=== PATIENT | female | born 1935 | race Caucasian/White ===

== ENCOUNTER 2016-10-08 06:40 | Inpatient (IN) | payer MEDICARE, BC ==
[~2016-10-08] VITALS: Ht 168.9 cm; Wt 72.5 kg
[2016-10-08] VITALS (43 sets, daily range): BP systolic 104–143; BP diastolic 50–85; PULSE 53–66; RESP 11–18; TEMP 97.4–97.7; O2SAT 95–100; Ht 168.9 cm; Wt 72.5 kg
[~2016-10-08 06:40] MED LIST: ASPI325T PO; METO-279 PO; PRAV40TA3 PO; SPIR1TAB4 PO
--- OUTSIDE RECORDS SUMMARY | 2016-10-08 06:46 | XMS REPORT | Summary of Care ---
Author Author Ion Pillai M.D. Organization Unknown Address [address], [place] [id number] Phone Unavailable Care Team Providers Care Delivery Specialist Name Role Phone Rosas Levi, Alek Unavailable Unavailable Wolfgang Cano M.D. Unavailable Unavailable Ion Pillai PP Unavailable Unavailable Unavailable Functional Status Functional Status Health Issues* Name Dates Details Functional status health issues are not documented Status: Cognitive Status Health Issues* Name Dates Details Cognitive status health issues are not documented Status: Problems Name Dates Details Easy Bruising Tendency Status: Active Joint Pain In The Left Knee Status: Active Actinic keratosis (702.0, L57.0) Status: Active Seborrheic keratosis (702.19, L82.1) Status: Active Calculus of gallbladder w/o mention of cholecystitis or obstruction (574.20, K80.20) Status: Active Pre-operative exam (V72.84, Z01.818) Status: Active Pre-operative cardiovascular examination (V72.81, Z01.810) Status: Active Cholelithiasis with cholecystitis (574.10, K80.10) Status: Active Breast cancer (174.9, C50.919) Status: Active Cyst Status: Active Lump, breast (611.72, N63) Status: Active Urinary symptom or sign (788.99, R39.89) Status: Active Dysuria (788.1, R30.0) Status: Active Needs flu shot (V04.81, Z23) Status: Active SOB (shortness of breath) on exertion (786.05, R06.02) Status: Active Chest pain (786.50, R07.9) Status: Active Abnormal stress test (794.39, R94.39) Status: Active Visit for wound check (V58.89, Z51.89) Status: Active Dermatitis (692.9, L30.9) Status: Active 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, 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 Fatigue (780.79, R53.83) Status: Active Hypertension (401.9, I10) Status: Active Constipation (564.00, K59.00) Status: Active Abnormal weight loss (783.21, R63.4) Status: Active Urinary frequency (788.41, R35.0) Status: Active Spinal stenosis (724.00, M48.00) Status: Active Lumbar radiculopathy (724.4, M54.16) Status: Active Leg pain, bilateral (729.5, M79.604) Status: Active Hyperlipidemia (272.4, E78.5) Status: Active Ankle pain, left (719.47, M25.572) Status: Active Ankle sprain (845.00, S93.409A) Status: Active Medications Name Dates Details Spironolactone-HCTZ 25-25 MG Oral Tablet Take 1 tablet daily Quantity: 90 Ion Pillai M.D.* Started ActiveMetoprolol Tartrate 100 MG Oral Tablet TAKE 1/2 TABLET BID * Quantity: 180 Refills: 0 Ion Pillai M.D.* Started ActiveCaptopril 50 MG Oral Tablet 1 and 1/2 tabs bid * Quantity: 270 Refills: 1 Ion Pillai M.D.* Started ActivePravastatin Sodium 40 MG Oral Tablet TAKE 1 TABLET DAILY. * Quantity: 90 Refills: 2 Ion Pillai M.D.* Started ActivePotassium Chloride ER 10 MEQ Oral Capsule Extended Release TAKE 1/2 CAPSULE Daily * Quantity: 30 Refills: 0 * Started ActiveVitamin B-12 500 MCG Oral Tablet TAKE 1/2 TABLET DAILY. * Refills: 0 * Started ActiveVitamin D 1000 UNIT Oral Capsule Take 1/2 of 500 mg tablet * Refills: 0 * Started ActiveAspirin 325 MG Oral Tablet TAKE 1/2 TABLET DAILY * Refills: 0 * Started ActiveMetoprolol Tartrate 100 MG Oral Tablet TAKE 1 TABLET BY MOUTH TWICE A DAY IN THE MORNING AND EVENING * Quantity: 180 Refills: 0 Ion Pillai M.D.* Started 07-Oct-2013 ActiveNitrostat 0.4 MG Sublingual Tablet Sublingual PLACE 1 TABLET UNDER THE TONGUE EVERY 5 MINUTES UP TO 3 DOSES NEEDED FOR CHEST PAIN. * Quantity: 25 Refills: 1 Wolfgang Cano M.D.* Started 11-Apr-2014 [id number] Tablet Sublingual Bottle PredniSONE 10 MG Oral Tablet take 3 tabs daily for 2 days, 2 tabs daily for 2 days, 1 daily for 2 days * Quantity: 20 Refills: 0 Ion Pillai M.D.* Started 30-Sep-2014 ActiveMethocarbamol 750 MG Oral Tablet take one tab every 6 hours as needed for back spasms * Quantity: 30 Refills: 1 Ion Pillai M.D.* Started 30-Sep-2014 Active Allergies and Adverse Reactions Name Dates Details No Known Drug Allergies Status: Active Latex Status: Denied Past Medical History Name Dates Details History of Acute Myocardial Infarction (V12.59) Status: Resolved 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 History of Bright Red Blood Per Rectum Status: Resolved Procedures Procedure Dates Details History of Hysterectomy History of Complete Colonoscopy Completed:02-May-2011 History of Breast Surgery Lumpectomy History of Breast Surgery Excision Of Breast Single Lesion Completed: Comprehensive Metabolic Panel 1212 Ordered:18-Oct-2014 Immunization Name Dates Details Influenza Administered on:22-Mar-2011 Influenza Administered on:27-Mar-2012 Fluvirin Intramuscular Injectable Administered on:20-Apr-2013 Fluzone High-Dose Intramuscular Suspension Lot #: [id number] Administered on:14-Mar-2014 Prevnar 13 Intramuscular Suspension Lot #: [id number] Administered on:14-Mar-2014 Family History Mother* Name Dates Details Family history of Mother At Age ____ Status: Active Family history of Breast Cancer (V16.3) Status: Active Family history of Hypertension (V17.49) Status: Active Father* Name Dates Details Family history of Stroke Syndrome (V17.1) Status: Active Family history of Father At Age ____ Status: Active Family history of Hypertension (V17.49) Status: Active Sister* Name Dates Details Family history of Colon Cancer (V16.0) Status: Active Social History Name Dates Details Smoking Status* Unknown if ever smoked * Never smoker Vital Signs Date Test Result Details 17-Oct-2014 08:51 BP Systolic 119 mm[Hg] Status: BP Diastolic 67 mm[Hg] Status: Heart Rate 68 /min Status: O2 SAT 96 % Status: Results Date Description Value Details 30-Sep-2014 10:27 CBC w/ Auto Diff 7150 WBC 6.9 K/uL (Better) Range: 4.5-11.0 RBC 4.80 mil/uL (Better) Range: 3.60-5.00 HGB 14.2 g/dL (Better) Range: 12.0-16.0 HCT 39.8 % (Better) Range: 36.0-48.0 MCV 82.8 fL (Better) Range: 80.0-99.0 MCH 29.6 pg (Better) Range: 27.3-32.5 MCHC 35.7 % (Better) Range: 32.0-36.0 RDW 13.4 % (Better) Range: 11.6-14.8 PLATELETS 236 K/uL (Better) Range: 150-400 MPV 7.5 fL (Better) Range: 6.0-11.0 %NEUTRO 65.0 % (Better) Range: 37.0-80.0 %LYMPHS 24.1 % (Better) Range: 13.0-50.0 %MONO 6.1 % (Better) Range: 0.0-12.0 %EOS 2.7 % (Better) Range: 0.0-7.0 %BASO 0.6 % (Better) Range: 0.0-2.5 %JUSTIN 1.5 % (Better) Range: 0.0-5.0 NEUTRO 4.5 K/uL (Better) Range: 2.0-6.9 LYMPHS 1.7 K/uL (Better) Range: 0.6-3.4 MONOS 0.4 K/uL (Better) Range: 0.0-0.9 EOS 0.2 K/uL (Better) Range: 0.0-0.7 BASO 0.0 K/uL (Better) Range: 0.0-0.2 10:40 Comprehensive Metabolic Panel 1212 SODIUM 137 mmol/L (Better) Range: 133-144 POTASSIUM 3.8 mmol/L (Better) Range: 3.5-5.1 CHLORIDE 99 mmol/L (Better) Range: 98-110 CARBON DIOXIDE 29.7 mmol/L (Better) Range: 23.0-33.0 ANION GAP 8 mmol/L (Better) Range: 6-16 BUN 19 mg/dL (Above high threshold) Range: 7-18 CREATININE, SERUM 1.04 mg/dL (Better) Range: 0.43-1.13 BUN:CREATININE RATIO 18 (Better) EST GFR, >60 ml/min (Better) Range: >60 EST GFR, NON-AFR SOMALI 51 ml/min (Below low threshold) Range: >60 Comments: EST GFR is reported in ml/min per 1.73 m2 of body surface area. For -Mauritian, please multiple result by 1.2.----- GLUCOSE 122 mg/dL (Above high threshold) Range: 70-100 ALK PHOSPHATASE 94 U/L (Better) Range: 46-116 TOTAL BILIRUBIN 0.60 mg/dL (Better) Range: 0.20-1.00 AST 19 U/L (Better) Range: 8-35 ALT 24 U/L (Better) Range: 14-59 Comments: Please note new reference ranges. Effective 09/08/2014.----- ALBUMIN 3.8 g/dL (Better) Range: 3.4-5.0 TOTAL PROTEIN 7.2 g/dL (Better) Range: 6.4-8.2 A/G RATIO 1.1 units (Better) Range: 1.0-1.8 CALCIUM 9.4 mg/dL (Better) Range: 8.5-10.1 10:40 CREATINE KINASE 1300 CREATINE KINASE 54 U/L (Better) Range: 26-192 17-Oct-2014 10:44 XRay ANKLE-Left Comments: Exam Date: 08: 52Dictation Date: 10:44 X ANKLE COMP (MIN 3V) LT (Better) 28-Oct-2014 07:36 CBC w/ Auto Diff 7150 WBC 9.1 K/uL (Better) Range: 4.5-11.0 RBC 5.09 mil/uL (Above high threshold) Range: 3.60-5.00 HGB 14.7 g/dL (Better) Range: 12.0-16.0 HCT 42.2 % (Better) Range: 36.0-48.0 MCV 83.0 fL (Better) Range: 80.0-99.0 MCH 28.9 pg (Better) Range: 27.3-32.5 MCHC 34.8 % (Better) Range: 32.0-36.0 RDW 13.5 % (Better) Range: 11.6-14.8 PLATELETS 298 K/uL (Better) Range: 150-400 MPV 7.2 fL (Better) Range: 6.0-11.0 %NEUTRO 68.6 % (Better) Range: 37.0-80.0 %LYMPHS 21.1 % (Better) Range: 13.0-50.0 %MONO 5.8 % (Better) Range: 0.0-12.0 %EOS 2.5 % (Better) Range: 0.0-7.0 %BASO 0.8 % (Better) Range: 0.0-2.5 %JUSTIN 1.3 % (Better) Range: 0.0-5.0 NEUTRO 6.2 K/uL (Better) Range: 2.0-6.9 LYMPHS 1.9 K/uL (Better) Range: 0.6-3.4 MONOS 0.5 K/uL (Better) Range: 0.0-0.9 EOS 0.2 K/uL (Better) Range: 0.0-0.7 BASO 0.1 K/uL (Better) Range: 0.0-0.2 Plan of Care Planned Observations* Name Dates Details Planned Goals not documented Goal Planned Encounters* Appointment; Provider: Wolfgang Cano On 09-Mar-2015 11:00 * Appointment; Provider: Hosea Guerin On 20-Feb-2015 09:15 * Appointment; Provider: Wolfgang Cano On 20-Apr-2014 08:00 * Appointment; Provider: Joseph Foy On 25-Jun-2011 11:00 * Appointment; Provider: Daryl Eddy On 02-May-2011 10:30 Instructions * Instructions not documented Encounters Appointment; Walter Vicente Encounter Diagnosis: Problem not documented On 17-Oct-2014 08:25 Appointment; Ion Pillai Encounter Diagnosis: Problem not documented On 30-Sep-2014 09:15 Appointment; Kristel Anderson Encounter Diagnosis: Problem not documented On 13-Sep-2014 12:55 Appointment; Ion Pillai Encounter Diagnosis: Problem not documented On 27-Jun-2014 08:45 Appointment; Wolfgang Cano Encounter Diagnosis: Problem not documented On 06-Jun-2014 14:15 Appointment; Frank Lord Encounter Diagnosis: Problem not documented On 29-Apr-2014 14:00 Appointment; Frank Lord Encounter Diagnosis: Problem not documented On 28-Apr-2014 11:30 Appointment; Ion Pillai Encounter Diagnosis: Problem not documented On 25-Apr-2014 11:00 Appointment; Ion Pillai Encounter Diagnosis: Problem not documented On 13-Apr-2014 09:15 Appointment; Wolfgang Cano Encounter Diagnosis: Problem not documented On 11-Apr-2014 13:00 Appointment; Wolfgang Cano Encounter Diagnosis: Problem not documented On 29-Mar-2014 13:45 Appointment; Ion Pillai Encounter Diagnosis: Problem not documented On 14-Mar-2014 10:45 Appointment; Mina Laboy Encounter Diagnosis: Problem not documented On 22-Feb-2014 14:15 Appointment; Hosea Guerin Encounter Diagnosis: Problem not documented On 21-Feb-2014 09:00 Appointment; Daryl Eddy Encounter Diagnosis: Problem not documented On 10:30 Appointment; Daryl Eddy Encounter Diagnosis: Problem not documented On 10:00 Appointment; Ion Pillai Encounter Diagnosis: Problem not documented On 17-Nov-2013 09:30 Appointment; Hosea Guerin Encounter Diagnosis: Problem not documented On 26-May-2013 14:30 Appointment; Jesse Sweet Encounter Diagnosis: Problem not documented On 07-Apr-2013 14:00 Appointment; Jesse Sweet Encounter Diagnosis: Problem not documented On 30-Mar-2013 07:00 Appointment; Santo Parks Encounter Diagnosis: Problem not documented On 25-Mar-2013 10:15 Appointment; Jesse Sweet Encounter Diagnosis: Problem not documented On 08-Mar-2013 13:00 Appointment; Ion Pillai Encounter Diagnosis: Problem not documented On 18-Feb-2013 10:00 Appointment; Ion Pillai Encounter Diagnosis: Problem not documented On 09:30 Appointment; Jailyn Dodd Encounter Diagnosis: Problem not documented On 10:00 Appointment; Frank Lord Encounter Diagnosis: Problem not documented On 28-Oct-2012 10:00
--- OUTSIDE RECORDS SUMMARY | 2016-10-08 06:46 | XMS REPORT | Summary of Care ---
Author Author Jerome Levi, Wolfgang Farfan Unknown Address [address], [place] [id number] Phone Unavailable Care Team Providers Care Child Life Specialist Name Role Phone Alek Pillai M.D. Unavailable Unavailable Wolfgang Cano M.D. Unavailable Unavailable [...] Active Seborrheic keratosis (702.19, L82.1) Status: Active Pre-operative exam (V72.84, Z01.818) Status: Active Pre-operative cardiovascular examination (V72.81, Z01.810) Status: Active Cholelithiasis with cholecystitis (574.10, K80.10) Status: Active Cyst Status: Active Lump, breast (611.72, N63) Status: Active Urinary symptom or sign (788.99, R39.9) Status: Active Dysuria (788.1, R30.0) Status: Active Needs flu shot (V04.81, Z23) Status: Active SOB (shortness of breath) on exertion (786.05, R06.02) Status: Active Chest pain (786.50, R07.9) Status: Active Abnormal stress test (794.39, R94.39) Status: Active Visit for wound check (V58.89, Z51.89) Status: Active Fatigue (780.79, R53.83) Status: Active Abnormal weight loss (783.21, R63.4) Status: Active Urinary frequency (788.41, R35.0) Status: Active Spinal stenosis (724.00, M48.00) Status: Active Lumbar radiculopathy (724.4, M54.16) Status: Active Leg pain, bilateral (729.5, M79.604) Status: Active Ankle pain, left (719.47, M25.572) Status: Active Ankle sprain (845.00, S93.409A) Status: Active Gout (274.9, M10.9) Status: Active Dermatitis (692.9, L30.9) Status: Active Hyperlipidemia (272.4, E78.5) Status: Active Calculus of gallbladder w/o mention of cholecystitis or obstruction (574.20, K80.20) Status: Active Breast cancer (174.9, C50.919) Status: Active Constipation (564.00, K59.00) Status: Active Hypokalemia (276.8, E87.6) Status: Active 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 * Quantity: 30 Refills: 5 Ion Pillai M.D.* Started ActivePotassium Chloride ER 10 MEQ Oral Capsule Extended Release take 1 capsule daily * Quantity: 30 Refills: 0 Ion Pillai M.D.* Started ActiveAspirin 325 MG Oral Tablet TAKE 1/2 TABLET DAILY * Refills: 0 * Started ActiveMetoprolol Tartrate 100 MG Oral Tablet TAKE 1 TABLET DAILY. * Refills: 0 Ion Pillai M.D.* Started 07-Oct-2013 ActiveNitrostat 0.4 MG Sublingual Tablet Sublingual PLACE 1 TABLET UNDER THE TONGUE EVERY 5 MINUTES UP TO 3 DOSES NEEDED FOR CHEST PAIN. * Quantity: 25 Refills: 1 Wolfgang Cano M.D.* Started 11-Apr-2014 [id number] Tablet Sublingual Bottle Magnesium 300 MG Oral Capsule TAKE 1 CAPSULE DAILY. * Refills: 0 * Started 20-Feb-2015 Active Allergies and Adverse Reactions Name Dates [...] Surgery Excision Of Breast Single Lesion Completed: CBC w/ Auto Diff 7150 Ordered:20-Feb-2015 Comprehensive Metabolic Panel 1212 Ordered:20-Feb-2015 MAMMOGRAM-DIAGNOSTIC BILATERAL FOR BREAST CANCER OR FOLLOW-UP Ordered:2014 Immunization Name Dates Details Influenza Administered on:22-Mar-2011 Influenza Administered on:27-Mar-2012 Fluvirin Intramuscular Injectable Administered on:20-Apr-2013 Fluzone High-Dose Intramuscular Suspension Lot #: [id number] Administered on:14-Mar-2014 Prevnar 13 Intramuscular Suspension Lot #: [id number] Administered on:14-Mar-2014 Adacel 5-2-15.5 LF-MCG/0.5 Intramuscular Suspension Lot #: [id number] Administered on:10-Feb-2015 Family History Mother* Name Dates Details Family [...] smoker Vital Signs Date Test Result Details 09-Mar-2015 10:42 BP Systolic 124 mm[Hg] Status: BP Diastolic 80 mm[Hg] Status: Heart Rate 72 /min Status: Weight 165 lb Status: Body Mass Index Calculated 26.63 kg/m2 Status: Body Surface Area Calculated 1.84 m2 Status: 20-Feb-2015 09:11 BP Systolic 134 mm[Hg] Status: BP Diastolic 78 mm[Hg] Status: Temperature 97.8 f Status: Heart Rate 66 /min Status: Weight 166 lb Status: Body Mass Index Calculated 26.79 kg/m2 Status: Body Surface Area Calculated 1.85 m2 Status: 10-Feb-2015 11:06 BP Systolic 104 mm[Hg] Status: BP Diastolic 66 mm[Hg] Status: Weight 162 lb Status: Body Mass Index Calculated 26.15 kg/m2 Status: Body Surface Area Calculated 1.83 m2 Status: Results Date Description Value Details 09-Feb-2015 11:59 MAMMOGRAM-DIAGNOSTIC BILATERAL FOR BREAST CANCER OR FOLLOW- UP Comments: Exam Date: 02/09/2015 10:24Dictation Date: 02/09/2015 11:59 XM DIAGNOSTIC BILATERAL (Better) 10-Feb-2015 08:54 Comprehensive Metabolic Panel 1212 SODIUM 139 mmol/L (Better) Range: 133-144 POTASSIUM 3.8 mmol/L (Better) Range: 3.5-5.1 CHLORIDE 99 mmol/L (Better) Range: 98-110 CARBON DIOXIDE 27.4 mmol/L (Better) Range: 23.0-33.0 ANION GAP 13 mmol/L (Better) Range: 6-16 BUN 23 mg/dL (Above high threshold) Range: 7-18 CREATININE, SERUM 1.09 mg/dL (Above high threshold) Range: 0.55-1.02 Comments: Please note new reference ranges effective 2014.----- BUN:CREATININE RATIO 21 (Better) EST GFR, 58 ml/min (Below low threshold) Range: >60 EST GFR, NON-AFR AZERBAIJANI 48 ml/min (Below low threshold) Range: >60 Comments: EST GFR is reported in ml/min per 1.73 m2 of body surface area. For -Guyanese, please multiple result by 1.2.----- GLUCOSE 92 mg/dL (Better) Range: 70-100 ALK PHOSPHATASE 89 U/L (Better) Range: 46-116 TOTAL BILIRUBIN 1.00 mg/dL (Better) Range: 0.20-1.00 AST 17 U/L (Better) Range: 8-35 ALT 25 U/L (Better) Range: 14-59 Comments: Please note new reference ranges. Effective 09/08/2014.----- ALBUMIN 4.1 g/dL (Better) Range: 3.4-5.0 TOTAL PROTEIN 7.3 g/dL (Better) Range: 6.4-8.2 A/G RATIO 1.3 units (Better) Range: 1.0-1.8 CALCIUM 9.6 mg/dL (Better) Range: 8.5-10.1 15-Feb-2015 10:02 CBC w/ Auto Diff 7150 WBC 8.5 K/uL (Better) Range: 4.5-11.0 RBC 5.05 mil/uL (Above high threshold) Range: 3.60-5.00 HGB 15.1 g/dL (Better) Range: 12.0-16.0 HCT 42.6 % (Better) Range: 36.0-48.0 MCV 84.5 fL (Better) Range: 80.0-99.0 MCH 29.9 pg (Better) Range: 27.3-32.5 MCHC 35.4 % (Better) Range: 32.0-36.0 RDW 14.2 % (Better) Range: 11.6-14.8 PLATELETS 259 K/uL (Better) Range: 150-400 MPV 7.5 fL (Better) Range: 6.0-11.0 %NEUTRO 59.0 % (Better) Range: 37.0-80.0 %LYMPHS 29.3 % (Better) Range: 13.0-50.0 %MONO 4.9 % (Better) Range: 0.0-12.0 %EOS 3.2 % (Better) Range: 0.0-7.0 %BASO 0.8 % (Better) Range: 0.0-2.5 %JUSTIN 2.8 % (Better) Range: 0.0-5.0 NEUTRO 5.0 K/uL (Better) Range: 2.0-6.9 LYMPHS 2.5 K/uL (Better) Range: 0.6-3.4 MONOS 0.4 K/uL (Better) Range: 0.0-0.9 EOS 0.3 K/uL (Better) Range: 0.0-0.7 BASO 0.1 K/uL (Better) Range: 0.0-0.2 10:18 Comprehensive Metabolic Panel 1212 SODIUM 139 mmol/L (Better) Range: 133-144 POTASSIUM 3.4 mmol/L (Below low threshold) Range: 3.5-5.1 CHLORIDE 98 mmol/L (Better) Range: 98-110 CARBON DIOXIDE 31.1 mmol/L (Better) Range: 23.0-33.0 ANION GAP 10 mmol/L (Better) Range: 6-16 BUN 15 mg/dL (Better) Range: 7-18 CREATININE, SERUM 1.03 mg/dL (Above high threshold) Range: 0.55-1.02 Comments: Please note new reference ranges effective 2014.----- BUN:CREATININE RATIO 15 (Better) EST GFR, >60 ml/min (Better) Range: >60 EST GFR, NON-AFR AZERBAIJANI 51 ml/min (Below low threshold) Range: >60 Comments: EST GFR is reported in ml/min per 1.73 m2 of body surface area. For -Guyanese, please multiple result by 1.2.----- GLUCOSE 94 mg/dL (Better) Range: 70-100 ALK PHOSPHATASE 89 U/L (Better) Range: 46-116 TOTAL BILIRUBIN 0.60 mg/dL (Better) Range: 0.20-1.00 AST 15 U/L (Better) Range: 8-35 ALT 23 U/L (Better) Range: 14-59 Comments: Please note new reference ranges. Effective 09/08/2014.----- ALBUMIN 4.0 g/dL (Better) Range: 3.4-5.0 TOTAL PROTEIN 7.1 g/dL (Better) Range: 6.4-8.2 A/G RATIO 1.3 units (Better) Range: 1.0-1.8 CALCIUM 9.3 mg/dL (Better) Range: 8.5-10.1 Plan of Care Planned Observations* Name Dates Details Planned Goals not documented Goal Planned Encounters* Appointment; Provider: Wolfgang Cano On 15-Mar-2016 08:45 * Appointment; Provider: Hosea Guerin On 19-Feb-2016 09:30 * Appointment; Provider: Ion Pillai On 13-Apr-2015 09:15 * Appointment; Provider: Wolfgang Cano On 20-Apr-2014 08:00 * Appointment; Provider: Joseph Foy On 25-Jun-2011 11:00 * Appointment; Provider: Daryl Eddy On 02-May-2011 10:30 Instructions * Instructions not documented Encounters Appointment; Wolfgang Cano Encounter Diagnosis: Problem not documented On 09-Mar-2015 11:00 Appointment; Hosea Guerin Encounter Diagnosis: Problem not documented On 20-Feb-2015 09:15 Appointment; Ion Pillai Encounter Diagnosis: Problem not documented On 10-Feb-2015 10:45 Appointment; Frank Lord Encounter Diagnosis: Problem not documented On 13:15 Appointment; Walter Vicente Encounter Diagnosis: Problem not documented On 08:10 Appointment; Ion Pillai Encounter Diagnosis: Problem not documented On 28-Oct-2014 08:15 Appointment; Walter Vicente Encounter Diagnosis: Problem not [...]
--- OUTSIDE RECORDS SUMMARY | 2016-10-08 06:47 | XMS REPORT ---
Author Author GENERATED, SYSTEM Organization Unknown Address Unknown Phone Unavailable Care Team Providers Care Fishing Manager Name Role Phone MD KJ, [place] PP [phone] Reason For Visit Chief Complaint BACK SPASM Social History Functional Status Vital Signs Results Chemistry from 08/23/2016 9:15 PMTROPONIN-I <0.017 NG/ML (0.000-0.056 NG/ML) Chemistry from 08/23/2016 7:05 PMSODIUM 137 MMOL/L (136-145 MMOL/L) POTASSIUM 3.2 MMOL/L L (3.5-5.1 MMOL/L) CHLORIDE 100 MMOL/L (98-107 MMOL/L) TCO2 29.1 MMOL/L (21.0-32.0 MMOL/L) *ANION GAP 7.9 MMOL/L L (8.0-16.0 MMOL/L) BUN 17 MG/DL (7-18 MG/DL) CREATININE 1.02 MG/DL (0.55-1.02 MG/DL) *BUN/CREATININE RATIO 16.7 (9.1-17.0 ) GLUCOSE 105 MG/DL H (65-99 MG/DL) *GFR EST NON AFR CITIZEN OF [place] 51 ML/MIN *GFR EST AFR AMER 59 ML/MIN CALCIUM 9.6 MG/DL (8.5-10.1 MG/DL) BILIRUBIN TOTAL 0.60 MG/DL (0.20-1.00 MG/DL) TOTAL PROTEIN 7.7 GM/DL (6.4-8.2 GM/DL) ALBUMIN 4.1 GM/DL (3.4-5.0 GM/DL) *GLOBULIN 3.6 GM/DL H (2.3-3.5 GM/DL) *A/G RATIO 1.1 MG/DL L (1.5-2.2 MG/DL) ALK PHOS 117 U/L H (46-116 U/L) ALT (SGPT) 21 U/L (16-63 U/L) AST (SGOT) 18 U/L (15-37 U/L) TROPONIN-I <0.017 NG/ML (0.000-0.056 NG/ML) CK 45 U/L (26-192 U/L) Hematology from 08/23/2016 7:05 PMWBC 12.3 X10e3/UL H (3.6-11.2 X10e3/UL) RBC 5.26 X10e6/UL H (3.63-4.92 X10e6/UL) HEMOGLOBIN 14.8 G/DL H (11.0-14.3 G/DL) HEMATOCRIT 43.5 % H (31.2-41.9 %) *MCV 82.8 FL (79.0-98.0 FL) *MCH 28.2 PG (27.0-33.0 PG) *MCHC 34.1 G/DL (32.0-36.0 G/DL) *RDW 14.2 % (12.3-17.0 %) *RDWSD 41.6 (37.1-47.8 ) PLATELET 230 X10e3/UL (159-386 X10e3/UL) *MPV 8.1 FL (7.4-10.4 FL) AUTOMATED DIFF PERFORMED SEGS 74.8 % *LYMPHOCYTES 17.0 % *MONOCYTES 6.1 % *EOSINOPHILS 1.1 % *BASOPHILS 1.0 % *ABSOLUTE NEUTROPHILS 9.20 X10e3/UL H (1.80-7.80 X10e3/UL) *ABSOLUTE LYMPHOCYTES 2.10 X10e3/UL (1.00-3.00 X10e3/UL) *ABSOLUTE MONOCYTES 0.80 X10e3/UL (0.30-1.00 X10e3/UL) *ABSOLUTE EOSINOPHILS 0.10 X10e3/UL (0.00-0.50 X10e3/UL) *ABSOLUTE BASOPHILS 0.10 X10e3/UL (0.00-0.20 X10e3/UL) Urinalysis from 08/23/2016 8:45 PM*URINE COLOR YELLOW (STRAW/YELL/DK YELL ) *URINE APPEARANCE CLEAR (CLEAR ) URINE PH 7.0 (5.0-8.0 ) URINE SPECIFIC GRAVITY <1.005 (<=1.005->=1.030 ) *URINE GLUCOSE NEGATIVE MG/DL (NEGATIVE MG/DL) *URINE BILIRUBIN NEGATIVE (NEGATIVE ) *URINE KETONES NEGATIVE MG/DL (NEGATIVE MG/DL) *URINE BLOOD TRACE-INTACT A (NEGATIVE ) *URINE PROTEIN NEGATIVE MG/DL (NEGATIVE MG/DL) *URINE UROBILINOGEN 0.2 EU/DL (0.2-1.0 EU/DL) *URINE NITRITES NEGATIVE (NEGATIVE ) *URINE LEUKOCYTES TRACE A (NEGATIVE ) *MICROSCOPIC EXAM PERFORMED PERFORMED *WBC URINE 1-5 /HPF (0-5 /HPF) *SQUAMOUS EP. CELLS MANY /LPF A (NEG-FEW /LPF) *BACTERIA FEW /HPF A (NEGATIVE /HPF) *COMMENT See Below Coagulation from 08/23/2016 7:05 PM*PROTHROMBIN TIME 10.3 SECONDS (9.4-11.5 SECONDS) *INR 1.0 (0.9-1.1 ) PARTIAL THROMBOPLASTIN TIME 25.8 SECONDS (23.0-31.0 SECONDS) Microbiology from 08/23/2016 8:45 PM* CULTURE URINE (Preliminary Result) Specimen Number: [id number] Sample Collection Date/Time: 08/23/2016 8:45 PM Specimen Source: Urine Clean Catch CULTURE URINE: >100,000 cfu/ml gram positive colony types CT Scan from 08/23/2016 8:23 PMCT CHEST (CTA) History: cp r/o dissection . Technique: Post contrast images were performed after the administration of 95 milliliters of Isovue intravenous contrast. 3 dimensional reconstructions were performed by the technologist. Priors: None. Findings: Heart Size: Normal. There is marked atherosclerotic calcification coronary arteries. Aorta: There is an ascending aortic aneurysm which appears chronic measuring approximate 4 cm in diameter. Mediastinum and Danisha: No dominant adenopathy or fluid collection. Pulmonary Arteries: No evidence of filling defect to suggest pulmonary emboli. Pleura: No effusion or pneumothorax. Pulmonary parenchyma: No consolidation or dominant measurable mass. Upper abdomen: There is a 3 cm peripherally enhancing, solid right renal mass highly suspicious for renal cell carcinoma. There is moderate descending colon diverticulosis without diverticulitis. Impression: No evidence pulmonary embolus or acute infiltrate. Chronic 4 cm ascending aortic aneurysm. Marked atherosclerotic calcification of the coronary arteries. 3 cm enhancing right renal mass highly suspicious for renal cell carcinoma. Electronically signed by: Juaquin Rey MD Dictated: 08/24/2016 11:55 CT Scan from 08/23/2016 8:19 PMCT SPINE LUMBAR W/O CONTRAST ADDENDUM REPORT Addendum: When correlated with CT angiogram performed same date, and the right renal mass section measures approximate 3 cm in diameter and demonstrates peripheral enhancement and is highly suspicious for renal cell carcinoma. Electronically signed by: Juaquin Rey MD Dictated: 08/24/2016 11:56 Addendum . FINAL REPORT History: back pain . Priors: None. Findings: Lumbar alignment is within normal limits No acute fractures are identified There is moderate generalized disc bulging L2-3 L3-4 L4-5 with mild to moderate bilateral neural foraminal stenosis at all 3 levels. No significant central spinal stenosis identified. There is mild degenerative disease at L1-2 and L5-S1 without focal disc protrusion or central spinal stenosis. No focal disc protrusions or significant central spinal stenosis is identified. There is a 1.7 cm slightly hyperdense right renal mass posteriorly. This may represent a hemorrhagic cyst however renal neoplasm cannot be excluded. Renal ultrasound is recommended for further evaluation. Impression: Gttl-ye-ihkveozt lumbar spondylosis without acute fracture or significant spinal stenosis. There is complex, slightly hyperdense right renal mass which is incompletely evaluated measuring 1.7 cm in diameter at least. Ultrasound is recommended to exclude renal neoplasm. Electronically signed by: Juaquin Rey MD Dictated: 08/24/2016 11:[address] SPINE THORACIC W/O CONTRAST History: back pain . Presents with pain between her eshoulder blades that radiated thoru to her chest with some chest pain Priors: None. Findings: Thoracic alignment is within normal limits No acute Fractures or subluxations are identified Disc spaces are well maintained. No focal disc protrusions or significant central spinal stenosis is identified. Note is made of a heterogeneous 3 cm right renal mass which is incompletely evaluated on this study. There is a hyperdense portion posteromedially. Findings suspicious for right renal cell carcinoma. Impression: No evidence of focal disc protrusion or thoracic spine fracture. 3 cm or incompletely evaluated right renal mass for which postcontrast CT and renal ultrasound is recommended further evaluation. The lesion is highly suspicious for renal cell carcinoma. Electronically signed by: Juaquin Rey MD Dictated: 08/24/2016 11:53 Problems Encounter Diagnosis No relevant problems exist. Additional Problems * Backache Comment:Problem resolved by [facility] Work[facility] upon Discharge, Status: Resolved. Encounters Encounter Diagnosis No relevant problems exist. Plan of Care Procedures No relevant procedures performed. Immunizations No immunizations administered or ordered. Hospital Course Hospital Discharge Instructions Allergies, Adverse Reactions, Alerts * Latex Allergy has not been assessed. * IV Contrast Allergy has not been assessed. * No Known Drug Allergies. Medication Medication reconciliation has not been performed.
--- OUTSIDE RECORDS SUMMARY | 2016-10-08 06:47 | XMS REPORT | Summary of Care ---
Author Author Kristel Anderson APRN Organization Unknown Address [address] [place] [id number] Phone Unavailable Care Team Providers Care [employer] Fitness Instructor Name Role Phone Alek Pillia M.D. Unavailable Unavailable Wolfgang Cano M.D. 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 Hyperlipidemia (272.4, E78.5) Status: Active Fatigue (780.79, R53.83) Status: Active Hypertension (401.9, I10) Status: Active Constipation (564.00, K59.00) Status: Active Abnormal weight loss (783.21, R63.4) Status: Active Medications Name Dates Details Spironolactone-HCTZ 25-25 MG Oral Tablet Take 1 tablet daily Quantity: 90 Ion Pillai M.D.* Started ActiveMetoprolol Tartrate 100 MG Oral Tablet TAKE 1/2 TABLET BID * Quantity: 180 Refills: 0 Ion Pillai M.D.* Started ActiveCaptopril 25 MG Oral Tablet 1/2 TABLET DAILY * Refills: 0 Ion Pillai M.D.* Started ActivePravastatin [...] TABLET DAILY * Refills: 0 * Started ActiveNitrostat 0.4 MG Sublingual Tablet Sublingual PLACE 1 TABLET UNDER THE TONGUE EVERY 5 MINUTES UP TO 3 DOSES NEEDED FOR CHEST PAIN. * Quantity: 25 Refills: 1 Wolfgang Cano M.D.* Started 11-Apr-2014 [id number] Tablet Sublingual Bottle Allergies and Adverse Reactions Name Dates Details [...] Surgery Excision Of Breast Single Lesion Completed: Procedures not documented Immunization Name Dates Details Influenza Administered on:22-Mar-2011 Influenza Administered on:27-Mar-2012 Fluvirin Intramuscular Injectable Administered on:20-Apr-2013 Fluzone High-Dose Intramuscular Suspension Lot #: [id number] Administered on:14-Mar-2014 Prevnar 13 Intramuscular Suspension Lot #: [id number] Administered on:14-Mar-2014 Family History Mother* Name Dates [...] smoker Vital Signs Date Test Result Details 13-Sep-2014 13:28 BP Systolic 136 mm[Hg] Status: BP Diastolic 75 mm[Hg] Status: Heart Rate 69 /min Status: Temperature 98.2 f Status: O2 SAT 99 % Status: Results Date Description Value Details 13-Sep-2014 13:17 Urinalysis, Reflex to Microscopic or Culture PRN 8005 pH 7.0 (Better) Range: 5.0-7.5 SP GRAVITY 1.015 (Better) Range: 1.010-1.030 APPEARANCE CLEAR (Better) Range: Clear COLOR YELLOW (Better) Range: Straw-Yellow PROTEIN NEGATIVE mg/dL (Better) Range: Negative-Trace GLUCOSE NEGATIVE mg/dL (Better) Range: Negative KETONE NEGATIVE mg/dL (Better) Range: Negative BILIRUB NEGATIVE (Better) Range: Negative BLOOD NEGATIVE (Better) Range: Negative UROBIL 0.2 EU/dL (Better) Range: 0.2-1.0 NITRITE NEGATIVE (Better) Range: Negative LEUK TRACE (Abnormal) Range: Negative 13:17 Urine Microscopic UMIC WBC 0-2 /HPF (Better) Range: 0-5 BACTERIA Trace /HPF (Better) Range: Negative-Trace EPITH 0-2 /HPF (Better) Range: 0-10 Plan of Care Planned Observations* Name Dates Details Planned Goals not documented Goal Planned Encounters* Appointment; Provider: Wolfgang Cano On 09-Mar-2015 11:00 * Appointment; Provider: Hosea Guerin On 20-Feb-2015 09:15 * Appointment; Provider: Ion Pillai On 28-Oct-2014 08:15 * Appointment; Provider: Wolfgang Cano On 20-Apr-2014 08:00 * Appointment; Provider: Joseph Foy On 25-Jun-2011 11:00 * Appointment; Provider: Daryl Eddy On 02-May-2011 10:30 Instructions * Instructions not documented Encounters Appointment; Kristel Anderson Encounter Diagnosis: Problem not [...]
--- OUTSIDE RECORDS SUMMARY | 2016-10-08 06:47 | XMS REPORT | Summary of Care ---
Author Author Ion Pillai M.D. Organization Unknown Address Unknown Phone Unavailable Care Team Providers Care Sweater Operator Name Role Phone Alek Pillai M.D. Unavailable Unavailable Wolfgang Cano M.D. Unavailable Unavailable Ion Pillai Unavailable Unavailable Unavailable Functional Status Name Dates Details Functional status health issues are not documented Status: Name Dates Details Cognitive status health issues are not documented Status: Problems Name Dates Details Easy Bruising Tendency Status: Active Joint Pain In The Left Knee Status: Active Actinic keratosis (702.0, L57.0) Status: Active Pre-operative cardiovascular examination (V72.81, Z01.810) Status: Active Cyst Status: Active Urinary symptom or sign (788.99, R39.9) Status: Active Dysuria (788.1, R30.0) Status: Active Needs flu shot (V04.81, Z23) Status: Active Chest pain (786.50, R07.9) Status: Active Visit for wound check (V58.89, Z51.89) Status: Active Urinary frequency (788.41, R35.0) Status: Active Ankle pain, left (719.47, M25.572) Status: Active Hyperlipidemia (272.4, E78.5) Status: Active Fatigue (780.79, R53.83) Status: Active Dermatitis (692.9, L30.9) Status: Active Pain in both lower extremities (729.5, M79.604) Status: Active Left lower quadrant pain (789.04, R10.32) Status: Active Calculus of gallbladder w/o mention of cholecystitis or obstruction (574.20, K80.20) Status: Active Cholelithiasis with cholecystitis (574.10, K80.10) Status: Active SOB (shortness of breath) on exertion (786.05, R06.02) Status: Active Abnormal stress test (794.39, R94.39) Status: Active Leg pain, bilateral (729.5, M79.604) Status: Active Spinal stenosis (724.00, M48.00) Status: Active Lumbar radiculopathy (724.4, M54.16) Status: Active Gout (274.9, M10.9) Status: Active Left foot pain (729.5, M79.672) Status: Active Seborrheic keratosis (702.19, L82.1) Status: Active Abdominal pain (789.00, R10.9) Status: Active Gastroenteritis, acute (558.9, K52.9) Status: Active Diverticulitis (562.11, K57.92) Status: Active Abnormal weight loss (783.21, R63.4) Status: Active Hyperlipidemia (272.4, E78.5) Status: Active Acute gouty arthropathy (274.01, M10.9) Status: Active 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, 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 Constipation (564.00, K59.00) Status: Active Hypertension (401.9, I10) Status: Active Idiopathic peripheral neuropathy (356.9, G60.9) Status: Active Urinary incontinence in female (788.30, R32) Status: Active Low back pain (724.2, M54.5) Status: Active Multilevel degenerative disc disease (722.6, M53.9) Status: Active Back pain (724.5, M54.9) Status: Active 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 Start 10-Apr-2016 Active Pravastatin Sodium 40 MG Oral Tablet TAKE 1/2 TABLET DAILY. * Quantity: 45 Refills: 0 Ion Pillai M.D. Start Active Metoprolol Tartrate 100 MG Oral Tablet TAKE 1/2 TABLET DAILY * Quantity: 45 Refills: 3 Ion Pillai M.D. * Start 07-Oct-2013 Active Nitrostat 0.4 MG Sublingual Tablet Sublingual PLACE 1 TABLET UNDER THE TONGUE EVERY 5 MINUTES UP TO 3 DOSES NEEDED FOR CHEST PAIN. * Quantity: 25 Refills: 1 Jerome LeviWolfgang * Start 11-Apr-2014 Active 25 Tablet Sublingual Bottle Magnesium 250 MG Oral Tablet 1 daily * Refills: 0 Ion Pillai M.D. * Start 04-Sep-2015 Active Potassium 99 MG Oral Tablet TAKE 1 TABLET DAILY. * Refills: 0 Ion Pillai M.D. * Start 04-Sep-2015 Active Myrbetriq 25 MG Oral Tablet Extended Release 24 Hour Take 1 tablet daily * Quantity: 30 Refills: 5 Ion Pillai M.D. Start 20-Jun-2016 Active Gabapentin 100 MG Oral Capsule take 2 capsules twice daily for back pain * Quantity: 1 Refills: 0 Ion Pillai M.D. Start 26-Aug-2016 Active 120 Capsule Bottle Potassium Chloride ER 20 MEQ Oral Tablet Extended Release Take one tab daily * Quantity: 30 Refills: 0 Ion Pillai M.D. 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 Calculus of gallbladder w/o mention of cholecystitis or obstruction (574.20, K80.20) Status: Active Cholelithiasis with cholecystitis (574.10, K80.10) Status: Active Constipation (564.00, K59.00) Status: Active Gout (274.9, M10.9) Status: Active Hyperlipidemia (272.4, E78.5) Status: Active Hypertension (401.9, I10) Status: Active Leg pain, bilateral (729.5, M79.604) Status: Active Lumbar radiculopathy (724.4, M54.16) Status: Active Seborrheic keratosis (702.19, L82.1) Status: Active SOB (shortness of breath) on exertion (786.05, R06.02) Status: Active Spinal stenosis (724.00, M48.00) Status: Active History of Acute Myocardial Infarction (V12.59) Status: Resolved 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 History of Bright Red Blood Per Rectum Status: Resolved History of Right renal mass (593.9, N28.89) Status: Resolved Procedures Procedure Dates Details History of Hysterectomy History of Complete Colonoscopy Completed: 02-May-2011 History of Breast Surgery Lumpectomy History of Breast Surgery Excision Of Breast Single Lesion Completed: May-2011 CBC w/ Auto Diff 7150 Ordered: 04-Sep-2016 Comprehensive Metabolic Panel 1212 Ordered: 04-Sep-2016 ULTRASOUND RENAL SONO Ordered: 01-Aug-2016 XRay CHEST-PA & LAT Ordered: 05-Sep-2016 NUC MED RENAL SCAN Ordered: 05-Sep-2016 Immunization Name Dates Details Influenza on: 22-Mar-2011 Influenza on: 27-Mar-2012 Fluvirin INJ on: 20-Apr-2013 Fluzone High-Dose SUSP Lot #: [id number] on: 14-Mar-2014 Prevnar 13 Intramuscular Suspension Lot #: [id number] on: 14-Mar-2014 Adacel 5-2-15.5 LF-MCG/0.5 Intramuscular Suspension Lot #: [id number] on: 10-Feb-2015 Fluzone High-Dose SUSP Lot #: [id number] on: 13-Apr-2015 Family History Name Dates Details Family history of Mother At Age ____ Status: Active Family history of Breast Cancer (V16.3) Status: Active Family history of Hypertension (V17.49) Status: Active Name Dates Details Family history of Stroke Syndrome (V17.1) Status: Active Family history of Father At Age ____ Status: Active Family history of Hypertension (V17.49) Status: Active Name Dates Details Family history of Colon Cancer (V16.0) Status: Active Social History Name Dates Details - Status: Name Dates Details Unknown if ever smoked Never smoker Vital Signs Date Test Result Details 20-Sep-2016 09:33 BP Systolic 126 mm[Hg] Status: Comments: Location: ; Position: BP Diastolic 78 mm[Hg] Status: Comments: Location: ; Position: Heart Rate 63 /min Status: Weight 152 lb Status: Physical Findings 97 Status: Comments: O2 Saturation Body Mass Index Calculated 24.53 kg/m2 Status: Body Surface Area Calculated 1.78 m2 Status: 17-Sep-2016 09:11 BP Systolic 130 mm[Hg] Status: Comments: Location: ; Position: BP Diastolic 80 mm[Hg] Status: Comments: Location: ; Position: Weight 149 lb Status: Body Mass Index Calculated 24.05 kg/m2 Status: Body Surface Area Calculated 1.76 m2 Status: 04-Sep-2016 13:23 BP Systolic 123 mm[Hg] Status: Comments: Location: ; Position: BP Diastolic 72 mm[Hg] Status: Comments: Location: ; Position: Temperature 97.7 f Status: Heart Rate 84 /min Status: Physical Findings 16 Status: Comments: Respiration Weight 150 lb Status: Physical Findings 98 Status: Comments: O2 Saturation Body Mass Index Calculated 24.21 kg/m2 Status: Body Surface Area Calculated 1.77 m2 Status: 26-Aug-2016 15:38 BP Systolic 140 mm[Hg] Status: Comments: Location: ; Position: BP Diastolic 84 mm[Hg] Status: Comments: Location: ; Position: Weight 154 lb Status: Body Mass Index Calculated 24.86 kg/m2 Status: Body Surface Area Calculated 1.79 m2 Status: Results Date Description Value Details 28-Aug-2016 09:37 ULTRASOUND PELVIC SONO Comments: Exam Date: 08/28/2016 09: 14Dictation Date: 08/28/2016 09:37 XS PELVIC SONO 09:39 ULTRASOUND ABDOMEN COMPLETE Comments: Exam Date: 08/28/2016 08: 38Dictation Date: 08/28/2016 09:39 XS ABDOMEN COMPLETE 13-Sep-2016 14:10 NUC MED RENAL SCAN Comments: Exam Date: 09/13/2016 07: 47Dictation Date: 09/13/2016 14:10 XN RENAL SCAN 17-Sep-2016 08:21 ECG/ EKG Preop Electro CardioGram 08:30 XRay CHEST-PA & LAT Comments: Exam Date: 09/17/2016 07:43Dictation Date: 09/17/2016 08:30 X CHEST PA & LAT 08:40 CBC w/ Auto Diff 7150 WBC 8.4 K/uL Range: 4.5-11.0 RBC 5.04 mil/uL (Above high threshold) Range: 3.60-5.00 HGB 15.1 g/dL Range: 12.0-16.0 HCT 43.0 % Range: 36.0-48.0 MCV 85.3 fL Range: 80.0-99.0 MCH 30.0 pg Range: 27.3-32.5 MCHC 35.2 % Range: 32.0-36.0 RDW 14.8 % Range: 11.6-14.8 PLATELETS 263 K/uL Range: 150-400 MPV 7.0 fL Range: 6.0-11.0 %NEUTRO 71.8 % Range: 37.0-80.0 %LYMPHS 17.8 % Range: 13.0-50.0 %MONO 6.6 % Range: 0.0-12.0 %EOS 1.6 % Range: 0.0-7.0 %BASO 0.4 % Range: 0.0-2.5 %JUSTIN 1.8 % Range: 0.0-5.0 NEUTRO 6.0 K/uL Range: 2.0-6.9 LYMPHS 1.5 K/uL Range: 0.6-3.4 MONOS 0.6 K/uL Range: 0.0-0.9 EOS 0.1 K/uL Range: 0.0-0.7 BASO 0.0 K/uL Range: 0.0-0.2 08:48 PROTIME PANEL 7000 PROTIME 13.0 secs Range: 12.0-14.9 INR 1.02 08:49 PTT 7500 PTT 27.4 secs Range: 23.0-34.7 09:19 Comprehensive Metabolic Panel 1212 Comments: dos ? dr cruz, surgery isn 't scheduled yet SODIUM 140 mmol/L Range: 133-144 POTASSIUM 3.0 mmol/L (Below low threshold) Range: 3.5-5.1 CHLORIDE 100 mmol/L Range: 98-110 CARBON DIOXIDE 31.4 mmol/L Range: 23.0-33.0 ANION GAP 9 mmol/L Range: 6-16 BUN 26 mg/dL (Above high threshold) Range: 7-18 CREATININE, SERUM 1.09 mg/dL (Above high threshold) Range: 0.55-1.02 BUN:CREATININE RATIO 24 EST GFR, 58 ml/min (Below low threshold) Range: >60 EST GFR, NON-AFR SAMMARINESE 48 ml/min (Below low threshold) Range: >60 Comments: EST GFR is reported in ml/min per 1.73 m2 of body surface area. ----- GLUCOSE 80 mg/dL Range: 70-100 ALK PHOSPHATASE 95 U/L Range: 46-116 TOTAL BILIRUBIN 0.90 mg/dL Range: 0.20-1.00 AST 23 U/L Range: 8-35 ALT 19 U/L Range: 14-59 ALBUMIN 4.0 g/dL Range: 3.4-5.0 TOTAL PROTEIN 8.0 g/dL Range: 6.4-8.2 A/G RATIO 1.0 units Range: 1.0-1.8 CALCIUM 9.3 mg/dL Range: 8.5-10.1 13:55 Urinalysis, Reflex to Microscopic or Culture PRN 8005 pH 5.5 Range: 5.0-7.5 SP GRAVITY 1.025 Range: 1.010-1.030 APPEARANCE CLEAR Range: Clear COLOR DKYELLOW (Abnormal) Range: Straw-Yellow PROTEIN NEGATIVE mg/dL Range: Negative-Trace GLUCOSE NEGATIVE mg/dL Range: Negative KETONE TRACE mg/dL (Abnormal) Range: Negative BILIRUB SMALL (Abnormal) Range: Negative BLOOD NEGATIVE Range: Negative UROBIL 1.0 EU/dL Range: 0.2-1.0 NITRITE NEGATIVE Range: Negative LEUK SMALL (Abnormal) Range: Negative 13:55 Urine Microscopic UMIC WBC 3-5 /HPF Range: 0-5 HYAL CAST 6-10 /LPF (Abnormal) Range: 0-2 MUCUS 1+ /LPF Range: Negative-2+ BACTERIA 1+ /HPF (Abnormal) Range: Negative-Trace EPITH 3-5 /HPF Range: 0-10 19-Sep-2016 09:08 CBC w/ Auto Diff 7150 WBC 8.4 K/uL Range: 4.5-11.0 RBC 4.78 mil/uL Range: 3.60-5.00 HGB 14.3 g/dL Range: 12.0-16.0 HCT 41.4 % Range: 36.0-48.0 MCV 86.5 fL Range: 80.0-99.0 MCH 29.8 pg Range: 27.3-32.5 MCHC 34.5 % Range: 32.0-36.0 RDW 14.8 % Range: 11.6-14.8 PLATELETS 266 K/uL Range: 150-400 MPV 7.1 fL Range: 6.0-11.0 %NEUTRO 66.7 % Range: 37.0-80.0 %LYMPHS 23.1 % Range: 13.0-50.0 %MONO 5.1 % Range: 0.0-12.0 %EOS 2.7 % Range: 0.0-7.0 %BASO 0.4 % Range: 0.0-2.5 %JUSTIN 2.0 % Range: 0.0-5.0 NEUTRO 5.6 K/uL Range: 2.0-6.9 LYMPHS 2.0 K/uL Range: 0.6-3.4 MONOS 0.4 K/uL Range: 0.0-0.9 EOS 0.2 K/uL Range: 0.0-0.7 BASO 0.0 K/uL Range: 0.0-0.2 10:00 Comprehensive Metabolic Panel 1212 SODIUM 139 mmol/L Range: 133-144 POTASSIUM 3.7 mmol/L Range: 3.5-5.1 CHLORIDE 102 mmol/L Range: 98-110 CARBON DIOXIDE 28.5 mmol/L Range: 23.0-33.0 ANION GAP 9 mmol/L Range: 6-16 BUN 22 mg/dL (Above high threshold) Range: 7-18 CREATININE, SERUM 1.00 mg/dL Range: 0.55-1.02 BUN:CREATININE RATIO 22 EST GFR, >60 ml/min Range: >60 EST GFR, NON-AFR SAMMARINESE 53 ml/min (Below low threshold) Range: >60 Comments: EST GFR is reported in ml/min per 1.73 m2 of body surface area. ----- GLUCOSE 86 mg/dL Range: 70-100 ALK PHOSPHATASE 105 U/L Range: 46-116 TOTAL BILIRUBIN 0.70 mg/dL Range: 0.20-1.00 AST 18 U/L Range: 8-35 ALT 18 U/L Range: 14-59 ALBUMIN 3.7 g/dL Range: 3.4-5.0 TOTAL PROTEIN 7.3 g/dL Range: 6.4-8.2 A/G RATIO 1.0 units Range: 1.0-1.8 CALCIUM 8.8 mg/dL Range: 8.5-10.1 Plan of Care Name Dates Details Planned Observations Planned Goals not documented Planned Encounters Appointment; Provider: Schedule Radiology On 29-Jan-2017 08:50 Appointment; Provider: Wolfgang Cano M.D. On 13:15 Appointment; Provider: Hosea Guerin M.D.|FACP|M.D.,FACP|M.DRahat,FACP, On 14:00 Instructions Name Dates Details Instructions not documented Encounters Appointment; Ion Pillai M.D. Encounter Diagnosis: Problem not documented On 17-Sep-2016 10:00 Appointment; Mayo Cruz M.D. Encounter Diagnosis: Problem not documented On 05-Sep-2016 09:00 Appointment; Hosea Guerin M.D.|FACP|M.D.,FACP|M.DRahat,FACP, Encounter Diagnosis: Problem not documented On 04-Sep-2016 13:45 Appointment; Ion Pillai M.D. Encounter Diagnosis: Problem not documented On 26-Aug-2016 15:45 Appointment; Mayo Cruz M.D. Encounter Diagnosis: Problem not documented On 01-Aug-2016 10:30 Appointment; Ion Pillai M.D. Encounter Diagnosis: Problem not documented On 20-Jun-2016 10:00 Appointment; Ion Pillai M.D. Encounter Diagnosis: Problem not documented On 14-May-2016 09:00 Appointment; Hosea Guerin M.D.|FACP|M.D.,FACP|MRahatDRahat,FACP, Encounter Diagnosis: Problem not documented On 08-May-2016 14:00 Appointment; Jonh Ibarra M.D. Encounter Diagnosis: Problem not documented On 10-Apr-2016 13:30 Appointment; Wolfgang Cano M.D. Encounter Diagnosis: Problem not documented On 15-Mar-2016 08:45 Appointment; Mayo Cruz M.D. Encounter Diagnosis: Problem not documented On 14-Mar-2016 09:15 Appointment; Ion Pillai M.D. Encounter Diagnosis: Problem not documented On 01-Mar-2016 09:30 Appointment; Ion Pillai M.D. Encounter Diagnosis: Problem not documented On 26-Feb-2016 15:30 Appointment; Ion Pillai M.D. Encounter Diagnosis: Problem not documented On 15-Feb-2016 10:00 Appointment; Hosea Guerin M.D.|FACP|M.D.,FACP|M.D.,FACP, Encounter Diagnosis: Problem not documented On 07-Feb-2016 14:15 Appointment; Hosea Guerin M.D.|FACP|M.D.,FACP|M.D.,FACP, Encounter Diagnosis: Problem not documented On 14:15 Appointment; Hosea Guerin M.D.|FACP|M.D.,FACP|M.D.,FACP, Encounter Diagnosis: Problem not documented On 09:00 Appointment; Mayo Cruz M.D. Encounter Diagnosis: Problem not documented On 09:00 Appointment; Hosea Guerin M.D.|FACP|M.D.,FACP|M.D.,FACP, Encounter Diagnosis: Problem not documented On 23-Nov-2015 09:30 Appointment; Ion Pillai M.D. Encounter Diagnosis: Problem not documented On 08-Nov-2015 09:00 Appointment; Ion Pillai M.D. Encounter Diagnosis: Problem not documented On 02-Nov-2015 09:30 Appointment; Ion Pillai M.D. Encounter Diagnosis: Problem not documented On 30-Oct-2015 10:00 Appointment; Ion Pillai M.D. Encounter Diagnosis: Problem not documented On 11-Oct-2015 09:30 Appointment; Kristen Irwin Encounter Diagnosis: Problem not documented On 10-Oct-2015 11:10 Appointment; Hosea Guerin M.D.|FACP|M.D.,FACP|M.D.,FACP, Encounter Diagnosis: Problem not documented On 21-Sep-2015 10:30 Appointment; Mayo Cruz M.D. Encounter Diagnosis: Problem not documented On 07-Sep-2015 09:45 Appointment; Ion Pillai M.D. Encounter Diagnosis: Problem not documented On 04-Sep-2015 09:30 Appointment; Mayo Cruz M.D. Encounter Diagnosis: Problem not documented On 31-Aug-2015 10:45 Appointment; Mayo Cruz M.D. Encounter Diagnosis: Problem not documented On 14-Aug-2015 14:15 Appointment; Hosea Guerin M.D.|FACP|M.DRahat,FACP|Gurmeet,FACP, Encounter Diagnosis: Problem not documented On 10-Aug-2015 14:30 Appointment; Walter Vicente M.D. Encounter Diagnosis: Problem not documented On 27-Jul-2015 12:55 Appointment; Wolfgang Cano M.D. Encounter Diagnosis: Problem not documented On 05-Jun-2015 13:30 Appointment; Ion Pillai M.D. Encounter Diagnosis: Problem not documented On 13-Apr-2015 09:15 Appointment; Wolfgang Cano M.D. Encounter Diagnosis: Problem not documented On 09-Mar-2015 11:00 Appointment; Hosea Guerin M.D.|FACP|M.DRahat,FACP|Gurmeet,FACP, Encounter Diagnosis: Problem not documented On 20-Feb-2015 09:15 Appointment; Ion Pillai M.D. Encounter Diagnosis: Problem not documented On 10-Feb-2015 10:45 Appointment; Frank Lord M.D. Encounter Diagnosis: Problem not documented On 13:15 Appointment; Walter Vicente M.D. Encounter Diagnosis: Problem not documented On 08:10 Appointment; Ion Pillai M.D. Encounter Diagnosis: Problem not documented On 28-Oct-2014 08:15 Appointment; Walter Vicente M.D. Encounter Diagnosis: Problem not documented On 17-Oct-2014 08:25 Appointment; Ion Pillai M.D. Encounter Diagnosis: Problem not documented On 30-Sep-2014 09:15"
--- OUTSIDE RECORDS SUMMARY | 2016-10-08 06:47 | XMS REPORT | Summary of Care ---
Author Author Mayo Escamilla M.D. Unknown Address [address] [place] [address] [place] [address] Phone Unavailable Care Team Providers Care Vessel Scrapper Name Role Phone Alek Pillai M.D. Unavailable Unavailable Wolfgang Cano M.D. Unavailable Unavailable Mayo Escamilla M.D. 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 Start 10-Apr-2016 Active Pravastatin Sodium 40 MG Oral Tablet TAKE 1/2 TABLET DAILY. * Quantity: 90 Refills: 0 Ion Pillia M.D. Start Active Aspirin 325 MG Oral Tablet TAKE 1/2 TABLET DAILY * Refills: 0 * Start Active Metoprolol Tartrate 100 MG Oral Tablet TAKE 1/2 TABLET DAILY * Quantity: 45 Refills: 3 Ion Pillai M.D. 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, I25.10) [...] Excision Of Breast Single Lesion Completed: May-2011 Procedures not documented Immunization Name Dates Details Influenza on: 22-Mar-2011 Influenza on: 27-Mar-2012 Fluvirin INJ on: 20-Apr-2013 Fluzone High-Dose SUSP Lot #: [id number] on: 14-Mar-2014 Prevnar 13 Intramuscular Suspension Lot #: [id number] on: 14-Mar-2014 Adacel 5-2-15.5 LF-MCG/0.5 Intramuscular Suspension Lot #: [id number] on: 10-Feb-2015 Fluzone High-Dose SUSP Lot #: [id number] on: 13-Apr-2015 Family History Name Dates Details [...] smoker Vital Signs Date Test Result Details 01-Aug-2016 10:23 BP Systolic 142 mm[Hg] Status: Comments: Location: ; Position: BP Diastolic 80 mm[Hg] Status: Comments: Location: ; Position: Heart Rate 60 /min Status: Comments: Location: ; Weight 150 lb Status: Body Mass Index Calculated 24.21 kg/m2 Status: Body Surface Area Calculated 1.77 m2 Status: Results Date Description Value Details Results not documented Plan of Care Name Dates Details Planned Observations Planned Goals not documented Planned Encounters Appointment; Provider: Schedule Radiology On 29-Jan-2017 08:50 Appointment; Provider: Wolfgang Cano M.D. On 13:15 Appointment; Provider: Mayo Escamilla M.D. On 31-Oct-2016 10:00 Appointment; Provider: Ion Pillai M.D. On 25-Sep-2016 09:15 Appointment; Provider: Hosea Guerin M.D.|DAVIS,DAVIS,FACP, On 04-Sep-2016 13:45 Appointment; Provider: Schedule Radiology On 28-Aug-2016 11:00 Appointment; Provider: Schedule Radiology On 28-Aug-2016 09:00 Instructions Name Dates Details Instructions not documented Encounters Appointment; Ion Pillai M.D. Encounter Diagnosis: Problem not documented On 20-Jun-2016 10:00 Appointment; Ion Pillai M.D. Encounter Diagnosis: Problem not documented On 14-May-2016 09:00 Appointment; Hosea Guerin M.D.|FACP|M.D.,FACP|M.DRahat,FACP, Encounter Diagnosis: Problem not documented On 08-May-2016 14:00 Appointment; Jonh Ibarra M.D. Encounter Diagnosis: Problem not documented On 10-Apr-2016 13:30 Appointment; Wolfgang Cano M.D. Encounter Diagnosis: Problem not documented On 15-Mar-2016 08:45 Appointment; Mayo Escamilla M.D. Encounter Diagnosis: Problem not documented On 14-Mar-2016 09:15 Appointment; Ion Pillai M.D. Encounter Diagnosis: Problem not documented On 01-Mar-2016 09:30 Appointment; Ion Pillai M.D. Encounter Diagnosis: Problem not documented On 26-Feb-2016 15:30 Appointment; Ion Pillai M.D. Encounter Diagnosis: Problem not documented On 15-Feb-2016 10:00 Appointment; Hosea Guerin M.D.|FACP|M.D.,FACP|M.DRahat,FACP, Encounter Diagnosis: Problem not documented On 07-Feb-2016 14:15 Appointment; Hosea Guerin M.D.|FACP|M.D.,FACP|M.D.,FACP, Encounter Diagnosis: Problem not documented On 14:15 Appointment; Hosea Guerin M.D.|FACP|M.D.,FACP|M.D.,FACP, Encounter Diagnosis: Problem not documented On 09:00 Appointment; Mayo Escamilla M.D. Encounter Diagnosis: Problem not documented On 09:00 Appointment; Hosea Guerin M.D.|FACP|M.D.,FACP|M.DRahat,FACP, Encounter Diagnosis: Problem not documented On 23-Nov-2015 [...] documented On 10-Oct-2015 11:10 Appointment; Hosea Guerin M.D.|FACP|MRahatDRahat,VINEETPCallie,VINEETP, Encounter Diagnosis: Problem not documented On 21-Sep-2015 10:30 Appointment; Mayo Escamilla M.D. Encounter Diagnosis: Problem not documented On 07-Sep-2015 09:45 Appointment; Ion Pillai M.D. Encounter Diagnosis: Problem not documented On 04-Sep-2015 09:30 Appointment; Mayo Escamilla M.D. Encounter Diagnosis: Problem not documented On 31-Aug-2015 10:45 Appointment; Mayo Escamilla M.D. Encounter Diagnosis: Problem not documented On 14-Aug-2015 14:15 Appointment; Hosea Guerin M.D.|FACP|MRahatDRahat,FACP|Gurmeet,FACP, Encounter Diagnosis: Problem not documented On 10-Aug-2015 14:30 Appointment; Walter Vicente M.D. Encounter Diagnosis: Problem not documented On 27-Jul-2015 12:55 Appointment; Wolfgang Cano M.D. Encounter Diagnosis: Problem not documented On 05-Jun-2015 13:30 Appointment; Ion Pillai M.D. Encounter Diagnosis: Problem not documented On 13-Apr-2015 09:15 Appointment; Wolfgang Cano M.D. Encounter Diagnosis: Problem not documented On 09-Mar-2015 11:00 Appointment; Hosea Guerin M.D.|FACP|M.DRahat,FACP|MRahatDRahat,FACP, Encounter Diagnosis: Problem not documented On 20-Feb-2015 [...] documented On 30-Sep-2014 09:15 Appointment; Kristel Anderson A.P.R.N. Encounter Diagnosis: Problem not documented On 13-Sep-2014 12:55"
--- OUTSIDE RECORDS SUMMARY | 2016-10-08 06:47 | XMS REPORT | Summary of Care ---
Author Author Ion Pillai M.D. Organization Unknown Address Unknown Phone Unavailable Care Team Providers Care Assistant Sales Manager Name Role Phone Alek Pillai M.D. 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 Start 10-Apr-2016 Active Pravastatin Sodium 40 MG Oral Tablet TAKE 1/2 TABLET DAILY. * Quantity: 90 Refills: 0 Ion Pillai M.D. 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, I25.10) [...] Excision Of Breast Single Lesion Completed: May-2011 ULTRASOUND ABDOMEN COMPLETE Ordered: 08-May-2016 ULTRASOUND PELVIC SONO Ordered: 08-May-2016 Immunization Name Dates Details Influenza on: 22-Mar-2011 Influenza on: 27-Mar-2012 Fluvirin INJ on: 20-Apr-2013 Fluzone High-Dose SUSP Lot #: [id number] on: 14-Mar-2014 Prevnar 13 Intramuscular Suspension Lot #: [id number] on: 14-Mar-2014 Adacel 5-2-15.5 LF-MCG/0.5 Intramuscular Suspension Lot #: [id number] on: 10-Feb-2015 Fluzone High-Dose SUSP Lot #: [id number] on: 13-Apr-2015 Family History Name Dates Details [...] smoker Vital Signs Date Test Result Details 20-Jun-2016 09:52 BP Systolic 120 mm[Hg] Status: Comments: Location: ; Position: BP Diastolic 78 mm[Hg] Status: Comments: Location: ; Position: Weight 151 lb Status: Body Mass Index Calculated 24.37 kg/m2 Status: Body Surface Area Calculated 1.77 m2 Status: Results Date Description Value Details Results not documented Plan of Care Name Dates Details Planned Observations Planned Goals not documented Planned Encounters Appointment; Provider: Schedule Radiology On 29-Jan-2017 08:50 Appointment; Provider: Wolfgang Cano M.D. On 13:15 Appointment; Provider: Ion Pillai M.D. On 25-Sep-2016 09:15 Appointment; Provider: Hosea Guerin M.D.|DAVIS,MAXIMILIANO|Gurmeet,VINEETP, On 04-Sep-2016 13:45 Appointment; Provider: Mayo Escamilla M.D. On 15-Jul-2016 09:30 Appointment; Provider: Schedule Radiology On 15-Jul-2016 09:00 Interventions Provided Medication Changes* Gabapentin 100 MG Oral Capsule - Completed * Myrbetriq 25 MG Oral Tablet Extended Release 24 Hour - Start Instructions Name Dates Details Instructions not documented Encounters Appointment; Ion Pillai M.D. Encounter Diagnosis: Problem not documented On 14-May-2016 09:00 Appointment; Hosea Guerin M.D.|FACP|M.D.,FACP|MRahatDRahat,FACP, Encounter Diagnosis: Problem not documented On 08-May-2016 14:00 Appointment; Jnoh Ibarra M.D. Encounter Diagnosis: Problem not documented [...] documented On 10-Oct-2015 11:10 Appointment; Hosea Guerin M.D.|FACP|M.DRahat,FACP|M.DRahat,FACP, Encounter Diagnosis: Problem not documented On 21-Sep-2015 10:30 Appointment; Mayo Escamilla M.D. Encounter Diagnosis: Problem not documented On 07-Sep-2015 09:45 Appointment; Ion Pillai M.D. Encounter Diagnosis: Problem not documented On 04-Sep-2015 09:30 Appointment; Mayo Escamilla M.D. Encounter Diagnosis: Problem not documented On 31-Aug-2015 10:45 Appointment; Mayo Escamilla M.D. Encounter Diagnosis: Problem not documented On 14-Aug-2015 14:15 Appointment; Hosea Guerin M.D.|FACP|M.DRahat,FACP|MRahatDRahat,FACP, Encounter Diagnosis: Problem not documented On 10-Aug-2015 14:30 Appointment; Walter Vicente M.D. Encounter Diagnosis: Problem not documented On 27-Jul-2015 12:55 Appointment; Wolfgang Cano M.D. Encounter Diagnosis: Problem not documented On 05-Jun-2015 13:30 Appointment; Ion Pillai M.D. Encounter Diagnosis: Problem not documented On 13-Apr-2015 09:15 Appointment; Wolfgang Cano M.D. Encounter Diagnosis: Problem not documented On 09-Mar-2015 11:00 Appointment; Hosea Guerin M.D.|FACP|M.D.,FACP|M.DRahat,FACP, Encounter Diagnosis: Problem not documented On 20-Feb-2015 [...] documented On 13-Sep-2014 12:55 Appointment; Ion Pillai M.D. Encounter Diagnosis: Problem not documented On 27-Jun-2014 08:45"
--- OUTSIDE RECORDS SUMMARY | 2016-10-08 06:47 | XMS REPORT | Summary of Care ---
Author Author Apoorva Levi, FACP, ,, Hosea F Organization Unknown Address Unknown Phone Unavailable Care Team Providers Care Stucco Mason Name Role Phone Alek Pillai M.D. Unavailable Unavailable Wolfgang Cano M.D. 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 Cholelithiasis with cholecystitis (574.10, K80.10) Status: Active SOB (shortness of breath) on exertion (786.05, R06.02) Status: Active Abnormal stress test (794.39, R94.39) Status: Active Constipation (564.00, K59.00) Status: Active Leg pain, bilateral (729.5, M79.604) Status: Active Spinal stenosis (724.00, M48.00) Status: Active Lumbar radiculopathy (724.4, M54.16) Status: Active Gout (274.9, M10.9) Status: Active Hyperlipidemia (272.4, E78.5) Status: Active Hypertension (401.9, I10) Status: Active Left foot pain (729.5, M79.672) Status: Active Acute gouty arthropathy (274.01, M10.00) Status: Active Seborrheic keratosis (702.19, L82.1) Status: Active Abdominal pain (789.00, R10.9) Status: Active Gastroenteritis, acute (558.9, K52.9) Status: Active Diverticulitis (562.11, K57.92) Status: Active Renal cell carcinoma, right (189.0, C64.1) Status: Active Abnormal weight loss (783.21, R63.4) Status: Active 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 * Start Active Pravastatin Sodium 40 MG Oral Tablet TAKE 1/2 TABLET DAILY. * Quantity: 30 Refills: 5 Ion Pillai M.D. * Start Active Aspirin 325 MG Oral Tablet [...] PAIN. * Quantity: 25 Refills: 1 Jerome Levi Wolfgang * Start 11-Apr-2014 Active 25 Tablet Sublingual Bottle Magnesium 250 MG Oral Tablet 1 daily * Refills: 0 Ion Pillai M.D. * Start 04-Sep-2015 Active Potassium 99 MG Oral Tablet TAKE 1 TABLET DAILY. * Refills: 0 Ion Pillai M.D. Start 04-Sep-2015 Active Biotin 5 MG Oral Capsule TAKE 1 CAPSULE DAILY. * Refills: 0 Ion Pillai M.D. * Start 04-Sep-2015 Active SM Vitamin B-12 500 MCG Oral Tablet TAKE 1 TABLET DAILY. * Refills: 0 Ion Pillai M.D. Start 04-Sep-2015 Active Diphenoxylate-Atropine 2.5-0.025 MG Oral Tablet TAKE 1 TABLET 4 TIMES DAILY NEEDED FOR DIARRHEA. * Quantity: 20 Refills: 1 Ion Pillai M.D. Start 30-Oct-2015 Active Ondansetron 8 MG Oral Tablet Dispersible take one tab every 6 hours as needed for nausea * Quantity: 1 Refills: 1 Ion Pillai M.D. Start 30-Oct-2015 Active 15 Tablet Dispersible Box Famotidine 40 MG Oral Tablet TAKE 1 TABLET DAILY DIRECTED. * Quantity: 14 Refills: 0 Ion Pillai M.D. * Start 30-Oct-2015 Active MetroNIDAZOLE 500 MG Oral Tablet TAKE 1 TABLET TWICE DAILY UNTIL FINISHED. * Quantity: 14 Refills: 0 Ion Pillai M.D. Start 02-Nov-2015 Active Potassium Chloride Miriam ER 20 MEQ Oral Tablet Extended Release TAKE 1 TABLET DAILY. 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, I25.10) [...] May-2011 CBC w/ Auto Diff 7150 Ordered: Comprehensive Metabolic Panel 1212 Ordered: MRI PELVIS WITHOUT AND WITH CONTRAST Ordered: 07-Feb-2016 Immunization Name Dates Details Influenza on: 22-Mar-2011 Influenza on: 27-Mar-2012 Fluvirin INJ on: 20-Apr-2013 Fluzone High-Dose SUSP Lot #: [id number] on: 14-Mar-2014 Prevnar 13 Intramuscular Suspension Lot #: [id number] on: 14-Mar-2014 Adacel 5-2-15.5 LF-MCG/0.5 Intramuscular Suspension Lot #: [id number] on: 10-Feb-2015 Fluzone High-Dose SUSP Lot #: [id number] on: 13-Apr-2015 Family History Name Dates Details [...] smoker Vital Signs Date Test Result Details 07-Feb-2016 15:12 BP Systolic 131 mm[Hg] Status: Comments: Location: ; Position: BP Diastolic 83 mm[Hg] Status: Comments: Location: ; Position: Temperature 97.2 f Status: Comments: Method: Heart Rate 81 /min Status: Comments: Location: ; Weight 152 lb Status: Body Mass Index Calculated 24.53 kg/m2 Status: Body Surface Area Calculated 1.78 m2 Status: Results Date Description Value Details 30-Jan-2016 08:31 CT PELVIS WITHOUT IV CONTRAST Comments: Exam Date: 2015 07:32Dictation Date: 01/30/2016 08:31 XC PEL (WITHOUT) 45 MIN PREP 10:47 MAMMOGRAM-DIAGNOSTIC BILATERAL FOR BREAST CANCER OR FOLLOW-UP Comments : Exam Date: 01/30/2016 08:45Dictation Date: 01/30/2016 10:47 XM DIAGNOSTIC BILATERAL Plan of Care Name Dates Details Planned Observations MRI PELVIS WITHOUT AND WITH CONTRAST On 01-May-2016 Intent Planned Goals not documented Planned Encounters Appointment; Provider: Schedule Radiology On 29-Jan-2017 08:50 Appointment; Provider: Hosea Guerin M.D.|DAVIS,MAXIMILIANO CANNON, On 08-May-2016 14:00 Appointment; Provider: Wolfgang Cano M.D. On 15-Mar-2016 08:45 Appointment; Provider: Mayo Escamilla M.D. On 14-Mar-2016 09:15 Appointment; Provider: Ion Pillai M.D. On 15-Feb-2016 10:00 Instructions Name Dates Details Instructions not documented Encounters Appointment; Hosea Guerin M.D.|DAVIS,DAVIS,MAXIMILIANO, Encounter Diagnosis: Problem not documented On 14:15 Appointment; Hosea Guerin M.D.|DAVIS,DAVIS,MAXIMILIANO, Encounter Diagnosis: Problem not documented On 09:00 Appointment; Mayo Escamilla M.D. Encounter Diagnosis: Problem not documented On 09:00 Appointment; Hosea Guerin M.D.|FACP|M.DRahat,FACP|Gurmeet,FACP, Encounter Diagnosis: Problem not documented On 23-Nov-2015 [...] documented On 10-Oct-2015 11:10 Appointment; Hosea Guerin M.D.|FACP|MRahatDRahat,FACP|Gurmeet,FACP, Encounter Diagnosis: Problem not documented On 21-Sep-2015 [...] documented On 09-Mar-2015 11:00 Appointment; Hosea Guerin M.D.|FACP|Gurmeet,FACP|Gurmeet,FACP, Encounter Diagnosis: Problem not documented On 20-Feb-2015 [...] documented On 27-Jun-2014 08:45 Appointment; Wolfgang Cano M.D. Encounter Diagnosis: Problem not documented On 06-Jun-2014 14:15 Appointment; Frank Lord M.D. Encounter Diagnosis: Problem not documented On 29-Apr-2014 14:00 Appointment; Frank Lord M.D. Encounter Diagnosis: Problem not documented On 28-Apr-2014 11:30 Appointment; Ion Pillai M.D. Encounter Diagnosis: Problem not documented On 25-Apr-2014 11:00 Appointment; Ion Pillai M.D. Encounter Diagnosis: Problem not documented On 13-Apr-2014 09:15 Appointment; Wolfgang Cano M.D. Encounter Diagnosis: Problem not documented On 11-Apr-2014 13:00 Appointment; Wolfgang Cano M.D. Encounter Diagnosis: Problem not documented On 29-Mar-2014 13:45 Appointment; Ion Pillai M.D. Encounter Diagnosis: Problem not documented On 14-Mar-2014 10:45 Appointment; Mina Laboy M.D. Encounter Diagnosis: Problem not documented On 22-Feb-2014 14:15 Appointment; Hosea Guerin M.D.|DAVIS,MAXIMILIANO|Gurmeet,MAXIMILIANO, Encounter Diagnosis: Problem not documented On 21-Feb-2014 09:00"
--- OUTSIDE RECORDS SUMMARY | 2016-10-08 06:48 | XMS REPORT | Summary of Care ---
Author Author Mayo Escamilla M.D. Unknown Address [address] [place] [address] [place] [address] Phone Unavailable Care Team Providers Care Radio Interference Supervisor Name Role Phone Rosas Levi, Alek Unavailable Unavailable Wolfgang Cano M.D. Unavailable Unavailable Donovan Levi, Hilary Unavailable Unavailable Ion Pillai PP Unavailable Unavailable [...] Actinic keratosis (702.0, L57.0) Status: Active Pre-operative exam (V72.84, Z01.818) Status: Active Pre-operative cardiovascular examination (V72.81, Z01.810) Status: Active Cyst Status: Active Urinary symptom or sign (788.99, R39.9) Status: Active Dysuria (788.1, R30.0) Status: Active Needs flu shot (V04.81, Z23) Status: Active Chest pain (786.50, R07.9) Status: Active Visit for wound check (V58.89, Z51.89) Status: Active Abnormal weight loss (783.21, R63.4) Status: Active Urinary frequency (788.41, R35.0) Status: Active Ankle pain, left (719.47, M25.572) Status: Active Ankle sprain (845.00, S93.409A) Status: Active Hyperlipidemia (272.4, E78.5) Status: Active Hypokalemia (276.8, E87.6) Status: Active Fatigue (780.79, R53.83) Status: Active Dermatitis (692.9, L30.9) Status: Active Pain in both lower extremities (729.5, M79.604) Status: Active Left lower quadrant pain (789.04, R10.32) Status: Active Hypertension (401.9, I10) Status: Active Seborrheic keratosis (702.19, L82.1) Status: Active Calculus of gallbladder w/o mention of cholecystitis or obstruction (574.20, K80.20) Status: Active 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 Quantity: 30 Ion Pillai M.D.* Started ActivePotassium Chloride ER 10 MEQ Oral Capsule Extended Release take 1 capsule daily * Quantity: 30 Refills: 0 Ion Pillai M.D.* Started ActiveAspirin 325 MG Oral Tablet TAKE 1/2 TABLET DAILY * Refills: 0 * Started ActiveMetoprolol Tartrate 100 MG Oral Tablet TAKE 1/2 TABLET BID * Refills: 0 Ion Pillai M.D.* Started 07-Oct-2013 ActiveNitrostat 0.4 MG Sublingual Tablet Sublingual PLACE 1 TABLET UNDER THE TONGUE EVERY 5 MINUTES UP TO 3 DOSES NEEDED FOR CHEST PAIN. * Quantity: 25 Refills: 1 Wolfgang Cano M.D.* Started 11-Apr-2014 Oliovt92 Tablet Sublingual Bottle Magnesium 300 MG Oral Capsule TAKE 1 CAPSULE DAILY. 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, I25.10) [...] Lesion Completed: CBC w/ Auto Diff 7150 Ordered:10-Aug-2015 Comprehensive Metabolic Panel 1212 Ordered:10-Aug-2015 CT BIOPSY KIDNEY Ordered:14-Aug-2015 Immunization Name Dates Details Influenza Administered on:22-Mar-2011 Influenza Administered on:27-Mar-2012 Fluvirin Intramuscular Injectable Administered on:20-Apr-2013 Fluzone High-Dose Intramuscular Suspension Lot #: [id number] Administered on:14-Mar-2014 Prevnar 13 Intramuscular Suspension Lot #: [id number] Administered on:14-Mar-2014 Adacel 5-2-15.5 LF-MCG/0.5 Intramuscular Suspension Lot #: [id number] Administered on:10-Feb-2015 Fluzone High-Dose Intramuscular Suspension Lot #: [id number] Administered on:13-Apr-2015 Family History Mother* Name Dates Details Family [...] smoker Vital Signs Date Test Result Details 14-Aug-2015 14:08 BP Systolic 138 mm[Hg] Status: BP Diastolic 101 mm[Hg] Status: Heart Rate 76 /min Status: Height 66 in Status: Weight 165 lb Status: Body Mass Index Calculated 26.63 kg/m2 Status: Body Surface Area Calculated 1.84 m2 Status: 10-Aug-2015 14:59 BP Systolic 136 mm[Hg] Status: BP Diastolic 80 mm[Hg] Status: Temperature 97.9 f Status: Heart Rate 75 /min Status: Weight 165 lb Status: Body Mass Index Calculated 26.63 kg/m2 Status: Body Surface Area Calculated 1.84 m2 Status: 27-Jul-2015 13:04 BP Systolic 130 mm[Hg] Status: BP Diastolic 79 mm[Hg] Status: Temperature 97.3 f Status: Heart Rate 64 /min Status: O2 SAT 95 % Status: Results Date Description Value Details 27-Jul-2015 13:49 CBC w/ Auto Diff 7150 WBC 10.2 K/uL (Better) Range: 4.5-11.0 RBC 5.13 mil/uL (Above high threshold) Range: 3.60-5.00 HGB 15.1 g/dL (Better) Range: 12.0-16.0 HCT 43.2 % (Better) Range: 36.0-48.0 MCV 84.2 fL (Better) Range: 80.0-99.0 MCH 29.5 pg (Better) Range: 27.3-32.5 MCHC 35.1 % (Better) Range: 32.0-36.0 RDW 13.2 % (Better) Range: 11.6-14.8 PLATELETS 241 K/uL (Better) Range: 150-400 MPV 7.3 fL (Better) Range: 6.0-11.0 %NEUTRO 74.8 % (Better) Range: 37.0-80.0 %LYMPHS 16.9 % (Better) Range: 13.0-50.0 %MONO 5.1 % (Better) Range: 0.0-12.0 %EOS 1.3 % (Better) Range: 0.0-7.0 %BASO 0.5 % (Better) Range: 0.0-2.5 %JUSTIN 1.5 % (Better) Range: 0.0-5.0 NEUTRO 7.6 K/uL (Above high threshold) Range: 2.0-6.9 LYMPHS 1.7 K/uL (Better) Range: 0.6-3.4 MONOS 0.5 K/uL (Better) Range: 0.0-0.9 EOS 0.1 K/uL (Better) Range: 0.0-0.7 BASO 0.1 K/uL (Better) Range: 0.0-0.2 14:19 Comprehensive Metabolic Panel 1212 SODIUM 135 mmol/L (Better) Range: 133-144 POTASSIUM 3.5 mmol/L (Better) Range: 3.5-5.1 CHLORIDE 98 mmol/L (Better) Range: 98-110 CARBON DIOXIDE 29.0 mmol/L (Better) Range: 23.0-33.0 ANION GAP 8 mmol/L (Better) Range: 6-16 BUN 16 mg/dL (Better) Range: 7-18 CREATININE, SERUM 0.93 mg/dL (Better) Range: 0.55-1.02 Comments: Please note new reference ranges effective 2014.----- BUN:CREATININE RATIO 17 (Better) EST GFR, >60 ml/min (Better) Range: >60 EST GFR, NON-AFR ARMENIAN 58 ml/min (Below low threshold) Range: >60 Comments: EST GFR is reported in ml/min per 1.73 m2 of body surface area. For -[place], please multiple result by 1.2.----- GLUCOSE 91 mg/dL (Better) Range: 70-100 ALK PHOSPHATASE 108 U/L (Better) Range: 46-116 TOTAL BILIRUBIN 0.70 mg/dL (Better) Range: 0.20-1.00 AST 22 U/L (Better) Range: 8-35 ALT 24 U/L (Better) Range: 14-59 Comments: Please note new reference ranges. Effective 09/08/2014.----- ALBUMIN 3.6 g/dL (Better) Range: 3.4-5.0 TOTAL PROTEIN 7.3 g/dL (Better) Range: 6.4-8.2 A/G RATIO 1.0 units (Better) Range: 1.0-1.8 CALCIUM 9.2 mg/dL (Better) Range: 8.5-10.1 14:51 CT AB/ PEL WITH IV AND ORAL CONTRAST Comments: Exam Date: 2015 13:43Dictation Date: 07/27/2015 14:51 XC AB/PEL 45 MIN PREP (Better) Plan of Care Planned Observations* Name Dates Details Planned Goals not documented Goal Planned Encounters* Appointment; Provider: Wolfgang Cano On 15-Mar-2016 08:45 * Appointment; Provider: Hosea Guerin On 21-Sep-2015 10:30 * Appointment; Provider: Ion Pillai On 17-Aug-2015 09:45 * Appointment; Provider: Schedule Radiology On 16-Aug-2015 11:30 * Appointment; Provider: Schedule Radiology On 16-Aug-2015 11:30 * Appointment; Provider: Schedule Radiology On 08-Jun-2015 10:00 * Appointment; Provider: Wolfgang Cano On 20-Apr-2014 08:00 * Appointment; Provider: Joseph Foy On 25-Jun-2011 11:00 * Appointment; Provider: Daryl Eddy On 02-May-2011 10:30 Instructions * Instructions not documented Encounters Appointment; Mayo Escamilla Encounter Diagnosis: Problem not documented On 14-Aug-2015 14:15 Appointment; Hosea Guerin Encounter Diagnosis: Problem not documented On 10-Aug-2015 14:30 Appointment; Walter Vicente Encounter Diagnosis: Problem not documented On 27-Jul-2015 12:55 Appointment; Wolfgang Cano Encounter Diagnosis: Problem not documented On 05-Jun-2015 13:30 Appointment; Ion Pillai Encounter Diagnosis: Problem not documented On 13-Apr-2015 09:15 Appointment; Wolfgang Cano Encounter Diagnosis: Problem [...]
--- OUTSIDE RECORDS SUMMARY | 2016-10-08 06:48 | XMS REPORT | Summary of Care ---
Author Author Mayo Escamilla M.D. Unknown Address [address] [place] [address] [place] [address] Phone Unavailable Care Team Providers Care Delivery Sales Worker Name Role Phone Alek Pillai M.D. 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 Quantity: 30 Ion Pillai M.D.* Started ActiveAspirin 325 MG Oral Tablet TAKE 1/2 TABLET DAILY * Refills: 0 * Started ActiveMetoprolol Tartrate 100 MG Oral Tablet TAKE 1/2 TABLET DAILY * Refills: 0 Ion Pillai M.D.* Started 07-Oct-2013 ActiveNitrostat 0.4 MG Sublingual Tablet Sublingual PLACE 1 TABLET UNDER THE TONGUE EVERY 5 MINUTES UP TO 3 DOSES NEEDED FOR CHEST PAIN. * Quantity: 25 Refills: 1 Wolfgang Cano M.D.* Started 11-Apr-2014 Tuthtf43 Tablet Sublingual Bottle Magnesium 250 MG Oral Tablet 1 daily * Refills: 0 Ion Pillai M.D.* Started 04-Sep-2015 ActivePotassium 99 MG Oral Tablet TAKE 1 TABLET DAILY. * Refills: 0 Ion Pillai M.D.* Started 04-Sep-2015 ActiveBiotin 5 MG Oral Capsule TAKE 1 CAPSULE DAILY. * Refills: 0 Ion Pillai M.D.* Started 04-Sep-2015 ActiveSM Vitamin B-12 500 MCG Oral Tablet TAKE 1 TABLET DAILY. 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, I25.10) [...] Lesion Completed: CBC w/ Auto Diff 7150 Ordered:21-Sep-2015 Comprehensive Metabolic Panel 1212 Ordered:21-Sep-2015 ULTRASOUND RENAL SONO Ordered:31-Aug-2015 Immunization Name Dates Details Influenza Administered on:22-Mar-2011 Influenza Administered on:27-Mar-2012 Fluvirin Intramuscular Injectable Administered on:20-Apr-2013 Fluzone High-Dose Intramuscular Suspension Lot #: [id number] Administered on:14-Mar-2014 Prevnar 13 Intramuscular Suspension Lot #: [id number] Administered on:14-Mar-2014 Adacel 5-2-15.5 LF-MCG/0.5 Intramuscular Suspension Lot #: [id number] Administered on:10-Feb-2015 Fluzone High-Dose Intramuscular Suspension Lot #: [id number] Administered on:13-Apr-2015 Family History Mother* Name Dates [...] smoker Vital Signs Date Test Result Details 21-Sep-2015 10:45 BP Systolic 121 mm[Hg] Status: BP Diastolic 75 mm[Hg] Status: Temperature 97.5 f Status: Heart Rate 67 /min Status: Weight 163 lb Status: Body Mass Index Calculated 26.31 kg/m2 Status: Body Surface Area Calculated 1.83 m2 Status: Results Date Description Value Details 19-Sep-2015 10:32 CBC w/ Auto Diff 7150 WBC 8.2 K/uL (Better) Range: 4.5-11.0 RBC 5.32 mil/uL (Above high threshold) Range: 3.60-5.00 HGB 15.7 g/dL (Better) Range: 12.0-16.0 HCT 46.4 % (Better) Range: 36.0-48.0 MCV 87.3 fL (Better) Range: 80.0-99.0 MCH 29.4 pg (Better) Range: 27.3-32.5 MCHC 33.7 % (Better) Range: 32.0-36.0 RDW 13.5 % (Better) Range: 11.6-14.8 PLATELETS 279 K/uL (Better) Range: 150-400 MPV 7.6 fL (Better) Range: 6.0-11.0 %NEUTRO 61.6 % (Better) Range: 37.0-80.0 %LYMPHS 27.9 % (Better) Range: 13.0-50.0 %MONO 5.7 % (Better) Range: 0.0-12.0 %EOS 2.1 % (Better) Range: 0.0-7.0 %BASO 0.7 % (Better) Range: 0.0-2.5 %JUSTIN 2.0 % (Better) Range: 0.0-5.0 NEUTRO 5.0 K/uL (Better) Range: 2.0-6.9 LYMPHS 2.3 K/uL (Better) Range: 0.6-3.4 MONOS 0.5 K/uL (Better) Range: 0.0-0.9 EOS 0.2 K/uL (Better) Range: 0.0-0.7 BASO 0.1 K/uL (Better) Range: 0.0-0.2 10:58 Comprehensive Metabolic Panel 1212 SODIUM 136 mmol/L (Better) Range: 133-144 POTASSIUM 3.4 mmol/L (Below low threshold) Range: 3.5-5.1 CHLORIDE 95 mmol/L (Below low threshold) Range: 98-110 CARBON DIOXIDE 32.2 mmol/L (Better) Range: 23.0-33.0 ANION GAP 9 mmol/L (Better) Range: 6-16 BUN 19 mg/dL (Above high threshold) Range: 7-18 CREATININE, SERUM 1.03 mg/dL (Above high threshold) Range: 0.55-1.02 Comments: Please note new reference ranges effective 2014.----- BUN:CREATININE RATIO 18 (Better) EST GFR, >60 ml/min (Better) Range: >60 EST GFR, NON-AFR FARO[place] 51 ml/min (Below low threshold) Range: >60 Comments: EST GFR is reported in ml/min per 1.73 m2 of body surface area. For -Brazilian, please multiple result by 1.2.----- GLUCOSE 93 mg/dL (Better) Range: 70-100 ALK PHOSPHATASE 86 U/L (Better) Range: 46-116 TOTAL BILIRUBIN 1.00 mg/dL (Better) Range: 0.20-1.00 AST 17 U/L (Better) Range: 8-35 ALT 22 U/L (Better) Range: 14-59 Comments: Please note new reference ranges. Effective 09/08/2014.----- ALBUMIN 3.8 g/dL (Better) Range: 3.4-5.0 TOTAL PROTEIN 7.4 g/dL (Better) Range: 6.4-8.2 A/G RATIO 1.1 units (Better) Range: 1.0-1.8 CALCIUM 9.9 mg/dL (Better) Range: 8.5-10.1 28-Sep-2015 09:42 ULTRASOUND RENAL SONO Comments: Exam Date: 09/28/2015 07:42Dictation Date: 09/28/2015 09:42 XS RENAL LIMITED (Better) Plan of Care Planned Observations* Name Dates Details Planned Goals not documented Goal Planned Encounters* Appointment; Provider: Wolfgang Cano On 15-Mar-2016 08:45 * Appointment; Provider: Mayo Escamilla On 09:00 * Appointment; Provider: Hosea Guerin On 23-Nov-2015 09:30 * Appointment; Provider: Ion Pillai On 08-Nov-2015 09:00 * Appointment; Provider: Schedule Radiology On 28-Sep-2015 08:00 * Appointment; Provider: Schedule Radiology On 25-Aug-2015 13:00 * Appointment; Provider: Schedule Radiology On 25-Aug-2015 13:00 * Appointment; Provider: Tian Stoddard On 25-Aug-2015 07:45 * Appointment; Provider: Schedule Radiology On 16-Aug-2015 11:30 * Appointment; Provider: Schedule Radiology On 16-Aug-2015 11:30 * Appointment; Provider: Schedule Radiology On 08-Jun-2015 10:00 * Appointment; Provider: Wolfgang Cano On 20-Apr-2014 08:00 * Appointment; Provider: Joseph Foy On 25-Jun-2011 11:00 * Appointment; Provider: Daryl Eddy On 02-May-2011 10:30 Instructions * Instructions not documented Encounters Appointment; Hosea Guerin Encounter Diagnosis: Problem not documented On 21-Sep-2015 10:30 Appointment; Mayo Escamilla Encounter Diagnosis: Problem not documented On 07-Sep-2015 09:45 Appointment; Ion Pillai Encounter Diagnosis: Problem not documented On 04-Sep-2015 09:30 Appointment; Mayo Escamilla Encounter Diagnosis: Problem not documented On 31-Aug-2015 10:45 Appointment; Mayo Escamilla Encounter Diagnosis: Problem not [...]
--- OUTSIDE RECORDS SUMMARY | 2016-10-08 06:48 | XMS REPORT | Summary of Care ---
Author Author Walter Vicente M.D. Organization Unknown Address [address] [place], [place] [id number] Phone Unavailable Care Team Providers Care Store Deli Manager Name Role Phone Rosas Levi, Alek Unavailable Unavailable Ren Vicente M.D. 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 * Quantity: 25 Refills: 1 Mattar, Costy M.D.* Started 11-Apr-2014 Hkussh66 Tablet Sublingual Bottle Magnesium 300 MG Oral Capsule TAKE 1 CAPSULE DAILY. * Refills: 0 * Started 20-Feb-2015 ActiveCaptopril 50 MG Oral Tablet 1/2 TABLET BID * Refills: 0 Soy Man M.D.* Started 05-Jun-2015 ActiveCiprofloxacin HCl - 500 MG Oral Tablet TAKE 1 TABLET TWICE DAILY. * Quantity: 14 Refills: 0 Walter Vicente M.D.* Started 27-Jul-2015 Ended 03-Aug-2015 ActiveMetroNIDAZOLE 500 MG Oral Tablet TAKE 1 TABLET 3 TIMES DAILY UNTIL GONE. 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 Breast cancer (174.9, C50.919) Status: Active Calculus of gallbladder w/o mention [...] on:20-Apr-2013 Fluzone High-Dose Intramuscular Suspension Lot #: [id number] Administered on:14-Mar-2014 Prevnar 13 Intramuscular Suspension Lot #: [id number] Administered on:14-Mar-2014 Adacel 5-2-15.5 LF-MCG/0.5 Intramuscular Suspension Lot #: [id number] Administered on:10-Feb-2015 Fluzone High-Dose Intramuscular Suspension Lot #: [id number] Administered on:13-Apr-2015 Family History Mother* Name Dates [...] smoker Vital Signs Date Test Result Details 27-Jul-2015 13:04 BP Systolic 130 mm[Hg] Status: [...] ml/min (Better) Range: >60 EST GFR, NON-AFR [place] 58 ml/min (Below low threshold) Range: >60 Comments: EST GFR is reported in ml/min per 1.73 m2 of body surface area. For -Micronesian, please multiple result by 1.2.----- GLUCOSE 91 [...] 09:30 * Appointment; Provider: Ion Pillai On 17-Aug-2015 09:45 * Appointment; Provider: Hosea Guerin On 07-Aug-2015 14:45 * Appointment; Provider: Schedule Radiology On 08-Jun-2015 [...]
--- OUTSIDE RECORDS SUMMARY | 2016-10-08 06:48 | XMS REPORT | Summary of Care ---
Author Author Mayo Escamilla M.D. Unknown Address [address] [place] [address] [place] [address] Phone Unavailable Care Team Providers Care Development Assistant Name Role Phone Alek Pillai M.D. 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 * Start 10-Apr-2016 Active Pravastatin Sodium 40 MG [...] * Quantity: 25 Refills: 1 Wolfgang Cano M.D. * Start 11-Apr-2014 Active 25 Tablet Sublingual Bottle Magnesium 250 MG Oral Tablet 1 daily * Refills: 0 Ion Pillai M.D. * Start 04-Sep-2015 Active Potassium 99 MG Oral Tablet TAKE 1 TABLET DAILY. * Refills: 0 Ion Pillai M.D. Start 04-Sep-2015 Active Myrbetriq 25 MG Oral Tablet Extended Release 24 Hour Take 1 tablet daily * Quantity: 30 Refills: 5 Ion Pillai M.D. Start 20-Jun-2016 Active Gabapentin 100 MG Oral Capsule take 2 capsules twice daily for back pain * Quantity: 1 Refills: 0 Ion Pillai M.D. 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, I25.10) [...] 04-Sep-2016 Comprehensive Metabolic Panel 1212 Ordered: 04-Sep-2016 NUC MED RENAL SCAN Ordered: 05-Sep-2016 ULTRASOUND RENAL SONO Ordered: 01-Aug-2016 Immunization Name Dates Details Influenza on: 22-Mar-2011 Influenza on: 27-Mar-2012 Fluvirin INJ on: 20-Apr-2013 Fluzone High-Dose SUSP Lot #: [id number] on: 14-Mar-2014 Prevnar 13 Intramuscular Suspension Lot #: [id number] on: 14-Mar-2014 Adacel 5-2-15.5 LF-MCG/0.5 Intramuscular Suspension Lot #: [id number] on: 10-Feb-2015 Fluzone High-Dose SUSP Lot #: [id number] on: 13-Apr-2015 Family History Name Dates Details [...] smoker Vital Signs Date Test Result Details 04-Sep-2016 13:23 BP Systolic 123 mm[Hg] Status: [...] 38Dictation Date: 08/28/2016 09:39 XS ABDOMEN COMPLETE Plan of Care Name Dates Details Planned Observations Planned Goals not documented Planned Encounters Appointment; Provider: Schedule Radiology On 29-Jan-2017 08:50 Appointment; Provider: Wolfgang Cano M.D. On 13:15 Appointment; Provider: Hosea Guerin M.D.|FACP|[place],VINEETPCallie,VINEETP, On 14:00 Appointment; Provider: Ion Pillai M.D. On 25-Sep-2016 09:15 Interventions Provided Labs/Procedures/Imaging* NUC MED RENAL SCAN; To be Done: 05 Sep 2016 Instructions Name Dates Details Instructions not documented Encounters Appointment; Hosea Guerin M.D.|VINEETP|[place],VINEETP|[place],FACP, Encounter Diagnosis: Problem not documented On 04-Sep-2016 13:45 Appointment; Ion Pillai M.D. Encounter Diagnosis: Problem not documented On 26-Aug-2016 15:45 Appointment; Mayo Escamilla M.D. Encounter Diagnosis: Problem not documented On 01-Aug-2016 10:30 Appointment; Ion Pillai M.D. Encounter Diagnosis: Problem not documented On 20-Jun-2016 10:00 Appointment; Ion Pillai M.D. Encounter Diagnosis: Problem not documented On 14-May-2016 09:00 Appointment; Hosea Guerin M.D.|FACP|[place],FACP|M.D.,FACP, Encounter Diagnosis: Problem not documented On 08-May-2016 [...] documented On 10-Oct-2015 11:10 Appointment; Hosea Guerin M.D.|FACP|M.DRahat,FACP|[place],FACP, Encounter Diagnosis: Problem not documented On 21-Sep-2015 10:30 Appointment; Mayo Escamilal M.D. Encounter Diagnosis: Problem not documented On [...] documented On 09-Mar-2015 11:00 Appointment; Hosea Guerin M.D.|FACP|MRahatDRahat,FACP|[place],FACP, Encounter Diagnosis: Problem not documented On 20-Feb-2015 [...]
--- OUTSIDE RECORDS SUMMARY | 2016-10-08 06:48 | XMS REPORT ---
Author Author GENERATED, SYSTEM Organization Unknown Address Unknown Phone Unavailable Care Team Providers Care Grinder Carbon Plant Name Role Phone MD KJ, [place] [phone] Reason For Visit Chief Complaint CAD: ABNORMAL STRESS TEST,[facility] Social History Functional Status Vital Signs Results Problems Encounter Diagnosis No relevant problems exist. Additional Problems * Backache Status:Active. Encounters Encounter Diagnosis No relevant problems exist. Plan of Care Procedures No relevant procedures performed. Immunizations No immunizations administered or ordered. Hospital Course Hospital Discharge Instructions Allergies, Adverse Reactions, Alerts * No Latex Allergy. * No IV Contrast Allergy. * No Known Drug Allergies. Medication It is the responsibility of the patient or patient vaccine customer representative to confirm the list of medications with either the patient's personal care provider or the patient's follow-up care provider to ensure the patient has an appropriate list of medications to take at home. Discharge medications Continued medications* captopril 25 mg Tablet, Ordered By: BLU FRIAS MD Directions: 0.5 tablet oral daily * metoprolol tartrate 100 mg Tablet, Ordered By: BLU FRIAS MD Directions: 0.5 tablet oral twice a day * potassium chloride 10 mEq Capsule, Extended Release, Ordered By: BLU FRIAS MD Directions: 0.5 capsule oral daily * pravastatin 40 mg Tablet, Ordered By: BLU FRIAS MD Directions: 1 tablet oral daily at bedtime * spironolacton-hydrochlorothiaz 25 mg-25 mg Tablet, Ordered By: LULA SIU Directions: 1 tablet oral daily * vitamin b12 500 take 1/2 tabelt daily04/18 * vitamin d 1000 unitD 1/2 mqsajz35/20 Changed medications* aspirin 81 mg tablet,chewable, Ordered By: BLU FRIAS MD Directions: 1 tablet oral daily Stopped medications* None
--- OUTSIDE RECORDS SUMMARY | 2016-10-08 06:49 | XMS REPORT | Summary of Care ---
Author Author Mayo Escamilla M.D. Unknown Address [address] [place] [address] [place] [address] Phone Unavailable Care Team Providers Care Bi Manager Name Role Phone Rosas Levi, Alek Unavailable Unavailable Wolfgang Cano M.D. Unavailable Unavailable Hilary Man M.D. Unavailable Unavailable Ion Pillai PP Unavailable [...] lower quadrant pain (789.04, R10.32) Status: Active Spinal stenosis (724.00, M48.00) Status: Active SOB (shortness of breath) on exertion (786.05, R06.02) Status: Active Seborrheic keratosis (702.19, L82.1) Status: Active Lumbar radiculopathy (724.4, M54.16) Status: Active Leg pain, bilateral (729.5, M79.604) Status: Active Hypertension (401.9, I10) Status: Active Hyperlipidemia (272.4, E78.5) Status: Active Gout (274.9, M10.9) Status: Active Constipation (564.00, K59.00) Status: Active Cholelithiasis with cholecystitis (574.10, K80.10) Status: Active Calculus of gallbladder w/o mention of cholecystitis or obstruction (574.20, K80.20) Status: Active 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, 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 Abnormal stress test (794.39, R94.39) Status: Active 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, 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 Diverticulitis (562.11, K57.92) Status: Active Right renal mass (593.9, N28.89) Status: Active Renal cell carcinoma, right (189.0, C64.1) Status: Active Medications Name Dates Details Pravastatin [...] Refills: 1 Wolfgang Cano M.D.* Started 11-Apr-2014 [id number] Tablet Sublingual Bottle Magnesium 300 MG Oral [...] R94.39) Status: Active 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, I25.10) [...] 7150 Ordered:10-Aug-2015 Comprehensive Metabolic Panel 1212 Ordered:10-Aug-2015 ULTRASOUND RENAL SONO Ordered:31-Aug-2015 ULTRASOUND RENAL SONO Ordered:31-Aug-2015 Immunization Name Dates Details Influenza Administered on:22-Mar-2011 Influenza Administered on:27-Mar-2012 Fluvirin Intramuscular Injectable Administered on:20-Apr-2013 Fluzone High-Dose Intramuscular Suspension Lot #: [id number] Administered on:14-Mar-2014 Prevnar 13 Intramuscular Suspension Lot #: [id number] Administered on:14-Mar-2014 Adacel 5-2-15.5 LF-MCG/0.5 Intramuscular Suspension Lot #: [id number] Administered on:10-Feb-2015 Fluzone High-Dose Intramuscular Suspension Lot #: [id number] Administered on:13-Apr-2015 Family History Mother* Name Dates [...] smoker Vital Signs Date Test Result Details 31-Aug-2015 10:24 BP Systolic 115 mm[Hg] Status: BP Diastolic 68 mm[Hg] Status: Heart Rate 63 /min Status: Height 66 in Status: Weight 160 lb Status: Body Mass Index Calculated 25.82 kg/m2 Status: Body Surface Area Calculated 1.82 m2 Status: 14-Aug-2015 14:08 BP Systolic 138 mm[Hg] Status: [...] Body Surface Area Calculated 1.84 m2 Status: Results Date Description Value Details 16-Aug-2015 15:07 PET/CT SKULL TO MID THIGH Comments: Exam Date: 2015 10:53Dictation Date: 08/16/2015 15:07 XT PET/CT SKULL TO MID THIGH (Better) Plan of Care Planned Observations* Name Dates Details Planned Goals not documented Goal Planned Encounters* Appointment; Provider: Wolfgang Cano On 15-Mar-2016 08:45 * Appointment; Provider: Hosea Guerin On 21-Sep-2015 10:30 * Appointment; Provider: Ion Pillai On 04-Sep-2015 09:30 * Appointment; Provider: Schedule Radiology On 25-Aug-2015 [...]
--- OUTSIDE RECORDS SUMMARY | 2016-10-08 06:49 | XMS REPORT | Summary of Care ---
Author Author Kristel Anderson APRN Organization Unknown Address [address] [place] [place] [id number] Phone Unavailable Care Team Providers Care Mobile Ui Developer Name Role Phone Alek Pillai M.D. 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, I25.10) [...] Refills: 1 Wolfgang Cano M.D.* Started 11-Apr-2014 [id number] Tablet Sublingual Bottle Allergies and Adverse Reactions [...] Surgery Excision Of Breast Single Lesion Completed: Urinalysis, Reflex to Microscopic or Culture PRN [id number] Ordered:13-Sep-2014 Immunization Name Dates Details Influenza Administered on:22-Mar-2011 Influenza Administered on:27-Mar-2012 Fluvirin Intramuscular Injectable Administered on:20-Apr-2013 Fluzone High-Dose Intramuscular Suspension Lot #: [id number] Administered on:14-Mar-2014 Prevnar 13 Intramuscular Suspension Lot #: [id number] Administered on:14-Mar-2014 Family History Mother* Name Dates [...] smoker Vital Signs Date Test Result Details No Known Vitals to report Results Date Description Value Details Results not documented Plan of Care Planned Observations* Name Dates [...]
--- OUTSIDE RECORDS SUMMARY | 2016-10-08 06:49 | XMS REPORT | Summary of Care ---
Author Author Susan Peraza APRN Organization Unknown Address [address], [place] [id number] Phone Unavailable Care Team Providers Care Wheel Worker Name Role Phone Alek Pillai M.D. 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 Quantity: 30 Ion Pillai M.D.* Started ActiveAspirin 325 MG Oral Tablet TAKE 1/2 TABLET DAILY * Refills: 0 * Started ActiveMetoprolol Tartrate 100 MG Oral Tablet TAKE 1/2 TABLET DAILY * Quantity: 45 Refills: 3 Ion Pillai M.D.* Started 07-Oct-2013 ActiveNitrostat 0.4 MG Sublingual Tablet Sublingual PLACE 1 TABLET UNDER THE TONGUE EVERY 5 MINUTES UP TO 3 DOSES NEEDED FOR CHEST PAIN. * Quantity: 25 Refills: 1 Wolfgang Cano M.D.* Started 11-Apr-2014 [id number] Tablet Sublingual Bottle Magnesium 250 MG Oral [...] Refills: 0 Ion Pillai M.D.* Started 04-Sep-2015 ActiveDiphenoxylate-Atropine 2.5-0.025 MG Oral Tablet TAKE 1 TABLET 4 TIMES DAILY NEEDED FOR DIARRHEA. * Quantity: 20 Refills: 1 Ion Pillai M.D.* Started 30-Oct-2015 ActiveOndansetron 8 MG Oral Tablet Dispersible take one tab every 6 hours as needed for nausea * Quantity: 1 Refills: 1 Ion Pillai M.D.* Started 30-Oct-2015 [id number] Tablet Dispersible Box Famotidine 40 MG Oral Tablet TAKE 1 TABLET DAILY DIRECTED. * Quantity: 14 Refills: 0 Ion Pillai M.D.* Started 30-Oct-2015 ActiveCiprofloxacin HCl - 500 MG Oral Tablet TAKE 1 TABLET EVERY 12 HOURS DAILY. * Quantity: 14 Refills: 0 Ion Pillai M.D.* Started 02-Nov-2015 ActiveMetroNIDAZOLE 500 MG Oral Tablet TAKE 1 TABLET TWICE DAILY UNTIL FINISHED. 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, I25.10) [...] Reflex to Microscopic or Culture PRN [id number] Ordered:02-Nov-2015 CBC w/ Auto Diff 7150 Ordered:09-Nov-2015 Comprehensive Metabolic Panel 1212 Ordered:09-Nov-2015 CBC w/ Auto Diff 7150 Ordered:23-Nov-2015 Comprehensive Metabolic Panel 1212 Ordered:23-Nov-2015 Immunization Name Dates Details Influenza Administered on:22-Mar-2011 Influenza Administered on:27-Mar-2012 Fluvirin Intramuscular Injectable Administered on:20-Apr-2013 Fluzone High-Dose Intramuscular Suspension Lot #: [id number] Administered on:14-Mar-2014 Prevnar 13 Intramuscular Suspension Lot #: [id number] Administered on:14-Mar-2014 Adacel 5-2-15.5 LF-MCG/0.5 Intramuscular Suspension Lot #: [id number] Administered on:10-Feb-2015 Fluzone High-Dose Intramuscular Suspension Lot #: [id number] Administered on:13-Apr-2015 Family History Mother* Name Dates [...] smoker Vital Signs Date Test Result Details 23-Nov-2015 09:10 BP Systolic 119 mm[Hg] Status: BP Diastolic 76 mm[Hg] Status: Temperature 97.9 f Status: Heart Rate 78 /min Status: Weight 154 lb Status: Body Mass Index Calculated 24.86 kg/m2 Status: Body Surface Area Calculated 1.79 m2 Status: 08-Nov-2015 08:38 BP Systolic 124 mm[Hg] Status: BP Diastolic 76 mm[Hg] Status: Weight 155 lb Status: Body Mass Index Calculated 25.02 kg/m2 Status: Body Surface Area Calculated 1.79 m2 Status: 02-Nov-2015 09:34 BP Systolic 122 mm[Hg] Status: BP Diastolic 70 mm[Hg] Status: Temperature 98.1 f Status: Weight 155 lb Status: Body Mass Index Calculated 25.02 kg/m2 Status: Body Surface Area Calculated 1.79 m2 Status: 30-Oct-2015 09:58 BP Systolic 126 mm[Hg] Status: BP Diastolic 74 mm[Hg] Status: Temperature 98.1 f Status: Weight 156 lb Status: Body Mass Index Calculated 25.18 kg/m2 Status: Body Surface Area Calculated 1.8 m2 Status: Results Date Description Value Details 02-Nov-2015 10:33 CBC w/ Auto Diff 7150 WBC 9.1 K/uL (Better) Range: 4.5-11.0 RBC 5.42 mil/uL (Above high threshold) Range: 3.60-5.00 HGB 16.1 g/dL (Above high threshold) Range: 12.0-16.0 Comments: Verified by Repeat AnalysisVariance from previous testing noted.----- HCT 45.2 % (Better) Range: 36.0-48.0 MCV 83.5 fL (Better) Range: 80.0-99.0 MCH 29.6 pg (Better) Range: 27.3-32.5 MCHC 35.5 % (Better) Range: 32.0-36.0 RDW 13.5 % (Better) Range: 11.6-14.8 PLATELETS 283 K/uL (Better) Range: 150-400 MPV 6.7 fL (Better) Range: 6.0-11.0 %NEUTRO 78.2 % (Better) Range: 37.0-80.0 %LYMPHS 13.6 % (Better) Range: 13.0-50.0 %MONO 5.3 % (Better) Range: 0.0-12.0 %EOS 0.7 % (Better) Range: 0.0-7.0 %BASO 0.2 % (Better) Range: 0.0-2.5 %JUSTIN 2.1 % (Better) Range: 0.0-5.0 NEUTRO 7.1 K/uL (Above high threshold) Range: 2.0-6.9 LYMPHS 1.2 K/uL (Better) Range: 0.6-3.4 MONOS 0.5 K/uL (Better) Range: 0.0-0.9 EOS 0.1 K/uL (Better) Range: 0.0-0.7 BASO 0.0 K/uL (Better) Range: 0.0-0.2 11:13 AMYLASE 1250 AMYLASE 52 U/L (Better) Range: 25-115 11:13 Comprehensive Metabolic Panel 1212 SODIUM 133 mmol/L (Better) Range: 133-144 POTASSIUM 3.0 mmol/L (Below low threshold) Range: 3.5-5.1 CHLORIDE 94 mmol/L (Below low threshold) Range: 98-110 CARBON DIOXIDE 23.8 mmol/L (Better) Range: 23.0-33.0 ANION GAP 15 mmol/L (Better) Range: 6-16 BUN 38 mg/dL (Above high threshold) Range: 7-18 CREATININE, SERUM 1.37 mg/dL (Above high threshold) Range: 0.55-1.02 Comments: Please note new reference ranges effective 2014.----- BUN:CREATININE RATIO 28 (Better) EST GFR, 45 ml/min (Below low threshold) Range: >60 EST GFR, NON-AFR [place] 37 ml/min (Below low threshold) Range: >60 Comments: EST GFR is reported in ml/min per 1.73 m2 of body surface area. For -[place]ian, please multiple result by 1.2.----- GLUCOSE 135 mg/dL (Above high threshold) Range: 70-100 Comments: Variance from previous testing noted.----- ALK PHOSPHATASE 109 U/L (Better) Range: 46-116 TOTAL BILIRUBIN 1.00 mg/dL (Better) Range: 0.20-1.00 AST 32 U/L (Better) Range: 8-35 ALT 61 U/L (Above high threshold) Range: 14-59 Comments: Please note new reference ranges. Effective 09/08/2014.----- ALBUMIN 3.9 g/dL (Better) Range: 3.4-5.0 TOTAL PROTEIN 7.5 g/dL (Better) Range: 6.4-8.2 A/G RATIO 1.1 units (Better) Range: 1.0-1.8 CALCIUM 9.4 mg/dL (Better) Range: 8.5-10.1 11:13 Lipase 1275 LIPASE 268 U/L (Better) Range: 73-393 12:49 CT AB/ PEL WITHOUT AND WITH ORAL AND IV CONTRAST Comments: Exam Date: 11/02/2015 11:42Dictation Date: 11/02/2015 12:49 XC ABD/PEL W/O & W/ (Better) 21-Nov-2015 09:07 CBC w/ Auto Diff 7150 WBC 7.7 K/uL (Better) Range: 4.5-11.0 RBC 5.37 mil/uL (Above high threshold) Range: 3.60-5.00 HGB 15.4 g/dL (Better) Range: 12.0-16.0 HCT 46.9 % (Better) Range: 36.0-48.0 MCV 87.3 fL (Better) Range: 80.0-99.0 MCH 28.6 pg (Better) Range: 27.3-32.5 MCHC 32.7 % (Better) Range: 32.0-36.0 RDW 13.8 % (Better) Range: 11.6-14.8 PLATELETS 291 K/uL (Better) Range: 150-400 MPV 7.9 fL (Better) Range: 6.0-11.0 %NEUTRO 60.8 % (Better) Range: 37.0-80.0 %LYMPHS 27.2 % (Better) Range: 13.0-50.0 %MONO 6.7 % (Better) Range: 0.0-12.0 %EOS 2.4 % (Better) Range: 0.0-7.0 %BASO 0.9 % (Better) Range: 0.0-2.5 %JUSTIN 2.1 % (Better) Range: 0.0-5.0 NEUTRO 4.7 K/uL (Better) Range: 2.0-6.9 LYMPHS 2.1 K/uL (Better) Range: 0.6-3.4 MONOS 0.5 K/uL (Better) Range: 0.0-0.9 EOS 0.2 K/uL (Better) Range: 0.0-0.7 BASO 0.1 K/uL (Better) Range: 0.0-0.2 09:35 Comprehensive Metabolic Panel 1212 SODIUM 141 mmol/L (Better) Range: 133-144 POTASSIUM 3.4 mmol/L (Below low threshold) Range: 3.5-5.1 CHLORIDE 100 mmol/L (Better) Range: 98-110 CARBON DIOXIDE 28.3 mmol/L (Better) Range: 23.0-33.0 ANION GAP 13 mmol/L (Better) Range: 6-16 BUN 18 mg/dL (Better) Range: 7-18 Comments: Variance from previous testing noted.----- CREATININE, SERUM 1.18 mg/dL (Above high threshold) Range: 0.55-1.02 Comments: Please note new reference ranges effective 2014.----- BUN:CREATININE RATIO 15 (Better) EST GFR, 53 ml/min (Below low threshold) Range: >60 EST GFR, NON-AFR [place] 44 ml/min (Below low threshold) Range: >60 Comments: EST GFR is reported in ml/min per 1.73 m2 of body surface area. For -[place]ian, please multiple result by 1.2.----- GLUCOSE 98 mg/dL (Better) Range: 70-100 ALK PHOSPHATASE 79 U/L (Better) Range: 46-116 TOTAL BILIRUBIN 0.70 mg/dL (Better) Range: 0.20-1.00 AST 22 U/L (Better) Range: 8-35 ALT 30 U/L (Better) Range: 14-59 Comments: Please note new reference ranges. Effective 09/08/2014.----- ALBUMIN 3.8 g/dL (Better) Range: 3.4-5.0 TOTAL PROTEIN 7.5 g/dL (Better) Range: 6.4-8.2 A/G RATIO 1.0 units (Better) Range: 1.0-1.8 CALCIUM 9.1 mg/dL (Better) Range: 8.5-10.1 Plan of Care Planned Observations* Name Dates Details Planned Goals not documented Goal Planned Encounters* Appointment; Provider: Wolfgang Cano On 15-Mar-2016 08:45 * Appointment; Provider: Ion Pillai On 15-Feb-2016 10:00 * Appointment; Provider: Hosea Guerin On 09:00 * Appointment; Provider: Mayo Escamilla On 09:00 * Appointment; Provider: Schedule Radiology On 02-Nov-2015 12:30 * Appointment; Provider: Schedule Radiology On 28-Sep-2015 [...] Guerin Encounter Diagnosis: Problem not documented On 23-Nov-2015 09:30 Appointment; Ion Pillai Encounter Diagnosis: Problem not documented On 08-Nov-2015 09:00 Appointment; Ion Pillai Encounter Diagnosis: Problem not documented On 02-Nov-2015 09:30 Appointment; Ion Pillai Encounter Diagnosis: Problem not documented On 30-Oct-2015 10:00 Appointment; Ion Pillai Encounter Diagnosis: Problem not documented On 11-Oct-2015 09:30 Appointment; Kristen Irwin Encounter Diagnosis: Problem not documented On 10-Oct-2015 11:10 Appointment; Hosea Guerin Encounter Diagnosis: Problem not [...] not documented On 30-Sep-2014 09:15 Appointment; Kristel Anedrson Encounter Diagnosis: Problem not documented On 13-Sep-2014 [...]
--- OUTSIDE RECORDS SUMMARY | 2016-10-08 06:49 | XMS REPORT | Summary of Care ---
Author Author Fred Levi, Jonh Farfan Unknown Address Unknown Phone Unavailable Care Team Providers Care Manager Semiconductor Name Role Phone Fred Levi, Jonh Unavailable Unavailable Alek Pillai M.D. Unavailable Unavailable Jerome Levi, Wolfgang Unavailable Unavailable Ion Pillai Unavailable Unavailable Unavailable [...] breath) on exertion (786.05, R06.02) Status: Active Lumbar radiculopathy (724.4, M54.16) Status: Active Leg pain, bilateral (729.5, M79.604) Status: Active Gout (274.9, M10.9) Status: Active Constipation (564.00, K59.00) Status: Active Cholelithiasis with cholecystitis (574.10, K80.10) Status: Active Calculus of gallbladder w/o mention of cholecystitis or obstruction (574.20, K80.20) Status: Active Abnormal stress test (794.39, R94.39) Status: Active Left foot pain (729.5, M79.672) Status: Active Seborrheic keratosis (702.19, L82.1) Status: Active Abdominal pain (789.00, R10.9) Status: Active Gastroenteritis, acute (558.9, K52.9) Status: Active Diverticulitis (562.11, K57.92) Status: Active Abnormal weight loss (783.21, R63.4) Status: Active Hyperlipidemia (272.4, E78.5) Status: Active Hypertension (401.9, I10) Status: Active 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 * Start 10-Apr-2016 Active Pravastatin Sodium 40 MG Oral Tablet TAKE 1/2 TABLET DAILY. * Quantity: 90 Refills: 0 Ion Pillai M.D. * Start Active Aspirin [...] CHEST PAIN. * Quantity: 25 Refills: 1 Mattar M.D.Wolfgang * Start 11-Apr-2014 Active 25 Tablet Sublingual [...] Ion Pillai M.D. * Start 04-Sep-2015 Active Allergies and Adverse Reactions Name Dates Details No Known Drug Allergies (Allergy) Status: Active Latex (Allergy) Status: Denied Past Medical History Name Dates Details Abnormal stress test (794.39, R94.39) Status: Active Atherosclerotic heart disease of [place] [...] Of Breast Single Lesion Completed: May-2011 ULTRASOUND RENAL SONO Ordered: 14-Mar-2016 Immunization Name Dates Details Influenza on: 22-Mar-2011 Influenza on: 27-Mar-2012 Fluvirin INJ on: 20-Apr-2013 Fluzone High-Dose SUSP Lot #: [id number] on: 14-Mar-2014 Prevnar 13 Intramuscular Suspension Lot #: [id number] on: 14-Mar-2014 Adacel 5-2-15.5 LF-MCG/0.5 Intramuscular Suspension Lot #: [id number] on: 10-Feb-2015 Fluzone High-Dose SUSP Lot #: [id number] on: 13-Apr-2015 Family History Name Dates Details [...] smoker Vital Signs Date Test Result Details 10-Apr-2016 13:29 BP Systolic 128 mm[Hg] Status: Comments: Location: ; Position: BP Diastolic 84 mm[Hg] Status: Comments: Location: ; Position: Heart Rate 66 /min Status: Comments: Location: ; Physical Findings 14 Status: Comments: Respiration Weight 153 lb Status: Body Mass Index Calculated 24.7 kg/m2 Status: Body Surface Area Calculated 1.78 m2 Status: 15-Mar-2016 08:27 BP Systolic 110 mm[Hg] Status: Comments: Location: ; Position: BP Diastolic 68 mm[Hg] Status: Comments: Location: ; Position: Heart Rate 60 /min Status: Comments: Location: ; Weight 151.375 lb Status: Body Mass Index Calculated 24.43 kg/m2 Status: Body Surface Area Calculated 1.78 m2 Status: 14-Mar-2016 09:00 BP Systolic 139 mm[Hg] Status: Comments: Location: ; Position: BP Diastolic 81 mm[Hg] Status: Comments: Location: ; Position: Heart Rate 61 /min Status: Comments: Location: ; Results Date Description Value Details 13-Mar-2016 09:10 ULTRASOUND RENAL SONO Comments: Exam Date: 03/13/2016 08: 20Dictation Date: 03/13/2016 09:10 XS RENAL LIMITED Plan of Care Name Dates Details Planned Observations Planned Goals not documented Planned Encounters Appointment; Provider: Schedule Radiology On 29-Jan-2017 08:50 Appointment; Provider: Mayo Escamilla M.D. On 15-Jul-2016 09:30 Appointment; Provider: Ion Pillai M.D. On 13-Jun-2016 09:30 Appointment; Provider: Hosea Guerin M.D.|VINEETPCallie,DAVIS,MAXIMILIANO, On 08-May-2016 14:00 Appointment; Provider: Schedule Rad[facility] On 01-May-2016 09:00 Interventions Provided Medication Changes* Diphenoxylate-Atropine 2.5-0.025 MG Oral Tablet - Completed * Ondansetron 8 MG Oral Tablet Dispersible - Completed Instructions Name Dates Details Instructions not documented Encounters Appointment; Wolfgang Cano M.D. Encounter Diagnosis: Problem not documented On 15-Mar-2016 08:45 Appointment; Mayo Escamilla M.D. Encounter Diagnosis: Problem not documented On 14-Mar-2016 09:15 Appointment; Ion Pillai M.D. Encounter Diagnosis: Problem not documented On 01-Mar-2016 09:30 Appointment; Ion Pillai M.D. Encounter Diagnosis: Problem not documented On 26-Feb-2016 15:30 Appointment; Ion Pillai M.D. Encounter Diagnosis: Problem not documented On 15-Feb-2016 10:00 Appointment; Hosea Guerin M.D.|VINEETPCallie,DAVIS,VINEETP, Encounter Diagnosis: Problem not documented On 07-Feb-2016 14:15 Appointment; Hosea Guerin M.D.|FACP|M.DRahat,FACP|Gurmeet,FACP, Encounter Diagnosis: Problem not documented On 14:15 Appointment; Hosea Guerin M.D.|FACPWanderM.DRahat,FACPCallie,FACP, Encounter Diagnosis: Problem not documented On 09:00 Appointment; Mayo Escamilla M.D. Encounter Diagnosis: Problem not documented On 09:00 Appointment; Hosea Guerin M.D.|FACP|M.DRahat,FACP|NuzhatDRahat,FACP, Encounter Diagnosis: Problem not documented On 23-Nov-2015 [...] documented On 14-Aug-2015 14:15 Appointment; Hosea Guerin M.D.|FACPWanderMRahatDRahat,VINEETPCallie,VINEETP, Encounter Diagnosis: Problem not documented On 10-Aug-2015 14:30 Appointment; Walter Vicente M.D. Encounter Diagnosis: Problem not documented On 27-Jul-2015 12:55 Appointment; Wolfgang Cano M.D. Encounter Diagnosis: Problem not documented On 05-Jun-2015 13:30 Appointment; Ion Pillai M.D. Encounter Diagnosis: Problem not documented On 13-Apr-2015 09:15 Appointment; Wolfgang Cnao M.D. Encounter Diagnosis: Problem not documented On [...] Encounter Diagnosis: Problem not documented On 11-Apr-2014 13:00"
--- OUTSIDE RECORDS SUMMARY | 2016-10-08 06:49 | XMS REPORT | Summary of Care ---
Author Author Jerome Levi, Wolfgang Farfan Unknown Address [address] [place], [place] [id number] Phone Unavailable Care Team Providers Care Advertising Dispatch Clerk Name Role Phone Alek Pillai M.D. 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 HORMONE 3602 Ordered:27-Jun-2014 Urinalysis, Reflex to Microscopic or Culture PRN 8005 Ordered:27-Jun-2014 LDL, MEASURED 1605 Ordered:27-Jun-2014 CREATINE KINASE 1300 Ordered:27-Jun-2014 MAMMOGRAM-DIAGNOSTIC UNILATERAL FOR BREAST CANCER OR FOLLOW-UP Ordered:2014 Immunization Name Dates Details Influenza Administered on:22-Mar-2011 Influenza Administered on:27-Mar-2012 Fluvirin Intramuscular Injectable Administered on:20-Apr-2013 Fluzone High-Dose Intramuscular Suspension Lot #: [id number] Administered on:14-Mar-2014 Prevnar 13 Intramuscular Suspension Lot #: [id number] Administered on:14-Mar-2014 Family History Mother* Name Dates [...] smoker Vital Signs Date Test Result Details 27-Jun-2014 08:25 BP Systolic 126 mm[Hg] Status: BP Diastolic 82 mm[Hg] Status: Weight 167 lb Status: Body Mass Index Calculated 26.95 kg/m2 Status: Body Surface Area Calculated 1.85 m2 Status: Results Date Description Value Details [...] Instructions * Instructions not documented Encounters Appointment; Ion Pillai Encounter Diagnosis: Problem not [...]
--- OUTSIDE RECORDS SUMMARY | 2016-10-08 06:50 | XMS REPORT | Summary of Care ---
Author Author Ion Pillai M.D. 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 Hyperlipidemia (272.4, E78.5) Status: Active Fatigue (780.79, R53.83) Status: Active Hypertension (401.9, I10) Status: Active Constipation (564.00, K59.00) Status: Active Abnormal weight loss (783.21, R63.4) Status: Active Urinary frequency (788.41, R35.0) Status: Active Leg pain, bilateral (729.5, M79.604) Status: Active Medications Name Dates Details Spironolactone-HCTZ 25-25 MG Oral Tablet Take 1 tablet daily Quantity: 90 Ion Pillai M.D.* Started ActiveMetoprolol Tartrate 100 MG Oral Tablet TAKE 1/2 TABLET BID * Quantity: 180 Refills: 0 Ion Pillai M.D.* Started ActivePotassium Chloride ER 10 MEQ Oral Capsule Extended Release TAKE 1/2 CAPSULE Daily * Quantity: 30 Refills: 0 * Started ActivePravastatin Sodium 40 MG Oral Tablet TAKE 1 TABLET DAILY. * Quantity: 90 Refills: 2 Ion Pillai M.D.* Started ActiveCaptopril 25 MG Oral Tablet TAKE 3 TABLETS TWICE A DAY * Quantity: 360 Refills: 0 Ion Pillai M.D.* Started ActiveAspirin 325 MG Oral Tablet TAKE 1/2 TABLET DAILY * Refills: 0 * Started ActiveVitamin B-12 500 MCG Oral Tablet TAKE 1/2 TABLET DAILY. * Refills: 0 * Started ActiveVitamin D 1000 UNIT Oral Capsule Take 1/2 of 500 mg tablet * Refills: 0 * Started ActiveNitrostat 0.4 MG Sublingual Tablet Sublingual PLACE 1 TABLET UNDER THE TONGUE EVERY 5 MINUTES UP TO 3 DOSES NEEDED FOR CHEST PAIN. * Quantity: 25 Refills: 1 Wolfgang Cano M.D.* Started 11-Apr-2014 [id number] Tablet Sublingual Bottle Metoprolol Tartrate 100 MG Oral Tablet TAKE 1 TABLET BY MOUTH TWICE A DAY IN THE MORNING AND EVENING * Quantity: 180 Refills: 0 Ion Pillai M.D.* Started 07-Oct-2013 Active Allergies and Adverse Reactions Name Dates [...] Lesion Completed: CBC w/ Auto Diff 7150 Ordered:30-Sep-2014 Comprehensive Metabolic Panel 1212 Ordered:30-Sep-2014 CREATINE KINASE 1300 Ordered:30-Sep-2014 Immunization Name Dates Details Influenza Administered on:22-Mar-2011 Influenza Administered on:27-Mar-2012 Fluvirin Intramuscular Injectable Administered on:20-Apr-2013 Fluzone High-Dose Intramuscular Suspension Lot #: [id number] Administered on:14-Mar-2014 Prevnar 13 Intramuscular Suspension Lot #: [id number] Administered on:14-Mar-2014 Family History Mother* Name Dates [...] Problem not documented On 30-Mar-2013 07:00 Appointment; aSnto Parks Encounter Diagnosis: Problem not documented On [...]
--- OUTSIDE RECORDS SUMMARY | 2016-10-08 06:50 | XMS REPORT | Summary of Care ---
Author Author Ion Pillai M.D. 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 * Quantity: 14 Refills: 0 Ion Pillai M.D.* Started 02-Nov-2015 ActiveMetroNIDAZOLE 500 MG Oral Tablet TAKE 1 TABLET TWICE DAILY UNTIL FINISHED. * Quantity: 14 Refills: 0 Ion Pillai M.D.* Started 02-Nov-2015 ActiveFamotidine 40 MG Oral Tablet TAKE 1 TABLET DAILY DIRECTED. * Quantity: 14 Refills: 0 Ion Pillai M.D.* Started 30-Oct-2015 ActiveOndansetron 8 MG Oral Tablet Dispersible take one tab every 6 hours as needed for nausea * Quantity: 1 Refills: 1 Ion Pillai M.D.* Started 30-Oct-2015 Zimheh34 Tablet Dispersible Box Aspirin 325 MG Oral Tablet TAKE 1/2 TABLET DAILY * Refills: 0 * Started ActiveNitrostat 0.4 MG Sublingual Tablet Sublingual PLACE 1 TABLET UNDER THE TONGUE EVERY 5 MINUTES UP TO 3 DOSES NEEDED FOR CHEST PAIN. * Quantity: 25 Refills: 1 Wolfgang Cano M.D.* Started 11-Apr-2014 Hiyjwp15 Tablet Sublingual Bottle Magnesium 250 MG Oral Tablet 1 daily * Refills: 0 Ion Pillai M.D.* Started 04-Sep-2015 ActivePravastatin Sodium 40 MG Oral Tablet TAKE 1/2 TABLET DAILY. 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, I25.10) [...] Lesion Completed: CBC w/ Auto Diff 7150 Ordered:09-Nov-2015 Comprehensive Metabolic Panel 1212 Ordered:09-Nov-2015 CBC w/ Auto Diff 7150 Ordered:23-Nov-2015 Comprehensive Metabolic Panel 1212 Ordered:23-Nov-2015 Immunization Name Dates Details Influenza Administered on:22-Mar-2011 Influenza Administered on:27-Mar-2012 Fluvirin Intramuscular Injectable Administered on:20-Apr-2013 Fluzone High-Dose Intramuscular Suspension Lot #: [id number] Administered on:14-Mar-2014 Prevnar 13 Intramuscular Suspension Lot #: [id number] Administered on:14-Mar-2014 Adacel 5-2-15.5 LF-MCG/0.5 Intramuscular Suspension Lot #: [id number] Administered on:10-Feb-2015 Fluzone High-Dose Intramuscular Suspension Lot #: [id number] Administered on:13-Apr-2015 Family History Mother* Name Dates [...] m2 Status: Results Date Description Value Details 21-Nov-2015 09:07 CBC w/ Auto Diff 7150 [...] low threshold) Range: >60 EST GFR, NON-AFR [place] 44 ml/min (Below low threshold) Range: >60 Comments: EST GFR is reported in ml/min per 1.73 m2 of body surface area. For -Colombian, please multiple result by 1.2.----- GLUCOSE 98 [...] 09:00 * Appointment; Provider: Schedule Radiology On 09:00 * Appointment; Provider: Schedule Radiology [...]
--- OUTSIDE RECORDS SUMMARY | 2016-10-08 06:50 | XMS REPORT | Summary of Care ---
Author Author Ion Pillai M.D. 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 Hyperlipidemia (272.4, E78.5) Status: Active Hypertension (401.9, I10) Status: Active Medications Name Dates Details Spironolactone-HCTZ 25-25 MG Oral Tablet Take 1 tablet daily Quantity: 90 Ion Pillai M.D.* Started ActivePravastatin Sodium 40 [...] Refills: 1 Wolfgang Cano M.D.* Started 11-Apr-2014 [id number] Tablet Sublingual Bottle Magnesium 300 MG Oral [...] on:20-Apr-2013 Fluzone High-Dose Intramuscular Suspension Lot #: [id number] Administered on:14-Mar-2014 Prevnar 13 Intramuscular Suspension Lot #: [id number] Administered on:14-Mar-2014 Adacel 5-2-15.5 LF-MCG/0.5 Intramuscular Suspension Lot #: [id number] Administered on:10-Feb-2015 Fluzone High-Dose Intramuscular Suspension Lot #: [id number] Administered on:13-Apr-2015 Family History Mother* Name Dates [...] smoker Vital Signs Date Test Result Details 13-Apr-2015 09:14 BP Systolic 132 mm[Hg] Status: BP Diastolic 82 mm[Hg] Status: Weight 165 lb Status: Body Mass [...] Pillai On 17-Aug-2015 09:45 * Appointment; Provider: Wolfgang Cano On 20-Apr-2014 [...]
--- OUTSIDE RECORDS SUMMARY | 2016-10-08 06:50 | XMS REPORT | Summary of Care ---
Author Author Apoorva Levi, FACP, ,, Hosea F Organization Unknown Address Unknown Phone Unavailable Care Team Providers Care Stone Sandblaster Name Role Phone Alek Pillai M.D. 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, I25.10) [...] Ordered: 04-Sep-2016 ULTRASOUND RENAL SONO Ordered: 01-Aug-2016 Immunization Name Dates Details Influenza on: 22-Mar-2011 Influenza on: 27-Mar-2012 Fluvirin INJ on: 20-Apr-2013 Fluzone High-Dose SUSP Lot #: [id number] on: 14-Mar-2014 Prevnar 13 Intramuscular Suspension Lot #: [id number] on: 14-Mar-2014 Adacel 5-2-15.5 LF-MCG/0.5 Intramuscular Suspension Lot #: [id number] on: 10-Feb-2015 Fluzone High-Dose SUSP Lot #: [id number] on: 13-Apr-2015 Family History Name Dates Details [...] of Care Name Dates Details Planned Observations CBC w/ Auto Diff 7150 On Intent Comprehensive Metabolic Panel 1212 On Intent Planned Goals not documented Planned Encounters Appointment; Provider: Schedule Radiology On 29-Jan-2017 08:50 Appointment; Provider: Wolfgang Cano M.D. On 13:15 Appointment; Provider: Hosea Guerin M.D.|VINEETPCallie,MAXIMILIANO CANNON, On 14:00 Appointment; Provider: Mayo Escamilla M.D. On 31-Oct-2016 10:00 Appointment; Provider: Ion Pillai M.D. On 25-Sep-2016 09:15 Instructions Name Dates Details Instructions not documented Encounters Appointment; Ion Pillai M.D. Encounter Diagnosis: Problem not documented On 26-Aug-2016 15:45 Appointment; Mayo Escamilla M.D. Encounter Diagnosis: Problem not documented On 01-Aug-2016 10:30 Appointment; Ion Pillai M.D. Encounter Diagnosis: Problem not documented On 20-Jun-2016 10:00 Appointment; Ion Pillai M.D. Encounter Diagnosis: Problem not documented On 14-May-2016 09:00 Appointment; Hosea Guerin M.D.|VINEETPCallie,FACP|Gurmeet,VINEETP, Encounter Diagnosis: Problem not documented On 08-May-2016 14:00 Appointment; Jonh Ibarra M.D. Encounter Diagnosis: Problem not documented On 10-Apr-2016 13:30 Appointment; Wolfgang Cano M.D. Encounter Diagnosis: Problem not documented On 15-Mar-2016 08:45 Appointment; Mayo Escamilla M.D. Encounter Diagnosis: Problem not documented On 14-Mar-2016 09:15 Appointment; Ion Pillai M.D. Encounter Diagnosis: Problem not documented On 01-Mar-2016 09:30 Appointment; Ino Pillai M.D. Encounter Diagnosis: Problem not documented [...] documented On 14-Aug-2015 14:15 Appointment; Hosea Guerin M.D.|FACP|M.D.,FACP|M.DRahat,FACP, Encounter Diagnosis: Problem not documented On 10-Aug-2015 [...]
--- OUTSIDE RECORDS SUMMARY | 2016-10-08 06:50 | XMS REPORT | Summary of Care ---
Author Author Ion Pillai M.D. Organization Unknown Address Unknown Phone Unavailable Care Team Providers Care Quality Audit Representative Name Role Phone Alek Pillai M.D. 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 * Start 10-Apr-2016 Active Pravastatin Sodium 40 MG Oral Tablet TAKE 1/2 TABLET DAILY. * Quantity: 45 Refills: 0 Ion Pillai M.D. * Start [...] PAIN. 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, I25.10) [...] Lesion Completed: May-2011 ULTRASOUND RENAL SONO Ordered: 01-Aug-2016 Immunization Name Dates Details Influenza on: 22-Mar-2011 Influenza on: 27-Mar-2012 Fluvirin INJ on: 20-Apr-2013 Fluzone High-Dose SUSP Lot #: [id number] on: 14-Mar-2014 Prevnar 13 Intramuscular Suspension Lot #: [id number] on: 14-Mar-2014 Adacel 5-2-15.5 LF-MCG/0.5 Intramuscular Suspension Lot #: [id number] on: 10-Feb-2015 Fluzone High-Dose SUSP Lot #: [id number] on: 13-Apr-2015 Family History Name Dates Details [...] smoker Vital Signs Date Test Result Details 26-Aug-2016 15:38 BP Systolic 140 mm[Hg] Status: Comments: Location: ; Position: BP Diastolic 84 mm[Hg] Status: Comments: Location: ; Position: Weight 154 lb Status: Body Mass Index Calculated 24.86 kg/m2 Status: Body Surface Area Calculated 1.79 m2 Status: 01-Aug-2016 10:23 BP Systolic 142 mm[Hg] Status: Comments: Location: ; Position: BP Diastolic 80 mm[Hg] Status: Comments: Location: ; Position: Heart Rate 60 /min Status: Weight 150 lb Status: Body Mass Index Calculated 24.21 kg/m2 Status: Body Surface Area Calculated 1.77 m2 Status: Results Date Description Value Details 30-Jul-2016 09:08 ULTRASOUND RENAL SONO Comments: Exam Date: 07/30/2016 08: 36Dictation Date: 07/30/2016 09:08 XS RENAL LIMITED Plan of Care Name Dates Details Planned Observations Planned Goals not documented Planned Encounters Appointment; Provider: Schedule Radiology On 29-Jan-2017 08:50 Appointment; Provider: Wolfgang Cano M.D. On 13:15 Appointment; Provider: Mayo Escamilla M.D. On 31-Oct-2016 10:00 Appointment; Provider: Ion Pillai M.D. On 25-Sep-2016 09:15 Appointment; Provider: Hosea Guerin M.D.|FACP|Gurmeet,FACP|Gurmeet,VINEETP, On 04-Sep-2016 13:45 Appointment; Provider: Schedule Radiology On 28-Aug-2016 11:00 Appointment; Provider: Schedule Radiology On 28-Aug-2016 09:00 Interventions Provided Medication Changes* Gabapentin 100 MG Oral Capsule - Start * Pravastatin Sodium 40 MG Oral Tablet - Renew Instructions Name Dates Details Instructions not documented Encounters Appointment; Mayo Escamilla M.D. Encounter Diagnosis: Problem not documented On 01-Aug-2016 10:30 Appointment; Ion Pillai M.D. Encounter Diagnosis: Problem not documented On 20-Jun-2016 10:00 Appointment; Ion Pillai M.D. Encounter Diagnosis: Problem not documented On 14-May-2016 09:00 Appointment; Hosea Guerin M.D.|FACP|Gurmeet,FACP|Gurmeet,FACP, Encounter Diagnosis: Problem not documented On 08-May-2016 [...]
--- OUTSIDE RECORDS SUMMARY | 2016-10-08 06:51 | XMS REPORT | Summary of Care ---
Author Author Ion Pillai M.D. 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 Hypertension (401.9, I10) Status: Active Hyperlipidemia (272.4, E78.5) Status: Active Fatigue (780.79, R53.83) Status: Active Breast cancer (174.9, C50.919) Status: Active Dermatitis (692.9, L30.9) Status: Active Medications Name Dates Details Spironolactone-HCTZ [...] Refills: 1 Wolfgang Cano M.D.* Started 11-Apr-2014 Okuheq85 Tablet Sublingual Bottle Magnesium 300 MG Oral [...] on:20-Apr-2013 Fluzone High-Dose Intramuscular Suspension Lot #: [id number] Administered on:14-Mar-2014 Prevnar 13 Intramuscular Suspension Lot #: [id number] Administered on:14-Mar-2014 Adacel 5-2-15.5 LF-MCG/0.5 Intramuscular Suspension Lot #: [id number] Administered on:10-Feb-2015 Fluzone High-Dose Intramuscular Suspension Lot #: [id number] Administered on:13-Apr-2015 Family History Mother* Name Dates [...]
--- OUTSIDE RECORDS SUMMARY | 2016-10-08 06:51 | XMS REPORT | Summary of Care ---
Author Author Mayo Escamilla M.D. Unknown Address [address] [place] [address] [place] [address] Phone Unavailable Care Team Providers Care Lawn Specialist Name Role Phone Alek Pillai M.D. 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 Diverticulitis (562.11, K57.92) Status: Active Hyperlipidemia (272.4, E78.5) Status: Active Hypertension (401.9, I10) Status: Active Renal cell carcinoma, right (189.0, [...] Refills: 1 Wolfgang Cano M.D.* Started 11-Apr-2014 Duasag37 Tablet Sublingual Bottle Magnesium 250 MG Oral [...] R94.39) Status: Active 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, I25.10) [...] Single Lesion Completed: Comprehensive Metabolic Panel 1212 Ordered:10-Aug-2015 CBC w/ Auto Diff 7150 Ordered:10-Aug-2015 ULTRASOUND RENAL SONO Ordered:31-Aug-2015 ULTRASOUND RENAL SONO Ordered:31-Aug-2015 Immunization Name Dates Details Influenza Administered on:22-Mar-2011 Influenza Administered on:27-Mar-2012 Fluvirin Intramuscular Injectable Administered on:20-Apr-2013 Fluzone High-Dose Intramuscular Suspension Lot #: [id number] Administered on:14-Mar-2014 Prevnar 13 Intramuscular Suspension Lot #: [id number] Administered on:14-Mar-2014 Adacel 5-2-15.5 LF-MCG/0.5 Intramuscular Suspension Lot #: [id number] Administered on:10-Feb-2015 Fluzone High-Dose Intramuscular Suspension Lot #: [id number] Administered on:13-Apr-2015 Family History Mother* Name Dates [...] smoker Vital Signs Date Test Result Details 04-Sep-2015 09:00 BP Systolic 118 mm[Hg] Status: BP Diastolic 72 mm[Hg] Status: Weight 161 lb Status: Body Mass Index Calculated 25.99 kg/m2 Status: Body Surface Area Calculated 1.82 m2 Status: 31-Aug-2015 10:24 BP Systolic 115 mm[Hg] Status: [...] 08:45 * Appointment; Provider: Mayo Escamilla On 09:45 * Appointment; Provider: Ion Pillai On 08-Nov-2015 09:00 * Appointment; Provider: Schedule Radiology On 28-Sep-2015 08:00 * Appointment; Provider: Hosea Guerin On 21-Sep-2015 10:30 * Appointment; Provider: Schedule Radiology On 25-Aug-2015 [...]
--- OUTSIDE RECORDS SUMMARY | 2016-10-08 06:51 | XMS REPORT | Summary of Care ---
Author Author Kristen Irwin Organization Unknown Address [address] [place] [address] Phone Unavailable Care Team Providers Care Mold Stamper Name Role Phone Alek Pillai M.D. 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 Renal cell carcinoma, right (189.0, C64.1) Status: Active Diverticulitis (562.11, K57.92) Status: Active Left foot pain (729.5, M79.672) Status: Active Medications Name Dates Details Pravastatin [...] Refills: 1 Wolfgang Cano M.D.* Started 11-Apr-2014 [id number] Tablet Sublingual Bottle Magnesium 250 MG Oral [...] R94.39) Status: Active 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, I25.10) [...] 7150 Ordered:21-Sep-2015 Comprehensive Metabolic Panel 1212 Ordered:21-Sep-2015 URIC ACID 1155 Ordered:10-Oct-2015 CBC w/ Auto Diff 7150 Ordered:10-Oct-2015 ULTRASOUND RENAL SONO Ordered:31-Aug-2015 Immunization Name Dates Details Influenza Administered on:22-Mar-2011 Influenza Administered on:27-Mar-2012 Fluvirin Intramuscular Injectable Administered on:20-Apr-2013 Fluzone High-Dose Intramuscular Suspension Lot #: [id number] Administered on:14-Mar-2014 Prevnar 13 Intramuscular Suspension Lot #: [id number] Administered on:14-Mar-2014 Adacel 5-2-15.5 LF-MCG/0.5 Intramuscular Suspension Lot #: [id number] Administered on:10-Feb-2015 Fluzone High-Dose Intramuscular Suspension Lot #: [id number] Administered on:13-Apr-2015 Family History Mother* Name Dates [...] smoker Vital Signs Date Test Result Details 10-Oct-2015 12:50 BP Systolic 137 mm[Hg] Status: BP Diastolic 77 mm[Hg] Status: Temperature 98.2 f Status: Heart Rate 86 /min Status: O2 SAT 98 % Status: 21-Sep-2015 10:45 BP Systolic 121 mm[Hg] Status: [...] ml/min (Better) Range: >60 EST GFR, NON-AFR CITIZEN OF [place] 51 ml/min (Below low threshold) Range: >60 Comments: EST GFR is reported in ml/min per 1.73 m2 of body surface area. For -[place]rit[place]an, please multiple result by 1.2.----- GLUCOSE 93 [...] Instructions * Instructions not documented Encounters Appointment; Kristen Irwin Encounter Diagnosis: Problem not [...] Problem not documented On 08:10 Appointment; Ion Plilai Encounter Diagnosis: Problem not documented On 28-Oct-2014 [...]
--- OUTSIDE RECORDS SUMMARY | 2016-10-08 06:51 | XMS REPORT | Summary of Care ---
Author Author Ion Pillai M.D. 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 Spinal stenosis (724.00, M48.00) Status: Active SOB (shortness of breath) on exertion (786.05, R06.02) Status: Active Lumbar radiculopathy (724.4, M54.16) Status: Active Leg pain, bilateral (729.5, M79.604) Status: Active Gout (274.9, M10.9) Status: Active Constipation (564.00, K59.00) Status: Active Cholelithiasis with cholecystitis (574.10, K80.10) Status: Active Abnormal stress test (794.39, R94.39) Status: Active Hyperlipidemia (272.4, E78.5) Status: Active Hypertension (401.9, I10) Status: Active 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, 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 Left foot pain (729.5, M79.672) Status: Active Acute gouty arthropathy (274.01, M10.00) Status: Active Seborrheic keratosis (702.19, L82.1) Status: Active Abdominal pain (789.00, R10.9) Status: Active Renal cell carcinoma, right (189.0, C64.1) Status: Active Gastroenteritis, acute (558.9, K52.9) Status: [...] Refills: 1 Wolfgang Cano M.D.* Started 11-Apr-2014 Hifjhl82 Tablet Sublingual Bottle Magnesium 250 MG Oral [...] Refills: 1 Ion Pillai M.D.* Started 30-Oct-2015 Jokpdn77 Tablet Dispersible Box Famotidine 40 MG Oral [...] R94.39) Status: Active 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, I25.10) [...] 7150 Ordered:21-Sep-2015 Comprehensive Metabolic Panel 1212 Ordered:21-Sep-2015 Urinalysis, Reflex to Microscopic or Culture PRN [id number] Ordered:02-Nov-2015 Immunization Name Dates Details Influenza Administered on:22-Mar-2011 Influenza Administered on:27-Mar-2012 Fluvirin Intramuscular Injectable Administered on:20-Apr-2013 Fluzone High-Dose Intramuscular Suspension Lot #: [id number] Administered on:14-Mar-2014 Prevnar 13 Intramuscular Suspension Lot #: [id number] Administered on:14-Mar-2014 Adacel 5-2-15.5 LF-MCG/0.5 Intramuscular Suspension Lot #: [id number] Administered on:10-Feb-2015 Fluzone High-Dose Intramuscular Suspension Lot #: [id number] Administered on:13-Apr-2015 Family History Mother* Name Dates [...] smoker Vital Signs Date Test Result Details 08-Nov-2015 08:38 BP Systolic 124 mm[Hg] Status: [...] Body Surface Area Calculated 1.8 m2 Status: 11-Oct-2015 09:29 BP Systolic 132 mm[Hg] Status: BP Diastolic 86 mm[Hg] Status: Weight 166 lb Status: Body Mass Index Calculated 26.79 kg/m2 Status: Body Surface Area Calculated 1.85 m2 Status: 10-Oct-2015 12:50 BP Systolic 137 mm[Hg] Status: BP Diastolic 77 mm[Hg] Status: Temperature 98.2 f Status: Heart Rate 86 /min Status: O2 SAT 98 % Status: Results Date Description Value Details 10-Oct-2015 14:18 CBC w/ Auto Diff 7150 WBC 9.3 K/uL (Better) Range: 4.5-11.0 RBC 4.67 mil/uL (Better) Range: 3.60-5.00 HGB 13.8 g/dL (Better) Range: 12.0-16.0 HCT 40.7 % (Better) Range: 36.0-48.0 MCV 87.1 fL (Better) Range: 80.0-99.0 MCH 29.5 pg (Better) Range: 27.3-32.5 MCHC 33.9 % (Better) Range: 32.0-36.0 RDW 13.2 % (Better) Range: 11.6-14.8 PLATELETS 257 K/uL (Better) Range: 150-400 MPV 8.4 fL (Better) Range: 6.0-11.0 %NEUTRO 78.0 % (Better) Range: 37.0-80.0 %LYMPHS 13.7 % (Better) Range: 13.0-50.0 %MONO 6.2 % (Better) Range: 0.0-12.0 %EOS 0.8 % (Better) Range: 0.0-7.0 %BASO 0.3 % (Better) Range: 0.0-2.5 %JUSTIN 1.0 % (Better) Range: 0.0-5.0 NEUTRO 7.3 K/uL (Above high threshold) Range: 2.0-6.9 LYMPHS 1.3 K/uL (Better) Range: 0.6-3.4 MONOS 0.6 K/uL (Better) Range: 0.0-0.9 EOS 0.1 K/uL (Better) Range: 0.0-0.7 BASO 0.0 K/uL (Better) Range: 0.0-0.2 14:23 URIC ACID 1155 URIC ACID 6.4 mg/dL (Better) Range: 2.6-7.2 02-Nov-2015 10:33 CBC w/ Auto Diff 7150 [...] low threshold) Range: >60 EST GFR, NON-AFR [place] 37 ml/min (Below low threshold) Range: >60 Comments: EST GFR is reported in ml/min per 1.73 m2 of body surface area. For -[place], please multiple result by 1.2.----- GLUCOSE 135 [...] 12:49 XC ABD/PEL W/O & W/ (Better) Plan of Care Planned Observations* Name Dates Details Planned Goals not documented Goal Planned Encounters* Appointment; Provider: Wolfgang Cano On 15-Mar-2016 08:45 * Appointment; Provider: Ion Pillai On 15-Feb-2016 10:00 * Appointment; Provider: Mayo Escamilla On 09:00 * Appointment; Provider: Hosea Guerin On 23-Nov-2015 09:30 * Appointment; Provider: Schedule Radiology On 02-Nov-2015 [...]
--- OUTSIDE RECORDS SUMMARY | 2016-10-08 06:52 | XMS REPORT | Summary of Care ---
Author Author Apoorva Levi, FACP, ,, Hosea F Organization Unknown Address Unknown Phone Unavailable Care Team Providers Care Senior Application Security Consultant Name Role Phone Alek Pillai M.D. 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, I25.10) [...] 7150 Ordered: Comprehensive Metabolic Panel 1212 Ordered: Immunization Name Dates Details Influenza on: 22-Mar-2011 Influenza on: 27-Mar-2012 Fluvirin INJ on: 20-Apr-2013 Fluzone High-Dose SUSP Lot #: [id number] on: 14-Mar-2014 Prevnar 13 Intramuscular Suspension Lot #: [id number] on: 14-Mar-2014 Adacel 5-2-15.5 LF-MCG/0.5 Intramuscular Suspension Lot #: [id number] on: 10-Feb-2015 Fluzone High-Dose SUSP Lot #: [id number] on: 13-Apr-2015 Family History Name Dates Details [...] to report Results Date Description Value Details 30-Jan-2016 08:31 [...] 08:50 Appointment; Provider: Wolfgang Cano M.D. On 15-Mar-2016 08:45 Appointment; Provider: Mayo Escamilla M.D. On 14-Mar-2016 09:15 Appointment; Provider: Ion Pillai M.D. On 15-Feb-2016 10:00 Appointment; Provider: Schedule Radiology On 30-Jan-2016 08:50 Appointment; Provider: Schedule Radiology On 30-Jan-2016 08:00 Interventions Provided Medication Changes* Potassium Chloride Miriam ER 20 MEQ Oral Tablet Extended Release - Start Labs/Procedures/Imaging* CT PELVIS WITHOUT IV CONTRAST; Done: Jan 30 2016 8: 31AM Instructions Name Dates Details Instructions not documented Encounters Appointment; Hosea Guerin M.D.|DAVIS,DAVIS,MAXIMILIANO, Encounter Diagnosis: Problem not documented On 09:00 Appointment; Mayo Escamilla M.D. Encounter Diagnosis: Problem not documented On 09:00 Appointment; Hosea Guerin M.D.|DAVIS,DAVIS,MAXIMILIANO, Encounter Diagnosis: Problem not documented On 23-Nov-2015 [...] documented On 14-Aug-2015 14:15 Appointment; Hosea Guerin M.D.|FACP|M.DRahat,FACP|Gurmeet,VINEETP, Encounter Diagnosis: Problem not documented On 10-Aug-2015 14:30 Appointment; Walter Vicente M.D. Encounter Diagnosis: Problem not documented On 27-Jul-2015 12:55 Appointment; Wolfgang Cano M.D. Encounter Diagnosis: Problem not documented On 05-Jun-2015 13:30 Appointment; Ion Pillai M.D. Encounter Diagnosis: Problem not documented On 13-Apr-2015 09:15 Appointment; Wolfgang Cano M.D. Encounter Diagnosis: Problem not documented On 09-Mar-2015 11:00 Appointment; Hosea Guerin M.D.|FACP|M.DRahat,FACP|Gurmeet,VINEETP, Encounter Diagnosis: Problem not documented On 20-Feb-2015 [...] not documented On 29-Mar-2014 13:45 Appointment; Ion Plilai M.D. Encounter Diagnosis: Problem not documented On 14-Mar-2014 10:45 Appointment; Mina Laboy M.D. Encounter Diagnosis: Problem not documented On 22-Feb-2014 14:15 Appointment; Hosea Guerin M.D.|DAVIS,DAVIS,MAXIMILIANO, Encounter Diagnosis: Problem not documented On 21-Feb-2014 09:00"
--- OUTSIDE RECORDS SUMMARY | 2016-10-08 06:52 | XMS REPORT | Summary of Care ---
Author Author Kristen Irwin Organization Unknown Address [address] [place] [address] Phone Unavailable Care Team Providers Care Exhibit Display Representative Name Role Phone Alek Pillai M.D. 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 For -Burmese, please multiple result by 1.2.----- GLUCOSE 93 [...] Pillai On 08-Nov-2015 09:00 * Appointment; Provider: Ion Pillai On 11-Oct-2015 09:30 * Appointment; Provider: Schedule Radiology On 28-Sep-2015 [...] Problem not documented On 07-Sep-2015 09:45 Appointment; Ino Pillai Encounter Diagnosis: Problem not documented On 04-Sep-2015 09:30 Appointment; Mayo Escamilal Encounter Diagnosis: Problem not documented On 31-Aug-2015 [...]
--- OUTSIDE RECORDS SUMMARY | 2016-10-08 06:52 | XMS REPORT | Summary of Care ---
Author Author Mayo Escamilla M.D. Unknown Address [address] [place] [address] [place] [address] Phone Unavailable Care Team Providers Care Coal Wheeler Name Role Phone Alek Pillai M.D. 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 * Refills: 0 Ion Pillai M.D.* Started 04-Sep-2015 ActiveBiotin 5 MG Oral Capsule TAKE 1 CAPSULE DAILY. * Refills: 0 Ion Pillai M.D.* Started 04-Sep-2015 ActivePotassium 99 MG Oral Tablet TAKE 1 TABLET DAILY. * Refills: 0 Ion Pillai M.D.* Started 04-Sep-2015 ActiveMagnesium 250 MG Oral Tablet 1 daily * Refills: 0 Ion Pillai M.D.* Started 04-Sep-2015 ActiveNitrostat 0.4 MG Sublingual Tablet Sublingual PLACE 1 TABLET UNDER THE TONGUE EVERY 5 MINUTES UP TO 3 DOSES NEEDED FOR CHEST PAIN. 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, I25.10) [...] on:20-Apr-2013 Fluzone High-Dose Intramuscular Suspension Lot #: [id number] Administered on:14-Mar-2014 Prevnar 13 Intramuscular Suspension Lot #: [id number] Administered on:14-Mar-2014 Adacel 5-2-15.5 LF-MCG/0.5 Intramuscular Suspension Lot #: [id number] Administered on:10-Feb-2015 Fluzone High-Dose Intramuscular Suspension Lot #: [id number] Administered on:13-Apr-2015 Family History Mother* Name Dates [...] XT PET/CT SKULL TO MID THIGH (Better) 25-Aug-2015 13:23 CT BIOPSY KIDNEY Comments: Exam Date: 08/25/2015 12: 18Dictation Date: 08/25/2015 13:23 XC BIOPSY KIDNEY (Better) Plan of Care Planned Observations* Name [...]
--- OUTSIDE RECORDS SUMMARY | 2016-10-08 06:52 | XMS REPORT | Summary of Care ---
Author Author Ion Pillai M.D. 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 Medications Name Dates Details Pravastatin [...] Refills: 1 Wolfgang Cano M.D.* Started 11-Apr-2014 [id number] Tablet Sublingual Bottle Magnesium 250 MG Oral [...] Refills: 0 Ion Pillai M.D.* Started 04-Sep-2015 ActivePredniSONE 10 MG Oral Tablet 3 pills for two days, 2 pills daily for 2 days, 1 pill daily for 4 days * Quantity: 15 Refills: 0 Ion Pillai M.D.* Started 11-Oct-2015 Active Allergies and Adverse Reactions Name Dates Details No Known Drug Allergies Status: Active Latex Status: Denied Past Medical History Name Dates Details Abnormal stress test (794.39, R94.39) Status: Active 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, I25.10) [...] on:20-Apr-2013 Fluzone High-Dose Intramuscular Suspension Lot #: [id number] Administered on:14-Mar-2014 Prevnar 13 Intramuscular Suspension Lot #: [id number] Administered on:14-Mar-2014 Adacel 5-2-15.5 LF-MCG/0.5 Intramuscular Suspension Lot #: [id number] Administered on:10-Feb-2015 Fluzone High-Dose Intramuscular Suspension Lot #: [id number] Administered on:13-Apr-2015 Family History Mother* Name Dates [...] smoker Vital Signs Date Test Result Details 11-Oct-2015 09:29 BP Systolic 132 mm[Hg] Status: [...] ml/min (Better) Range: >60 EST GFR, NON-AFR [place] 51 ml/min (Below low threshold) Range: >60 Comments: EST GFR is reported in ml/min per 1.73 m2 of body surface area. For -Bulgarian, please multiple result by 1.2.----- GLUCOSE 93 [...] Problem not documented On 27-Jun-2014 08:45 Appointment; Woflgang Cano Encounter Diagnosis: Problem not documented On [...]
--- OUTSIDE RECORDS SUMMARY | 2016-10-08 06:53 | XMS REPORT | Summary of Care ---
Author Author Kristen Irwin Organization Unknown Address [address] [place] [address] Phone Unavailable Care Team Providers Care Industrial Equipment Mechanic Name Role Phone Alek Pillai M.D. 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 For -Tongan, please multiple result by 1.2.----- GLUCOSE 93 [...] Date: 09/28/2015 09:42 XS RENAL LIMITED (Better) 10-Oct-2015 14:18 CBC w/ Auto Diff 7150 [...] URIC ACID 6.4 mg/dL (Better) Range: 2.6-7.2 Plan of Care Planned Observations* Name Dates [...]
--- OUTSIDE RECORDS SUMMARY | 2016-10-08 06:53 | XMS REPORT | Summary of Care ---
Author Author Ion Pillai M.D. Organization Unknown Address Unknown Phone Unavailable Care Team Providers Care Sap Hana Developer Name Role Phone Rosas Levi, Alek Unavailable Unavailable Wolfgang Cano M.D. Unavailable Unavailable Apoorva Levi, FACP, ,, F Unavailable Unavailable Ion Pillai Unavailable [...] K80.20) Status: Active Atherosclerotic heart disease of [place] coronary artery without angina pectoris (414.01, [...] Ion Pillai M.D. * Start 04-Sep-2015 Active Biotin 5 MG Oral Capsule TAKE 1 CAPSULE DAILY. * Refills: 0 Ion Pillai M.D. * Start 04-Sep-2015 Active SM Vitamin B-12 500 MCG Oral Tablet TAKE 1 TABLET DAILY. * Refills: 0 Ion Pillai M.D. Start 04-Sep-2015 Active Diphenoxylate-Atropine 2.5-0.025 MG Oral Tablet TAKE 1 TABLET 4 TIMES DAILY NEEDED FOR DIARRHEA. * Quantity: 20 Refills: 1 oIn Pillai M.D. Start 30-Oct-2015 Active Ondansetron 8 MG Oral Tablet Dispersible take one tab every 6 hours as needed for nausea * Quantity: 1 Refills: 1 Ion Pillai M.D. Start 30-Oct-2015 Active 15 Tablet Dispersible Box Famotidine 40 MG Oral Tablet TAKE 1 TABLET DAILY DIRECTED. * Quantity: 14 Refills: 0 Ion Pillai M.D. Start 30-Oct-2015 Active MetroNIDAZOLE 500 MG Oral Tablet TAKE 1 TABLET TWICE DAILY UNTIL FINISHED. * Quantity: 14 Refills: 0 Ion Pillai M.D. Start 02-Nov-2015 Active Potassium Chloride Miriam ER 20 MEQ Oral Tablet Extended Release TAKE 1 TABLET DAILY. * Quantity: 30 Refills: 0 Apoorva Levi, MAXIMILIANO, , , Hosea F * Start Active Allergies and Adverse Reactions Name Dates Details No Known Drug Allergies (Allergy) Status: Active Latex (Allergy) Status: Denied Past Medical History Name Dates Details Abnormal stress test (794.39, R94.39) Status: Active Atherosclerotic heart disease of [place] coronary artery without angina pectoris (414.01, [...] on: 20-Apr-2013 Fluzone High-Dose SUSP Lot #: [id number] on: 14-Mar-2014 Prevnar 13 Intramuscular Suspension Lot #: [id number] on: 14-Mar-2014 Adacel 5-2-15.5 LF-MCG/0.5 Intramuscular Suspension Lot #: [id number] on: 10-Feb-2015 Fluzone High-Dose SUSP Lot #: [id number] on: 13-Apr-2015 Family History Name Dates Details [...] Observations CBC w/ Auto Diff 7150 On 04-Feb-2016 Intent Comprehensive Metabolic Panel 1212 On 04-Feb-2016 Intent Planned Goals not documented Planned Encounters Appointment; Provider: Schedule Radiology On 29-Jan-2017 08:50 Appointment; Provider: Hosea Guerin M.D.|MAXIMILIANO|Gurmeet,MAXIMILIANO|Gurmeet,FACP, On 08-May-2016 14:00 Appointment; Provider: Schedule Radiology On 01-May-2016 09:00 Appointment; Provider: Wolfgang Cano M.D. On 15-Mar-2016 08:45 Appointment; Provider: Mayo Escamilla M.D. On 14-Mar-2016 09:15 Appointment; Provider: Ion Pillai M.D. On 15-Feb-2016 10:00 Appointment; Provider: Schedule Radiology On 30-Jan-2016 08:50 Appointment; Provider: Schedule Radiology On 30-Jan-2016 08:00 Appointment; Provider: Schedule Radiology On 09:00 Instructions Name Dates Details Instructions not [...] documented On 14-Aug-2015 14:15 Appointment; Hosea Guerin M.D.|FACP|M.DRahat,FACP|NuzhatDRahat,FACP, Encounter Diagnosis: Problem not documented On 10-Aug-2015 [...]
--- OUTSIDE RECORDS SUMMARY | 2016-10-08 06:53 | XMS REPORT | Summary of Care ---
Author Author Jerome Levi, Wolfgang Farfan Unknown Address [address] [place], [place] [id number] Phone Unavailable Care Team Providers Care Voltage Tester Name Role Phone Alek Pillai M.D. Unavailable [...] L30.9) Status: Active Atherosclerotic heart disease of [place] coronary artery without angina pectoris (414.01, [...] 90 Refills: 2 Ion Pillai M.D.* Started ActiveNitrostat 0.4 MG Sublingual Tablet Sublingual PLACE 1 TABLET UNDER THE TONGUE EVERY 5 MINUTES UP TO 3 DOSES NEEDED FOR CHEST PAIN. * Quantity: 25 Refills: 1 Wolfgang Cano M.D.* Started 11-Apr-2014 [id number] Tablet Sublingual Bottle Vitamin D 1000 UNIT Oral Capsule Take 1/2 of 500 mg tablet * Refills: 0 * Started ActiveVitamin B-12 500 MCG Oral Tablet TAKE 1/2 TABLET DAILY. * Refills: 0 * Started ActivePotassium Chloride ER 10 MEQ Oral Capsule Extended Release TAKE 1/2 CAPSULE Daily * Quantity: 30 Refills: 0 * Started ActiveMetoprolol Tartrate 100 MG Oral Tablet TAKE 1/2 TABLET BID * Quantity: 180 Refills: 0 Ion Pillai M.D.* Started ActiveAspirin 325 MG Oral Tablet TAKE 1/2 TABLET DAILY * Refills: 0 * Started ActiveCaptopril 25 MG Oral Tablet 1/2 TABLET DAILY * Refills: 0 Ion Pillai M.D.* Started Active Allergies and [...] on:20-Apr-2013 Fluzone High-Dose Intramuscular Suspension Lot #: [id number] Administered on:14-Mar-2014 Prevnar 13 Intramuscular Suspension Lot #: [id number] Administered on:14-Mar-2014 Family History Mother* Name Dates [...]
--- OUTSIDE RECORDS SUMMARY | 2016-10-08 06:53 | XMS REPORT ---
Author Author GENERATED, SYSTEM Organization Unknown Address Unknown Phone Unavailable Care Team Providers Care Termite Control Service Representative Name Role Phone MD KJ, [place] [phone] Reason For Visit Chief Complaint CAD: ABNORMAL STRESS TEST,[facility] Social History Functional Status Vital Signs Results [...] the responsibility of the patient or patient retail wireless sales representative to confirm the list of medications [...] daily04/18 * vitamin d 1000 unitD 1/2 boxski71/20 Changed medications* aspirin 81 mg tablet,chewable, Ordered By: BLU FRIAS MD Directions: 1 tablet oral daily Stopped medications* None
--- OUTSIDE RECORDS SUMMARY | 2016-10-08 06:53 | XMS REPORT | Summary of Care ---
Author Author Mayo Cruz M.D. Unknown Address [address] [place] [address] [place] [address] Phone Unavailable Care Team Providers Care Delicate Fabrics Presser Name Role Phone Alek Pillai M.D. Unavailable Unavailable Wolfgang Cano M.D. Unavailable Unavailable Mayo Cruz M.D. 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, I25.10) [...] 04-Sep-2016 Comprehensive Metabolic Panel 1212 Ordered: 04-Sep-2016 Comprehensive Metabolic Panel 1212 Ordered: 05-Sep-2016 ULTRASOUND RENAL SONO Ordered: 01-Aug-2016 NUC MED RENAL SCAN Ordered: 05-Sep-2016 XRay CHEST-PA & LAT Ordered: 05-Sep-2016 Immunization Name Dates Details Influenza on: 22-Mar-2011 Influenza on: 27-Mar-2012 Fluvirin INJ on: 20-Apr-2013 Fluzone High-Dose SUSP Lot #: [id number] on: 14-Mar-2014 Prevnar 13 Intramuscular Suspension Lot #: [id number] on: 14-Mar-2014 Adacel 5-2-15.5 LF-MCG/0.5 Intramuscular Suspension Lot #: [id number] on: 10-Feb-2015 Fluzone High-Dose SUSP Lot #: [id number] on: 13-Apr-2015 Family History Name Dates Details [...] smoker Vital Signs Date Test Result Details 17-Sep-2016 09:11 BP Systolic 130 mm[Hg] Status: Comments: Location: ; Position: BP Diastolic 80 mm[Hg] Status: Comments: Location: ; Position: Weight 149 lb Status: Body Mass Index Calculated 24.05 kg/m2 Status: Body Surface Area Calculated 1.76 m2 Status: 04-Sep-2016 13:23 BP Systolic 123 mm[Hg] Status: Comments: Location: ; Position: BP Diastolic 72 mm[Hg] Status: Comments: Location: ; Position: Temperature 97.7 f Status: Comments: Method: Heart Rate 84 /min Status: Comments: Location: ; Physical Findings 16 Status: Comments: Respiration Weight [...] low threshold) Range: >60 EST GFR, NON-AFR [place] 48 ml/min (Below low threshold) Range: >60 [...] Range: Negative-Trace EPITH 3-5 /HPF Range: 0-10 Plan of Care Name Dates Details Planned Observations Planned Goals not documented Planned Encounters Appointment; Provider: Schedule Radiology On 29-Jan-2017 08:50 Appointment; Provider: Wolfgang Cano M.D. On 13:15 Appointment; Provider: Hosea Guerin M.D.|DAVIS,MAXIMILIANO|Gurmeet,MAXIMILIANO, On 14:00 Appointment; Provider: Ino Pillai M.D. On 20-Sep-2016 09:30 Appointment; Provider: Schedule Radiology On 13-Sep-2016 08:00 Appointment; Provider: Schedule Radiology On 13-Sep-2016 08:00 Appointment; Provider: Schedule Radiology On 11-Sep-2016 08:00 Appointment; Provider: Schedule Radiology On 11-Sep-2016 08:00 Interventions Provided Labs/Procedures/Imaging* Comprehensive Metabolic Panel 1212; To be Done: 05 Sep 2016 * NUC MED RENAL SCAN; To be Done: 05 Sep 2016 * XRay CHEST-PA & LAT; To be Done: 05 Sep 2016 Instructions Name Dates Details Instructions not documented Encounters Appointment; Hosea Guerin M.D.|FACP|M.D.,FACP|MRahatDRahat,FACP, Encounter Diagnosis: Problem not documented On 04-Sep-2016 13:45 Appointment; Ion Pillai M.D. Encounter Diagnosis: Problem not documented On 26-Aug-2016 15:45 Appointment; Mayo Cruz M.D. Encounter Diagnosis: Problem not documented On 01-Aug-2016 10:30 Appointment; Ion Pillai M.D. Encounter Diagnosis: Problem not documented On 20-Jun-2016 10:00 Appointment; Ion Pillai M.D. Encounter Diagnosis: Problem not documented On 14-May-2016 09:00 Appointment; Hosea Guerin M.D.|FACP|M.DRahat,FACP|Gurmeet,VINEETP, Encounter Diagnosis: Problem not documented On 08-May-2016 [...] documented On 15-Feb-2016 10:00 Appointment; Hosea Guerin M.D.|FACP|M.D.,FACP|MRahatDRahat,FACP, Encounter Diagnosis: Problem not documented On 07-Feb-2016 14:15 Appointment; Hosea Guerin M.D.|FACP|M.D.,FACP|MRahatDRahat,FACP, Encounter Diagnosis: Problem not documented On 14:15 Appointment; Hosea Guerin M.D.|FACP|M.DRahat,FACP|NuzhatDRahat,FACP, Encounter Diagnosis: Problem not documented On 09:00 Appointment; Mayo Cruz M.D. Encounter Diagnosis: Problem not documented On 09:00 Appointment; Hosea Guerin M.D.|FACP|MRahatDRahat,FACP|Gurmeet,FACP, Encounter Diagnosis: Problem not documented On 23-Nov-2015 [...] documented On 10-Oct-2015 11:10 Appointment; Hosea Guerin M.D.|FACPCallie,FACPCallie,MAXIMILIANO, Encounter Diagnosis: Problem not documented On 21-Sep-2015 10:30 Appointment; Mayo Cruz M.D. Encounter Diagnosis: Problem not documented On 07-Sep-2015 09:45 Appointment; Ion Pillai M.D. Encounter Diagnosis: Problem not documented On 04-Sep-2015 09:30 Appointment; Mayo Cruz M.D. Encounter Diagnosis: Problem not documented On 31-Aug-2015 10:45 Appointment; Mayo Cruz M.D. Encounter Diagnosis: Problem not documented On 14-Aug-2015 14:15 Appointment; Hosea Guerin M.D.|FACP|MRahatDRahat,FACP|Gurmeet,VINEETP, Encounter Diagnosis: Problem not documented On 10-Aug-2015 [...]
--- OUTSIDE RECORDS SUMMARY | 2016-10-08 06:54 | XMS REPORT | Summary of Care ---
Author Author Mayo Escamilla M.D. Organization Unknown Address [address] [place] [address] [place] [address] Phone Unavailable Care Team Providers Care Box Builder Name Role Phone Alek Pillai M.D. Unavailable Unavailable Wolfgang Cano M.D. Unavailable Unavailable Mayo Escamilla M.D. 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 Start 30-Oct-2015 Active Potassium Chloride Miriam ER 20 MEQ Oral Tablet Extended Release TAKE 1 TABLET DAILY. * Quantity: 30 Refills: 0 Apoorva Levi, MAXIMILIANO, , , Hosea F * Start Active PredniSONE 10 MG Oral Tablet 3 tabs daily for 2 days, 2 tabs daily for 2 days, 1 tab daily for 2 days, 1/2 tab daily for 4 days * Quantity: 16 Refills: 0 Ion Pillai M.D. Start 26-Feb-2016 Active Allopurinol 100 MG Oral Tablet TAKE 1 TABLET DAILY DIRECTED. * Quantity: 60 Refills: 1 Ion Pillai M.D. 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, I25.10) [...] Excision Of Breast Single Lesion Completed: May-2011 MRI PELVIS WITHOUT AND WITH CONTRAST Ordered: 07-Feb-2016 Immunization Name Dates Details Influenza on: 22-Mar-2011 Influenza on: 27-Mar-2012 Fluvirin INJ on: 20-Apr-2013 Fluzone High-Dose SUSP Lot #: [id number] on: 14-Mar-2014 Prevnar 13 Intramuscular Suspension Lot #: [id number] on: 14-Mar-2014 Adacel 5-2-15.5 LF-MCG/0.5 Intramuscular Suspension Lot #: [id number] on: 10-Feb-2015 Fluzone High-Dose SUSP Lot #: [id number] on: 13-Apr-2015 Family History Name Dates Details [...] smoker Vital Signs Date Test Result Details 14-Mar-2016 09:00 BP Systolic 139 mm[Hg] Status: Comments: Location: ; Position: BP Diastolic 81 mm[Hg] Status: Comments: Location: ; Position: Heart Rate 61 /min Status: 01-Mar-2016 09:28 BP Systolic 106 mm[Hg] Status: Comments: Location: ; Position: BP Diastolic 80 mm[Hg] Status: Comments: Location: ; Position: 26-Feb-2016 15:33 BP Systolic 116 mm[Hg] Status: Comments: Location: ; Position: BP Diastolic 72 mm[Hg] Status: Comments: Location: ; Position: 15-Feb-2016 09:54 BP Systolic 130 mm[Hg] Status: Comments: Location: ; Position: BP Diastolic 84 mm[Hg] Status: Comments: Location: ; Position: Weight 151 lb Status: Body Mass Index Calculated 24.37 kg/m2 Status: Body Surface Area Calculated 1.77 m2 Status: Results Date Description Value Details 26-Feb-2016 17:09 URIC ACID 1155 URIC ACID 7.8 mg/dL (Above high threshold) Range: 2.6-7.2 Plan of Care Name Dates Details Planned Observations Planned Goals not documented Planned Encounters Appointment; Provider: Schedule Radiology On 29-Jan-2017 08:50 Appointment; Provider: Mayo Escamilla M.D. On 15-Jul-2016 09:30 Appointment; Provider: Ion Pillai M.D. On 13-Jun-2016 09:30 Appointment; Provider: Hosea Guerin M.D.|DAVIS,DAVIS,MAXIMILIANO, On 08-May-2016 14:00 Appointment; Provider: Schedule Radiology On 01-May-2016 09:00 Appointment; Provider: Wolfgang Cano M.D. On 15-Mar-2016 08:45 Instructions Name Dates Details Instructions not documented [...] Diagnosis: Problem not documented On 14:15 Appointment; oHsea Guerin M.D.|FACP|M.D.,FACP|M.D.,FACP, Encounter Diagnosis: Problem not documented [...] documented On 14-Aug-2015 14:15 Appointment; Hosea Guerin M.D.|FACP|M.D.,FACP|MRahatDRahat,FACP, Encounter Diagnosis: Problem not documented On 10-Aug-2015 [...] Encounter Diagnosis: Problem not documented On 14-Mar-2014 10:45"
--- OUTSIDE RECORDS SUMMARY | 2016-10-08 06:54 | XMS REPORT | Summary of Care ---
Author Author Ion Pillai M.D. Organization Unknown Address [address] [place], [place] [id number] Phone Unavailable Care Team Providers Care Motor Driver Name Role Phone Alek Pillai M.D. 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, I25.10) [...] Abnormal weight loss (783.21, R63.4) Status: Active Abdominal pain (789.00, R10.9) Status: Active Diverticulitis (562.11, K57.92) Status: Active Renal cell carcinoma, right (189.0, C64.1) Status: Active Gastroenteritis, acute (558.9, K52.9) Status: Active Medications Name Dates Details Pravastatin [...] Refills: 1 Wolfgang Cano M.D.* Started 11-Apr-2014 [id number] Tablet Sublingual Bottle Magnesium 250 MG Oral [...] Refills: 1 Ion Pillai M.D.* Started 30-Oct-2015 Vzgfas22 Tablet Dispersible Box Famotidine 40 MG Oral [...] R94.39) Status: Active 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, I25.10) [...] on:20-Apr-2013 Fluzone High-Dose Intramuscular Suspension Lot #: [id number] Administered on:14-Mar-2014 Prevnar 13 Intramuscular Suspension Lot #: [id number] Administered on:14-Mar-2014 Adacel 5-2-15.5 LF-MCG/0.5 Intramuscular Suspension Lot #: [id number] Administered on:10-Feb-2015 Fluzone High-Dose Intramuscular Suspension Lot #: [id number] Administered on:13-Apr-2015 Family History Mother* Name Dates [...] smoker Vital Signs Date Test Result Details 02-Nov-2015 09:34 BP Systolic 122 mm[Hg] Status: [...] low threshold) Range: >60 EST GFR, NON-AFR [place] 37 ml/min (Below low threshold) Range: >60 Comments: EST GFR is reported in ml/min per 1.73 m2 of body surface area. For -[place] African, please multiple result by 1.2.----- GLUCOSE 135 [...]
--- OUTSIDE RECORDS SUMMARY | 2016-10-08 06:54 | XMS REPORT | Summary of Care ---
Author Author Ion Pillai M.D. 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 * Quantity: 14 Refills: 0 Ion Pillai M.D.* Started 30-Oct-2015 ActiveCiprofloxacin HCl - 500 MG Oral Tablet TAKE 1 TABLET EVERY 12 HOURS DAILY. * Quantity: 14 Refills: 0 oIn Pillai M.D.* Started 02-Nov-2015 ActiveMetroNIDAZOLE 500 MG Oral Tablet TAKE 1 TABLET TWICE DAILY UNTIL FINISHED. 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 For -[place]ian, please multiple result by 1.2.----- GLUCOSE 135 [...]
--- OUTSIDE RECORDS SUMMARY | 2016-10-08 06:54 | XMS REPORT | Summary of Care ---
Author Author Mayo Cruz M.D. Unknown Address [address] [place] [address] [place] [address] Phone Unavailable Care Team Providers Care Weight Caller Name Role Phone Alek Pillai M.D. Unavailable [...] M10.9) Status: Active Atherosclerotic heart disease of [place] coronary artery without angina pectoris (414.01, [...] 90 Ion Pillai M.D. Start 10-Apr-2016 Active Magnesium 250 MG Oral Tablet 1 daily * Refills: 0 Ion Pillai M.D. Start 04-Sep-2015 Active Myrbetriq 25 MG Oral Tablet Extended Release 24 Hour Take 1 tablet daily * Quantity: 30 Refills: 5 Ion Pillai M.D. * Start 20-Jun-2016 Active Potassium Chloride ER 20 MEQ Oral Tablet Extended Release Take one tab daily * Quantity: 30 Refills: 0 Ion Pillai M.D. * Start 17-Sep-2016 Active Potassium 99 MG Oral Tablet TAKE 1 TABLET DAILY. * Refills: 0 Ion Pillai M.D. * Start 04-Sep-2015 Active Nitrostat 0.4 MG Sublingual Tablet Sublingual PLACE 1 TABLET UNDER THE TONGUE EVERY 5 MINUTES UP TO 3 DOSES NEEDED FOR CHEST PAIN. * Quantity: 25 Refills: 1 Jerome Levi Wolfgang * Start 11-Apr-2014 Active 25 Tablet Sublingual Bottle Metoprolol Tartrate 100 MG Oral Tablet TAKE 1/2 TABLET DAILY * Quantity: 45 Refills: 3 Ion Pillai M.D. * Start 07-Oct-2013 Active Pravastatin Sodium 40 MG Oral Tablet TAKE 1/2 TABLET DAILY. * Quantity: 45 Refills: 0 Ion Pillai M.D. * Start Active Gabapentin 100 MG Oral Capsule take 2 capsules twice daily for back pain * Quantity: 1 Refills: 0 Ion Pillai M.D. Start 26-Aug-2016 Active 120 Capsule Bottle Allergies and Adverse Reactions Name Dates Details No Known Drug Allergies (Allergy) Status: Active Latex (Allergy) Status: Denied Past Medical History Name Dates Details Abnormal stress test (794.39, R94.39) Status: Active Atherosclerotic heart disease of [place] coronary artery without angina pectoris (414.01, [...] 04-Sep-2016 NUC MED RENAL SCAN Ordered: 05-Sep-2016 XRay CHEST-PA & LAT Ordered: 05-Sep-2016 ULTRASOUND RENAL SONO Ordered: 01-Aug-2016 Immunization Name Dates Details Influenza on: 22-Mar-2011 Influenza on: 27-Mar-2012 Fluvirin INJ on: 20-Apr-2013 Fluzone High-Dose SUSP Lot #: [id number] on: 14-Mar-2014 Prevnar 13 Intramuscular Suspension Lot #: [id number] on: 14-Mar-2014 Adacel 5-2-15.5 LF-MCG/0.5 Intramuscular Suspension Lot #: [id number] on: 10-Feb-2015 Fluzone High-Dose SUSP Lot #: [id number] on: 13-Apr-2015 Family History Name Dates Details [...] low threshold) Range: >60 EST GFR, NON-AFR [place] 48 ml/min (Below low threshold) Range: >60 [...] >60 ml/min Range: >60 EST GFR, NON-AFR [place] 53 ml/min (Below low threshold) Range: >60 [...] M.D. On 13:15 Appointment; Provider: Hosea Guerin M.D.|FACP|M.DRahat,FACP|Gurmeet,FACP, On 14:00 Appointment; Provider: Ion Pillai M.D. On 20-Sep-2016 09:30 Instructions Name Dates Details Instructions not documented Encounters Appointment; Ion Pillai M.D. Encounter Diagnosis: Problem not documented On 17-Sep-2016 10:00 Appointment; Mayo Cruz M.D. Encounter Diagnosis: Problem not documented On 05-Sep-2016 09:00 Appointment; Hosea Guerin M.D.|FACP|MRahatDRahat,FACP|Gurmeet,VINEETP, Encounter Diagnosis: Problem not documented On 04-Sep-2016 13:45 Appointment; Ion Pillai M.D. Encounter Diagnosis: Problem not documented On 26-Aug-2016 15:45 Appointment; Mayo Cruz M.D. Encounter Diagnosis: Problem not documented On 01-Aug-2016 10:30 Appointment; Ion Pillai M.D. Encounter Diagnosis: Problem not documented On 20-Jun-2016 10:00 Appointment; Ion Pillai M.D. Encounter Diagnosis: Problem not documented On 14-May-2016 09:00 Appointment; Hosea Guerin M.D.|VINEETPCallie,VINEETPCallie,MAXIMILIANO, Encounter Diagnosis: Problem not documented On 08-May-2016 [...] documented On 15-Feb-2016 10:00 Appointment; Hosea Guerin M.D.|FACP|MRahatDRahat,FACP|Gurmeet,FACP, Encounter Diagnosis: Problem not documented On 07-Feb-2016 14:15 Appointment; Hosea Guerin M.D.|FACP|M.D.,FACP|M.DRahat,FACP, Encounter Diagnosis: Problem not documented On 14:15 Appointment; Hosea Guerin M.D.|FACP|M.D.,FACP|MRahatDRahat,FACP, Encounter Diagnosis: Problem not documented On 09:00 Appointment; Mayo Cruz M.D. Encounter Diagnosis: Problem not documented On 09:00 Appointment; Hosea Guerin M.D.|FACP|M.D.,FACP|NuzhatDRahat,FACP, Encounter Diagnosis: Problem not documented On 23-Nov-2015 [...]
--- OUTSIDE RECORDS SUMMARY | 2016-10-08 06:55 | XMS REPORT | Summary of Care ---
Author Author Jerome Levi, Wolfgang Farfan Unknown Address [address] [place], [place] [id number] Phone Unavailable Care Team Providers Care Practice Coordinator Name Role Phone Alek Pillai M.D. 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 Hypertension (401.9, I10) Status: Active Hyperlipidemia (272.4, E78.5) Status: Active Fatigue (780.79, R53.83) Status: Active Breast cancer (174.9, C50.919) Status: Active Dermatitis (692.9, L30.9) Status: Active Medications Name Dates Details Pravastatin [...] Refills: 1 Wolfgang Cano M.D.* Started 11-Apr-2014 Fzitrr46 Tablet Sublingual Bottle Magnesium 300 MG Oral [...] on:20-Apr-2013 Fluzone High-Dose Intramuscular Suspension Lot #: [id number] Administered on:14-Mar-2014 Prevnar 13 Intramuscular Suspension Lot #: [id number] Administered on:14-Mar-2014 Adacel 5-2-15.5 LF-MCG/0.5 Intramuscular Suspension Lot #: [id number] Administered on:10-Feb-2015 Fluzone High-Dose Intramuscular Suspension Lot #: [id number] Administered on:13-Apr-2015 Family History Mother* Name Dates [...] smoker Vital Signs Date Test Result Details 05-Jun-2015 13:32 BP Systolic 114 mm[Hg] Status: BP Diastolic 80 mm[Hg] Status: Heart Rate 80 /min Status: Weight 168 lb Status: Body Mass Index Calculated 27.12 kg/m2 Status: Body Surface Area Calculated 1.86 m2 Status: Results Date Description Value Details [...]
--- OUTSIDE RECORDS SUMMARY | 2016-10-08 06:55 | XMS REPORT | Summary of Care ---
Author Author Jerome Levi, Wolfgang Farfan Unknown Address [address] [place], [place] [phone] Phone Unavailable Care Team Providers Care Button Breaker Operator Name Role Phone Alek Pillai M.D. 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
--- OUTSIDE RECORDS SUMMARY | 2016-10-08 06:55 | XMS REPORT | Summary of Care ---
Author Author Ion Pillai M.D. Organization Unknown Address Unknown Phone Unavailable Care Team Providers Care Director Marketing Analytics Name Role Phone Alek Pillai M.D. Unavailable [...] M10.9) Status: Active Atherosclerotic heart disease of [place] coronary artery without angina pectoris (414.01, [...] R94.39) Status: Active Atherosclerotic heart disease of [place] coronary artery without angina pectoris (414.01, [...] on: 20-Apr-2013 Fluzone High-Dose SUSP Lot #: [id number] on: 14-Mar-2014 Prevnar 13 Intramuscular Suspension Lot #: [id number] on: 14-Mar-2014 Adacel 5-2-15.5 LF-MCG/0.5 Intramuscular Suspension Lot #: [id number] on: 10-Feb-2015 Fluzone High-Dose SUSP Lot #: [id number] on: 13-Apr-2015 Family History Name Dates Details [...] Problem not documented On 04-Sep-2015 09:30 Appointment; Maoy Escamilla M.D. Encounter Diagnosis: Problem not documented [...]
--- OUTSIDE RECORDS SUMMARY | 2016-10-08 06:55 | XMS REPORT | Summary of Care ---
Author Author Walter Vicente M.D. Unknown Address [address] [place], [place] [address] Phone Unavailable Care Team Providers Care License Inspector Name Role Phone Alek Pillai M.D. 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 * Quantity: 90 Refills: 2 Ion Pillia M.D.* Started ActivePotassium Chloride ER 10 MEQ [...] Refills: 1 Wolfgang Cano M.D.* Started 11-Apr-2014 Rmhopk04 Tablet Sublingual Bottle PredniSONE 10 MG Oral [...] Surgery Excision Of Breast Single Lesion Completed: XRay ANKLE-Left Ordered:17-Oct-2014 Immunization Name Dates Details Influenza Administered on:22-Mar-2011 Influenza Administered on:27-Mar-2012 Fluvirin Intramuscular Injectable Administered on:20-Apr-2013 Fluzone High-Dose Intramuscular Suspension Lot #: [id number] Administered on:14-Mar-2014 Prevnar 13 Intramuscular Suspension Lot #: [id number] Administered on:14-Mar-2014 Family History Mother* Name Dates [...] ml/min (Better) Range: >60 EST GFR, NON-AFR [place] 51 ml/min (Below low threshold) Range: >60 Comments: EST GFR is reported in ml/min per 1.73 m2 of body surface area. For -[place], please multiple result by 1.2.----- GLUCOSE 122 [...] CREATINE KINASE 54 U/L (Better) Range: 26-192 Plan of Care Planned Observations* Name Dates [...]
--- OUTSIDE RECORDS SUMMARY | 2016-10-08 06:55 | XMS REPORT ---
Author Author GENERATED, SYSTEM Organization Unknown Address Unknown Phone Unavailable Care Team Providers Care Entertainment Lawyer Name Role Phone MD KJ, [place] [phone] Reason For Visit Chief Complaint CAD: ABNORMAL STRESS TEST,[facility] Social History Functional Status Vital Signs Results [...] the responsibility of the patient or patient sales representative [employer] to confirm the list of medications with [...] daily04/18 * vitamin d 1000 unitD 1/2 wouves06/20 Changed medications* aspirin 81 mg tablet,chewable, Ordered By: BLU FRIAS MD Directions: 1 tablet oral daily Stopped medications* None
--- OUTSIDE RECORDS SUMMARY | 2016-10-08 06:55 | XMS REPORT | Summary of Care ---
Author Author Mayo Escamilla M.D. Unknown Address [address] [place] [address] [place] [address] Phone Unavailable Care Team Providers Care Switchboard Wire Worker Helper Name Role Phone Alek Pillai M.D. 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 Start Active Pravastatin Sodium 40 MG Oral [...] Start 30-Oct-2015 Active 15 Tablet Dispersible Box Allergies and Adverse Reactions Name Dates Details No Known Drug Allergies (Allergy) Status: Active Latex (Allergy) Status: Denied Past Medical History Name Dates Details Abnormal stress test (794.39, R94.39) Status: Active Atherosclerotic heart disease of [place] coronary artery without angina pectoris (414.01, [...] PELVIS WITHOUT AND WITH CONTRAST Ordered: 07-Feb-2016 ULTRASOUND RENAL SONO Ordered: 14-Mar-2016 Immunization Name Dates Details Influenza on: 22-Mar-2011 Influenza on: 27-Mar-2012 Fluvirin INJ on: 20-Apr-2013 Fluzone High-Dose SUSP Lot #: [id number] on: 14-Mar-2014 Prevnar 13 Intramuscular Suspension Lot #: [id number] on: 14-Mar-2014 Adacel 5-2-15.5 LF-MCG/0.5 Intramuscular Suspension Lot #: [id number] on: 10-Feb-2015 Fluzone High-Dose SUSP Lot #: [id number] on: 13-Apr-2015 Family History Name Dates Details [...] smoker Vital Signs Date Test Result Details 15-Mar-2016 08:27 BP Systolic 110 mm[Hg] Status: Comments: Location: ; Position: BP Diastolic 68 mm[Hg] Status: Comments: Location: ; Position: Heart Rate 60 /min Status: Weight 151.375 lb Status: Body Mass Index [...] 72 mm[Hg] Status: Comments: Location: ; Position: Results Date Description Value Details 26-Feb-2016 17:09 URIC ACID 1155 URIC ACID 7.8 mg/dL (Above high threshold) Range: 2.6-7.2 13-Mar-2016 09:10 ULTRASOUND RENAL SONO Comments: Exam Date: 03/13/2016 08: 20Dictation Date: 03/13/2016 09:10 XS RENAL LIMITED Plan of Care Name Dates Details Planned Observations Planned Goals not documented Planned Encounters Appointment; Provider: Schedule Radiology On 29-Jan-2017 08:50 Appointment; Provider: Mayo Escamilla M.D. On 15-Jul-2016 09:30 Appointment; Provider: Ion Pillai M.D. On 13-Jun-2016 09:30 Appointment; Provider: Hosea Guerin M.D.|VINEETPCallie,VINEETPCallie,MAXIMILIANO, On 08-May-2016 14:00 Appointment; Provider: Schedule Radiology On 01-May-2016 09:00 Instructions Name Dates Details Instructions not [...] documented On 15-Feb-2016 10:00 Appointment; Hosea Guerin M.D.|VINEETPCallie,VINEETP|Gurmeet,VINEETP, Encounter Diagnosis: Problem not documented On 07-Feb-2016 14:15 Appointment; Hosea Guerin M.D.|VINEETP|Gurmeet,VINEETPCallie,FACP, Encounter Diagnosis: Problem not documented On 14:15 Appointment; Hosea Guerin M.D.|FACP|MRahatDRahat,FACP|Gurmeet,FACP, Encounter Diagnosis: Problem not documented On 09:00 [...] documented On 10-Oct-2015 11:10 Appointment; Hosea Guerin M.D.|VINEETPCallie,DAVIS,MAXIMILIANO, Encounter Diagnosis: Problem not documented On 21-Sep-2015 10:30 Appointment; Mayo Escamilla M.D. Encounter Diagnosis: Problem not documented On 07-Sep-2015 09:45 Appointment; Ion Pillai M.D. Encounter Diagnosis: Problem not documented On 04-Sep-2015 09:30 Appointment; Mayo Escamilla M.D. Encounter Diagnosis: Problem not documented On 31-Aug-2015 10:45 Appointment; Mayo Escamilla M.D. Encounter Diagnosis: Problem not documented On 14-Aug-2015 14:15 Appointment; Hosea Guerin M.D.|FACP|NuzhatDRahat,FACP|Gurmeet,VINEETP, Encounter Diagnosis: Problem not documented On 10-Aug-2015 [...] Encounter Diagnosis: Problem not documented On 29-Mar-2014 13:45"
--- OUTSIDE RECORDS SUMMARY | 2016-10-08 06:56 | XMS REPORT | Summary of Care ---
Author Author Susan Peraza APRN Unknown Address [address], [place] [address] Phone Unavailable Care Team Providers Care Manager Group Name Role Phone Alek Pillai M.D. Unavailable Unavailable Jerome Levi, Wolfgang Unavailable Unavailable Hilary Man M.D. 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, I25.10) [...] 7150 Ordered:10-Aug-2015 Comprehensive Metabolic Panel 1212 Ordered:10-Aug-2015 Immunization Name Dates Details Influenza Administered on:22-Mar-2011 Influenza Administered on:27-Mar-2012 Fluvirin Intramuscular Injectable Administered on:20-Apr-2013 Fluzone High-Dose Intramuscular Suspension Lot #: [id number] Administered on:14-Mar-2014 Prevnar 13 Intramuscular Suspension Lot #: [id number] Administered on:14-Mar-2014 Adacel 5-2-15.5 LF-MCG/0.5 Intramuscular Suspension Lot #: [id number] Administered on:10-Feb-2015 Fluzone High-Dose Intramuscular Suspension Lot #: [id number] Administered on:13-Apr-2015 Family History Mother* Name Dates [...] smoker Vital Signs Date Test Result Details 10-Aug-2015 14:59 BP Systolic 136 mm[Hg] Status: [...] ml/min (Better) Range: >60 EST GFR, NON-AFR [place] 58 ml/min (Below low threshold) Range: >60 Comments: EST GFR is reported in ml/min per 1.73 m2 of body surface area. For -Maltese, please multiple result by 1.2.----- GLUCOSE 91 [...] Pillai On 17-Aug-2015 09:45 * Appointment; Provider: Mayo Escamilla On 14-Aug-2015 14:15 * Appointment; Provider: Schedule Radiology On 08-Jun-2015 [...]
--- OUTSIDE RECORDS SUMMARY | 2016-10-08 06:56 | XMS REPORT | Summary of Care ---
Author Author Ion Pillai M.D. Organization Unknown Address Unknown Phone Unavailable Care Team Providers Care Liquid Chlorine Operator Name Role Phone Alek Pillai M.D. 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, I25.10) [...] on: 20-Apr-2013 Fluzone High-Dose SUSP Lot #: [id number] on: 14-Mar-2014 Prevnar 13 Intramuscular Suspension Lot #: [id number] on: 14-Mar-2014 Adacel 5-2-15.5 LF-MCG/0.5 Intramuscular Suspension Lot #: [id number] on: 10-Feb-2015 Fluzone High-Dose SUSP Lot #: [id number] on: 13-Apr-2015 Family History Name Dates Details [...] low threshold) Range: >60 EST GFR, NON-AFR [place]AN 48 ml/min (Below low threshold) Range: >60 [...] >60 ml/min Range: >60 EST GFR, NON-AFR R[place] 53 ml/min (Below low threshold) Range: >60 [...] not documented On 11-Oct-2015 09:30 Appointment; Kristen Iriwn Encounter Diagnosis: Problem not documented On 10-Oct-2015 [...]
--- OUTSIDE RECORDS SUMMARY | 2016-10-08 06:56 | XMS REPORT | Summary of Care ---
Author Author Ion Pillai M.D. Organization Unknown Address Unknown Phone Unavailable Care Team Providers Care Photographic Artist Name Role Phone Alek Pillai M.D. 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 * Start 04-Sep-2015 Active Gabapentin 100 MG Oral Capsule TAKE 1 CAPSULE BEDTIME.MAY INCREASE TO 3 CAPSULES AT BEDTIME TOLERATED. * Quantity: 2 Refills: 2 Ion Pillai M.D. 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, I25.10) [...] on: 20-Apr-2013 Fluzone High-Dose SUSP Lot #: [id number] on: 14-Mar-2014 Prevnar 13 Intramuscular Suspension Lot #: [id number] on: 14-Mar-2014 Adacel 5-2-15.5 LF-MCG/0.5 Intramuscular Suspension Lot #: [id number] on: 10-Feb-2015 Fluzone High-Dose SUSP Lot #: [id number] on: 13-Apr-2015 Family History Name Dates Details [...] smoker Vital Signs Date Test Result Details 14-May-2016 08:40 BP Systolic 112 mm[Hg] Status: Comments: Location: ; Position: BP Diastolic 78 mm[Hg] Status: Comments: Location: ; Position: Weight 152 lb Status: Body Mass Index Calculated 24.53 kg/m2 Status: Body Surface Area Calculated 1.78 m2 Status: 08-May-2016 15:29 BP Systolic 118 mm[Hg] Status: Comments: Location: ; Position: BP Diastolic 71 mm[Hg] Status: Comments: Location: ; Position: Temperature 98.1 f Status: Heart Rate 76 /min Status: Weight 151 lb Status: Body Mass Index Calculated 24.37 kg/m2 Status: Body Surface Area Calculated 1.77 m2 Status: Results Date Description Value Details 01-May-2016 11:50 MRI PELVIS WITHOUT AND WITH CONTRAST Comments: Exam Date: 05/01/2016 08:24Dictation Date: 05/01/2016 11:50 XMR PELVIS WO/W [place] Plan of Care Name Dates Details Planned Observations Planned Goals not documented Planned Encounters Appointment; Provider: Schedule Radiology On 29-Jan-2017 08:50 Appointment; Provider: Wolfgang Cano M.D. On 13:15 Appointment; Provider: Hosea Guerin M.D.|FACP|M.DRahat,FACP|Gurmeet,FACP, On 04-Sep-2016 13:45 Appointment; Provider: Ion Pillai M.D. On 14-Aug-2016 09:00 Appointment; Provider: Mayo Escamilla M.D. On 15-Jul-2016 09:30 Interventions Provided Medication Changes* Gabapentin 100 MG Oral Capsule - Start Instructions Name Dates Details Instructions not documented Encounters Appointment; Hosea Guerin M.D.|FACP|MRahatDRahat,FACP|Gurmeet,FACP, Encounter Diagnosis: Problem not documented On 08-May-2016 [...] documented On 10-Oct-2015 11:10 Appointment; Hosea Guerin M.D.|FACP|NuzhatDRahat,FACP|Gurmeet,FACP, Encounter Diagnosis: Problem not documented On 21-Sep-2015 [...] documented On 09-Mar-2015 11:00 Appointment; Hosea Guerin M.D.|MAXIMILIANO|Gurmeet,FACBipin|Gurmeet,MAXIMILIANO, Encounter Diagnosis: Problem not documented On 20-Feb-2015 [...] Encounter Diagnosis: Problem not documented On 06-Jun-2014 14:15"
--- OUTSIDE RECORDS SUMMARY | 2016-10-08 06:56 | XMS REPORT | Summary of Care ---
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, I25.10) [...] Panel 1212 Ordered:21-Sep-2015 ULTRASOUND RENAL SONO Ordered:31-Aug-2015 ULTRASOUND RENAL SONO Ordered:31-Aug-2015 Immunization Name Dates Details Influenza Administered on:22-Mar-2011 Influenza Administered on:27-Mar-2012 Fluvirin Intramuscular Injectable Administered on:20-Apr-2013 Fluzone High-Dose Intramuscular Suspension Lot #: [id number] Administered on:14-Mar-2014 Prevnar 13 Intramuscular Suspension Lot #: [id number] Administered on:14-Mar-2014 Adacel 5-2-15.5 LF-MCG/0.5 Intramuscular Suspension Lot #: [id number] Administered on:10-Feb-2015 Fluzone High-Dose Intramuscular Suspension Lot #: [id number] Administered on:13-Apr-2015 Family History Mother* Name Dates [...] Body Surface Area Calculated 1.83 m2 Status: 04-Sep-2015 09:00 BP Systolic 118 mm[Hg] Status: [...] Body Surface Area Calculated 1.82 m2 Status: Results Date Description Value Details 25-Aug-2015 13:23 CT BIOPSY KIDNEY Comments: Exam Date: 08/25/2015 12: 18Dictation Date: 08/25/2015 13:23 XC BIOPSY KIDNEY (Better) 19-Sep-2015 10:32 CBC w/ Auto Diff 7150 [...] ml/min (Better) Range: >60 EST GFR, NON-AFR [place] 51 ml/min (Below low threshold) Range: >60 Comments: EST GFR is reported in ml/min per 1.73 m2 of body surface area. For -Mongolian, please multiple result by 1.2.----- GLUCOSE 93 [...] 1.0-1.8 CALCIUM 9.9 mg/dL (Better) Range: 8.5-10.1 Plan of Care [...]
--- OUTSIDE RECORDS SUMMARY | 2016-10-08 06:57 | XMS REPORT | Summary of Care ---
Author Author Apoorva Levi, FACP,, Hosea F Organization Unknown Address [address] [place], [place] [id number] Phone Unavailable Care Team Providers Care Sterilization Technician Name Role Phone Rsoas Levi, Alek Unavailable Unavailable Jerome Levi, Wolfgang Unavailable Unavailable Ion Pillai PP Unavailable Unavailable [...] Status: Active Fatigue (780.79, R53.83) Status: Active Constipation (564.00, K59.00) Status: Active Abnormal weight loss (783.21, R63.4) Status: Active Urinary frequency (788.41, R35.0) Status: Active Spinal stenosis (724.00, M48.00) Status: Active Lumbar radiculopathy (724.4, M54.16) Status: Active Leg pain, bilateral (729.5, M79.604) Status: Active Ankle pain, left (719.47, M25.572) Status: Active Ankle sprain (845.00, S93.409A) Status: Active Gout (274.9, M10.9) Status: Active Dermatitis (692.9, L30.9) Status: Active Hypertension (401.9, I10) Status: Active Hyperlipidemia (272.4, E78.5) Status: Active 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 * Quantity: 30 Refills: 5 Ion Pillai M.D.* Started ActivePotassium Chloride ER 10 MEQ Oral Capsule Extended Release take 1 capsule daily * Quantity: 30 Refills: 0 Ion Pillai M.D.* Started ActiveVitamin B-12 500 MCG Oral Tablet TAKE 1/2 TABLET DAILY. * Refills: 0 * Started ActiveAspirin 325 MG Oral Tablet TAKE 1/2 TABLET DAILY * Refills: 0 * Started ActiveMetoprolol Tartrate 100 MG Oral Tablet TAKE ONE-HALF TABLET BY MOUTH TWICE A DAY * Quantity: 30 Refills: 4 Ion Pillai M.D.* Started 07-Oct-2013 ActiveNitrostat 0.4 MG Sublingual Tablet Sublingual PLACE 1 TABLET UNDER THE TONGUE EVERY 5 MINUTES UP TO 3 DOSES NEEDED FOR CHEST PAIN. * Quantity: 25 Refills: 1 Wolfgang Cano M.D.* Started 11-Apr-2014 [id number] Tablet Sublingual Bottle Allergies and Adverse Reactions [...] on:20-Apr-2013 Fluzone High-Dose Intramuscular Suspension Lot #: [id number] Administered on:14-Mar-2014 Prevnar 13 Intramuscular Suspension Lot #: [id number] Administered on:14-Mar-2014 Adacel 5-2-15.5 LF-MCG/0.5 Intramuscular Suspension Lot #: [id number] Administered on:10-Feb-2015 Family History Mother* Name Dates [...] smoker Vital Signs Date Test Result Details 10-Feb-2015 11:06 BP Systolic 104 mm[Hg] Status: [...] low threshold) Range: >60 EST GFR, NON-AFR [place] 48 ml/min (Below low threshold) Range: >60 Comments: EST GFR is reported in ml/min per 1.73 m2 of body surface area. For -[place] Islander, please multiple result by 1.2.----- GLUCOSE 92 [...] 1.0-1.8 CALCIUM 9.6 mg/dL (Better) Range: 8.5-10.1 Plan of Care Planned Observations* Name Dates Details Planned Goals not documented Goal Planned Encounters* Appointment; Provider: Ino Pillai On 13-Apr-2015 09:15 * Appointment; Provider: Wolfgang Cano On 09-Mar-2015 11:00 [...]
--- OUTSIDE RECORDS SUMMARY | 2016-10-08 06:57 | XMS REPORT | Summary of Care ---
Author Author Mayo Escamilla M.D. Unknown Address [address] [place] [address] [place] [address] Phone Unavailable Care Team Providers Care Hot Dipper Name Role Phone Alek Pillai M.D. 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, I25.10) [...] on: 20-Apr-2013 Fluzone High-Dose SUSP Lot #: [id number] on: 14-Mar-2014 Prevnar 13 Intramuscular Suspension Lot #: [id number] on: 14-Mar-2014 Adacel 5-2-15.5 LF-MCG/0.5 Intramuscular Suspension Lot #: [id number] on: 10-Feb-2015 Fluzone High-Dose SUSP Lot #: [id number] on: 13-Apr-2015 Family History Name Dates Details [...] On 25-Sep-2016 09:15 Appointment; Provider: Hosea Guerin M.D.|FACP|M.DRahat,FACP|Gurmeet,FACP, On 04-Sep-2016 13:45 Appointment; Provider: Schedule Radiology [...] documented On 14-May-2016 09:00 Appointment; Hosea Guerin M.D.|FACP|M.DRahat,FACP|NuzhatDRahat,FACP, Encounter Diagnosis: Problem not documented On 08-May-2016 [...] documented On 15-Feb-2016 10:00 Appointment; Hosea Guerin M.D.|FACP|M.DRahat,FACP|MRahatDRahat,FACP, Encounter Diagnosis: Problem not documented On 07-Feb-2016 14:15 Appointment; Hosea Guerin M.D.|FACP|M.D.,FACP|M.DRahat,FACP, Encounter Diagnosis: Problem not documented On 14:15 Appointment; Hosea Guerin M.D.|FACP|M.D.,FACP|M.DRahat,FACP, Encounter Diagnosis: Problem not documented On 09:00 Appointment; Mayo Escamilla M.D. Encounter Diagnosis: Problem not documented On 09:00 Appointment; Hosea Guerin M.D.|FACP|MChristine,VINETEP|Gurmeet,VINEETP, Encounter Diagnosis: Problem not documented On 23-Nov-2015 [...] documented On 10-Oct-2015 11:10 Appointment; Hosea Guerin M.D.|FACP|Gurmeet,FACP|Gurmeet,FACP, Encounter Diagnosis: Problem not documented On 21-Sep-2015 [...] documented On 09-Mar-2015 11:00 Appointment; Hosea Guerin M.D.|MAXIMILIANO|Gurmeet,MAXIMILIANO|Gurmeet,MAXIMILIANO, Encounter Diagnosis: Problem not documented On 20-Feb-2015 [...]
--- OUTSIDE RECORDS SUMMARY | 2016-10-08 06:57 | XMS REPORT | Summary of Care ---
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 Calculus of gallbladder w/o mention of cholecystitis or obstruction (574.20, K80.20) Status: Active Breast cancer (174.9, C50.919) Status: Active Constipation (564.00, K59.00) Status: Active Hypertension (401.9, I10) Status: Active Hypokalemia (276.8, E87.6) Status: Active [...] Refills: 1 Wolfgang Cano M.D.* Started 11-Apr-2014 [id number] Tablet Sublingual Bottle Magnesium 300 MG Oral [...] on:20-Apr-2013 Fluzone High-Dose Intramuscular Suspension Lot #: [id number] Administered on:14-Mar-2014 Prevnar 13 Intramuscular Suspension Lot #: [id number] Administered on:14-Mar-2014 Adacel 5-2-15.5 LF-MCG/0.5 Intramuscular Suspension Lot #: [id number] Administered on:10-Feb-2015 Family History Mother* Name Dates [...] smoker Vital Signs Date Test Result Details 20-Feb-2015 09:11 BP Systolic 134 mm[Hg] Status: [...] 1.73 m2 of body surface area. For -[place], please multiple result by 1.2.----- GLUCOSE 92 [...] ml/min (Better) Range: >60 EST GFR, NON-AFR [place] 51 ml/min (Below low threshold) Range: >60 Comments: EST GFR is reported in ml/min per 1.73 m2 of body surface area. For -[place], please multiple result by 1.2.----- GLUCOSE 94 [...] not documented Goal Planned Encounters* Appointment; Provider: Hosea Guerin On 19-Feb-2016 09:30 * Appointment; Provider: Ion Pillai On 13-Apr-2015 09:15 * Appointment; Provider: Wolfgang Cano On 09-Mar-2015 11:00 * Appointment; Provider: Wolfgang Cano On 20-Apr-2014 [...]
--- OUTSIDE RECORDS SUMMARY | 2016-10-08 06:57 | XMS REPORT ---
Author Author GENERATED, SYSTEM Organization Unknown Address Unknown Phone Unavailable Care Team Providers Care Bale Coverer Name Role Phone MD KJ, [place] [phone] Reason For Visit Chief Complaint CAD: ABNORMAL STRESS TEST,[facility] Social History Functional Status Vital [...] the responsibility of the patient or patient communications representative to confirm the list of medications [...] daily04/18 * vitamin d 1000 unitD 1/2 igtwqy97/20 Changed medications* aspirin 81 mg tablet,chewable, Ordered By: BLU FRIAS MD Directions: 1 tablet oral daily Stopped medications* None
--- OUTSIDE RECORDS SUMMARY | 2016-10-08 06:57 | XMS REPORT | Continuity of Care Document ---
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 , lumbar region 08/27/2016 HELEN MCCURDY [id number] Muscle spasm of back 08/27/2016 HELEN MCCURDY R079 Chest pain, unspecified 08/27/2016 HELEN MCCURDY Z955 Presence of coronary angioplasty implant and graft Procedures Code Description [place] [address] 08/23/2016 72621 08/23/2016 48742 08/23/2016 01127 08/23/2016 78374 08/23/2016 92976 08/23/2016 48518 08/23/2016 35142 08/23/2016 46559 08/23/2016 54675 08/23/2016 37179 08/23/2016 A9270 08/23/2016 Results Test Result Range CBC WITH PLATELET AND DIFFERENTIAL - 08/23/16 19:05 SEGS 74.8 % NRG *BASOPHILS 1.0 % NRG *EOSINOPHILS 1.1 % NRG AUTOMATED DIFF PERFORMED NRG *LYMPHOCYTES 17.0 % NRG *MONOCYTES 6.1 % NRG *ABSOLUTE BASOPHILS 0.10 10*3/uL 0.00- 0.20 *ABSOLUTE EOSINOPHILS 0.10 10*3/uL 0.00- 0.50 *ABSOLUTE LYMPHOCYTES 2.10 10*3/uL 1.00- 3.00 *ABSOLUTE MONOCYTES 0.80 10*3/uL 0.30- 1.00 *ABSOLUTE NEUTROPHILS 9.20 10*3/uL 1.80- 7.80 MPV 8.1 fL 7.4-10.4 PLATELETS 230 10*3/uL 159-386 WBC 12.3 10*3/uL 3.6-11.2 RBC 5.26 3.63-4.92 HEMOGLOBIN 14.8 11.0-14.3 HEMATOCRIT 43.5 % 31.2-41.9 MCV 82.8 fL 79.0-98.0 MCH 28.2 pg 27.0-33.0 MCHC 34.1 32.0-36.0 RDW 14.2 % 12.3-17.0 RDWSD 41.6 37.1-47.8 GFR ESTIMATION - 08/23/16 19:05 *GFR EST NON AFR [place] 51 mL/min NRG *GRFA EST AFR AMER 59 mL/min NRG COMPREHENSIVE METABOLIC PANEL - 08/23/16 19:05 BILIFUBIN TOTAL 0.60 0.20-1.00 TOTAL PROTEIN 7.7 6.4-8.2 ALBUMIN 4.1 3.4-5.0 *GLOBULIN 3.6 2.3-3.5 *A/G RATIO 1.1 1.5-2.2 ALK PHOS 117 U/L 46-116 ALT (SGPT) 21 U/L 16-63 AST (SGOT) 18 U/L 15-37 PARTIAL THROMBOPLASTIN TIME - 08/23/16 19:05 PARTIAL THROMBOPLASTIN TIME 25.8 s 23.0- 31.0 PROTHROMBIN TIME - 08/23/16 19:05 *INR 1.0 0.9-1.1 *PROTHROMBIN TIME 10.3 s 9.4-11.5 CK - 08/23/16 19:05 CK 45 U/L 26-192 TROPONIN-I - 08/23/16 19:05 TROPONIN-I <0.017 ng/mL 0.000-0.056 URINALYSIS (CULTURE PRN) - 08/23/16 20:45 *URINE APPEARANCE CLEAR CLEAR *URINE BILIRUBIN NEGATIVE NEGATIVE *URINE BLOOD TRACE-INTACT NEGATIVE *URINE GLUCOSE NEGATIVE NEGATIVE *URINE KETONES NEGATIVE NEGATIVE *URINE LEUKOCYTES TRACE NEGATIVE *URINE NITRITES NEGATIVE NEGATIVE URINE PH 7.0 5.0-8.0 *URINE PROTEIN NEGATIVE NEGATIVE URINE SPECIFIC GRAVITY <1.005 <=1.005->= 1.030 *URINE UROBILINOGEN 0.2 0.2-1.0 *URINE COLOR YELLOW STRAW/YELL/DK YELL URINE MICROSCOPIC - 08/23/16 20:45 WBC 1-5 /[HPF] 0-5 MICROSCOPIC EXAM PERFORMED PERFORMED NRG SQUAMOUS EP. CELLS MANY /[LPF] NEG-FEW BACTERIA FEW /[HPF] NEGATIVE COMMENT See Below NRG CULTURE URINE - 08/23/16 20:45 CULTURE URINE >100,000 cfu/ml~3 or more gram positive colony types~Suggestive of colonization or contamination [facility] TROPONIN-I - 08/23/16 21:15 TROPONIN-I <0.017 ng/mL 0.000-0.056 Encounters ACCT No. Visit Date/Time Discharge Status Pt. Type Provider Facility Loc./Unit Complaint [id number] 08/23/2016 17:16:00 2016 05:08:53 DIS Emergency HELEN MCCURDY <PV2.3.2>Essential (primary) hypertension</PV2.3.2><PV2.3.2>BACK SPASM</ PV2.3.2><PV2.3.2>Intervertebral disc disorders with myelopathy, lumbar region</ PV2.3.2><PV2.3.2>Muscle spasm of back</PV2.3.2><PV2.3.2>Presence of coronary angioplasty implant and graft</PV2.3.2><PV2.3.2>Chest pain, unspecified</PV2.3.2 >
--- OUTSIDE RECORDS SUMMARY | 2016-10-08 06:57 | XMS REPORT | Summary of Care ---
Author Author Kristen Irwin Organization Unknown Address [address] [place] [address] Phone Unavailable Care Team Providers Care Laundry Aide Name Role Phone Alek Pillai M.D. 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 For -Hungarian, please multiple result by 1.2.----- GLUCOSE 93 [...]
--- OUTSIDE RECORDS SUMMARY | 2016-10-08 06:58 | XMS REPORT | Summary of Care ---
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 On 13:15 Appointment; Provider: Hosea Guerin M.D.|VINEETPCallie,DAVIS,MAXIMILIANO, On 04-Sep-2016 13:45 Appointment; Provider: Ion Pillai M.D. On 14-Aug-2016 09:00 Appointment; Provider: Mayo Escamilla M.D. On 15-Jul-2016 09:30 Appointment; Provider: Schedule Radiology On 01-May-2016 09:00 [...] documented On 15-Feb-2016 10:00 Appointment; Hosea Guerin M.D.|DAVIS,VINEETPCallie,VINEETP, Encounter Diagnosis: Problem not documented On 07-Feb-2016 14:15 Appointment; Hosea Guerin M.D.|VINEETPCallie,VINEETPCallie,FACP, Encounter Diagnosis: Problem not documented On 14:15 Appointment; Hosea Guerin M.D.|FACP|Gurmeet,FACPCallie,FACP, Encounter Diagnosis: Problem not documented On 09:00 Appointment; Mayo Escamilla M.D. Encounter Diagnosis: Problem not documented On 09:00 Appointment; Hosea Guerin M.D.|FACP|MRahatDRahat,FACP|Gurmeet,VINEETP, Encounter Diagnosis: Problem not documented On 23-Nov-2015 [...] documented On 10-Oct-2015 11:10 Appointment; Hosea Guerin M.D.|FACP|MRahatDRahat,FACP|Gurmeet,VINEETP, Encounter Diagnosis: Problem not documented On 21-Sep-2015 [...] documented On 09-Mar-2015 11:00 Appointment; Hosea Guerin M.D.|MAXIMILIANO|Gurmeet,FACP|Gurmeet,FACP, Encounter Diagnosis: Problem not documented On 20-Feb-2015 [...] documented On 30-Sep-2014 09:15 Appointment; Kristel Anderson A.PRahatRRahatNRahat Encounter Diagnosis: Problem not documented On 13-Sep-2014 12:55 Appointment; Ion Pillai M.D. Encounter Diagnosis: Problem not documented On 27-Jun-2014 08:45 Appointment; Wolfgang Cano M.D. Encounter Diagnosis: Problem not documented On 06-Jun-2014 14:15"
--- OUTSIDE RECORDS SUMMARY | 2016-10-08 06:58 | XMS REPORT ---
Author Author Frank Lord Organization Unknown Address [address] [place], [place] [id number] Phone Care Team Providers Care Electrician Apprentice Powerhouse Name Role Phone Rossa Lemon PP Unavailable Unavailable Reason for Referral No Reason for Referral was given. History of Present Illness No HPI available. Problems * Normal Routine History And Physical Senior Citizen (65-80) (V70.0); ( Active) * Easy Bruising Tendency (Active) * Hypertension (401.9); (Active) * Fatigue (780.79); (Active) * Joint Pain In The Left Knee (Active) * Pain During Urination (Dysuria) (788.1); (Active) * Breast Cancer (174.9); (Active) * Seborrheic Keratosis (702.19); (Active) * Actinic Keratosis (702.0); (Active) Medication * Spironolactone-HCTZ 25-25 MG Oral Tablet; Take 1 tablet daily; Start Date: ; End Date: (Active) * Metoprolol Tartrate 100 MG Oral Tablet; TAKE 1 TABLET BY MOUTH TWICE A DAY IN THE MORNING AND EVENING; Start Date: 12/18/2010; End Date: (Active) * Captopril 50 MG Oral Tablet; 1.5 po daily; Start Date: 12/18/2010 (Active) * Pravastatin Sodium 40 MG Oral Tablet; Take 1 tablet daily; Start Date: 2010; End Date: (Active) * Potassium Chloride ER 10 MEQ Oral Capsule Extended Release; TAKE 1 CAPSULE Daily; Start Date: 12/18/2010 (Active) * Magnesium 250 MG Oral Tablet; 1.5 po daily; Start Date: 12/18/2010 (Active) * Vitamin B-12 500 MCG Oral Tablet; TAKE 1 TABLET DAILY.; Start Date: 2010 (Active) * Vitamin D 400 UNIT Oral Capsule; TAKE 1 CAPSULE DAILY.; Start Date: 2010 (Active) * Aspirin 325 MG Oral Tablet; TAKE 1/2 TABLET DAILY; Start Date: 12/19/2010 ( Active) Allergies and Adverse Reactions * No Known Drug Allergies (Active) Past Medical History * History of Acute Myocardial Infarction (V12.59); (Resolved) * History of Chest Pain (786.50); (Resolved) * History of Bright Red Blood Per Rectum (Resolved) Procedures Procedure Procedure Date Date Completed Status Hysterectomy - - Active Complete Colonoscopy 05/02/2011 - Active Breast Surgery Lumpectomy - - Active Breast Surgery Excision Of Breast Single Lesion 06/25/2011 - Active Immunization * Influenza * Influenza - Administered on: 03/27/2012 Family History * Paternal history of Stroke Syndrome (V17.1); (Active) * Maternal history of Mother At Age ____ (Active) * Maternal history of Breast Cancer (V16.3); (Active) * Maternal history of Hypertension (V17.49); (Active) * Paternal history of Father At Age ____ (Active) * Paternal history of Hypertension (V17.49); (Active) * Sororal history of Colon Cancer (V16.0); (Active) Social History * Racial Background (___ %) (Active) * No History of Tobacco Use (Active) * No History of Alcohol Use (Active) * No History of Drug Use (Active) * Marital History - Currently (Active) * Educational Level - Has High School Diploma (Active) * Caffeine Use (Active) * Uses Safety Equipment - Seatbelts (Active) * Unknown If Ever Smoked (047534); (Active) Treatment Plan * XM STEREOTACTIC VACUUM ASSIST 06/04/2011 Routine * XM UNILATERAL 06/04/2011 Routine * XM SPECIMEN FILM FOLLOWING LOC 06/04/2011 Routine * Annotations 1000 06/17/2011 Routine * XM NEEDLE LOCALIZATION GUIDANC 06/25/2011 Routine * XM SPECIMEN FILM FOLLOWING LOC 06/25/2011 Routine * CBC w/ Auto Diff 7150 05/26/2013 Stat * Comprehensive Metabolic Panel 1212 05/26/2013 Stat * Urine Culture PRN 8000 02/11/2012 Routine Advance Directives * No Advance Directives available. Encounters * Appointment 10/28/2012 * RTNPT , Provider: Apoorva Jc, Status: Pen , Time: 2:30 PM 2012
--- OUTSIDE RECORDS SUMMARY | 2016-10-08 06:58 | XMS REPORT | Summary of Care ---
Author Author Ion Pillai M.D. 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, I25.10) [...] on: 20-Apr-2013 Fluzone High-Dose SUSP Lot #: [id number] on: 14-Mar-2014 Prevnar 13 Intramuscular Suspension Lot #: [id number] on: 14-Mar-2014 Adacel 5-2-15.5 LF-MCG/0.5 Intramuscular Suspension Lot #: [id number] on: 10-Feb-2015 Fluzone High-Dose SUSP Lot #: [id number] on: 13-Apr-2015 Family History Name Dates Details [...] smoker Vital Signs Date Test Result Details 15-Feb-2016 09:54 BP Systolic 130 mm[Hg] Status: Comments: Location: ; Position: BP Diastolic 84 mm[Hg] Status: Comments: Location: ; Position: Weight 151 lb Status: Body Mass Index Calculated 24.37 kg/m2 Status: Body Surface Area Calculated 1.77 m2 Status: 07-Feb-2016 15:12 BP Systolic 131 mm[Hg] Status: Comments: Location: ; Position: BP Diastolic 83 mm[Hg] Status: Comments: Location: ; Position: Temperature 97.2 f Status: Heart Rate 81 /min Status: Weight 152 lb Status: Body Mass Index [...] 08:45Dictation Date: 01/30/2016 10:47 XM DIAGNOSTIC BILATERAL 13-Feb-2016 09:10 CBC w/ Auto Diff 7150 WBC 7.4 K/uL Range: 4.5-11.0 RBC 5.09 mil/uL (Above high threshold) Range: 3.60-5.00 HGB 14.8 g/dL Range: 12.0-16.0 HCT 44.1 % Range: 36.0-48.0 MCV 86.6 fL Range: 80.0-99.0 MCH 29.1 pg Range: 27.3-32.5 MCHC 33.6 % Range: 32.0-36.0 RDW 14.4 % Range: 11.6-14.8 PLATELETS 286 K/uL Range: 150-400 MPV 7.4 fL Range: 6.0-11.0 %NEUTRO 63.4 % Range: 37.0-80.0 %LYMPHS 25.9 % Range: 13.0-50.0 %MONO 5.7 % Range: 0.0-12.0 %EOS 2.1 % Range: 0.0-7.0 %BASO 0.9 % Range: 0.0-2.5 %JUSTIN 1.9 % Range: 0.0-5.0 NEUTRO 4.7 K/uL Range: 2.0-6.9 LYMPHS 1.9 K/uL Range: 0.6-3.4 MONOS 0.4 K/uL Range: 0.0-0.9 EOS 0.2 K/uL Range: 0.0-0.7 BASO 0.1 K/uL Range: 0.0-0.2 09:37 Comprehensive Metabolic Panel 1212 SODIUM 136 mmol/L Range: 133-144 POTASSIUM 3.2 mmol/L (Below low threshold) Range: 3.5-5.1 CHLORIDE 97 mmol/L (Below low threshold) Range: 98-110 CARBON DIOXIDE 30.4 mmol/L Range: 23.0-33.0 ANION GAP 9 mmol/L Range: 6-16 BUN 19 mg/dL (Above high threshold) Range: 7-18 CREATININE, SERUM 1.12 mg/dL (Above high threshold) Range: 0.55-1.02 Comments: Please note new reference ranges effective 2014.----- BUN:CREATININE RATIO 17 EST GFR, 56 ml/min (Below low threshold) Range: >60 EST GFR, NON-AFR BANGLADESHI 47 ml/min (Below low threshold) Range: >60 Comments: EST GFR is reported in ml/min per 1.73 m2 of body surface area. For -Russian, please multiple result by 1.2.----- GLUCOSE 124 mg/dL (Above high threshold) Range: 70-100 ALK PHOSPHATASE 89 U/L Range: 46-116 TOTAL BILIRUBIN 0.90 mg/dL Range: 0.20-1.00 AST 18 U/L Range: 8-35 ALT 21 U/L Range: 14-59 Comments: Please note new reference ranges. Effective 09/08/2014.----- ALBUMIN 3.8 g/dL Range: 3.4-5.0 TOTAL PROTEIN 7.3 g/dL Range: 6.4-8.2 A/G RATIO 1.1 units Range: 1.0-1.8 CALCIUM 9.4 mg/dL Range: 8.5-10.1 Plan of Care Name Dates Details Planned Observations Planned Goals not documented Planned Encounters Appointment; Provider: Schedule Radiology On 29-Jan-2017 08:50 Appointment; Provider: Hosea Guerin M.D.|FACP|M.DRahat,FACP|Gurmeet,FACP, On 08-May-2016 14:00 Appointment; Provider: Schedule Radiology On 01-May-2016 09:00 Appointment; Provider: Ion Pillai M.D. On 28-Mar-2016 10:00 Appointment; Provider: Wolfgang Cano M.D. On 15-Mar-2016 08:45 Appointment; Provider: Mayo Escamilla M.D. On 14-Mar-2016 09:15 Interventions Provided Medication Changes* Metoprolol Tartrate 100 MG Oral Tablet - Renew * MetroNIDAZOLE 500 MG Oral Tablet - Completed * Pravastatin Sodium 40 MG Oral Tablet [...] not documented On 09:00 Appointment; Hosea Guerin M.D.|FACP|M.D.,FACP|MRahatDRahat,FACP, Encounter Diagnosis: Problem not documented On 23-Nov-2015 [...] documented On 10-Oct-2015 11:10 Appointment; Hosea Guerin M.D.|FACP|M.D.,FACP|M.DRahat,FACP, Encounter Diagnosis: Problem not documented On 21-Sep-2015 [...] Problem not documented On 10-Aug-2015 14:30 Appointment; Watler Vicente M.D. Encounter Diagnosis: Problem not documented On 27-Jul-2015 12:55 Appointment; Wolfgang Cano M.D. Encounter Diagnosis: Problem not documented On 05-Jun-2015 13:30 Appointment; Ino Pillai M.D. Encounter Diagnosis: Problem not documented On 13-Apr-2015 09:15 Appointment; Wolfgang Cano M.D. Encounter Diagnosis: Problem not documented On 09-Mar-2015 11:00 Appointment; Hosea Guerin M.D.|FACP|M.D.,FACP|MRahatDRahat,FACP, Encounter Diagnosis: Problem not documented On 20-Feb-2015 [...] Problem not documented On 17-Oct-2014 08:25 Appointment; Rosas, Ion, M.D. Encounter Diagnosis: Problem not documented On [...]
--- OUTSIDE RECORDS SUMMARY | 2016-10-08 06:58 | XMS REPORT | Summary of Care ---
Author Author Ion Pillai M.D. 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, I25.10) [...] Refills: 1 Wolfgang Cano M.D.* Started 11-Apr-2014 Yeotin52 Tablet Sublingual Bottle Allergies and Adverse Reactions [...] Surgery Excision Of Breast Single Lesion Completed: MAMMOGRAM-DIAGNOSTIC UNILATERAL FOR BREAST CANCER OR FOLLOW-UP Ordered:2014 Immunization Name Dates Details Influenza Administered on:22-Mar-2011 Influenza Administered on:27-Mar-2012 Fluvirin Intramuscular Injectable Administered on:20-Apr-2013 Fluzone High-Dose Intramuscular Suspension Lot #: [id number] Administered on:14-Mar-2014 Prevnar 13 Intramuscular Suspension Lot #: [id number] Administered on:14-Mar-2014 Family History Mother* Name Dates [...]
--- OUTSIDE RECORDS SUMMARY | 2016-10-08 06:58 | XMS REPORT | Summary of Care ---
Author Author Ion Pillai M.D. Organization Unknown Address Unknown Phone Unavailable Care Team Providers Care Aviation Consultant Name Role Phone Alek Pillai M.D. 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 On 13:15 Appointment; Provider: Hosea Guerin M.D.|[facility], On 14:00 Appointment; Provider: Ion Pillai M.D. On 20-Sep-2016 09:30 Instructions Name Dates Details Instructions not documented Encounters Appointment; Ion Pillai M.D. Encounter Diagnosis: Problem not documented On 17-Sep-2016 10:00 Appointment; Mayo Crzu M.D. Encounter Diagnosis: Problem not documented On 05-Sep-2016 09:00 Appointment; Estephan, Hosea, M.D.|FACP|M.D.,FACP|M.D.,FACP, Encounter Diagnosis: Problem not documented On 04-Sep-2016 [...] Problem not documented On 15-Mar-2016 08:45 Appointment; Maoy Cruz M.D. Encounter Diagnosis: Problem not documented [...] documented On 10-Oct-2015 11:10 Appointment; Hosea Guerin M.D.|FACP|Gurmeet,VINEETPCallie,VINEETP, Encounter Diagnosis: Problem not documented On 21-Sep-2015 10:30 Appointment; Mayo Cruz M.D. Encounter Diagnosis: Problem not documented On 07-Sep-2015 09:45 Appointment; Ion Pillai M.D. Encounter Diagnosis: Problem not documented On 04-Sep-2015 09:30 Appointment; Mayo Cruz M.D. Encounter Diagnosis: Problem not documented On 31-Aug-2015 10:45 Appointment; Mayo Cruz M.D. Encounter Diagnosis: Problem not documented On 14-Aug-2015 14:15 Appointment; Hosea Guerin M.D.|VINEETPCallie,VINEETPCallie,VINEETP, Encounter Diagnosis: Problem not documented On 10-Aug-2015 14:30 Appointment; Walter Vicente M.D. Encounter Diagnosis: Problem not documented On 27-Jul-2015 12:55 Appointment; Wolfgang Cano M.D. Encounter Diagnosis: Problem not documented On 05-Jun-2015 13:30 Appointment; Ion Pillai M.D. Encounter Diagnosis: Problem not documented On 13-Apr-2015 09:15 Appointment; Wolfgang Cano M.D. Encounter Diagnosis: Problem not documented On 09-Mar-2015 11:00 Appointment; Hosea Guerin M.D.|FACPCallie,FACP|Gurmeet,FACP, Encounter Diagnosis: Problem not documented On 20-Feb-2015 [...]
--- OUTSIDE RECORDS SUMMARY | 2016-10-08 06:59 | XMS REPORT | Summary of Care ---
Author Author Mayo Cruz M.D. Unknown Address [address] [place] [address] [place] [address] Phone Unavailable Care Team Providers Care Veneer Production Machine Operator Name Role Phone Alek Pillai M.D. 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 * Start 20-Jun-2016 Active Gabapentin 100 MG Oral [...] R94.39) Status: Active Atherosclerotic heart disease of [place] coronary artery without angina pectoris (414.01, [...] 04-Sep-2016 Comprehensive Metabolic Panel 1212 Ordered: 04-Sep-2016 XRay CHEST-PA & LAT Ordered: 05-Sep-2016 Immunization Name Dates Details Influenza on: 22-Mar-2011 Influenza on: 27-Mar-2012 Fluvirin INJ on: 20-Apr-2013 Fluzone High-Dose SUSP Lot #: [id number] on: 14-Mar-2014 Prevnar 13 Intramuscular Suspension Lot #: [id number] on: 14-Mar-2014 Adacel 5-2-15.5 LF-MCG/0.5 Intramuscular Suspension Lot #: [id number] on: 10-Feb-2015 Fluzone High-Dose SUSP Lot #: [id number] on: 13-Apr-2015 Family History Name Dates Details [...] Body Surface Area Calculated 1.76 m2 Status: Results Date Description Value Details 13-Sep-2016 14:10 NUC MED RENAL SCAN Comments: [...] low threshold) Range: >60 EST GFR, NON-AFR VINCENTIAN 48 ml/min (Below low threshold) Range: >60 [...] >60 ml/min Range: >60 EST GFR, NON-AFR VINCENTIAN 53 ml/min (Below low threshold) Range: >60 [...] M.D. On 13:15 Appointment; Provider: Hosea Guerin M.D.|DAVIS,MAXIMILIANO [facility]NON, On 14:00 Appointment; Provider: Mayo Cruz M.D. On 08-Oct-2016 09:00 Instructions Name Dates Details Instructions not documented Encounters Appointment; Ion Pillai M.D. Encounter Diagnosis: Problem not documented On 20-Sep-2016 09:30 Appointment; Ion Pillai M.D. Encounter Diagnosis: Problem not documented On 17-Sep-2016 10:00 Appointment; Mayo Cruz M.D. Encounter Diagnosis: Problem not documented On 05-Sep-2016 09:00 Appointment; Hosea Guerin M.D.|DAVIS,DAVIS,MAXIMILIANO, Encounter Diagnosis: Problem not documented On 04-Sep-2016 [...] documented On 14-Aug-2015 14:15 Appointment; Hosea Guerin M.D.|FACP|M.DRahat,FACP|MRahatDRahat,VINEETP, Encounter Diagnosis: Problem not documented On 10-Aug-2015 [...] Encounter Diagnosis: Problem not documented On 17-Oct-2014 08:25"
--- OUTSIDE RECORDS SUMMARY | 2016-10-08 06:59 | XMS REPORT | Summary of Care ---
Author Author Kristen Irwin Organization Unknown Address [address] [place] [address] Phone Unavailable Care Team Providers Care Director Sales Name Role Phone Alek Pillai M.D. 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 For -Mont[place]grin, please multiple result by 1.2.----- GLUCOSE 93 [...] not documented On 14-Aug-2015 14:15 Appointment; Hosea uGerin Encounter Diagnosis: Problem not documented On 10-Aug-2015 [...]
--- OUTSIDE RECORDS SUMMARY | 2016-10-08 06:59 | XMS REPORT | Summary of Care ---
Author Author Susan Peraza APRN Organization Unknown Address [address], [place] [id number] Phone Unavailable Care Team Providers Care Reactor Technician Name Role Phone Alek Pillai M.D. 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, I25.10) [...] Refills: 1 Wolfgang Cano M.D.* Started 11-Apr-2014 Vjuics42 Tablet Sublingual Bottle Magnesium 300 MG Oral [...] on:20-Apr-2013 Fluzone High-Dose Intramuscular Suspension Lot #: [id number] Administered on:14-Mar-2014 Prevnar 13 Intramuscular Suspension Lot #: [id number] Administered on:14-Mar-2014 Adacel 5-2-15.5 LF-MCG/0.5 Intramuscular Suspension Lot #: [id number] Administered on:10-Feb-2015 Family History Mother* Name Dates [...] low threshold) Range: >60 EST GFR, NON-AFR GIBR[place]IAN 48 ml/min (Below low threshold) Range: >60 Comments: EST GFR is reported in ml/min per 1.73 m2 of body surface area. For -[place], please multiple result by 1.2.----- GLUCOSE 92 [...] ml/min (Better) Range: >60 EST GFR, NON-AFR GIBR[place]ARIAN 51 ml/min (Below low threshold) Range: >60 Comments: EST GFR is reported in ml/min per 1.73 m2 of body surface area. For -[place], please multiple result by 1.2.----- GLUCOSE 94 [...] not documented Goal Planned Encounters* Appointment; Provider: Ion Pillai On 13-Apr-2015 09:15 [...]
--- OUTSIDE RECORDS SUMMARY | 2016-10-08 06:59 | XMS REPORT | Summary of Care ---
Author Author Jerome Levi, Wolfgang Farfan Unknown Address [address], [place] [id number] Phone Unavailable Care Team Providers Care Isolation Washer Name Role Phone Alek Pillai M.D. 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, 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 Hypertension (401.9, I10) Status: Active Hyperlipidemia (272.4, E78.5) Status: Active Fatigue (780.79, R53.83) Status: Active Breast cancer (174.9, C50.919) Status: Active Dermatitis (692.9, L30.9) Status: Active Pain in both lower extremities (729.5, M79.604) Status: Active Medications Name Dates Details Pravastatin [...] Refills: 1 Wolfgang Cano M.D.* Started 11-Apr-2014 [id number] Tablet Sublingual Bottle Magnesium 300 MG Oral [...] Surgery Excision Of Breast Single Lesion Completed: ULTRASOUND LEG ARTERIES-BILATERAL Ordered:05-Jun-2015 Immunization Name Dates Details Influenza Administered on:22-Mar-2011 Influenza Administered on:27-Mar-2012 Fluvirin Intramuscular Injectable Administered on:20-Apr-2013 Fluzone High-Dose Intramuscular Suspension Lot #: [id number] Administered on:14-Mar-2014 Prevnar 13 Intramuscular Suspension Lot #: [id number] Administered on:14-Mar-2014 Adacel 5-2-15.5 LF-MCG/0.5 Intramuscular Suspension Lot #: [id number] Administered on:10-Feb-2015 Fluzone High-Dose Intramuscular Suspension Lot #: [id number] Administered on:13-Apr-2015 Family History Mother* Name Dates [...] Problem not documented On 20-Feb-2015 09:15 Appointment; Ino Pillai Encounter Diagnosis: Problem not [...]
[2016-10-08] MEDS ORDERED: LIDOCAINE 1% (10mg/ml) 2ml SDV INJ ONE (07:00)
[2016-10-08] MEDS ORDERED: NORMAL SALINE 1,000 ML IV ONE (07:00)
--- OUTSIDE RECORDS SUMMARY | 2016-10-08 07:00 | XMS REPORT | Summary of Care ---
Author Author Mina Laboy M.D. 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 * Quantity: 25 Refills: 1 Wolfgang Cano M.D.* Started 11-Apr-2014 Fktblz61 Tablet Sublingual Bottle Allergies and Adverse Reactions [...] Lesion Completed: CBC w/ Auto Diff 7150 Ordered:21-Feb-2014 Comprehensive Metabolic Panel 1212 Ordered:21-Feb-2014 MAMMOGRAM-DIAGNOSTIC BILATERAL FOR BREAST CANCER OR FOLLOW-UP Ordered:2013 Immunization Name Dates Details Influenza Administered on:22-Mar-2011 Influenza Administered on:27-Mar-2012 Fluvirin Intramuscular Injectable Administered on:20-Apr-2013 Fluzone High-Dose Intramuscular Suspension Lot #: [id number] Administered on:14-Mar-2014 Prevnar 13 Intramuscular Suspension Lot #: [id number] Administered on:14-Mar-2014 Family History Mother* Name Dates [...] smoker Vital Signs Date Test Result Details 11-Apr-2014 12:54 BP Systolic 104 mm[Hg] Status: BP Diastolic 68 mm[Hg] Status: Heart Rate 78 /min Status: Weight 166 lb Status: Body Mass Index Calculated 26.79 kg/m2 Status: Body Surface Area Calculated 1.85 m2 Status: 29-Mar-2014 13:39 BP Systolic 110 mm[Hg] Status: BP Diastolic 76 mm[Hg] Status: Heart Rate 68 /min Status: Weight 166 lb Status: Body Mass Index Calculated 26.79 kg/m2 Status: Body Surface Area Calculated 1.85 m2 Status: 14-Mar-2014 10:45 BP Systolic 100 mm[Hg] Status: BP Diastolic 78 mm[Hg] Status: Weight 165 lb Status: Body Mass Index Calculated 26.63 kg/m2 Status: Body Surface Area Calculated 1.84 m2 Status: Results Date Description Value Details 15-Mar-2014 09:00 CBC w/ Auto Diff 7150 Comments: Fastin hours WBC 9.4 K/uL (Better) Range: 4.5-11.0 RBC 4.89 mil/uL (Better) Range: 3.60-5.00 HGB 14.9 g/dL (Better) Range: 12.0-16.0 HCT 43.3 % (Better) Range: 36.0-48.0 MCV 88.5 fL (Better) Range: 80.0-99.0 MCH 30.4 pg (Better) Range: 27.3-32.5 MCHC 34.3 % (Better) Range: 32.0-36.0 RDW 13.9 % (Better) Range: 11.6-14.8 PLATELETS 303 K/uL (Better) Range: 150-400 MPV 7.1 fL (Better) Range: 6.0-11.0 %NEUTRO 71.8 % (Better) Range: 37.0-80.0 %LYMPHS 19.8 % (Better) Range: 13.0-50.0 %MONO 4.2 % (Better) Range: 0.0-12.0 %EOS 2.3 % (Better) Range: 0.0-7.0 %BASO 0.6 % (Better) Range: 0.0-2.5 %JUSTIN 1.4 % (Better) Range: 0.0-5.0 NEUTRO 6.8 K/uL (Better) Range: 2.0-6.9 LYMPHS 1.9 K/uL (Better) Range: 0.6-3.4 MONOS 0.4 K/uL (Better) Range: 0.0-0.9 EOS 0.2 K/uL (Better) Range: 0.0-0.7 BASO 0.1 K/uL (Better) Range: 0.0-0.2 09:21 Comprehensive Metabolic Panel 1212 Comments: Fastin hours SODIUM 139 mmol/L (Better) Range: 133-144 POTASSIUM 3.4 mmol/L (Below low threshold) Range: 3.5-5.1 CHLORIDE 99 mmol/L (Better) Range: 98-110 CARBON DIOXIDE 29.1 mmol/L (Better) Range: 23.0-33.0 ANION GAP 11 mmol/L (Better) Range: 6-16 BUN 22 mg/dL (Above high threshold) Range: 7-18 CREATININE, SERUM 1.04 mg/dL (Better) Range: 0.43-1.13 BUN:CREATININE RATIO 21 (Better) EST GFR, >60 ml/min (Better) Range: >60 EST GFR, NON-AFR [place] 51 ml/min (Below low threshold) Range: >60 Comments: EST GFR is reported in ml/min per 1.73 m2 of body surface area. For -Namibian, please multiple result by 1.2.----- GLUCOSE 99 mg/dL (Better) Range: 70-100 ALK PHOSPHATASE 91 U/L (Better) Range: 46-116 Comments: Please Note: New Reference Range effective 2013.----- TOTAL BILIRUBIN 1.00 mg/dL (Better) Range: 0.20-1.00 AST 17 U/L (Better) Range: 8-35 ALT 22 U/L (Better) Range: 12-78 ALBUMIN 3.9 g/dL (Better) Range: 3.4-5.0 TOTAL PROTEIN 7.8 g/dL (Better) Range: 6.4-8.2 A/G RATIO 1.0 units (Better) Range: 1.0-1.8 CALCIUM 9.8 mg/dL (Better) Range: 8.5-10.1 09:21 CREATINE KINASE 1300 Comments: Fastin hours CREATINE KINASE 44 U/L (Better) Range: 26-192 09:21 LIPID PROFILE 1184 Comments: Fastin hours CHOLESTEROL 179 mg/dL (Better) Range: <200 TRIGLYCERIDES 113 mg/dL (Better) Range: 30-200 HDL Cholesterol 64 mg/dL (Better) Range: >39 NON HDL CHOLESTEROL 115 (Better) CARDIAC RSK FACTOR 2.8 units (Below low threshold) Range: 4.4-5.0 LDL - CALCULATED 92 mg/dL (Better) Range: 0-130 09:34 THYROID STIM. HORMONE 3602 Comments: Fastin hours THYROID STIM. HORMONE 1.984 uIU/mL (Better) Range: 0.550-4.780 Comments: \[id number]\No established reference ranges for infants and children < 2 years of ageNo established reference ranges for infants and children <2 years of age----- 09:35 FREE T4 3604 Comments: Fastin hours FREE T4 1.20 ng/dL (Better) Range: 0.80-1.67 29-Mar-2014 13:29 CP - Electro CardioGram ECG/ EKG Electro CardioGram (Better) Plan of Care Planned Observations* Name Dates Details Planned Goals not documented Goal Planned Encounters* Appointment; Provider: Hosea Guerin On 20-Feb-2015 09:15 * Appointment; Provider: Wolfgang Cano On 27-Sep-2014 14:00 * Appointment; Provider: Wolfgang Cano On 06-Jun-2014 14:15 * Appointment; Provider: Ion Pillai On 13-Apr-2014 09:15 * Appointment; Provider: Joseph Foy On 25-Jun-2011 [...] Diagnosis: Problem not documented On 28-Oct-2012 10:00 Appointment; Hosea Guerin Encounter Diagnosis: Problem not documented On 20-May-2012 14:00
--- OUTSIDE RECORDS SUMMARY | 2016-10-08 07:00 | XMS REPORT ---
Author Author GENERATED, SYSTEM Organization Unknown Address Unknown Phone Unavailable Care Team Providers Care Environmental Sampler Name Role Phone MD KJ, [place] [phone] Reason For Visit Chief Complaint CAD: ABNORMAL STRESS TEST,[facility] Social History Functional Status Vital Signs Results [...] the responsibility of the patient or patient software support representative to confirm the list of medications [...] daily04/18 * vitamin d 1000 unitD 1/2 ltsiko39/20 Changed medications* aspirin 81 mg tablet,chewable, Ordered By: BLU FRIAS MD Directions: 1 tablet oral daily Stopped medications* None
--- OUTSIDE RECORDS SUMMARY | 2016-10-08 07:00 | XMS REPORT | Summary of Care ---
Author Author Ion Pillai M.D. Organization Unknown Address Unknown Phone Unavailable Care Team Providers Care Mechanical Product Design Engineer Name Role Phone Alek Pillai M.D. 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 On 13:15 Appointment; Provider: Hosea Guerin M.D.|FACP|MChristine,FACPCallie,VINEETP, On 04-Sep-2016 13:45 Appointment; Provider: Ion Pillai M.D. On 14-Aug-2016 09:00 Appointment; Provider: Mayo Escamilla M.D. On 15-Jul-2016 09:30 Interventions Provided Medication Changes* Gabapentin 100 MG Oral Capsule - Start Instructions Name Dates Details Instructions not documented Encounters Appointment; Hosea Guerin M.D.|FACPCallie,FACPCallie,VINEETP, Encounter Diagnosis: Problem not documented On 08-May-2016 [...] documented On 15-Feb-2016 10:00 Appointment; Hosea Guerin M.D.|FACPCallie,VINEETPCallie,VINEETP, Encounter Diagnosis: Problem not documented On 07-Feb-2016 14:15 Appointment; Hosea Guerin M.D.|FACP|MRahatDRahat,FACPCallie,FACP, Encounter Diagnosis: Problem not documented On 14:15 [...] documented On 10-Oct-2015 11:10 Appointment; Hosea Guerin M.D.|FACP|M.DRahat,FACP|NuzhatDRahat,FACP, Encounter Diagnosis: Problem not documented On 21-Sep-2015 [...]
--- OUTSIDE RECORDS SUMMARY | 2016-10-08 07:00 | XMS REPORT | Summary of Care ---
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 Cholelithiasis with cholecystitis (574.10, K80.10) Status: Active SOB (shortness of breath) on exertion (786.05, R06.02) Status: Active Abnormal stress test (794.39, R94.39) Status: Active Constipation (564.00, K59.00) Status: Active Leg pain, bilateral (729.5, M79.604) Status: Active Spinal stenosis (724.00, M48.00) Status: Active Lumbar radiculopathy (724.4, M54.16) Status: Active Gout (274.9, M10.9) Status: Active 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
--- OUTSIDE RECORDS SUMMARY | 2016-10-08 07:00 | XMS REPORT | Summary of Care ---
Author Author Ion Pillai M.D. 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, I25.10) [...] Refills: 1 Wolfgang Cano M.D.* Started 11-Apr-2014 Dcemnt88 Tablet Sublingual Bottle Allergies and Adverse Reactions [...] Panel 1212 Ordered:27-Jun-2014 FREE T4 3604 Ordered:27-Jun-2014 MAMMOGRAM-DIAGNOSTIC UNILATERAL FOR BREAST CANCER OR FOLLOW-UP Ordered:2014 Immunization Name Dates Details Influenza Administered on:22-Mar-2011 Influenza Administered on:27-Mar-2012 Fluvirin Intramuscular Injectable Administered on:20-Apr-2013 Fluzone High-Dose Intramuscular Suspension Lot #: [id number] Administered on:14-Mar-2014 Prevnar 13 Intramuscular Suspension Lot #: [id number] Administered on:14-Mar-2014 Family History Mother* Name Dates [...] Instructions * Instructions not documented Encounters Appointment; oIn Pillai Encounter Diagnosis: Problem not documented On [...]
--- OUTSIDE RECORDS SUMMARY | 2016-10-08 07:00 | XMS REPORT ---
Author Author GENERATED, SYSTEM Organization Unknown Address Unknown Phone Unavailable Care Team Providers Care Land Conservation Specialist Name Role Phone MD KJ, [place] [phone] Reason For Visit Chief Complaint CAD: ABNORMAL STRESS TEST,[facility] Social History Functional Status Vital Signs [...] the responsibility of the patient or patient benefits representative to confirm the list of medications [...] daily04/18 * vitamin d 1000 unitD 1/2 eoviiz56/20 Changed medications* aspirin 81 mg tablet,chewable, Ordered By: BLU FRIAS MD Directions: 1 tablet oral daily Stopped medications* None
--- OUTSIDE RECORDS SUMMARY | 2016-10-08 07:00 | XMS REPORT | Summary of Care ---
Author Author Ion Pillai M.D. Organization Unknown Address [address], [place] [id number] Phone Unavailable Care Team Providers Care Striper Spray Gun Name Role Phone Alek Pillai M.D. 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, I25.10) [...] 7150 Ordered:21-Sep-2015 Comprehensive Metabolic Panel 1212 Ordered:21-Sep-2015 CBC w/ Auto Diff 7150 Ordered:02-Nov-2015 Comprehensive Metabolic Panel 1212 Ordered:02-Nov-2015 Urinalysis, Reflex to Microscopic or Culture PRN 8005 Ordered:02-Nov-2015 AMYLASE 1250 Ordered:02-Nov-2015 Lipase 1275 Ordered:02-Nov-2015 CT AB/ PEL WITHOUT AND WITH ORAL AND IV CONTRAST Ordered:02-Nov-2015 Immunization Name Dates Details Influenza Administered on:22-Mar-2011 Influenza Administered on:27-Mar-2012 Fluvirin Intramuscular Injectable Administered on:20-Apr-2013 Fluzone High-Dose Intramuscular Suspension Lot #: [id number] Administered on:14-Mar-2014 Prevnar 13 Intramuscular Suspension Lot #: [id number] Administered on:14-Mar-2014 Adacel 5-2-15.5 LF-MCG/0.5 Intramuscular Suspension Lot #: [id number] Administered on:10-Feb-2015 Fluzone High-Dose Intramuscular Suspension Lot #: [id number] Administered on:13-Apr-2015 Family History Mother* Name Dates [...]
--- OUTSIDE RECORDS SUMMARY | 2016-10-08 07:01 | XMS REPORT ---
Author Author GENERATED, SYSTEM Organization Unknown Address Unknown Phone Unavailable Care Team Providers Care Oil Well Fishing Tool Technician Name Role Phone MD KJ, [place] [phone] Reason For Visit Chief Complaint CAD: ABNORMAL STRESS TEST,[facility] Social History Functional Status Vital Signs Results [...] the responsibility of the patient or patient self pay representative to confirm the list of medications [...] daily04/18 * vitamin d 1000 unitD 1/2 /20 Changed medications* aspirin 81 mg tablet,chewable, Ordered By: BLU FRIAS MD Directions: 1 tablet oral daily Stopped medications* None
--- OUTSIDE RECORDS SUMMARY | 2016-10-08 07:01 | XMS REPORT | Summary of Care ---
Author Author Ion Pillai M.D. 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, I25.10) [...] Refills: 1 Mattar, Costy M.D.* Started 11-Apr-2014 Zqnoyk69 Tablet Sublingual Bottle Allergies and Adverse Reactions [...] on:20-Apr-2013 Fluzone High-Dose Intramuscular Suspension Lot #: [id number] Administered on:14-Mar-2014 Prevnar 13 Intramuscular Suspension Lot #: [id number] Administered on:14-Mar-2014 Family History Mother* Name Dates [...] smoker Vital Signs Date Test Result Details 28-Oct-2014 08:13 BP Systolic 102 mm[Hg] Status: BP Diastolic 68 mm[Hg] Status: Weight 164 lb Status: Body Mass Index Calculated 26.47 kg/m2 Status: Body Surface Area Calculated 1.84 m2 Status: 17-Oct-2014 08:51 BP Systolic 119 mm[Hg] Status: [...] ml/min (Better) Range: >60 EST GFR, NON-AFR [place] CITIZEN 51 ml/min (Below low threshold) Range: >60 Comments: EST GFR is reported in ml/min per 1.73 m2 of body surface area. For -Macedonian, please multiple result by 1.2.----- GLUCOSE 122 [...] 0.0-0.7 BASO 0.1 K/uL (Better) Range: 0.0-0.2 08:03 Comprehensive Metabolic Panel 1212 SODIUM 138 mmol/L (Better) Range: 133-144 POTASSIUM 3.2 mmol/L (Below low threshold) Range: 3.5-5.1 CHLORIDE 99 mmol/L (Better) Range: 98-110 CARBON DIOXIDE 28.9 mmol/L (Better) Range: 23.0-33.0 ANION GAP 10 mmol/L (Better) Range: 6-16 BUN 18 mg/dL (Better) Range: 7-18 CREATININE, SERUM 1.05 mg/dL (Better) Range: 0.43-1.13 BUN:CREATININE RATIO 17 (Better) EST GFR, >60 ml/min (Better) Range: >60 EST GFR, NON-AFR [place] CITIZEN 50 ml/min (Below low threshold) Range: >60 Comments: EST GFR is reported in ml/min per 1.73 m2 of body surface area. For -Macedonian, please multiple result by 1.2.----- GLUCOSE 109 mg/dL (Above high threshold) Range: 70-100 ALK PHOSPHATASE 96 U/L (Better) Range: 46-116 TOTAL BILIRUBIN 0.70 mg/dL (Better) Range: 0.20-1.00 AST 19 U/L (Better) Range: 8-35 ALT 23 U/L [...] Cano On 20-Apr-2014 08:00 * Appointment; Provider: Jospeh Foy On 25-Jun-2011 11:00 * Appointment; Provider: [...] not documented On 17-Nov-2013 09:30 Appointment; Hosea uGerin Encounter Diagnosis: Problem not documented On 26-May-2013 [...]
--- OUTSIDE RECORDS SUMMARY | 2016-10-08 07:01 | XMS REPORT | Summary of Care ---
Author Author Ion Pillai M.D. 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 Acute gouty arthropathy (274.01, M10.00) Status: Active Medications Name Dates Details Spironolactone-HCTZ [...] * Quantity: 30 Refills: 0 Apoorva Levi, FACP, , , Hosea F * Start Active [...] on: 20-Apr-2013 Fluzone High-Dose SUSP Lot #: [id number] on: 14-Mar-2014 Prevnar 13 Intramuscular Suspension Lot #: [id number] on: 14-Mar-2014 Adacel 5-2-15.5 LF-MCG/0.5 Intramuscular Suspension Lot #: [id number] on: 10-Feb-2015 Fluzone High-Dose SUSP Lot #: [id number] on: 13-Apr-2015 Family History Name Dates Details [...] smoker Vital Signs Date Test Result Details 01-Mar-2016 09:28 BP Systolic 106 mm[Hg] Status: [...] m2 Status: Results Date Description Value Details 13-Feb-2016 09:10 CBC w/ Auto Diff 7150 [...] low threshold) Range: >60 EST GFR, NON-AFR UZBEK 47 ml/min (Below low threshold) Range: >60 Comments: EST GFR is reported in ml/min per 1.73 m2 of body surface area. For -Polish, please multiple result by 1.2.----- GLUCOSE 124 [...] Range: 1.0-1.8 CALCIUM 9.4 mg/dL Range: 8.5-10.1 26-Feb-2016 17:09 URIC ACID 1155 URIC ACID 7.8 mg/dL (Above high threshold) Range: 2.6-7.2 Plan of Care Name Dates Details Planned Observations Planned Goals not documented Planned Encounters Appointment; Provider: Schedule Radiology On 29-Jan-2017 08:50 Appointment; Provider: Ion Pillai M.D. On 13-Jun-2016 09:30 Appointment; Provider: Hosea Guerin M.D.|FACP|MChristine,VINEETP|Gurmeet,VINEETP, On 08-May-2016 14:00 Appointment; Provider: Schedule Radiology On 01-May-2016 09:00 Appointment; Provider: Wolfgang Cano M.D. On 15-Mar-2016 08:45 Appointment; Provider: Mayo Escamilla M.D. On 14-Mar-2016 09:15 Interventions Provided Medication Changes* Allopurinol 100 MG Oral Tablet - Start Instructions Name Dates Details Instructions [...] Problem not documented On 08-Nov-2015 09:00 Appointment; Ino Pillai M.D. Encounter Diagnosis: Problem [...] documented On 14-Aug-2015 14:15 Appointment; Hosea Guerin M.D.|FACP|M.DRahat,FACP|M.DRahat,VINEETP, Encounter Diagnosis: Problem not documented On 10-Aug-2015 [...]
--- OUTSIDE RECORDS SUMMARY | 2016-10-08 07:01 | XMS REPORT | Summary of Care ---
Author Author Jerome Levi, Wolfgang Farfan Unknown Address Unknown Phone Unavailable Care Team Providers Care Test Lead Application Testing Name Role Phone Alek Pillai M.D. 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, I25.10) [...] on: 20-Apr-2013 Fluzone High-Dose SUSP Lot #: [id number] on: 14-Mar-2014 Prevnar 13 Intramuscular Suspension Lot #: [id number] on: 14-Mar-2014 Adacel 5-2-15.5 LF-MCG/0.5 Intramuscular Suspension Lot #: [id number] on: 10-Feb-2015 Fluzone High-Dose SUSP Lot #: [id number] on: 13-Apr-2015 Family History Name Dates Details [...] documented On 15-Feb-2016 10:00 Appointment; Hosea Guerin M.D.|VINEETPCallie,FACPCallie,MAXIMILIANO, Encounter Diagnosis: Problem not documented On 07-Feb-2016 14:15 Appointment; Hosea Guerin M.D.|FACPCallie,FACPCallie,FACP, Encounter Diagnosis: Problem not documented On 14:15 [...]
--- OUTSIDE RECORDS SUMMARY | 2016-10-08 07:01 | XMS REPORT | Summary of Care ---
Author Author Ion Pillai M.D. 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, I25.10) [...] Status: Active Hyperlipidemia (272.4, E78.5) Status: Active Medications Name Dates Details Spironolactone-HCTZ [...] Refills: 1 Wolfgang Cano M.D.* Started 11-Apr-2014 Uvhmza56 Tablet Sublingual Bottle Allergies and Adverse Reactions [...] on:20-Apr-2013 Fluzone High-Dose Intramuscular Suspension Lot #: [id number] Administered on:14-Mar-2014 Prevnar 13 Intramuscular Suspension Lot #: [id number] Administered on:14-Mar-2014 Adacel 5-2-15.5 LF-MCG/0.5 Intramuscular Suspension Lot #: [id number] Administered on:10-Feb-2015 Family History Mother* Name Dates [...] threshold) Range: >60 EST GFR, NON-AFR [place] 48 ml/min (Below low threshold) Range: >60 Comments: EST GFR is reported in ml/min per 1.73 m2 of body surface area. For -Colombian, please multiple result by 1.2.----- GLUCOSE 92 [...]
--- OUTSIDE RECORDS SUMMARY | 2016-10-08 07:02 | XMS REPORT | Summary of Care ---
Author Author Ion Pillai M.D. 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, [...] Refills: 1 Wolfgang Cano M.D.* Started 11-Apr-2014 Zbpbrb34 Tablet Sublingual Bottle Allergies and Adverse Reactions [...] on:20-Apr-2013 Fluzone High-Dose Intramuscular Suspension Lot #: [id number] Administered on:14-Mar-2014 Prevnar 13 Intramuscular Suspension Lot #: [id number] Administered on:14-Mar-2014 Adacel 5-2-15.5 LF-MCG/0.5 Intramuscular Suspension Lot #: [id number] Administered on:10-Feb-2015 Family History Mother* Name Dates [...] low threshold) Range: >60 EST GFR, NON-AFR TUNISIAN 48 ml/min (Below low threshold) Range: >60 Comments: EST GFR is reported in ml/min per 1.73 m2 of body surface area. For -Spanish, please multiple result by 1.2.----- GLUCOSE 92 [...]
--- OUTSIDE RECORDS SUMMARY | 2016-10-08 07:02 | XMS REPORT | Summary of Care ---
Author Author Ion Pillai M.D. Organization Unknown Address [address], [place] [phone] Phone Unavailable Care Team Providers Care Bid Writer Name Role Phone Alek Pillai M.D. Unavailable [...] heart disease of [place] coronary artery without angina pectoris (414.01, I25.10) [...] Refills: 1 Wolfgang Cano M.D.* Started 11-Apr-2014 Irwaky16 Tablet Sublingual Bottle Magnesium 250 MG Oral [...] Refills: 1 Ion Pillai M.D.* Started 30-Oct-2015 Bvlqkq22 Tablet Dispersible Box Famotidine 40 MG Oral [...] heart disease of [place] coronary artery without angina pectoris (414.01, I25.10) [...] on:20-Apr-2013 Fluzone High-Dose Intramuscular Suspension Lot #: [id number] Administered on:14-Mar-2014 Prevnar 13 Intramuscular Suspension Lot #: [id number] Administered on:14-Mar-2014 Adacel 5-2-15.5 LF-MCG/0.5 Intramuscular Suspension Lot #: [id number] Administered on:10-Feb-2015 Fluzone High-Dose Intramuscular Suspension Lot #: [id number] Administered on:13-Apr-2015 Family History Mother* Name Dates [...] low threshold) Range: >60 EST GFR, NON-AFR TRISTANIAN 37 ml/min (Below low threshold) Range: >60 Comments: EST GFR is reported in ml/min per 1.73 m2 of body surface area. For -Uzbek, please multiple result by 1.2.----- GLUCOSE 135 [...] Foy On 25-Jun-2011 11:00 * Appointment; Provider: Darly Eddy On 02-May-2011 10:30 Instructions * Instructions [...]
--- OUTSIDE RECORDS SUMMARY | 2016-10-08 07:02 | XMS REPORT | Summary of Care ---
Author Author Ion Pillai M.D. 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, I25.10) [...] Refills: 1 Wolfgang Cano M.D.* Started 11-Apr-2014 Cvnuqc98 Tablet Sublingual Bottle Metoprolol Tartrate 100 MG Oral Tablet TAKE 1 TABLET BY MOUTH TWICE A DAY IN THE MORNING AND EVENING * Quantity: 180 Refills: 0 Ion Pillai M.D.* Started 07-Oct-2013 ActivePredniSONE 10 MG Oral Tablet take 3 tabs [...] on:20-Apr-2013 Fluzone High-Dose Intramuscular Suspension Lot #: [id number] Administered on:14-Mar-2014 Prevnar 13 Intramuscular Suspension Lot #: [id number] Administered on:14-Mar-2014 Family History Mother* Name Dates [...] Negative-Trace EPITH 0-2 /HPF (Better) Range: 0-10 30-Sep-2014 10:27 CBC w/ Auto Diff 7150 [...] ml/min (Better) Range: >60 EST GFR, NON-AFR [place] 51 ml/min (Below low threshold) Range: >60 Comments: EST GFR is reported in ml/min per 1.73 m2 of body surface area. For -Sri Lankan, please multiple result by 1.2.----- GLUCOSE 122 [...] Problem not documented On 30-Sep-2014 09:15 Appointment; Kritsel Anderson Encounter Diagnosis: Problem not documented On [...]
--- OUTSIDE RECORDS SUMMARY | 2016-10-08 07:02 | XMS REPORT | Summary of Care ---
Author Author Apoorva Levi, FACP, ,, Hosea F Organization Unknown Address Unknown Phone Unavailable Care Team Providers Care Briar Shop Supervisor Name Role Phone Alek Pillai M.D. 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 Quantity: 30 Ion Pillai M.D.* Started ActiveMagnesium 250 MG Oral Tablet 1 daily [...] Refills: 0 Ion Pillai M.D.* Started 04-Sep-2015 ActiveAspirin 325 MG Oral Tablet TAKE 1/2 TABLET DAILY * Refills: 0 * Started ActiveFamotidine 40 MG Oral Tablet TAKE 1 TABLET DAILY DIRECTED. * Quantity: 14 Refills: 0 Ion Pillai M.D.* Started 30-Oct-2015 ActiveOndansetron 8 MG Oral Tablet Dispersible take one tab every 6 hours as needed for nausea * Quantity: 1 Refills: 1 Ion Pillai M.D.* Started 30-Oct-2015 Rwjord59 Tablet Dispersible Box Diphenoxylate-Atropine 2.5-0.025 MG Oral Tablet TAKE 1 TABLET 4 TIMES DAILY NEEDED FOR DIARRHEA. * Quantity: 20 Refills: 1 Ion Pillai M.D.* Started 30-Oct-2015 ActiveMetoprolol Tartrate 100 MG Oral Tablet TAKE 1/2 TABLET DAILY * Quantity: 45 Refills: 3 Ion Pillai M.D.* Started 07-Oct-2013 ActiveNitrostat 0.4 MG Sublingual Tablet Sublingual PLACE 1 TABLET UNDER THE TONGUE EVERY 5 MINUTES UP TO 3 DOSES NEEDED FOR CHEST PAIN. * Quantity: 25 Refills: 1 Wolfgang Cano M.D.* Started 11-Apr-2014 Ttgxea60 Tablet Sublingual Bottle MetroNIDAZOLE 500 MG Oral Tablet TAKE 1 TABLET TWICE DAILY UNTIL FINISHED. 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, I25.10) [...] on:20-Apr-2013 Fluzone High-Dose Intramuscular Suspension Lot #: [id number] Administered on:14-Mar-2014 Prevnar 13 Intramuscular Suspension Lot #: [id number] Administered on:14-Mar-2014 Adacel 5-2-15.5 LF-MCG/0.5 Intramuscular Suspension Lot #: [id number] Administered on:10-Feb-2015 Fluzone High-Dose Intramuscular Suspension Lot #: [id number] Administered on:13-Apr-2015 Family History Mother* Name Dates [...] smoker Vital Signs Date Test Result Details 08:59 BP Systolic 138 mm[Hg] Status: BP Diastolic 73 mm[Hg] Status: Heart Rate 62 /min Status: Height 66 in Status: Weight 153 lb Status: Body Mass Index Calculated 24.7 kg/m2 Status: Body Surface Area Calculated 1.78 m2 Status: Results Date Description Value Details 09:29 ULTRASOUND RENAL SONO Comments: Exam Date: 12/04/2015 08:29Dictation Date: 12/04/2015 09:29 XS RENAL LIMITED (Better) Plan of Care Planned Observations* Name Dates Details Planned Goals not documented Goal Planned Encounters* Appointment; Provider: Wolfgang Cano On 15-Mar-2016 08:45 * Appointment; Provider: Mayo Escamilla On 14-Mar-2016 09:15 * Appointment; Provider: Ion Pillai On 15-Feb-2016 10:00 * Appointment; Provider: Hosea Guerin On 09:00 * Appointment; Provider: Schedule Radiology [...] Escamilla Encounter Diagnosis: Problem not documented On 09:00 Appointment; Hosea Guerin Encounter Diagnosis: Problem not [...]
--- OUTSIDE RECORDS SUMMARY | 2016-10-08 07:03 | XMS REPORT | Summary of Care ---
Author Author Ion Pillai M.D. 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
--- OUTSIDE RECORDS SUMMARY | 2016-10-08 07:03 | XMS REPORT | Summary of Care ---
Author Author Ion Pillai M.D. 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 For -[place]ese, please multiple result by 1.2.----- GLUCOSE 124 [...]
--- OUTSIDE RECORDS SUMMARY | 2016-10-08 07:03 | XMS REPORT | Summary of Care ---
Author Author Ion Pillai M.D. 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, I25.10) [...] Status: Active Hypertension (401.9, I10) Status: Active Gout (274.9, M10.9) Status: Active Dermatitis (692.9, L30.9) Status: Active Medications Name Dates Details Spironolactone-HCTZ 25-25 MG Oral Tablet Take 1 tablet daily Quantity: 90 Ion Pillai M.D.* Started ActiveCaptopril 50 MG Oral Tablet 1 tablet po bid * Quantity: 270 Refills: [...] Refills: 1 Wolfgang Cano M.D.* Started 11-Apr-2014 Foiohd47 Tablet Sublingual Bottle PredniSONE 10 MG Oral Tablet TAKE 4 TABLETS DAILY FOR 2 DAYS,3 TABLETS DAILY FOR 2 DAYS, 2 TABLETS DAILY FOR 2 DAYS AND 1 TABLET DAILY FOR 2 DAYS, THEN STOP. * Quantity: 20 Refills: 0 Walter Vicente M.D.* Started Active Allergies and Adverse Reactions [...] on:20-Apr-2013 Fluzone High-Dose Intramuscular Suspension Lot #: [id number] Administered on:14-Mar-2014 Prevnar 13 Intramuscular Suspension Lot #: [id number] Administered on:14-Mar-2014 Family History Mother* Name Dates [...] to report Results Date Description Value Details 09-Feb-2015 11:59 MAMMOGRAM-DIAGNOSTIC BILATERAL FOR BREAST CANCER OR FOLLOW- UP Comments: Exam Date: 02/09/2015 10:24Dictation Date: 02/09/2015 11:59 XM DIAGNOSTIC BILATERAL (Better) Plan of Care Planned Observations* Name Dates Details Planned Goals not documented Goal Planned Encounters* Appointment; Provider: Wolfgang Cano On 09-Mar-2015 11:00 * Appointment; Provider: Hosea Guerin On 20-Feb-2015 09:15 * Appointment; Provider: Ion Pillai On 10-Feb-2015 10:45 * Appointment; Provider: Wolfgang Cano On 20-Apr-2014 08:00 * Appointment; Provider: Joseph Foy On 25-Jun-2011 11:00 * Appointment; Provider: Daryl Eddy On 02-May-2011 10:30 Instructions * Instructions not documented Encounters Appointment; Frank Lord Encounter Diagnosis: Problem not documented On 13:15 Appointment; Walter Vicente Encounter Diagnosis: Problem not documented On 08:10 Appointment; Ion Pillai Encounter Diagnosis: Problem not documented On 28-Oct-2014 08:15 Appointment; Waletr Vicente Encounter Diagnosis: Problem not documented On [...]
--- OUTSIDE RECORDS SUMMARY | 2016-10-08 07:03 | XMS REPORT | Summary of Care ---
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 For -Belarusian, please multiple result by 1.2.----- GLUCOSE 93 [...]
--- OUTSIDE RECORDS SUMMARY | 2016-10-08 07:03 | XMS REPORT | Summary of Care ---
Author Author Jerome Levi, Wolfgang Farfan Unknown Address [address] [place], [place] [phone] Phone Unavailable Care Team Providers Care Air Pumper Name Role Phone Alek Pillai M.D. 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 * Quantity: 25 Refills: 1 Wolfgang Cano M.D.* Started 11-Apr-2014 Gnedkq09 Tablet Sublingual Bottle Allergies and Adverse Reactions [...] on:20-Apr-2013 Fluzone High-Dose Intramuscular Suspension Lot #: [id number] Administered on:14-Mar-2014 Prevnar 13 Intramuscular Suspension Lot #: [id number] Administered on:14-Mar-2014 Family History Mother* Name Dates [...] ml/min (Better) Range: >60 EST GFR, NON-AFR ITALIAN 51 ml/min (Below low threshold) Range: >60 Comments: EST GFR is reported in ml/min per 1.73 m2 of body surface area. For -Mosotho, please multiple result by 1.2.----- GLUCOSE 99 [...]
--- OUTSIDE RECORDS SUMMARY | 2016-10-08 07:04 | XMS REPORT | Summary of Care ---
Author Author Ion Pillai M.D. 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 Hyperlipidemia (272.4, E78.5) Status: Active Fatigue (780.79, R53.83) Status: Active Hypertension (401.9, I10) Status: Active Constipation (564.00, K59.00) Status: Active Abnormal weight loss (783.21, R63.4) Status: Active Urinary frequency (788.41, R35.0) Status: Active Leg pain, bilateral (729.5, M79.604) Status: Active Spinal stenosis (724.00, M48.00) Status: Active Lumbar radiculopathy (724.4, M54.16) Status: Active Medications Name Dates Details Spironolactone-HCTZ [...] Refills: 1 Wolfgang Cano M.D.* Started 11-Apr-2014 Bypwfa55 Tablet Sublingual Bottle Metoprolol Tartrate 100 MG [...] on:20-Apr-2013 Fluzone High-Dose Intramuscular Suspension Lot #: [id number] Administered on:14-Mar-2014 Prevnar 13 Intramuscular Suspension Lot #: [id number] Administered on:14-Mar-2014 Family History Mother* Name Dates [...] ml/min (Better) Range: >60 EST GFR, NON-AFR [place]IAN 51 ml/min (Below low threshold) Range: >60 Comments: EST GFR is reported in ml/min per 1.73 m2 of body surface area. For -Salvadorean, please multiple result by 1.2.----- GLUCOSE 122 [...] Problem not documented On 13-Apr-2014 09:15 Appointment; Wolfagng Cano Encounter Diagnosis: Problem not documented On [...]
--- OUTSIDE RECORDS SUMMARY | 2016-10-08 07:04 | XMS REPORT | Summary of Care ---
Author Author Kristen Irwin Organization Unknown Address [address] [place] [address] Phone Unavailable Care Team Providers Care Vice President Of Development Name Role Phone Alek Pillai M.D. 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 For -Peruvian, please multiple result by 1.2.----- GLUCOSE 93 [...]
--- OUTSIDE RECORDS SUMMARY | 2016-10-08 07:04 | XMS REPORT | Summary of Care ---
Author Author Jerome Levi, Wolfgang Organization Unknown Address [address] [place], [place] [phone] Phone Unavailable Care Team Providers Care Group Exercise Manager Name Role Phone Alek Pillai M.D. 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, I25.10) [...] Refills: 1 Wolfgang Cano M.D.* Started 11-Apr-2014 Yudtfu76 Tablet Sublingual Bottle Magnesium 300 MG Oral [...] on:20-Apr-2013 Fluzone High-Dose Intramuscular Suspension Lot #: [id number] Administered on:14-Mar-2014 Prevnar 13 Intramuscular Suspension Lot #: [id number] Administered on:14-Mar-2014 Adacel 5-2-15.5 LF-MCG/0.5 Intramuscular Suspension Lot #: [id number] Administered on:10-Feb-2015 Fluzone High-Dose Intramuscular Suspension Lot #: [id number] Administered on:13-Apr-2015 Family History Mother* Name Dates [...] m2 Status: Results Date Description Value Details 08-Jun-2015 10:45 ULTRASOUND LEG ARTERIES-BILATERAL Comments: Exam Date : 06/08/2015 09:30Dictation Date: 06/08/2015 10:45 XS LEG ARTERIES (Better) Plan of Care Planned Observations* Name Dates Details Planned Goals not documented Goal Planned Encounters* Appointment; Provider: Wolfgang Cano On 15-Mar-2016 08:45 * Appointment; Provider: Hosea Guerin On 19-Feb-2016 09:30 * Appointment; Provider: Ion Pillai On 17-Aug-2015 09:45 * Appointment; Provider: Schedule Radiology On 08-Jun-2015 [...]
--- OUTSIDE RECORDS SUMMARY | 2016-10-08 07:04 | XMS REPORT | Summary of Care ---
Author Author Jerome Levi, Wolfgang Farfan Unknown Address [address] [place], [place] [id number] Phone Unavailable Care Team Providers Care Rn Ante Partum Name Role Phone Alek Pillai M.D. 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 Hyperlipidemia (272.4, E78.5) Status: Active Fatigue (780.79, R53.83) Status: Active Hypertension (401.9, I10) Status: Active Constipation (564.00, K59.00) Status: Active Abnormal weight loss (783.21, R63.4) Status: Active Lump, breast (611.72, N63) Status: Active Medications Name Dates Details Metoprolol Tartrate 100 MG Oral Tablet TAKE 1/2 TABLET BID Quantity: 180 Ion Pillai M.D.* Started ActiveCaptopril 25 MG [...] Refills: 1 Wolfgang Cano M.D.* Started 11-Apr-2014 Vbvwsv25 Tablet Sublingual Bottle Aspirin 325 MG Oral Tablet TAKE 1/2 TABLET DAILY * Refills: 0 * Started ActiveSpironolactone-HCTZ 25-25 MG Oral Tablet Take 1 tablet daily * Quantity: 90 Refills: 1 Ion Pillai M.D.* Started Active Allergies and [...] on:20-Apr-2013 Fluzone High-Dose Intramuscular Suspension Lot #: [id number] Administered on:14-Mar-2014 Prevnar 13 Intramuscular Suspension Lot #: [id number] Administered on:14-Mar-2014 Family History Mother* Name Dates [...]
--- OUTSIDE RECORDS SUMMARY | 2016-10-08 07:05 | XMS REPORT | Summary of Care ---
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
--- OUTSIDE RECORDS SUMMARY | 2016-10-08 07:05 | XMS REPORT | Summary of Care ---
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, I25.10) [...] 7150 Ordered:09-Nov-2015 Comprehensive Metabolic Panel 1212 Ordered:09-Nov-2015 Immunization Name Dates Details Influenza Administered on:22-Mar-2011 Influenza Administered on:27-Mar-2012 Fluvirin Intramuscular Injectable Administered on:20-Apr-2013 Fluzone High-Dose Intramuscular Suspension Lot #: [id number] Administered on:14-Mar-2014 Prevnar 13 Intramuscular Suspension Lot #: [id number] Administered on:14-Mar-2014 Adacel 5-2-15.5 LF-MCG/0.5 Intramuscular Suspension Lot #: [id number] Administered on:10-Feb-2015 Fluzone High-Dose Intramuscular Suspension Lot #: [id number] Administered on:13-Apr-2015 Family History Mother* Name Dates [...] low threshold) Range: >60 EST GFR, NON-AFR [place]IAN 37 ml/min (Below low threshold) Range: >60 Comments: EST GFR is reported in ml/min per 1.73 m2 of body surface area. For -Sri Lankan, please multiple result by 1.2.----- GLUCOSE 135 [...] not documented On 30-Sep-2014 09:15 Appointment; Kristel Andreson Encounter Diagnosis: Problem not documented On 13-Sep-2014 12:55 Appointment; Ion Pillai Encounter Diagnosis: Problem not documented On 27-Jun-2014 08:45 Appointment; Wolfgang Cano Encounter Diagnosis: Problem not documented On 06-Jun-2014 14:15 Appointment; rFank Lord Encounter Diagnosis: Problem not documented On [...]
--- OUTSIDE RECORDS SUMMARY | 2016-10-08 07:05 | XMS REPORT | Summary of Care ---
Author Author Ion Pillai M.D. Organization Unknown Address [address], [place] [id number] Phone Unavailable Care Team Providers Care Congressional Representative Name Role Phone Alek Pillai M.D. 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, I25.10) [...] on:20-Apr-2013 Fluzone High-Dose Intramuscular Suspension Lot #: [id number] Administered on:14-Mar-2014 Prevnar 13 Intramuscular Suspension Lot #: [id number] Administered on:14-Mar-2014 Adacel 5-2-15.5 LF-MCG/0.5 Intramuscular Suspension Lot #: [id number] Administered on:10-Feb-2015 Fluzone High-Dose Intramuscular Suspension Lot #: [id number] Administered on:13-Apr-2015 Family History Mother* Name Dates [...] smoker Vital Signs Date Test Result Details 30-Oct-2015 09:58 BP Systolic 126 mm[Hg] Status: [...] not documented On 21-Sep-2015 10:30 Appointment; Mayo Esacmilla Encounter Diagnosis: Problem not documented On 07-Sep-2015 [...]
--- OUTSIDE RECORDS SUMMARY | 2016-10-08 07:05 | XMS REPORT | Summary of Care ---
Author Author Susan Peraza APRN Organization Unknown Address [address], [place] [id number] Phone Unavailable Care Team Providers Care Boiler Operator Helper Name Role Phone Alek Pillai M.D. [...] K80.20) Status: Active Atherosclerotic heart disease of [place] coronary artery without angina pectoris (414.01, [...] Refills: 1 Wolfgang Cano M.D.* Started 11-Apr-2014 Tdzvgp31 Tablet Sublingual Bottle Magnesium 250 MG Oral [...] Refills: 1 Ion Pillai M.D.* Started 30-Oct-2015 Brinhw30 Tablet Dispersible Box Famotidine 40 MG Oral Tablet TAKE 1 TABLET DAILY DIRECTED. * Quantity: 14 Refills: 0 Ion Pillai M.D.* Started 30-Oct-2015 ActiveMetroNIDAZOLE 500 MG Oral Tablet TAKE 1 TABLET TWICE DAILY UNTIL FINISHED. * Quantity: 14 Refills: 0 Ion Pillai M.D.* Started 02-Nov-2015 Active Allergies and Adverse Reactions Name Dates Details No Known Drug Allergies Status: Active Latex Status: Denied Past Medical History Name Dates Details Abnormal stress test (794.39, R94.39) Status: Active Atherosclerotic heart disease of [place] coronary artery without angina pectoris (414.01, [...] 1212 Ordered:09-Nov-2015 CBC w/ Auto Diff 7150 Ordered: Comprehensive Metabolic Panel 1212 Ordered: CT PELVIS WITHOUT IV CONTRAST Ordered: Immunization Name Dates Details Influenza Administered on:22-Mar-2011 Influenza Administered on:27-Mar-2012 Fluvirin Intramuscular Injectable Administered on:20-Apr-2013 Fluzone High-Dose Intramuscular Suspension Lot #: [id number] Administered on:14-Mar-2014 Prevnar 13 Intramuscular Suspension Lot #: [id number] Administered on:14-Mar-2014 Adacel 5-2-15.5 LF-MCG/0.5 Intramuscular Suspension Lot #: [id number] Administered on:10-Feb-2015 Fluzone High-Dose Intramuscular Suspension Lot #: [id number] Administered on:13-Apr-2015 Family History Mother* Name Dates [...] smoker Vital Signs Date Test Result Details 13:54 BP Systolic 130 mm[Hg] Status: BP Diastolic 90 mm[Hg] Status: Temperature 97 f Status: Heart Rate 114 /min Status: Weight 153 lb Status: Body Mass Index Calculated 24.7 kg/m2 Status: Body Surface Area Calculated 1.78 m2 Status: 08:59 BP Systolic 138 mm[Hg] Status: BP Diastolic 73 mm[Hg] Status: Heart Rate 62 /min Status: Height 66 in Status: Weight 153 lb Status: Body Mass Index Calculated 24.7 kg/m2 Status: Body Surface Area Calculated 1.78 m2 Status: Results Date Description Value Details 09:29 ULTRASOUND RENAL SONO Comments: Exam Date: 12/04/2015 08:29Dictation Date: 12/04/2015 09:29 XS RENAL LIMITED (Better) 09:57 CBC w/ Auto Diff 7150 WBC 13.0 K/uL (Above high threshold) Range: 4.5-11.0 RBC 5.06 mil/uL (Above high threshold) Range: 3.60-5.00 HGB 14.8 g/dL (Better) Range: 12.0-16.0 HCT 43.2 % (Better) Range: 36.0-48.0 MCV 85.3 fL (Better) Range: 80.0-99.0 MCH 29.2 pg (Better) Range: 27.3-32.5 MCHC 34.2 % (Better) Range: 32.0-36.0 RDW 14.9 % (Above high threshold) Range: 11.6-14.8 PLATELETS 270 K/uL (Better) Range: 150-400 MPV 7.1 fL (Better) Range: 6.0-11.0 %NEUTRO 76.6 % (Better) Range: 37.0-80.0 %LYMPHS 14.1 % (Better) Range: 13.0-50.0 %MONO 6.3 % (Better) Range: 0.0-12.0 %EOS 0.9 % (Better) Range: 0.0-7.0 %BASO 0.4 % (Better) Range: 0.0-2.5 %JUSTIN 1.6 % (Better) Range: 0.0-5.0 NEUTRO 10.0 K/uL (Above high threshold) Range: 2.0-6.9 LYMPHS 1.8 K/uL (Better) Range: 0.6-3.4 MONOS 0.8 K/uL (Better) Range: 0.0-0.9 EOS 0.1 K/uL (Better) Range: 0.0-0.7 BASO 0.1 K/uL (Better) Range: 0.0-0.2 10:21 Comprehensive Metabolic Panel 1212 SODIUM 134 mmol/L (Better) Range: 133-144 POTASSIUM 3.4 mmol/L (Below low threshold) Range: 3.5-5.1 CHLORIDE 95 mmol/L (Below low threshold) Range: 98-110 CARBON DIOXIDE 27.3 mmol/L (Better) Range: 23.0-33.0 ANION GAP 12 mmol/L (Better) Range: 6-16 BUN 17 mg/dL (Better) Range: 7-18 CREATININE, SERUM 1.09 mg/dL (Above high threshold) Range: 0.55-1.02 Comments: Please note new reference ranges effective 2014.----- BUN:CREATININE RATIO 16 (Better) EST GFR, 58 ml/min (Below low threshold) Range: >60 EST GFR, NON-AFR [place]ESE 48 ml/min (Below low threshold) Range: >60 Comments: EST GFR is reported in ml/min per 1.73 m2 of body surface area. For -[place]ese, please multiple result by 1.2.----- GLUCOSE 90 mg/dL (Better) Range: 70-100 ALK PHOSPHATASE 93 U/L (Better) Range: 46-116 TOTAL BILIRUBIN 1.30 mg/dL (Above high threshold) Range: 0.20-1.00 AST 28 U/L (Better) Range: 8-35 ALT 21 U/L (Better) Range: 14-59 Comments: Please note new reference ranges. Effective 09/08/2014.----- ALBUMIN 3.4 g/dL (Better) Range: 3.4-5.0 TOTAL PROTEIN 7.3 g/dL (Better) Range: 6.4-8.2 A/G RATIO 0.9 units (Below low threshold) Range: 1.0-1.8 CALCIUM 9.0 mg/dL (Better) Range: 8.5-10.1 Plan of Care Planned Observations* Name Dates Details Planned Goals not documented Goal Planned Encounters* Appointment; Provider: Wolfgang Cano On 15-Mar-2016 08:45 * Appointment; Provider: Myao Escamilla On 14-Mar-2016 09:15 * Appointment; Provider: Ion Pillai On 15-Feb-2016 10:00 * Appointment; Provider: Schedule Radiology On 09:00 [...] Guerin Encounter Diagnosis: Problem not documented On 14:15 Appointment; Hosea Guerin Encounter Diagnosis: Problem not documented On 09:00 Appointment; Mayo Escamilla Encounter Diagnosis: Problem not [...]
--- OUTSIDE RECORDS SUMMARY | 2016-10-08 07:06 | XMS REPORT ---
Author Author GENERATED, SYSTEM Organization Unknown Address Unknown Phone Unavailable Care Team Providers Care Mason Tender Name Role Phone MD KJ, [place] [phone] Reason For Visit Chief Complaint CAD: ABNORMAL STRESS TEST,[facility] Social History Functional Status Vital [...] the responsibility of the patient or patient hostess party sales representative to confirm the list of [...] daily04/18 * vitamin d 1000 unitD 1/2 xzycps59/20 Changed medications* aspirin 81 mg tablet,chewable, Ordered By: BLU FRIAS MD Directions: 1 tablet oral daily Stopped medications* None
--- OUTSIDE RECORDS SUMMARY | 2016-10-08 07:06 | XMS REPORT | Summary of Care ---
Author Author Mayo Cruz M.D. Organization Unknown Address [address] [place] [address] [place] [address] Phone Unavailable Care Team Providers Care Pharmaceutical Officer Name Role Phone lAek Pillai M.D. Unavailable Unavailable Wolfgang Cano M.D. 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, I25.10) [...] on: 20-Apr-2013 Fluzone High-Dose SUSP Lot #: [id number] on: 14-Mar-2014 Prevnar 13 Intramuscular Suspension Lot #: [id number] on: 14-Mar-2014 Adacel 5-2-15.5 LF-MCG/0.5 Intramuscular Suspension Lot #: [id number] on: 10-Feb-2015 Fluzone High-Dose SUSP Lot #: [id number] on: 13-Apr-2015 Family History Name Dates Details [...] threshold) Range: >60 EST GFR, NON-AFR UZBE[place] 48 ml/min (Below low threshold) Range: >60 [...] >60 ml/min Range: >60 EST GFR, NON-AFR UZBEK 53 ml/min (Below low threshold) Range: >60 [...] documented On 10-Oct-2015 11:10 Appointment; Hosea Guerin M.D.|FACP|M.DRaaht,FACP|M.DRahat,FACP, Encounter Diagnosis: Problem not documented On 21-Sep-2015 [...]
--- OUTSIDE RECORDS SUMMARY | 2016-10-08 07:06 | XMS REPORT | Summary of Care ---
Author Author Ion Pillai M.D. Organization Unknown Address [address] [place] [address], [place] [id number] Phone Unavailable Care Team Providers Care Snuff Grinder Name Role Phone Alek Pillai M.D. 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 For -Syrian, please multiple result by 1.2.----- GLUCOSE 93 [...] Guerin On 23-Nov-2015 09:30 * Appointment; Provider: Ino Pillai On 08-Nov-2015 09:00 * Appointment; Provider: [...]
--- OUTSIDE RECORDS SUMMARY | 2016-10-08 07:06 | XMS REPORT | Summary of Care ---
Author Author Mayo Escamilla M.D. Unknown Address [address] [place] [address] [place] [address] Phone Unavailable Care Team Providers Care Mission Worker Name Role Phone Alek Pillai M.D. [...] Refills: 1 Wolfgang Cano M.D.* Started 11-Apr-2014 Utlkko83 Tablet Sublingual Bottle Magnesium 250 MG Oral [...] FOR DIARRHEA. * Quantity: 20 Refills: 1 Ino Pillai M.D.* Started 30-Oct-2015 ActiveOndansetron 8 MG Oral Tablet Dispersible take one tab every 6 hours as needed for nausea * Quantity: 1 Refills: 1 Ion Pillai M.D.* Started 30-Oct-2015 Ghumyv56 Tablet Dispersible Box Famotidine 40 MG Oral [...] on:20-Apr-2013 Fluzone High-Dose Intramuscular Suspension Lot #: [id number] Administered on:14-Mar-2014 Prevnar 13 Intramuscular Suspension Lot #: [id number] Administered on:14-Mar-2014 Adacel 5-2-15.5 LF-MCG/0.5 Intramuscular Suspension Lot #: [id number] Administered on:10-Feb-2015 Fluzone High-Dose Intramuscular Suspension Lot #: [id number] Administered on:13-Apr-2015 Family History Mother* Name Dates [...] low threshold) Range: >60 EST GFR, NON-AFR CITIZEN OF [place] 44 ml/min (Below low threshold) Range: >60 Comments: EST GFR is reported in ml/min per 1.73 m2 of body surface area. For -Fijian, please multiple result by 1.2.----- GLUCOSE 98 [...] 1.0-1.8 CALCIUM 9.1 mg/dL (Better) Range: 8.5-10.1 09:29 ULTRASOUND RENAL SONO Comments: Exam Date: [...]
--- OUTSIDE RECORDS SUMMARY | 2016-10-08 07:06 | XMS REPORT | Summary of Care ---
Author Author Mayo Cruz M.D. Unknown Address [address] [place] [address] [place] [address] Phone Unavailable Care Team Providers Care Last Model Department Supervisor Name Role Phone Alek Pillai M.D. [...] M10.9) Status: Active Atherosclerotic heart disease of [place] coronary artery without angina pectoris (414.01, [...] Ion Pillai M.D. Start 04-Sep-2015 Active Potassium Chloride ER 20 MEQ Oral Tablet Extended Release Take one tab daily * Quantity: 30 Refills: 0 Ion Pillai M.D. Start 17-Sep-2016 Active Gabapentin 100 MG Oral Capsule take 2 capsules twice daily for back pain * Quantity: 1 Refills: 0 Ion Pillai M.D. Start 26-Aug-2016 Active 120 Capsule Bottle Myrbetriq 25 MG Oral Tablet Extended Release 24 Hour Take 1 tablet daily * Quantity: 30 Refills: 5 Ion Pillai M.D. Start 20-Jun-2016 Active Allergies and Adverse Reactions Name Dates Details No Known Drug Allergies (Allergy) Status: Active Latex (Allergy) Status: Denied Past Medical History Name Dates Details Abnormal stress test (794.39, R94.39) Status: Active Atherosclerotic heart disease of [place] coronary artery without angina pectoris (414.01, [...] 04-Sep-2016 Comprehensive Metabolic Panel 1212 Ordered: 04-Sep-2016 BASIC METABOLIC PROFILE 1210 Ordered: 17-Sep-2016 CBC w/ Auto Diff 7150 Ordered: 05-Sep-2016 Comprehensive Metabolic Panel 1212 Ordered: 05-Sep-2016 ULTRASOUND RENAL SONO Ordered: 01-Aug-2016 NUC MED RENAL SCAN Ordered: 05-Sep-2016 XRay CHEST-PA & LAT Ordered: 05-Sep-2016 Immunization Name Dates Details Influenza on: 22-Mar-2011 Influenza on: 27-Mar-2012 Fluvirin INJ on: 20-Apr-2013 Fluzone High-Dose SUSP Lot #: [id number] on: 14-Mar-2014 Prevnar 13 Intramuscular Suspension Lot #: [id number] on: 14-Mar-2014 Adacel 5-2-15.5 LF-MCG/0.5 Intramuscular Suspension Lot #: [id number] on: 10-Feb-2015 Fluzone High-Dose SUSP Lot #: [id number] on: 13-Apr-2015 Family History Name Dates Details [...] low threshold) Range: >60 EST GFR, NON-AFR [place] 48 ml/min (Below low threshold) Range: >60 [...] Hosea Guerin M.D.|DAVIS,MAXIMILIANO|Gurmeet,MAXIMILIANO, On 14:00 Appointment; Provider: Ion Pillai M.D. On 25-Sep-2016 09:15 Instructions Name Dates Details Instructions not documented Encounters Appointment; Ion Pillai M.D. Encounter Diagnosis: Problem not documented On 17-Sep-2016 10:00 Appointment; Mayo Cruz M.D. Encounter Diagnosis: Problem not documented On 05-Sep-2016 09:00 Appointment; Hosea Guerin M.D.|FACP|M.D.,FACP|M.D.,FACP, Encounter Diagnosis: [...] not documented On 09:00 Appointment; Hosea Guerin M.D.|FACP|MChristine,VINEETP|Gurmeet,VINEETP, Encounter Diagnosis: Problem not documented On 23-Nov-2015 [...] documented On 10-Oct-2015 11:10 Appointment; Hosea Guerin M.D.|FACP|Gurmeet,FACP|Gurmeet,VINEETP, Encounter Diagnosis: Problem not documented On 21-Sep-2015 [...]
--- OUTSIDE RECORDS SUMMARY | 2016-10-08 07:07 | XMS REPORT | Summary of Care ---
Author Author Kristen Irwin Organization Unknown Address [address] [place] [address] Phone Unavailable Care Team Providers Care Test Fixture Designer Name Role Phone Alek Pillai M.D. Unavailable [...] K80.20) Status: Active Atherosclerotic heart disease of [place] [...] Refills: 1 Wolfgang Cano M.D.* Started 11-Apr-2014 Mzwvfk33 Tablet Sublingual Bottle Magnesium 250 MG Oral [...] on:20-Apr-2013 Fluzone High-Dose Intramuscular Suspension Lot #: [id number] Administered on:14-Mar-2014 Prevnar 13 Intramuscular Suspension Lot #: [id number] Administered on:14-Mar-2014 Adacel 5-2-15.5 LF-MCG/0.5 Intramuscular Suspension Lot #: [id number] Administered on:10-Feb-2015 Fluzone High-Dose Intramuscular Suspension Lot #: [id number] Administered on:13-Apr-2015 Family History Mother* Name Dates [...] ml/min (Better) Range: >60 EST GFR, NON-AFR [place]IAN 51 ml/min (Below low threshold) Range: >60 Comments: EST GFR is reported in ml/min per 1.73 m2 of body surface area. For -[place], please multiple result by 1.2.----- GLUCOSE 93 [...] Problem not documented On 08:10 Appointment; Ion iPllai Encounter Diagnosis: Problem not documented On 28-Oct-2014 [...]
--- OUTSIDE RECORDS SUMMARY | 2016-10-08 07:07 | XMS REPORT ---
Author Author GENERATED, SYSTEM Organization Unknown Address Unknown Phone Unavailable Care Team Providers Care Thermo Cementing Folder Operator Name Role Phone MD KJ, [place] [phone] Reason For Visit Chief Complaint CAD: ABNORMAL STRESS TEST[facility] Social History Functional Status Vital Signs [...] the responsibility of the patient or patient customer solutions representative to confirm the list of medications [...] daily04/18 * vitamin d 1000 unitD 1/2 dompbo14/20 Changed medications* aspirin 81 mg tablet,chewable, Ordered By: BLU FRIAS MD Directions: 1 tablet oral daily Stopped medications* None
--- OUTSIDE RECORDS SUMMARY | 2016-10-08 07:07 | XMS REPORT | Summary of Care ---
Author Author Mayo Escamilla M.D. Unknown Address [address] [place] [address] [place] [address] Phone Unavailable Care Team Providers Care Glue Cook Name Role Phone Alek Pillai M.D. 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, I25.10) [...] on:20-Apr-2013 Fluzone High-Dose Intramuscular Suspension Lot #: [id number] Administered on:14-Mar-2014 Prevnar 13 Intramuscular Suspension Lot #: [id number] Administered on:14-Mar-2014 Adacel 5-2-15.5 LF-MCG/0.5 Intramuscular Suspension Lot #: [id number] Administered on:10-Feb-2015 Fluzone High-Dose Intramuscular Suspension Lot #: [id number] Administered on:13-Apr-2015 Family History Mother* Name Dates [...] Body Surface Area Calculated 1.78 m2 Status: 23-Nov-2015 09:10 BP Systolic 119 mm[Hg] Status: [...] low threshold) Range: >60 EST GFR, NON-AFR [place] 44 ml/min (Below low threshold) Range: >60 Comments: EST GFR is reported in ml/min per 1.73 m2 of body surface area. For -Finnish, please multiple result by 1.2.----- GLUCOSE 98 [...]
--- OUTSIDE RECORDS SUMMARY | 2016-10-08 07:07 | XMS REPORT | Summary of Care ---
Author Author Apoorva Levi, FACP, ,, Hosea F Organization Unknown Address Unknown Phone Unavailable Care Team Providers Care Corporate Communications Intern Name Role Phone Alek Pillai M.D. 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 Start 07-Oct-2013 Active Magnesium 250 MG Oral Tablet 1 daily * Refills: 0 Ion Pillai M.D. 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, I25.10) [...] on: 20-Apr-2013 Fluzone High-Dose SUSP Lot #: [id number] on: 14-Mar-2014 Prevnar 13 Intramuscular Suspension Lot #: [id number] on: 14-Mar-2014 Adacel 5-2-15.5 LF-MCG/0.5 Intramuscular Suspension Lot #: [id number] on: 10-Feb-2015 Fluzone High-Dose SUSP Lot #: [id number] on: 13-Apr-2015 Family History Name Dates Details [...] of Care Name Dates Details Planned Observations ULTRASOUND ABDOMEN COMPLETE On 28-Aug-2016 Intent ULTRASOUND PELVIC SONO On 28-Aug-2016 Intent Planned Goals not documented Planned Encounters Appointment; Provider: Schedule Radiology On 29-Jan-2017 08:50 Appointment; Provider: Wolfgang Cano M.D. On 13:15 Appointment; Provider: Hosea Guerin M.D.|FACP|M.D.,FACP|M.D.,FACP, On 04-Sep-2016 13:45 Appointment; Provider: Mayo Escamilla M.D. On 15-Jul-2016 09:30 Appointment; Provider: Ion Pillai M.D. On 14-May-2016 09:00 Instructions Name Dates Details Instructions not documented Encounters Appointment; Jonh Ibarra M.D. Encounter Diagnosis: Problem [...] documented On 10-Oct-2015 11:10 Appointment; Hosea Guerin M.D.|FACP|M.DRahat,FACP|MRahatDRahat,FACP, Encounter Diagnosis: Problem not documented On 21-Sep-2015 [...]
--- OUTSIDE RECORDS SUMMARY | 2016-10-08 07:07 | XMS REPORT | Summary of Care ---
Author Author Ion Pillai M.D. Organization Unknown Address [address] [place], [place] [id number] Phone Unavailable Care Team Providers Care Manufacturing Weaver Name Role Phone Alek Pillai M.D. Unavailable Unavailable Wolfgang aCno M.D. 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
[2016-10-08 07:19] LABS: BASOPHILS # (AUTO) 0.1 T/MM3 (0-0.2); BASOPHILS % (AUTO) 0.6 % (0-2); EOSINOPHILS # (AUTO) 0.2 T/MM3 (0-0.5); EOSINOPHILS % (AUTO) 2.2 % (0-4); HCT - HEMATOCRIT 42.8 % (36-46); HGB - HEMOGLOBIN 14.6 GM/DL (12-16); IMMATURE GRANULOCYTE # (AUTO) 0.03 T/MM3 (0.00-0.03); IMMATURE GRANULOCYTE % (AUTO) 0.3 % (0.0-0.5); LYMPHOCYTES # (AUTO) 2.5 T/MM3 (1-4.8); MEAN CORPUSCULAR HGB CONC(MCHC 34.1 GM/DL (31-37); MEAN CORPUSCULAR VOLUME 84.9 UM3 (80-100); MEAN PLATELET VOLUME 9.5 UM3 (9.4-12.4); MONOCYTES # (AUTO) 0.7 T/MM3 (0-0.8); MONOCYTES % (AUTO) 7.5 % (0-9.0); NEUTROPHILS #(AUTO)-ABSOLUTE 5.6 T/MM3 (1.8-7.7); NEUTROPHILS % (AUTO) 61.4 % (33-66); RED BLOOD COUNT 5.04 M/MM3 (4.00-5.20); WBC - WHITE BLOOD COUNT 9.1 T/MM3 (4.5-11.0)
[2016-10-08 07:26] LABS: INR 1.07 (0.76-1.04); PROTHROMBIN TIME 11.7 SEC (9.31-12.49); PTT 30.5 SEC (24-36)
[2016-10-08 07:28] LABS: ALBUMIN 4.4 G/DL (3.5-5.0); ALBUMIN/GLOBULIN RATIO 1.3 RATIO (1.1-2.2); ALKALINE PHOSPHATASE 89 U/L (38-126); ALT (SGPT) 29 U/L (9-52); ANION GAP 14 MEQ/L (5-15); AST (SGOT) 28 U/L (14-36); BUN/CREATININE RATIO 18 RATIO (6-26); CHLORIDE 100 MEQ/L (98-107); CO2 - CARBON DIOXIDE 30 MEQ/L (22-30); GLOMERULAR FILTRATION RATE 53; GLUCOSE 91 MG/DL (65-110); POTASSIUM 3.2 MEQ/L (3.6-5); SODIUM 144 MEQ/L (134-144); TOTAL PROTEIN 7.7 G/DL (6.3-8.2)
[2016-10-08] MEDS ORDERED: CEFAZOLIN 1 GRAM INJECTION IV ONE (08:00)
[2016-10-08] MEDS ORDERED: MIRA25TA PO (08:32)
[2016-10-08] MEDS ORDERED: GABA-336 PO (08:32)
[2016-10-08] MEDS ORDERED: NITR0.4T SL (08:32)
[2016-10-08] MEDS ORDERED: MAGN400C PO (08:32)
[2016-10-08] MEDS ORDERED: POTA99TA18 PO (08:32)
--- NOTE | 2016-10-08 09:42 | ANESPREOP ---
Anesthesia Record Date and Time DATE: 10/08/16 TIME: 09:37 Proposed Surgical Procedure RIGHT OPEN TOTAL NEPHRECTOMY NPO since: mn Allergies: Coded Allergies: No Known Drug Allergies (Verified Allergy, Unknown, 10/08/16) Ht/Wt/BMI Height: 5 ' 6.50 " Weight: 68.600 kg BMI: 24.0 kg/m2 Vital Signs Date Time Temp Pulse Resp B/P Pulse Ox O2 Delivery O2 Flow Rate FiO2 10/08/16 07:01 97.5 56 12 142/65 95 Room Air Medications Aspirin (Aspirin) 325 Mg Tablet, 0.5 TAB PO DAILY, (Reported) Last Taken: on 10/07/16 0700 Gabapentin (Gabapentin) 100 Mg Capsule, 1 CAP PO PRN, (Reported) Last Taken: on Unknown Date & Time Magnesium Oxide (Magnesium) 400 Mg Capsule, 1 CAP PO DAILY, (Reported) Last Taken: on 10/06/16 0700 Metoprolol Succinate (Metoprolol Succinate) 100 Mg Tab.er.24h, 0.5 MG PO DAILY, (Reported) Last Taken: on 10/08/16 0600 Mirabegron (Myrbetriq) 25 Mg Tab.er.24h, 25 MG PO DAILY, (Reported) Last Taken: on 10/06/16 0700 Nitroglycerin (Nitrostat) 0.4 Mg Tablet, 1 TAB SL PRN, (Reported) Last Taken: on Unknown Date & Time Potassium Gluconate (Potassium Gluconate ) 99 Mg Tablet.er, 1 TAB PO WB, (Reported) Last Taken: on 10/05/16 0700 Pravastatin Sodium (Pravastatin Sodium) 40 Mg Tablet, 0.5 MG PO HS, (Reported) Take 1 tablet, by mouth, daily at bedtime. Last Taken: on 10/07/16 1930 Currently on Beta Michael: Yes Beta Michael Last Taken: 10/08/2016 @ 0800 Medical/Surgical History Anesthesia PMH: Reports: *Hypertension (CONTROLLED), *CO (2000), Other (age 80) , Renal Disease (renal cell carcinoma) Smoking Status: Never smoker Use Chewing Tobacco?: No Second Hand Exposure: No Substance Use Type: does not use Alcohol Intake: none HX of Last Menstrual Period: HYST. Past Surgical History Orthopedic Surgeries: Abdominal Surgeries: Yes - GALLBLADDER Genitourinary Surgeries: Cardiac Surgeries: Endocrine Surgeries: Reproductive Surgeries: Yes - HYST., LEFT BREAST LUMPECTOMY Neurological Surgeries: Ear Surgeries: Nose Surgeries: Throat Surgeries: Other Surgeries: Anesthesia Adverse Reactions: FOUND none Family Hx of Anesthesia Advers: none Hx of Motion Sickness: No Pertinent Findings Laboratory Tests 10/08/16 07:08 10/08/16 07:09 Test 10/08/16 07:09 Activated Partial Thromboplast Time 30.5SEC (24-36) Prothromb Time International Ratio 1.07 (0.76-1.04) Physical Exam Respiratory: Bilat breath sounds equal, Lungs clear Cardiovascular: FOUND Regular rate, rhythm, FOUND No murmur Airway Assessment Mallampati Score: II TMD: 3 Fingerbreadths Neck Extension: Fair Overall Assessment: No Airway Concerns ASA: 3 Plan Anesthesia Plan: GETA (with art line placement) Discussion Discussed risks/options/alternatives of anesthesia and questions answered. Patient consents. Nursing pain assessment noted. Present: Family Member Attestation Statement Prior to the delivery of any anesthetic medication, I examined the patient, developed the plan, obtained the patient's consent and discussed the risk and benefits of the procedure with the patient/guardian. EDMUNDO BECERRA CRNA Oct 08, 2016 09:41
[2016-10-08] MEDS ORDERED: HYDROMORPHONE 2mg/ml INJECTION IV PRN (11:15)
[2016-10-08] MEDS ORDERED: ONDANSETRON 4mg/2ml INJECTION IV PRN ×2 (11:15→11:30)
[2016-10-08] MEDS: NORMAL SALINE 1,000 ML IV SCH ×2 (11:26→15:41)
[2016-10-08] MEDS ORDERED: ACETAMINOPHEN 160mg/5ml ORAL LIQUID PO PRN (11:30)
[2016-10-08] MEDS ORDERED: NITROGLYCERIN 0.4 MG SUBLINGUAL TABLET SL PRN (11:30)
--- NOTE | 2016-10-08 11:40 | NUR ---
ARTERIAL LINE RIGHT RADIAL ART LINE DC'D AT THIS TIME BY HOWARD ZHANG, MANUAL PRESSURE APPLIED FOR 15 MINUTES. RESTRICTED ARM BAND APPLIED TO THE RIGHT WRIST. WILL CONTINUE TO MONITOR.
[2016-10-08] MEDS ORDERED: NORMAL SALINE 1,000 ML IV SCH (11:48)
[2016-10-08] MEDS ORDERED: NALOXONE 0.4mg/ml INJECTION IV PRN (12:00)
[2016-10-08] MEDS ORDERED: MORPHINE IV PRN (12:00)
--- NOTE | 2016-10-08 12:24 | NUR ---
ORDERS PT C/O PAIN 02/06, ORDERS RECEIVED VIA TELEPHONE BY TIFFANI FOR PACU DILAUDID SET. VS STABLE AT THIS TIME. WILL CONTINUE TO MONITOR.
[2016-10-08] MEDS: HYDROMORPHONE 2mg/ml INJECTION IV PRN ×2 (12:29→12:52)
--- NOTE | 2016-10-08 12:39 | NUR ---
BP NOTIFIED TIFFANI IN REGARDS TO PTS BLOOD PRESSURE SLOWLY TRENDING DOWN, STARTED 143/56 AND NOW DOWN TO 110/53. OTHER VS REMAIN STABLE AT THIS TIME. WILL CONTINUE TO MONITOR.
[2016-10-08] MEDS ORDERED: SALINE FLUSH 10ml SYRINGE ONE ×2 (12:40)
[2016-10-08] MEDS ORDERED: VECURONIUM 10mg/10ml INJECTION IV ONE (12:40)
[2016-10-08] MEDS ORDERED: SUGAMMADEX 200 MG/2 ML INJECTION IV ONE (12:40)
[2016-10-08] MEDS ORDERED: FENTANYL 250mcg/5ml INJECTION ONE ×2 (12:40)
[2016-10-08] MEDS ORDERED: HYDROMORPHONE 2mg/ml INJECTION ONE (12:40)
[2016-10-08] MEDS ORDERED: PROPOFOL 200mg 20 ML IV ONE (12:40)
[2016-10-08] MEDS ORDERED: PHENYLEPHRINE 10mg/ml INJECTION ONE (12:40)
[2016-10-08] MEDS ORDERED: ONDANSETRON 4mg/2ml INJECTION ONE (12:40)
[2016-10-08] MEDS ORDERED: EPHEDRINE SULFATE 50mg/ml INJECTION ONE (12:40)
--- NOTE | 2016-10-08 13:05 | ANESPO ---
Post-Op Note Date 10/08/16 Time: 13:04 Status Pt Participated in Evaluation: Pt participated in person Vital Signs Date Time Temp Pulse Resp B/P Pulse Ox O2 Delivery O2 Flow Rate FiO2 10/08/16 12:52 16 10/08/16 12:45 58 109/51 95 10/08/16 12:35 Room Air 10/08/16 11:24 97.7 6.00 Respiratory Function: Airway patent, Regular respirations Cardiovascular Function: Regular pulse Telemetry Pattern: SR Mental Status: Alert/oriented Pain Level Intensity: 8 Hydration: IV infusing Complications during Recovery None apparent Follow-Up Instructions Instructions Per Surgeon REJI SAAVEDRA CRNA Oct 08, 2016 13:05
--- NOTE | 2016-10-08 13:15 | NUR ---
[employer] MADE BLANCHE VELEZ AWARE OF PTS BLOOD PRESSURE SLOWLY TRENDING DOWN PRIOR TO TRANSPORT TO THE SURGICAL FLOOR. OK GIVEN TO TRANSPORT PT. BP PRIOR TO TRANSPORT 115/56, TRENDING BACK UP. ALL OTHER VS REMAIN STABLE AT THIS TIME.
--- NOTE | 2016-10-08 13:23 | NUR ---
Admit Pt transferred from cart to bed via slide board X3 assist. Pt denies nausea at this time. VS stable on RA. Dressing/foam tape to abdomen c/d/i, ice pack in place. Side rails up X2, call light w/in reach, bed alarm on.
[2016-10-08] MEDS: ALBUTEROL INH.SOLN. 2.5mg/3ml (0.083%) Neb. AEROSOL SCH ×2 (14:34→19:20)
[2016-10-08] MEDS: METOCLOPRAMIDE 10mg/2ml INJECTION IV SCH ×2 (15:29→21:36)
--- NOTE | 2016-10-08 16:05 | CONSPD ---
LUIS SINGH V HOSPICE ADMINISTRATOR 10/08/16 1550: Consultation Info Date DATE: 10/08/16 TIME: 15:47 Date of Consultation: Oct 08, 2016 Attending Physician: Migel Reason for Consultation: Medical management of HTN, CAD HPI - Adult Date DATE: 10/08/16 TIME: 15:47 General Chief Complaint: renal cell carcinoma History of Present Illness Cuca is a pleasant 80 -year-old female who is under the primary care of Dr. Pillai in [place], [place]. She was admitted for a scheduled right nephrectomy secondary to renal cell carcinoma under the care of Dr. Escamilla. She tolerated this procedure well today. Postoperatively, the hospitalist services were consulted for medical management of her existing comorbidities. Did review this when his laboratory studies, the WBC count 9.1, hemoglobin 14.6, hematocrit 42.8, platelet count 272. Sodium is 144, potassium 3.2, BUN 18, creatinine 1.0, glucose 91. INR 1.07. Vital signs have remained stable since admission. Patient is seen on initial consultation. This afternoon while resting in bed with family at the bedside. She is alert and complains of having incisional abdominal pain with some nausea that has been persistent postoperatively. She does not appear to be in any acute distress and is comfortably breathing on room air. Maintaining adequate saturations at 97%. Blood pressure 07/23/59, pulse 66, respiratory 18. Past Medical History Past Medical History Hypertension Coronary artery disease History of OR-2000 Renal cell carcinoma Hypercholesterolemia Lumbar radiculopathy Gout Diverticulitis History of left breast cancer Degenerative disc disease Spinal stenosis Surgical History Patient's Surgical History: Hysterectomy Cholecystectomy Left breast lumpectomy Current Medications Home Meds Reported Medications Magnesium Oxide (Magnesium) 400 Mg Capsule, 1 CAP PO DAILY, #180 CAP 3 Refills 10/08/16 Gabapentin (Gabapentin) 100 Mg Capsule, 1 CAP PO PRN, CAP 10/08/16 Potassium Gluconate (Potassium Gluconate) 99 Mg Tablet.er, 1 TAB PO WB, TAB 10/08/16 Nitroglycerin (Nitrostat) 0.4 Mg Tablet, 1 TAB SL PRN, #100 TAB 3 Refills 10/08/16 Mirabegron (Myrbetriq) 25 Mg Tab.er.24h, 25 MG PO DAILY, TAB 10/08/16 Metoprolol Succinate (Metoprolol Succinate) 100 Mg Tab.er.24h, 0.5 MG PO DAILY, TAB 10/07/16 Aspirin (Aspirin) 325 Mg Tablet, 0.5 TAB PO DAILY, #30 TAB 5 Refills 10/07/16 Pravastatin Sodium (Pravastatin Sodium) 40 Mg Tablet, 0.5 MG PO HS, TAB Take 1 tablet, by mouth, daily at bedtime. 10/07/16 Allergies: Coded Allergies: No Known Drug Allergies (Verified Allergy, Unknown, 10/08/16) Family History Family History: Father-CVA, hypertension Mother-breast cancer, hypertension. Sister-colon cancer Social History Smoking Status: Never smoker Does patient use chewing tobac: No Second Hand Exposure: No Substance Use Type: does not use Advance Directives: Yes Full Code, No DPOA for Healthcare Only Social History Comments Primary care provider, Dr. Pillai at [facility] Review of Systems GI Upper Abdomen: nausea, pain Lower Abdomen: pain Comments Operative abdominal pain All Other Systems All Other Systems: Reviewed (remainder of 10-point ROS Neg.) Physical Exam General General Nourishment: well nourished, well developed, thin, apparent age Vital Signs Vital Signs Date Time Temp Pulse Resp B/P Pulse Ox O2 Delivery O2 Flow Rate FiO2 10/08/16 15:32 66 18 124/59 97 Room Air 10/08/16 13:38 97.6 10/08/16 11:24 6.00 Height (Feet): 5 Height (Inches): 6.50 Eyes Brief: FOUND: EOMI, PERRL ENMT Brief: FOUND: mucosa moist, normal dentition, NOT FOUND: pharnyx erythema Respiratory Brief: FOUND: clear all samson, equal bilaterally, NOT FOUND: wheezes Cardiovascular (brief) Cardiac Brief: FOUND: regular rate, regular rhythm, NOT FOUND: murmur, pedal edema Abdomen (brief) Abdominal Brief: NOT FOUND: BS normo active x4 (hypoactive bowel sounds) Comments Postop abdominal dressing intact, with ice pack intact Lymphatic (brief) Lymphatic Brief: NOT FOUND: lymphedema Musculoskeletal (brief) Musculoskeletal Brief: NOT FOUND: tenderness Integumentary (brief) Integumentary Brief: FOUND: dry, pink, warm Neurologic (brief) Neurological Brief: FOUND: cranial 2-12 intact Neurologic RN Documented GCS Eye Opening: Verbal: Motor: Total: Psychiatric (brief) FOUND: alert, attentive, normal affect, oriented Laboratory Laboratory Tests Test 10/08/16 07:08 10/08/16 07:09 White Blood Count 9.1T/MM3 Red Blood Count 5.04M/MM3 Hemoglobin 14.6GM/DL Hematocrit 42.8% Mean Corpuscular Volume 84.9UM3 Mean Corpuscular Hemoglobin 29.0UUG Mean Corpuscular Hemoglobin Concent 34.1GM/DL RDW Standard Deviation 40.9FL Platelet Count 272T/MM3 Mean Platelet Volume 9.5UM3 Immature Granulocyte % (Auto) 0.3% Neutrophils (%) (Auto) 61.4% Lymphocytes (%) (Auto) 28.0% Monocytes (%) (Auto) 7.5% Eosinophils (%) (Auto) 2.2% Basophils (%) (Auto) 0.6% Absolute Immature Granulocyte (auto 0.03T/MM3 Absolute Neutrophils (auto) 5.6T/MM3 Absolute Lymphocytes (auto) 2.5T/MM3 Absolute Monocytes (auto) 0.7T/MM3 Absolute Eosinophils (auto) 0.2T/MM3 Absolute Basophils (auto) 0.1T/MM3 Prothromb Time International Ratio 1.07 Activated Partial Thromboplast Time 30.5SEC Turbidity < 20 Sodium Level 144MEQ/L Potassium Level 3.2MEQ/L Chloride Level 100MEQ/L Carbon Dioxide Level 30MEQ/L Anion Gap 14MEQ/L Blood Urea Nitrogen 18.0MG/DL Creatinine 1.0MG/DL Glomerular Filtration Rate Calc 53 BUN/Creatinine Ratio 18RATIO Glucose Level 91MG/DL Calculated Osmolality 279MOSM/KG Calcium Level 10.0MG/DL Total Bilirubin 1.10MG/DL Icterus Index < 2 Aspartate Amino Transf (AST/SGOT) 28U/L Alanine Aminotransferase (ALT/SGPT) 29U/L Alkaline Phosphatase 89U/L Total Protein 7.7G/DL Albumin 4.4G/DL Globulin 3.3G/DL Albumin/Globulin Ratio 1.3RATIO Chemistry Specimen Hemolysis < 15 Impression/Recommendation Problems: (1) Hypokalemia Status: Acute Assessment & Plan: Present on admission, potassium 3.2 (2) Renal cell carcinoma Status: Acute Qualifiers: Laterality: right Qualified Codes: C64.1 - Malignant neoplasm of right kidney, except renal pelvis (3) Status post nephrectomy Status: Acute Assessment & Plan: 10/08/16- Dr Escamilla (4) Hypertension Status: Chronic (5) Coronary artery disease Status: Chronic (6) Hypercholesterolemia Status: Chronic (7) Lumbar radiculopathy Status: Chronic (8) Degenerative disc disease Status: Chronic (9) Spinal stenosis Status: Chronic (10) History of OR (myocardial infarction) Status: Resolved (11) Hx of breast cancer Status: Resolved Recommendation Urological care and orders as per Dr Escamilla. In light of hypokalemia. Will switch next bag of fluid to half-normal saline with 20 KCl to run at 100 ML per hour for gentle hydration. Mckenzie, and Zofran as needed for nausea control Morphine MANAGER EDITORIAL for pain control Continue with cefazolin IV every 8 hours for antimicrobial coverage. Monitor blood pressure. Will resume home Toprol tomorrow morning. SCDs to bilateral lower extremity for DVT prophylaxis Will recheck him a gram and BMP tomorrow morning to follow blood counts, renal function and electrolytes Appreciate medical consultation, the hospitalist services will continue to follow patient for management of existing comorbidities. At time of discharge her medical care will return to her primary care provider at [facility], Dr Pillai. COOPER LOOMIS MD 10/08/16 1732: Past Medical History Current Medications Home Meds Reported Medications Magnesium Oxide (Magnesium) 400 Mg Capsule, 1 CAP PO DAILY, #180 CAP 3 Refills 10/08/16 Gabapentin (Gabapentin) 100 Mg Capsule, 1 CAP PO PRN, CAP 10/08/16 Potassium Gluconate (Potassium Gluconate) 99 Mg Tablet.er, 1 TAB PO WB, TAB 10/08/16 Nitroglycerin (Nitrostat) 0.4 Mg Tablet, 1 TAB SL PRN, #100 TAB 3 Refills 10/08/16 Mirabegron (Myrbetriq) 25 Mg Tab.er.24h, 25 MG PO DAILY, TAB 10/08/16 Metoprolol Succinate (Metoprolol Succinate) 100 Mg Tab.er.24h, 0.5 MG PO DAILY, TAB 10/07/16 Aspirin (Aspirin) 325 Mg Tablet, 0.5 TAB PO DAILY, #30 TAB 5 Refills 10/07/16 Pravastatin Sodium (Pravastatin Sodium) 40 Mg Tablet, 0.5 MG PO HS, TAB Take 1 tablet, by mouth, daily at bedtime. 10/07/16 Allergies: Coded Allergies: No Known Drug Allergies (Verified Allergy, Unknown, 10/08/16) Impression/Recommendation Recommendation Have independently interviewed and examined pt. Chart reviewed. Case discussed with my HOSPICE ADMINISTRATOR. Above care plan developed with my supervision; agree with above. Doing okay post op. Notes incisional ab pain-MANAGER EDITORIAL helping, but family members report not always remembering it is there. Some nausea. Mouth feels dry. Breathing well-no SOA, cough, or congestion. Not having chest pressure, pain, or heaviness. Lungs: clear CV: regular AB: soft BS decreased MSE: awake alert appropriate Plan: Replace potassium, monitor lab. encourage IS use, control pain and nausea , may have ice chips for oral comfort, SCD for DVT prevention. LUIS SINGH APRN Oct 08, 2016 15:50 COOPER LOOMIS MD Oct 08, 2016 17:32
[2016-10-08 16:07] LABS: HCT - HEMATOCRIT 39.5 % (36-46); HGB - HEMOGLOBIN 13.4 GM/DL (12-16); MEAN CORPUSCULAR HGB 28.9 UUG (26-34); MEAN CORPUSCULAR HGB CONC(MCHC 33.9 GM/DL (31-37); MEAN CORPUSCULAR VOLUME 85.3 UM3 (80-100); MEAN PLATELET VOLUME 9.6 UM3 (9.4-12.4); RED BLOOD COUNT 4.63 M/MM3 (4.00-5.20); WBC - WHITE BLOOD COUNT 18.8 T/MM3 (4.5-11.0)
[2016-10-08 16:16] LABS: ANION GAP 13 MEQ/L (5-15); BUN/CREATININE RATIO 19 RATIO (6-26); CALCIUM 8.2 MG/DL (8.4-10.2); CHLORIDE 108 MEQ/L (98-107); CO2 - CARBON DIOXIDE 25 MEQ/L (22-30); CREATININE 0.9 MG/DL (0.7-1.2); GLOMERULAR FILTRATION RATE 60; GLUCOSE 161 MG/DL (65-110); POTASSIUM 3.4 MEQ/L (3.6-5); SODIUM 146 MEQ/L (134-144)
--- NOTE | 2016-10-08 16:30 | NUR ---
IV fluids NS running at 150mls/hr. Seda García APRN put in new orders for 1/2NS w/ KCL 20. Orders given at this time by Seda García APRN that its okay to finish the current bag of NS and then start the new IV solution that is ordered.
[2016-10-08] MEDS ORDERED: CEFAZOLIN 1 GRAM INJECTION IV SCH (17:00)
[2016-10-08] MEDS ORDERED: NORMAL SALINE 500 ML IV PRN (17:45)
[2016-10-08] MEDS: CEFAZOLIN 1 G in NORMAL SALINE 100 ML IV SCH (17:48)
--- NOTE | 2016-10-08 18:47 | NUR ---
Summary Pts VS stable on RA. Pt up to the chair at this time w/ the chair alarm on. Call light w/in reach. Family has been present in the room most of the shift. RIM ROLLER OPERATOR pump set up and verified with Annie Porter RN. Pt reported some nausea at one point, scheduled nausea medication was given at that time. Ice pack to the abdomen in place. Ferris catheter draining clear yellow urine. Pt teaching done on the RIM ROLLER OPERATOR pump.
--- NOTE | 2016-10-08 21:19 | OPNOTEF ---
DATE OF SURGERY 10/08/2016 SURGEON Mayo Escamilla MD INDUSTRIAL TECHNOLOGY TEACHER Roberto Perez MD PREOPERATIVE DIAGNOSIS Right renal cell carcinoma. POSTOPERATIVE DIAGNOSIS Right renal cell carcinoma. OPERATION PERFORMED Right radical nephrectomy. ANESTHESIA General endotracheal. INDICATIONS Mrs. Combs is an 80-year-old woman with biopsy-proven right renal mass that was found to be renal cell carcinoma. She elected to have radical nephrectomy after all the options were presented and considered. The patient was brought in for open radical nephrectomy on the right kidney. NARRATIVE OF PROCEDURE The patient was taken to the operating room and under general endotracheal anesthesia, patient was placed in supine position and prepped and draped in usual fashion for transperitoneal radical nephrectomy through a midline incision. A midline incision was made from the sternum xiphoid to the pelvis care home between the umbilicus and symphysis pubis. The incision was made around the umbilicus. The incision was then carried down through the external oblique fascia and the fascia was incised the full length of the skin incision. Peritoneum was entered and self-retaining retractors were placed to expose the right kidney. The right colon was mobilized by dissecting on the line of Toldt. There were adhesions from previous gallbladder surgery which were taken down carefully. The colon was then reflected medially to expose the retroperitoneum. The duodenum was then dissected by Aftab maneuver to expose the renal hilum and vena cava. With careful dissection the vena cava and the renal vein were exposed. The renal vein was then isolated with right-angle clamps and vessel loops were placed. The renal artery was then palpated underneath the renal vein. The renal artery was then dissected and right angle was placed under the renal artery. A 0-silk ligature was used to ligate the renal artery. Hemoclips were placed between the ligatures and the artery was divided between the clips. There was a second renal artery under the renal vein which was also dissected and isolated with right-angle clamps and similarly ligated with 0-silk ligatures. Clips were applied and the artery was also divided between the clips. The renal vein was ligated using vascular clips and divided between the clips. We then dissected the kidney superiorly, sparing the adrenal glands. With blunt dissection the kidney was freed off the psoas muscle. Inferior dissection isolated gonadal vein which was ligated and divided. The ureter was also hemoclipped and divided. Thus, the kidney was entirely removed with Gerota's fascia intact and delivered to Pathology for permanent section. Bleeding vessels were carefully searched for and hemostasis obtained. Empty renal fossa was copiously irrigated with warm normal saline. After assuring adequate hemostasis, the bowels were allowed to fall into the retroperitoneum. Omentum was placed over the bowel. Abdominal fascia was closed with #1 PDS. Skin was closed with skin clips. The patient tolerated the procedure well and was taken to the recovery room in stable condition. CRISSY
[2016-10-08] MEDS: PRAVASTATIN 40 MG TABLET PO SCH (21:36)
[2016-10-08] MEDS: 1/2 NS w/ KCL 20mEq 1,000 ML IV SCH (21:36)
[2016-10-09] VITALS (19 sets, daily range): BP systolic 99–135; BP diastolic 54–66; PULSE 68–100; RESP 14–20; TEMP 97.3–98.8; O2SAT 95–97
[2016-10-09] MEDS: CEFAZOLIN 1 G in NORMAL SALINE 100 ML IV SCH ×3 (01:04→16:51)
--- NOTE | 2016-10-09 01:39 | NUR ---
Chart Check 24 hour chart check completed
[2016-10-09] MEDS: 1/2 NS w/ KCL 20mEq 1,000 ML IV SCH ×3 (02:02→19:31)
[2016-10-09] MEDS: METOCLOPRAMIDE 10mg/2ml INJECTION IV SCH ×4 (03:40→23:40)
[2016-10-09 05:19] LABS: BASOPHILS % (AUTO) 0.2 % (0-2); EOSINOPHILS # (AUTO) 0.1 T/MM3 (0-0.5); EOSINOPHILS % (AUTO) 0.4 % (0-4); HCT - HEMATOCRIT 34.7 % (36-46); HGB - HEMOGLOBIN 11.8 GM/DL (12-16); IMMATURE GRANULOCYTE # (AUTO) 0.01 T/MM3 (0.00-0.03); IMMATURE GRANULOCYTE % (AUTO) 0.1 % (0.0-0.5); LYMPHOCYTES % (AUTO) 8.8 % (23-45); MEAN CORPUSCULAR HGB 29.1 UUG (26-34); MEAN CORPUSCULAR VOLUME 85.5 UM3 (80-100); MEAN PLATELET VOLUME 10.1 UM3 (9.4-12.4); MONOCYTES # (AUTO) 0.9 T/MM3 (0-0.8); MONOCYTES % (AUTO) 7.6 % (0-9.0); NEUTROPHILS #(AUTO)-ABSOLUTE 9.8 T/MM3 (1.8-7.7); NEUTROPHILS % (AUTO) 82.9 % (33-66); RED BLOOD COUNT 4.06 M/MM3 (4.00-5.20); WBC - WHITE BLOOD COUNT 11.8 T/MM3 (4.5-11.0)
[2016-10-09 05:29] LABS: ANION GAP 11 MEQ/L (5-15); BUN/CREATININE RATIO 14 RATIO (6-26); CALCIUM 8.4 MG/DL (8.4-10.2); CHLORIDE 107 MEQ/L (98-107); CO2 - CARBON DIOXIDE 24 MEQ/L (22-30); CREATININE 1.2 MG/DL (0.7-1.2); GLOMERULAR FILTRATION RATE 43; GLUCOSE 125 MG/DL (65-110); POTASSIUM 3.6 MEQ/L (3.6-5); SODIUM 142 MEQ/L (134-144)
--- NOTE | 2016-10-09 05:38 | NUR ---
SHIFT SUMMARY PT HAS SLEPT SOUNDLY THROUGHOUT THE NIGHT. MS STUNNER IN USE MINIMALLY THROUGHOUT THIS SHIFT. SCHEDULED REGLAN GIVEN. DENIES N/V/SOA. VSS, ON RA. UP WITH ASSIST X ONE. ICE PACK TO ABDOMEN. CONTINUOUS OXIMETRY. DRESSING ON ABDOMEN C/D/I. DAO CATHETER DRAINING CLEAR YELLOW URINE. BED LOCKED AND LOW, BED ALARM. CALL LIGHT WITHIN REACH. WILL CONTINUE TO MONITOR.
[2016-10-09] MEDS: ALBUTEROL INH.SOLN. 2.5mg/3ml (0.083%) Neb. AEROSOL SCH ×4 (06:57→20:38)
[2016-10-09] MEDS: PANTOPRAZOLE 40mg INJECTION IV SCH (08:33)
[2016-10-09] MEDS: METOPROLOL 100 MG PO SCH (09:39)
[2016-10-09] MEDS ORDERED: PNEUMOCOCCAL 13 VACCINE 0.5 ML SYRINGE IM ONE (12:00)
--- NOTE | 2016-10-09 12:19 | NUR ---
CM LACE SCORE IS 2. NO FURTHER INTERVENTION NEEDED AT THIS TIME. Addendum: 10/09/16 at 1220 by KEESHA CARY Amended: Links added.
--- NOTE | 2016-10-09 12:21 | NUR ---
CM SPOKE WITH PT, INTRODUCED SELF, EXPLAINED ROLE, PROVIDED CONTACT INFO. PT STATED SHE LIVES IN [place] AND HER DC PLAN IS TO RETURN HOME. SHE SAID HER DAUGHTER, ROSSY, WILL BE THE ONE TO PICK HER UP AND ROSSY WILL ALSO STAY WITH THE PT UPON DC. PT STATED SHE HAS A CANE, AND SHE DID NOT THINK SHE WILL NEED ANY FURTHER DME. REVIEWED RIZZO WITH PT; SHE SIGNED IT AND HAD NO QUESTIONS. SHE STATED SHE DID NOT HAVE ANY QUESTIONS/NEEDS FOR THIS WORKER. Addendum: 10/09/16 at 1222 by KEESHA CARY Amended: Links added.
[2016-10-09] MEDS ORDERED: PNEUMOCOCCAL VAC. ADMIN. CHARGE INJ ONE ×2 (12:23→14:00)
--- NOTE | 2016-10-09 12:45 | NUR ---
Pt status changed to Inpatient Discharge criteria not met due to Pt being changed to Inpatient status.
--- NOTE | 2016-10-09 12:59 | NUR ---
CM STOPPED BY PT'S ROOM, AND DAUGHTER ROSSY WAS PRESENT. SHE CONFIRMED THAT SHE WILL DRIVE PT HOME AT TIME OF DC AND SHE CONFIRMED THAT SHE WILL BE STAYING WITH PT LONG PT NEEDS HER. THIS WORKER ASKED ABOUT HOME HEALTH, IF THIS WOULD BE HELPFUL. ROSSY STATED PROBABLY NOT, SINCE PT IS A VERY PRIVATE PERSON AND WOULD NOT WANT A STRANGER COMING INTO THE HOME. SHE SAID SHE WILL BE ABLE TO ASSIST NEEDED. THIS WORKER PROVIDED HER WITH THIS WORKER'S CONTACT INFO IN CASE NEEDS DO ARISE, AND SHE SAID OK.
--- NOTE | 2016-10-09 16:13 | PNPDOC ---
LUIS SINGH V EXECUTIVE SALES ASSISTANT 10/09/16 1613: Subjective Date DATE: 10/09/16 TIME: 15:53 Subjective Jacqui is seen today up post nephrectomy. She reports she was up and ambulating however she felt dizzy and had to lay back down. She denies feeling short of breath. States that she does have abdominal/incisional tenderness without AGILE JAVA DEVELOPER morphine and requires to utilize it often. Blood pressure 124/55. UO output 520ml overnight. Objective Vital Signs Vital signs Vital Signs Date Time Temp Pulse Resp B/P Pulse Ox O2 Delivery O2 Flow Rate FiO2 10/09/16 15:06 88 10/09/16 14:56 16 97 10/09/16 12:00 97.3 124/55 Room Air 10/08/16 11:24 6.00 Height (Feet): 5 Height (Inches): 6.50 Weight (Kilograms): 73.300 General General Appearance: Alert, Orientated x 3, Cooperative, No Acute Distress Eyes (Brief) Eyes: FOUND: EOMI ENMT (Brief) ENMT: FOUND: mucosa moist, normal dentition, NOT FOUND: pharnyx erythema Neck (Brief) Neck: FOUND: midline, NOT FOUND: adenopathy, carotid bruits, tracheal deviation Respiratory (Brief) Respiratory: FOUND: clear all samson, equal bilaterally, NOT FOUND: wheezes Cardiovascular (Brief) Cardiac: FOUND: regular rate, regular rhythm, NOT FOUND: murmur, pedal edema Capillary Refill: <2 sec Abdomen (Brief) Abdominal: FOUND: soft, NOT FOUND: BS normo active x4 (hypoactive), distended, tender Comments Abdominal incision without erythema or drainage Lymphatic (Brief) Lymphatic: NOT FOUND: adenopathy Musculoskeletal (Brief) Musculoskeletal: NOT FOUND: tenderness Integumentary (Brief) Integumentary: FOUND: dry, pink, warm Neurologic (Brief) Neurological: FOUND: cranial 2-12 intact Psychiatric (Brief) Psychiatric: FOUND: alert, attentive, normal affect, oriented Laboratory Laboratory Laboratory Tests 10/08/16 07:09 10/08/16 15:59 10/09/16 04:29 Laboratory Tests 10/08/16 07:08 10/08/16 15:59 10/09/16 04:29 Assessment & Plan Problems: (1) Hypokalemia Status: Resolved Assessment & Plan: Present on admission, potassium 3.2 (2) Renal cell carcinoma Status: Acute Qualifiers: Laterality: right Qualified Codes: C64.1 - Malignant neoplasm of right kidney, except renal pelvis (3) Status post nephrectomy Status: Acute Assessment & Plan: 10/08/16- Dr Escamilla (4) Hypertension Status: Chronic (5) Coronary artery disease Status: Chronic (6) Hypercholesterolemia Status: Chronic (7) Lumbar radiculopathy Status: Chronic (8) Degenerative disc disease Status: Chronic (9) Spinal stenosis Status: Chronic (10) History of [place] (myocardial infarction) Status: Resolved (11) Hx of breast cancer Status: Resolved Plan/Intensity of Service 10/09/16 Continued Urology care and Nephrectomy management as per Dr Escamilla Case discussed with Dr Lainez. We will advance diet to clear liquids as see how she tolerates this Continue with normal saline at 100 ML per hour for ongoing hydration until oral intake has improved Continue with Zofran as needed for nausea Morphine AGILE JAVA DEVELOPER for ongoing pain control. Monitor labs, mild leukocytosis. Will continue to follow and recheck CBC tomorrow. Hypernatremia and hypokalemia, both improved. Code Status Full Code Hospital Course Summary Disclaimer The hospital course summary below is not to be considered part of the above Progress Note. Hospital Course Summary 10/09/16 Continued Urology care and Nephrectomy management as per Dr Escamilla Case discussed with Dr Lainez. We will advance diet to clear liquids as see how she tolerates this Continue with normal saline at 100 ML per hour for ongoing hydration until oral intake has improved Continue with Zofran as needed for nausea Morphine AGILE JAVA DEVELOPER for ongoing pain control. Monitor labs, mild leukocytosis. Will continue to follow and recheck CBC tomorrow. Hypernatremia and hypokalemia, both improved. COOPER LAINEZ MD 10/09/16 1374: Assessment & Plan Plan/Intensity of Service Have independently interviewed and examined pt. Chart reviewed. Case discussed with CM, nursing, and my EXECUTIVE SALES ASSISTANT. Care plan developed with my supervision; agree with above. Doing fail. Ab pain and incisional pain varies. Using AGILE JAVA DEVELOPER, but not excessively. Family members not confusion and pt seeing 'bugs' in room. Breathing well. Using IS, but worries not able to get the meter up high enough. Ab pain if takes deep breath. No flatus. Lungs: decreased, no distress CV: regular AB: soft nt, slight distention. BS decreased MSE: awake alert appropriate Plan: Will try clear liquids cautiously. Stop AGILE JAVA DEVELOPER - low dose MS for pain control. Encourage IS. Monitor lab. LUIS SINGH APRN Oct 09, 2016 16:13 COOPER LAINEZ MD Oct 09, 2016 17:41
--- NOTE | 2016-10-09 16:30 | NUR ---
UPDATE Report received from Edwin LAWRENCE for [facility]. Pt is helped from bed to recliner, pts daughter's at bedside. Pt is awake, A&OX3, PT STATES SHE JUST RECENTLY ORDERED SUPPER. STATES SHE DOES NOT HAVE MUCH APPETITE BUT WILL TRY TO GET SOMETHING DOWN.
--- NOTE | 2016-10-09 18:15 | NUR ---
update Pt was able to walk in hallway, after given a few steps, pt stated she felt weak so we went back to the room, pt had a slow steady gait. She is sitting in recliner at this time. Pt's diet was switched to ice ships only after Dr JEAN evaluated pt, pts bowel sounds are hypoactive to all 4 quadrants. Pts TITLE MANAGER pump dosage will be decreased to 0.4mg, instead of 0.6mg by Dr Lainez. Pts family is at bedside. Will continue to monitor pt.
--- NOTE | 2016-10-09 18:22 | NUR ---
MATERIALS BRANCH CHIEF ASSESSMENT MATERIALS BRANCH CHIEF DOSE DECREASED TO 0.4MG. DOSE VERIFICATION VERIFIED WITH HOWARD DREW.
--- NOTE | 2016-10-09 18:55 | NUR ---
UPDATE AT 1855 THIS RN AND PHARMACIST AIDE RN ADAM WHEN INTO PTS ROOM TO GIVE BESIDE REPORT. PT WAS FOUND STANDING BY THE CORNER OF THE BED WITH BLOOD ALL OVER THE FLOOR AND HERSELF. WHEN ASKED WHAT HAPPENED PT STATED "I JUST WANTED IT OUT", REFERRING TO THE IV. THIS RN ASKED FOR HELP WHILE ADAM RN SAT PT DOWN ON RECLINER TO GET HER CLEANED UP. PT PULLED OUT HER IV SITE TO HER L WRIST, BLEEDING WAS CONTROLLED WITH PRESSURE, PT HAD BLOOD ALL OVER HERSELF INCLUDING PERINEAL AREA. PT STATED SHE NEEDED THE TUBE OUT, REFERRING TO THE DAO. PT IS CONFUSED, SHE CAN STATE HER NAME AND WHAT SURGERY SHE HAD BUT WAS UNABLE TO SAY WHERE SHE WAS, PT REORIENTED TO TIME AND PLACE AND SWITCHED TO ROOM 129 BY NURSES STATION.
--- NOTE | 2016-10-09 19:20 | NUR ---
UPDATE DR LOOMIS CALLED TO BE NOTIFIED OF ACCIDENT. DR LOOMIS ORDERS FOR PTS SEWING DEPARTMENT SUPERVISOR PUMP TO BE DC'D AND TO CONTINUE TO MONITOR PT. FAMILY ALSO INFORMED OF WHAT HAPPENED. BOTH DAUGHTERS STATE THEY HAD JUST STEPPED OUT OF THE ROOM AT AROUND 1850 GO GET DINNER.
[2016-10-09] MEDS: PRAVASTATIN 40 MG TABLET PO SCH (22:00)
[2016-10-10] VITALS (12 sets, daily range): BP systolic 128–140; BP diastolic 64–69; PULSE 88–102; RESP 16–20; TEMP 96.4–99.2; O2SAT 93–98
[2016-10-10] MEDS ORDERED: MORPHINE SULFATE 2 MG SYRINGE IV PRN
[2016-10-10] MEDS: CEFAZOLIN 1 G in NORMAL SALINE 100 ML IV SCH ×3 (01:00→17:38)
[2016-10-10] MEDS ORDERED: ACETAMINOPHEN 650 MG SUPPOSITORY RECTALLY PRN (01:15)
[2016-10-10] MEDS ORDERED: ACETAMINOPHEN 650 MG SUPPOSITORY RECTALLY SCH (03:00)
[2016-10-10] MEDS: METOCLOPRAMIDE 10mg/2ml INJECTION IV SCH ×4 (03:20→21:54)
[2016-10-10 05:28] LABS: BASOPHILS % (AUTO) 0.2 % (0-2); EOSINOPHILS # (AUTO) 0.6 T/MM3 (0-0.5); EOSINOPHILS % (AUTO) 4.3 % (0-4); HCT - HEMATOCRIT 35.1 % (36-46); HGB - HEMOGLOBIN 11.9 GM/DL (12-16); IMMATURE GRANULOCYTE # (AUTO) 0.03 T/MM3 (0.00-0.03); IMMATURE GRANULOCYTE % (AUTO) 0.2 % (0.0-0.5); MEAN CORPUSCULAR HGB 29.4 UUG (26-34); MEAN CORPUSCULAR HGB CONC(MCHC 33.9 GM/DL (31-37); MEAN CORPUSCULAR VOLUME 86.7 UM3 (80-100); MEAN PLATELET VOLUME 10.5 UM3 (9.4-12.4); MONOCYTES # (AUTO) 0.9 T/MM3 (0-0.8); MONOCYTES % (AUTO) 6.7 % (0-9.0); NEUTROPHILS #(AUTO)-ABSOLUTE 10.5 T/MM3 (1.8-7.7); NEUTROPHILS % (AUTO) 80.6 % (33-66); RED BLOOD COUNT 4.05 M/MM3 (4.00-5.20)
--- NOTE | 2016-10-10 05:41 | NUR ---
Pt has been up to the bathroom x2. Unable to have a BM. Pt continues to deny pain. Pt c/o nausea, given zofran IV.
[2016-10-10 05:43] LABS: ANION GAP 13 MEQ/L (5-15); BUN/CREATININE RATIO 13 RATIO (6-26); CALCIUM 9.1 MG/DL (8.4-10.2); CHLORIDE 106 MEQ/L (98-107); CO2 - CARBON DIOXIDE 23 MEQ/L (22-30); CREATININE 1.2 MG/DL (0.7-1.2); GLOMERULAR FILTRATION RATE 43; GLUCOSE 80 MG/DL (65-110); POTASSIUM 3.9 MEQ/L (3.6-5); SODIUM 142 MEQ/L (134-144)
[2016-10-10] MEDS: ALBUTEROL INH.SOLN. 2.5mg/3ml (0.083%) Neb. AEROSOL SCH ×4 (06:55→20:02)
[2016-10-10] MEDS: 1/2 NS w/ KCL 20mEq 1,000 ML IV SCH ×2 (07:03→19:40)
[2016-10-10] MEDS: METOPROLOL 100 MG PO SCH (08:38)
[2016-10-10] MEDS: PANTOPRAZOLE 40mg INJECTION IV SCH (08:39)
--- NOTE | 2016-10-10 09:04 | NUR ---
Morning Cares Morning cares provided to pt in room. Pt was able to assist with bath and brush teeth without difficulty. Pt is a/o x3 this morning holding appropriate conversations. Pt denies any pain or nausea and has been frequently asked. Midline incision appears CDI and well approximated. No redness noted. Pt has refused ice pack to area. Pt took 1 pill with a small sip of water. Otherwise is NPO. Pt is currently reclining in chair. Will continue to monitor.
--- NOTE | 2016-10-10 18:07 | PNPDOC ---
Subjective Date DATE: 10/10/16 TIME: 17:58 Subjective F/U: HTN, Hypokalemia, Renal cell CA. Doing okay today. Much less confused as compared to yesterday evening. GAMEPLAY PROGRAMMER stopped. Does not incisional ab pain-not bad a rest, but increases with movements. No nausea, but not passing flatus. Not having appetite. Breathing well; does work with her IS. No f/c. Objective Vital Signs Vital signs Vital Signs Date Time Temp Pulse Resp B/P Pulse Ox O2 Delivery O2 Flow Rate FiO2 10/10/16 16:00 98.6 100 140/65 97 Room Air 10/10/16 14:29 16 10/08/16 11:24 6.00 Height (Feet): 5 Height (Inches): 6.50 Weight (Kilograms): 73.800 General General Appearance: Alert, Well Nourished, Well Developed, Cooperative, Looks Stated Age Eyes (Brief) Eyes: FOUND: EOMI, PERRL, NOT FOUND: scleral icterus ENMT (Brief) ENMT: FOUND: hearing intact, mucosa moist Respiratory (Brief) Respiratory: FOUND: tenderness, NOT FOUND: symmetrical, wheezes Cardiovascular (Brief) Cardiac: FOUND: regular rate, regular rhythm, NOT FOUND: pedal edema Abdomen (Brief) Abdominal: FOUND: distended (Slight ), soft, NOT FOUND: BS normo active x4 ( Decreased, but present ), tender (Brief) Female: FOUND: other (Ferris) Extremities (Brief) Extremity : Side: Bilateral Extremity: leg Extremity Finding: NOT FOUND: edema Musculoskeletal (Brief) Musculoskeletal: FOUND: extremities move equally, NOT FOUND: deformity, loss of motion, spasm, tenderness Neurologic (Brief) Neurological: FOUND: cranial 2-12 intact, motor (Intact ) Psychiatric (Brief) Psychiatric: FOUND: alert, attentive, normal affect Laboratory Laboratory Laboratory Tests 10/09/16 04:29 10/10/16 04:42 Laboratory Tests 10/09/16 04:29 10/10/16 04:42 Assessment & Plan Problems: (1) Hypokalemia Status: Resolved Assessment & Plan: Present on admission, potassium 3.2 (2) Renal cell carcinoma Status: Acute Qualifiers: Laterality: right Qualified Codes: C64.1 - Malignant neoplasm of right kidney, except renal pelvis (3) Status post nephrectomy Status: Acute Assessment & Plan: 10/08/16- Dr Escamilla (4) Hypertension Status: Chronic Qualifiers: Hypertension type: essential hypertension Qualified Codes: I10 - Essential (primary) hypertension (5) Coronary artery disease Status: Chronic (6) Hypercholesterolemia Status: Chronic (7) Lumbar radiculopathy Status: Chronic (8) Degenerative disc disease Status: Chronic (9) Spinal stenosis Status: Chronic (10) History of [place] (myocardial infarction) Status: Resolved (11) Hx of breast cancer Status: Resolved (12) Encephalopathy Status: Resolved Assessment & Plan: Not POA - resolved with d/c GAMEPLAY PROGRAMMER. Plan/Intensity of Service Continue IVF for hydration. Electrolytes and renal status stable. Continue BP medications - pressure controlled. Encourage continued IS. Encourage activities. Recheck CBC and BMP in am. DVT Prophylaxis: SCD'S Code Status Full Code Hospital Course Summary Disclaimer The hospital course summary below is not to be considered part of the above Progress Note. Hospital Course Summary 10/09/16 Continued Urology care and Nephrectomy management as per Dr Escamilla Case discussed with Dr Lainez. We will advance diet to clear liquids as see how she tolerates this Continue with normal saline at 100 ML per hour for ongoing hydration until oral intake has improved Continue with Zofran as needed for nausea Morphine GAMEPLAY PROGRAMMER for ongoing pain control. Monitor labs, mild leukocytosis. Will continue to follow and recheck CBC tomorrow. Hypernatremia and hypokalemia, both improved. 10/10 Doing okay today. Much less confused as compared to yesterday evening. GAMEPLAY PROGRAMMER stopped. Does not incisional ab pain-not bad a rest, but increases with movements. No nausea, but not passing flatus. Not having appetite. Breathing well; does work with her IS. No f/c. Continue IVF for hydration. Electrolytes and renal status stable. Continue BP medications - pressure controlled. Encourage continued IS. Encourage activities. Recheck CBC and BMP in am. COOPER LAINEZ MD Oct 10, 2016 18:02
--- NOTE | 2016-10-10 18:51 | NUR ---
SHIFT SUMMARY PT ALERT AND ORIENTED X3. PT ON RA, DENIES SOA. PT DENIES PAIN AT THIS TIME, DENIES N/V. UP WITH ASSIST X1, GAIT BELT, WALKER. DAO PATENT, ADEQUATE URINE OUTPUT. PT UP IN RECLINER FOR MOST OF TODAY. INCISION C/D/I. ICE PACK APPLIED. IVF INFUSING ORDERED INTO RIGHT HAND. CHAIR ALARM ON, CALL LIGHT WITHIN REACH.
[2016-10-10] MEDS: PRAVASTATIN 40 MG TABLET PO SCH (21:54)
--- NOTE | 2016-10-10 23:04 | PNF ---
DATE 10/09/2016 SUBJECTIVE Postoperative day #1 right nephrectomy for renal cell carcinoma. Patient did well overnight with vital signs and no fever. This morning she doesn't feel as well as she did yesterday postop. She complains of incisional pain but does not use CLOTH BLEACHING RANGE BACK TENDER very often. I advised her to use the CLOTH BLEACHING RANGE BACK TENDER and gain adequate pain relief so that she could move and breathe easier. EXAM The incision is clean and dry today. LUNGS: Lungs are clear but she does not breathe deeply. Respiratory effort is very poor. When asked to do incentive spirometry she had trouble getting to even 300 mL. HEART: Normal sinus rhythm. ABDOMEN: Soft. Did have some bowel sounds this morning. However, this evening bowel sounds are rare or absent. She is not nauseated. She has adequate urine output, producing 520 mL overnight. She had a hypokalemia with a creatinine of 3.4 postoperatively but this morning it is up to 3.6 with addition of potassium in the IV fluids. Blood count drifted down with a hemoglobin of 11.8 and hematocrit 34.7. I suspect much of it is from the dilutional factor rather than actual bleeding. IMPRESSION/PLAN Adequate postoperative day #1 status post radical nephrectomy on the right. The respiratory effort is poor and we have encouraged her to use incentive spirometry and take deeper breaths. Difficult time with ambulation due to dizziness but I would like her to continue attempt to take even a few steps with assistance. I would hold back diet although it was advanced to clear liquids. Bowel sounds have diminished through the day. MTDD
--- NOTE | 2016-10-10 23:04 | PNF ---
DATE 10/10/2016 SUBJECTIVE Patient is postop day #2 right radical nephrectomy for renal cell carcinoma. EXAM VITAL SIGNS: Vital signs are stable although there are two episodes where pulse increased to 100. Blood pressure is stable and oxygen saturation is excellent on room air. She is afebrile. GENERAL: She was confused and disoriented last night, suspected to be due to the DEALER ACCOUNTS INVESTIGATOR. Therefore, DEALER ACCOUNTS INVESTIGATOR was discontinued and patient was moved to a room in front of the nursing station for closer monitoring. LUNGS: Clearer, better air movement. I could actually hear reasonable breath sounds without rales, rhonchi or wheezing. HEART: Normal sinus rhythm. ABDOMEN: Soft with mild distention. She does have fairly decent, almost normal, bowel sounds in all four quadrants. WOUND: Clean and dry. EXTREMITIES: Legs have SCDs in place and there is no edema. No tenderness in the calves. The patient feels much better today and stronger. She was aware of what had happened last night. She complains of abdominal pain but only when she moves. She is on p.r.n. morphine for pain control. She has no flatus yet. Urine output is excellent and urine looks clear yellow in the Ferris bag. She was able to do 1000 mL on incentive spirometry today which is a drastic improvement over yesterday. She does look more alert this evening. LABORATORY Chemistry today showed normal electrolyte balance with potassium 3.9. Creatinine remains same as yesterday at 1.2 with BUN 15. White count 13,000. Hemoglobin 11.9, hematocrit 35.1. Blood count is fairly stable from yesterday. IMPRESSION Satisfactory second day postop right radical nephrectomy. She has reasonable bowel sounds. I suspect we should be able to start her on clear liquid diet and advance slowly over a day or two. She has not had flatus and we may use suppository tomorrow if she still doesn't have flatus on her own. Would like to ambulate her a little better. If she has good urine output and ambulation is more liberal, we will discontinue the Ferris catheter. Final pathology showed renal cell carcinoma clear subtype Darlyn grade 2. Tumor measured 2.8 x 2.5 x 2 cm. It is confined in the kidney without any capsular involvement. Resection margin was clear with pathologic staging of PT1N0. [facility]
[2016-10-11] VITALS (11 sets, daily range): BP systolic 120–132; BP diastolic 62–69; PULSE 70–98; RESP 16–26; TEMP 95.8–98; O2SAT 90–98
[2016-10-11] MEDS: CEFAZOLIN 1 G in NORMAL SALINE 100 ML IV SCH ×3 (01:27→17:13)
[2016-10-11] MEDS: METOCLOPRAMIDE 10mg/2ml INJECTION IV SCH ×4 (03:20→21:19)
--- NOTE | 2016-10-11 03:58 | NUR ---
Chart Check 24 hour chart check completed
[2016-10-11 05:13] LABS: BASOPHILS % (AUTO) 0.2 % (0-2); EOSINOPHILS # (AUTO) 0.4 T/MM3 (0-0.5); EOSINOPHILS % (AUTO) 4.3 % (0-4); HCT - HEMATOCRIT 31.4 % (36-46); HGB - HEMOGLOBIN 10.4 GM/DL (12-16); IMMATURE GRANULOCYTE # (AUTO) 0.02 T/MM3 (0.00-0.03); IMMATURE GRANULOCYTE % (AUTO) 0.2 % (0.0-0.5); LYMPHOCYTES # (AUTO) 0.8 T/MM3 (1-4.8); LYMPHOCYTES % (AUTO) 9.1 % (23-45); MEAN CORPUSCULAR HGB 28.9 UUG (26-34); MEAN CORPUSCULAR HGB CONC(MCHC 33.1 GM/DL (31-37); MEAN CORPUSCULAR VOLUME 87.2 UM3 (80-100); MONOCYTES # (AUTO) 0.5 T/MM3 (0-0.8); MONOCYTES % (AUTO) 5.7 % (0-9.0); NEUTROPHILS #(AUTO)-ABSOLUTE 7.3 T/MM3 (1.8-7.7); NEUTROPHILS % (AUTO) 80.5 % (33-66); WBC - WHITE BLOOD COUNT 9.1 T/MM3 (4.5-11.0)
[2016-10-11 05:25] LABS: ANION GAP 13 MEQ/L (5-15); BUN/CREATININE RATIO 13 RATIO (6-26); CHLORIDE 108 MEQ/L (98-107); CO2 - CARBON DIOXIDE 17 MEQ/L (22-30); CREATININE 1.2 MG/DL (0.7-1.2); GLOMERULAR FILTRATION RATE 43; GLUCOSE 66 MG/DL (65-110); POTASSIUM 4.3 MEQ/L (3.6-5); SODIUM 138 MEQ/L (134-144)
--- NOTE | 2016-10-11 06:30 | NUR ---
STATUS PATIENT SLEPT WELL DURING NIGHT. PATIENT TRIED ONE TIME TO GET OUT BED WITHOUT CALLING NURSE .ON ROOM AIR. PATIENT IS UP WITH ONE ASSIST. N/O PAIN,CHEST PAIN,SOA,OR N/V. NOTHING BY MOUTH EXCEPT ICE CHIPS. ADEQUATE URINARY OUTPUT FROM DAO CATHETER. NO BM.BED ALARM ON. CONTINUE TO MONITOR.
[2016-10-11] MEDS: ALBUTEROL INH.SOLN. 2.5mg/3ml (0.083%) Neb. AEROSOL SCH ×4 (06:38→19:34)
[2016-10-11] MEDS: 1/2 NS w/ KCL 20mEq 1,000 ML IV SCH ×3 (07:03→20:06)
[2016-10-11] MEDS: METOPROLOL 100 MG PO SCH (08:58)
[2016-10-11] MEDS: PANTOPRAZOLE 40mg INJECTION IV SCH (08:59)
[2016-10-11] MEDS ORDERED: BISACODYL 10 MG SUPPOSITORY RECTALLY PRN (12:00)
--- NOTE | 2016-10-11 12:05 | PNPDOC ---
Subjective Date DATE: 10/11/16 TIME: 11:58 Subjective F/U: HTN, Hypokalemia, Renal cell CA. Doing about the same. Ad discomfort with movements-hard to get up and be active. Not much appetite, no nausea. Passing flatus, but not stool. Breathing well without SOA, cough, congestion, or pain with breathing. No sinus congestion or pain. Objective Vital Signs Vital signs Vital Signs Date Time Temp Pulse Resp B/P Pulse Ox O2 Delivery O2 Flow Rate FiO2 10/11/16 11:29 76 10/11/16 11:29 18 10/11/16 08:28 96.1 132/66 98 Room Air 10/08/16 11:24 6.00 Height (Feet): 5 Height (Inches): 6.50 Weight (Kilograms): 72.700 General General Appearance: Alert, Well Nourished, Well Developed, Cooperative, Looks Stated Age Eyes (Brief) Eyes: FOUND: EOMI, PERRL, NOT FOUND: scleral icterus ENMT (Brief) ENMT: FOUND: hearing intact, mucosa moist Neck (Brief) Neck: FOUND: midline, NOT FOUND: nuchal rigidity, spasm Respiratory (Brief) Respiratory: FOUND: clear all samson, equal bilaterally, NOT FOUND: rales, wheezes Cardiovascular (Brief) Cardiac: FOUND: regular rate, regular rhythm, NOT FOUND: pedal edema Abdomen (Brief) Abdominal: FOUND: soft, NOT FOUND: BS normo active x4 (Decreased ), distended (Brief) Female: FOUND: other (Ferris in place ) Extremities (Brief) Extremity : Side: Bilateral Extremity: leg Extremity Finding: FOUND: other (SCD ), NOT FOUND: edema Musculoskeletal (Brief) Musculoskeletal: FOUND: extremities move equally, NOT FOUND: deformity, spasm Integumentary (Brief) Integumentary: FOUND: dry, warm Neurologic (Brief) Neurological: FOUND: cranial 2-12 intact, motor (Intact ) Psychiatric (Brief) Psychiatric: FOUND: alert, attentive, normal affect, oriented Laboratory Laboratory Laboratory Tests 10/10/16 04:42 10/11/16 04:43 Laboratory Tests 10/10/16 04:42 10/11/16 04:43 Assessment & Plan Problems: (1) Hypokalemia Status: Resolved Assessment & Plan: Present on admission, potassium 3.2 (2) Renal cell carcinoma Status: Acute Qualifiers: Laterality: right Qualified Codes: C64.1 - Malignant neoplasm of right kidney, except renal pelvis (3) Status post nephrectomy Status: Acute Assessment & Plan: 10/08/16- Dr Escamilla (4) Hypertension Status: Chronic Qualifiers: Hypertension type: essential hypertension Qualified Codes: I10 - Essential (primary) hypertension (5) Coronary artery disease Status: Chronic (6) Hypercholesterolemia Status: Chronic (7) Lumbar radiculopathy Status: Chronic (8) Degenerative disc disease Status: Chronic (9) Spinal stenosis Status: Chronic (10) History of [place] (myocardial infarction) Status: Resolved (11) Hx of breast cancer Status: Resolved (12) Encephalopathy Status: Resolved Assessment & Plan: Not POA - resolved with d/c ENTERPRISE SYSTEMS MANAGER. Plan/Intensity of Service Continue IVF for hydration but can decrease to 75 cc/hr. Nursing to give Dulcolax suppository to help stimulate bowel function. Add Colace BID. Continue BP medications - pressure controlled. Encourage continued IS. Encourage activities. Consult PT/OT due to post surgical debility. Recheck CBC and BMP in am. DVT Prophylaxis: SCD'S Code Status Full Code Hospital Course Summary Disclaimer The hospital course summary below is not to be considered part of the above Progress Note. Hospital Course Summary 10/09/16 Continued Urology care and Nephrectomy management as per Dr Escamilla Case discussed with Dr Lainez. We will advance diet to clear liquids as see how she tolerates this Continue with normal saline at 100 ML per hour for ongoing hydration until oral intake has improved Continue with Zofran as needed for nausea Morphine ENTERPRISE SYSTEMS MANAGER for ongoing pain control. Monitor labs, mild leukocytosis. Will continue to follow and recheck CBC tomorrow. Hypernatremia and hypokalemia, both improved. 10/10 Doing okay today. Much less confused as compared to yesterday evening. ENTERPRISE SYSTEMS MANAGER stopped. Does not incisional ab pain-not bad a rest, but increases with movements. No nausea, but not passing flatus. Not having appetite. Breathing well; does work with her IS. No f/c. Continue IVF for hydration. Electrolytes and renal status stable. Continue BP medications - pressure controlled. Encourage continued IS. Encourage activities. Recheck CBC and BMP in am. 10/11 Doing about the same. Ad discomfort with movements-hard to get up and be active. Not much appetite, no nausea. Passing flatus, but not stool. Breathing well without SOA, cough, congestion, or pain with breathing. No sinus congestion or pain. Continue IVF for hydration, but can decrease to 75 cc/hr. Nursing to give Dulcolax suppository to help stimulate bowel function. Add Colace BID. Continue BP medications - pressure controlled. Encourage continued IS. Encourage activities. Consult PT/OT due to post surgical debility. Recheck CBC and BMP in am. COOPER LAINEZ MD Oct 11, 2016 12:01
[2016-10-11] MEDS: MILK OF MAGNESIA 30 ML SUSP PO PRN (15:45)
--- NOTE | 2016-10-11 17:54 | NUR ---
End of shift summary Pt A&OX3. VS stable on RA. Pt has denied pain and nausea this shift. Pt given PRN milk of mag and suppository, no BM at this time. Pt states she is passing gas. Family present in the room at this time. Pt has ambulated in the hallway 4 times this shift and tolerated well. Pt has been up to the chair throughout the day. Pt up to the chair at this time w/ the chair alarm and call light w/in reach. Pt encouraged throughout the day to use incentive spirometer and TCDB.
[2016-10-11] MEDS: DOCUSATE SODIUM 100 MG CAPSULE PO SCH (21:18)
[2016-10-11] MEDS: PRAVASTATIN 40 MG TABLET PO SCH (21:18)
[2016-10-12] VITALS (7 sets, daily range): BP systolic 123–139; BP diastolic 63–75; PULSE 74–84; RESP 16–18; TEMP 96.4–97.6; O2SAT 94–98
[2016-10-12] MEDS: CEFAZOLIN 1 G in NORMAL SALINE 100 ML IV SCH ×2 (02:18→09:50)
[2016-10-12] MEDS: METOCLOPRAMIDE 10mg/2ml INJECTION IV SCH ×2 (03:09→09:49)
[2016-10-12 05:07] LABS: BASOPHILS % (AUTO) 0.2 % (0-2); EOSINOPHILS # (AUTO) 0.7 T/MM3 (0-0.5); EOSINOPHILS % (AUTO) 8.6 % (0-4); HCT - HEMATOCRIT 31.6 % (36-46); HGB - HEMOGLOBIN 10.4 GM/DL (12-16); IMMATURE GRANULOCYTE # (AUTO) 0.02 T/MM3 (0.00-0.03); IMMATURE GRANULOCYTE % (AUTO) 0.2 % (0.0-0.5); LYMPHOCYTES % (AUTO) 11.9 % (23-45); MEAN CORPUSCULAR HGB 28.7 UUG (26-34); MEAN CORPUSCULAR HGB CONC(MCHC 32.9 GM/DL (31-37); MEAN CORPUSCULAR VOLUME 87.1 UM3 (80-100); MEAN PLATELET VOLUME 10.2 UM3 (9.4-12.4); MONOCYTES # (AUTO) 0.5 T/MM3 (0-0.8); MONOCYTES % (AUTO) 6.3 % (0-9.0); NEUTROPHILS #(AUTO)-ABSOLUTE 5.9 T/MM3 (1.8-7.7); NEUTROPHILS % (AUTO) 72.8 % (33-66); RED BLOOD COUNT 3.63 M/MM3 (4.00-5.20); WBC - WHITE BLOOD COUNT 8.1 T/MM3 (4.5-11.0)
[2016-10-12 05:12] LABS: ANION GAP 15 MEQ/L (5-15); BUN/CREATININE RATIO 15 RATIO (6-26); CALCIUM 9.1 MG/DL (8.4-10.2); CHLORIDE 108 MEQ/L (98-107); CO2 - CARBON DIOXIDE 15 MEQ/L (22-30); CREATININE 1.1 MG/DL (0.7-1.2); GLOMERULAR FILTRATION RATE 48; GLUCOSE 57 MG/DL (65-110); POTASSIUM 4.6 MEQ/L (3.6-5); SODIUM 138 MEQ/L (134-144)
--- NOTE | 2016-10-12 06:20 | NUR ---
Sleeps well during the night. Alert and orientated with occasional forgetfulness. Assisted to commode X two; passed flatus; not able to move bowels. Diet advanced to clear liquids. Drand water last evening; did not care to have broth or jello. Mid-line abdominal incision with veronica intact open to air. No drainage, irritation or inflammation around area of incision. Refuses to place ice pack on incision. Denies need for PRN pain medication. 1/2NS with 20 meq. KCL infuses at 75/cc/hr via IV site in right hand. Recieves IV antibiotic. Ferris cath patent; draining clear yellow urine to DD bag.
[2016-10-12] MEDS: ALBUTEROL INH.SOLN. 2.5mg/3ml (0.083%) Neb. AEROSOL SCH (07:00)
[2016-10-12] MEDS: METOPROLOL 100 MG PO SCH (09:49)
[2016-10-12] MEDS: DOCUSATE SODIUM 100 MG CAPSULE PO SCH (09:49)
[2016-10-12] MEDS: PANTOPRAZOLE 40mg INJECTION IV SCH (09:50)
[2016-10-12] MEDS ORDERED: 1/2 NS w/ KCL 20mEq 1,000 ML IV SCH (10:32)
[2016-10-12] MEDS ORDERED: TRAMADOL 50 MG TABLET PO PRN (10:45)
--- NOTE | 2016-10-12 14:01 | PNF ---
DATE 10/12/2016 SUBJECTIVE Mrs. Combs is fourth-day postop right radical nephrectomy. She has done well so far with stable vital signs and without fever. She has essentially no pain, especially when she is not moving. She is sitting in the chair and eating Jell-O this morning. She was starting on clear liquid diet last night and tolerated it well without nausea. She is passing flatus but no BMs despite cathartics and suppositories. Her only complaint is difficulty walking on her own. She feels unsteady on her feet. OBJECTIVE GENERAL: She is alert and oriented and in no acute distress. She is breathing without any effort. LUNGS: Lungs are clear without rales, rhonchi, or wheezing. HEART: Normal sinus rhythm without murmur. ABDOMEN: Soft and has excellent bowel sounds. Incision has healed well and is dry and without sign of infection. EXTREMITIES: She has SCD in place and there is no calf tenderness. LABORATORY DATA This morning's blood count is stable with hemoglobin at 10.4 and hematocrit 31.6. Her creatinine is 1.1, BUN 16. Potassium is 4.6. IMPRESSION Satisfactory postop day #5 following a right radical nephrectomy. She is mobilizing fluid and producing a large amount of urine. She has been started on a diet. RECOMMENDATION AND PLAN We will plan to cap the IV and advance diet. Patient was encouraged to ambulate. We will need her to ambulate on her own before discharge. With IV capped and Ferris catheter out, she should be able to move about freer. I believe decrease in H&H will gradually catch up as she diureses. I suspect decrease in H&H is due to dilutional factor from hydration and third spacing of fluid. I anticipate discharge tomorrow. [facility]
[2016-10-12] MEDS: MILK OF MAGNESIA 30 ML SUSP PO PRN (14:39)
--- NOTE | 2016-10-12 17:11 | NUR ---
END OF SHIFT REPORT PATIENT A/OX3. CONFUSED AT TIMES. PT DOES NOT ATTEMPT TO GET OUT OF BED/CHAIR WITHOUT HELP. VITAL SIGNS STABLE. ROOM AIR. AFEBRILE. PT UP WITH ASSIST X1. GB AND WALKER. MIDLINE ABDOMINAL INCISION OPEN TO AIR. MELISSA INTACT. DAO D/C DURING THE SHIFT. PT HAS VOIDED SINCE DAO WAS REMOVED. BM DURING THE SHIFT. DRESSING CLEAN, DRY, INTACT. PATIENT PROGRESSED TO A REGULAR DIET. WILL CONTINUE TO MONITOR.
[2016-10-12 18:35] LABS: BLOOD, URINE 2+ (NEGATIVE); COLOR,URINE YELLOW (YELLOW); LEUKOCYTE ESTERASE ,URINE 2+ (NEGATIVE); NITRITE,URINE NEGATIVE (NEGATIVE); UROBILINOGEN,URINE 0.2 EU/DL (NORMAL)
[2016-10-12] MEDS ORDERED: ACETAMINOPHEN 325 MG TABLET PO PRN (20:15)
--- NOTE | 2016-10-12 20:23 | PNPDOC ---
Subjective Date DATE: 10/12/16 TIME: 20:12 Subjective Mrs. Combs was seen with family members at the bedside. She complains of being weak but had no other immediate concerns. She reports that she got real food today and tolerated it well. She's not yet had a bowel movement since surgery but denied nausea or vomiting. She denies dyspnea has had no palpitations or chest pain. Ferris catheter was removed earlier and she hopes to go home tomorrow. Objective Vital Signs Vital signs Vital Signs Date Time Temp Pulse Resp B/P Pulse Ox O2 Delivery O2 Flow Rate FiO2 10/12/16 16:45 97.2 84 16 139/75 94 Room Air 10/08/16 11:24 6.00 EXAM General-NAD, alert, fluent speech HEENT-conjunctiva clear, sclera anicteric, oropharynx clear Lungs-respirations nonlabored, good airflow, breath sounds clear Cardiac-regular rhythm, S1-S2 Abd-active bowel sounds, soft, nontender Ext-without edema Neuro-moving all extremities spontaneously, no tremor Psych-pleasant, calm Height (Feet): 5 Height (Inches): 6.50 Weight (Kilograms): 72.000 Laboratory Laboratory Laboratory Tests 10/11/16 04:43 10/12/16 04:07 Laboratory Tests 10/11/16 04:43 10/12/16 04:07 Assessment & Plan Problems: (1) Renal cell carcinoma Status: Acute Qualifiers: Laterality: right Qualified Codes: C64.1 - Malignant neoplasm of right kidney, except renal pelvis (2) Metabolic acidosis (3) Anemia following surgery Status: Acute (4) Status post nephrectomy Status: Acute Assessment & Plan: 10/08/16- Dr Escamilla (5) Hypertension Status: Chronic Qualifiers: Hypertension type: essential hypertension Qualified Codes: I10 - Essential (primary) hypertension (6) Coronary artery disease Status: Chronic (7) Hypercholesterolemia Status: Chronic (8) Lumbar radiculopathy Status: Chronic (9) Degenerative disc disease Status: Chronic (10) Spinal stenosis Status: Chronic (11) History of [place] (myocardial infarction) Status: Resolved (12) Hx of breast cancer Status: Resolved (13) Encephalopathy Status: Resolved Assessment & Plan: Not POA - resolved with d/c GUN BARREL FINISHER. (14) Hypokalemia Status: Resolved Assessment & Plan: Present on admission, potassium 3.2 Assessment Generally doing well. Tolerating by mouth-discontinue IV fluids. MiraLAX increased to twice a day due to ongoing constipation, Senokot initiated. Dulcolax available if needed. Mild postoperative anemia present, hemoglobin stable overnight. Bicarbonate level has dropped progressively over the past 3 days, reassess tomorrow-may require sodium bicarbonate replacement therapy. Urine pH 5.5 today. Blood pressure well-controlled on usual medications. Plan/Intensity of Service Laboratory data reviewed, pathology reviewed, discussed with nursing/family. Code Status Full Code Hospital Course Summary Disclaimer The hospital course summary below is not to be considered part of the above Progress Note. Hospital Course Summary 10/09/16 Continued Urology care and Nephrectomy management as per Dr Escamilla Case discussed with Dr Lainez. We will advance diet to clear liquids as see how she tolerates this Continue with normal saline at 100 ML per hour for ongoing hydration until oral intake has improved Continue with Zofran as needed for nausea Morphine GUN BARREL FINISHER for ongoing pain control. Monitor labs, mild leukocytosis. Will continue to follow and recheck CBC tomorrow. Hypernatremia and hypokalemia, both improved. 10/10 Doing okay today. Much less confused as compared to yesterday evening. GUN BARREL FINISHER stopped. Does not incisional ab pain-not bad a rest, but increases with movements. No nausea, but not passing flatus. Not having appetite. Breathing well; does work with her IS. No f/c. Continue IVF for hydration. Electrolytes and renal status stable. Continue BP medications - pressure controlled. Encourage continued IS. Encourage activities. Recheck CBC and BMP in am. 10/11 Doing about the same. Ad discomfort with movements-hard to get up and be active. Not much appetite, no nausea. Passing flatus, but not stool. Breathing well without SOA, cough, congestion, or pain with breathing. No sinus congestion or pain. Continue IVF for hydration, but can decrease to 75 cc/hr. Nursing to give Dulcolax suppository to help stimulate bowel function. Add Colace BID. Continue BP medications - pressure controlled. Encourage continued IS. Encourage activities. Consult PT/OT due to post surgical debility. Recheck CBC and BMP in am. 10/12/16 Generally doing well. Tolerating by mouth-discontinue IV fluids. MiraLAX increased to twice a day due to ongoing constipation, Senokot initiated. Dulcolax available if needed. Mild postoperative anemia present, hemoglobin stable overnight. Bicarbonate level has dropped progressively over the past 3 days, reassess tomorrow-may require sodium bicarbonate replacement therapy. Urine pH 5.5 today. Blood pressure well-controlled on usual medications. RUDDY LEE MD Oct 12, 2016 20:16
[2016-10-12] MEDS: SENNA + DOCUSATE TAB PO SCH (20:56)
[2016-10-12] MEDS: PRAVASTATIN 20 MG TABLET PO SCH (20:56)
[2016-10-13] VITALS: BP 120/62; PULSE 80; RESP 12; TEMP 98.1; O2SAT 95
[2016-10-13 05:03] LABS: HCT - HEMATOCRIT 32.4 % (36-46); HGB - HEMOGLOBIN 10.9 GM/DL (12-16)
[2016-10-13 05:17] LABS: ALBUMIN 2.9 G/DL (3.5-5.0); ANION GAP 9 MEQ/L (5-15); BUN/CREATININE RATIO 15 RATIO (6-26); CALCIUM 9.1 MG/DL (8.4-10.2); CHLORIDE 106 MEQ/L (98-107); CO2 - CARBON DIOXIDE 23 MEQ/L (22-30); GLOMERULAR FILTRATION RATE 53; GLUCOSE 100 MG/DL (65-110); MAGNESIUM 2.1 MG/DL (1.6-2.3); PHOSPHORUS 1.4 MG/DL (2.5-4.5); POTASSIUM 4.2 MEQ/L (3.6-5); SODIUM 138 MEQ/L (134-144)
--- NOTE | 2016-10-13 05:24 | NUR ---
SHIFT SUMMARY PT ALERT AND ORIENTED X3, VITAL SIGNS ARE STABLE ON ROOM AIR. DENIES C/P,N/V AND SOA. PT AMBULATES TO BATHROOM WITH 1 ASSIST,GAIT BELT AND WALKER. PT DOES NEED REMINDING TO USE THE CALL LIGHT WHEN GETTING UP FROM BED OR LEAVING THE BATHROOM. PT HAS DENIED PAIN THROUGHOUT THE NIGHT. MIDLINE INCISION IS STAPLED AND OPEN TO AIR. WILL CONTINUE TO MONITOR.
[2016-10-13 07:33] VITALS: BP 145/71; PULSE 82; RESP 16; TEMP 97; O2SAT 97
[2016-10-13 07:51] VITALS: PULSE 82; RESP 16
[2016-10-13] MEDS: POLYETHYL.GLYCOL 3350 PACKET 17gm PO SCH ×2 (08:00→17:07)
[2016-10-13] MEDS: METOPROLOL XL 50 MG TABLET PO SCH (08:35)
[2016-10-13] MEDS: SENNA + DOCUSATE TAB PO SCH ×2 (08:36→21:01)
[2016-10-13] MEDS ORDERED: SODIUM PHOSPHATE IV ONE ×2 (09:45→10:30)
[2016-10-13] MEDS ORDERED: NORMAL SALINE IV ONE ×2 (09:45→10:30)
[2016-10-13] MEDS ORDERED: LOPERAMIDE 2 MG CAPSULE PO ONE (10:45)
--- NOTE | 2016-10-13 12:02 | NUR ---
STATUS UPDATE/PLAN OF CARE PATIENT STATED THIS AM THAT SHE DID NOT FEEL CONFIDENT IN HER WALKING AND WAS WORRIED ABOUT GOING HOME TODAY. DR. LEE AND TED UPDATED ON THIS STATEMENT. BOTH DRSusyS AND PATIENT AND SON AGREED THAT STAYING TONIGHT WOULD BE BEST AND DISCUSSING OPTIONS FOR ASSISTANCE AND POSSIBLE PT/OT TOMORROW. NO QUESTIONS FROM PATIENT OR SON AT THIS TIME. WILL CONTINUE TO MONITOR.
[2016-10-13 16:14] VITALS: BP 119/63; PULSE 76; RESP 16; TEMP 97.6; O2SAT 98
--- NOTE | 2016-10-13 16:24 | PNPDOC ---
LUIS SINGH V CLOTH DYER 10/13/16 1620: Subjective Date DATE: 10/13/16 TIME: 16:17 Subjective Jacqui is seen today in follow up while resting in bed with her daughter at the bedside. She complains that she is weak when she walks and inquires why this would be post-op. Discussed debility and muscle weakness post-op. Discussed importance of ambulation to gain muscle and good nutrition. She denies having chest pain, shortness of breath or GI complaints. She is voiding without difficulty and bowels moved twice today. Appetite is diminished. Objective Vital Signs Vital signs Vital Signs Date Time Temp Pulse Resp B/P Pulse Ox O2 Delivery O2 Flow Rate FiO2 10/13/16 16:14 97.6 76 16 119/63 98 Room Air Height (Feet): 5 Height (Inches): 6.50 Weight (Kilograms): 72.500 General General Appearance: Alert, Orientated x 3, Cooperative, No Acute Distress Eyes (Brief) Eyes: FOUND: EOMI ENMT (Brief) ENMT: FOUND: mucosa moist, normal dentition, NOT FOUND: pharnyx erythema Neck (Brief) Neck: FOUND: midline, NOT FOUND: adenopathy, carotid bruits, tracheal deviation Respiratory (Brief) Respiratory: FOUND: clear all samson, equal bilaterally, NOT FOUND: wheezes Cardiovascular (Brief) Cardiac: FOUND: regular rate, regular rhythm, NOT FOUND: murmur, pedal edema Capillary Refill: <2 sec Abdomen (Brief) Abdominal: FOUND: BS normo active x4, soft, NOT FOUND: distended, tender Lymphatic (Brief) Lymphatic: NOT FOUND: adenopathy Musculoskeletal (Brief) Musculoskeletal: NOT FOUND: tenderness Integumentary (Brief) Integumentary: FOUND: dry, pink, warm Neurologic (Brief) Neurological: FOUND: cranial 2-12 intact Psychiatric (Brief) Psychiatric: FOUND: alert, attentive, normal affect, oriented Laboratory Laboratory Laboratory Tests 10/12/16 04:07 10/13/16 04:04 Laboratory Tests 10/12/16 04:07 10/13/16 04:04 Assessment & Plan Problems: (1) Renal cell carcinoma Status: Acute Qualifiers: Laterality: right Qualified Codes: C64.1 - Malignant neoplasm of right kidney, except renal pelvis (2) Metabolic acidosis (3) Anemia following surgery Status: Acute (4) Status post nephrectomy Status: Acute Assessment & Plan: 10/08/16- Dr Escamilla (5) Hypertension Status: Chronic Qualifiers: Hypertension type: essential hypertension Qualified Codes: I10 - Essential (primary) hypertension (6) Coronary artery disease Status: Chronic (7) Hypercholesterolemia Status: Chronic (8) Lumbar radiculopathy Status: Chronic (9) Degenerative disc disease Status: Chronic (10) Spinal stenosis Status: Chronic (11) History of [place] (myocardial infarction) Status: Resolved (12) Hx of breast cancer Status: Resolved (13) Encephalopathy Status: Resolved Assessment & Plan: Not POA - resolved with d/c FINISHED GOODS INSPECTOR. (14) Hypokalemia Status: Resolved Assessment & Plan: Present on admission, potassium 3.2 Plan/Intensity of Service 10/13/16 Prosthesis is noted to be low at 1.4, IV replacement ordered for today. Discussed importance of nutrition. Patient would like to try boost nutritional supplementation Reviewed importance of ambulation regularly to gain strength. Asked nursing staff to Radha patient 3 times a day in the muro. Otherwise, patient is doing well. Bowels are moving regularly. Minimal pain post -operatively Hemoglobin today stable at 10.9 Planning for discharge home and daughter will reside with patient while she recovers. Code Status Full Code Hospital Course Summary Disclaimer The hospital course summary below is not to be considered part of the above Progress Note. Hospital Course Summary 10/09/16 Continued Urology care and Nephrectomy management as per Dr Escamilla Case discussed with Dr Lainez. We will advance diet to clear liquids as see how she tolerates this Continue with normal saline at 100 ML per hour for ongoing hydration until oral intake has improved Continue with Zofran as needed for nausea Morphine FINISHED GOODS INSPECTOR for ongoing pain control. Monitor labs, mild leukocytosis. Will continue to follow and recheck CBC tomorrow. Hypernatremia and hypokalemia, both improved. 10/10 Doing okay today. Much less confused as compared to yesterday evening. FINISHED GOODS INSPECTOR stopped. Does not incisional ab pain-not bad a rest, but increases with movements. No nausea, but not passing flatus. Not having appetite. Breathing well; does work with her IS. No f/c. Continue IVF for hydration. Electrolytes and renal status stable. Continue BP medications - pressure controlled. Encourage continued IS. Encourage activities. Recheck CBC and BMP in am. 10/11 Doing about the same. Ad discomfort with movements-hard to get up and be active. Not much appetite, no nausea. Passing flatus, but not stool. Breathing well without SOA, cough, congestion, or pain with breathing. No sinus congestion or pain. Continue IVF for hydration, but can decrease to 75 cc/hr. Nursing to give Dulcolax suppository to help stimulate bowel function. Add Colace BID. Continue BP medications - pressure controlled. Encourage continued IS. Encourage activities. Consult PT/OT due to post surgical debility. Recheck CBC and BMP in am. 10/12/16 Generally doing well. Tolerating by mouth-discontinue IV fluids. MiraLAX increased to twice a day due to ongoing constipation, Senokot initiated. Dulcolax available if needed. Mild postoperative anemia present, hemoglobin stable overnight. Bicarbonate level has dropped progressively over the past 3 days, reassess tomorrow-may require sodium bicarbonate replacement therapy. Urine pH 5.5 today. Blood pressure well-controlled on usual medications. 10/13/16 Prosthesis is noted to be low at 1.4, IV replacement ordered for today. Discussed importance of nutrition. Patient would like to try boost nutritional supplementation Reviewed importance of ambulation regularly to gain strength. Asked nursing staff to Radha patient 3 times a day in the muro. Otherwise, patient is doing well. Bowels are moving regularly. Minimal pain post -operatively Hemoglobin today stable at 10.9 Planning for discharge home and daughter will reside with patient while she recovers. RUDDY LEE MD 10/13/16 6904: Assessment & Plan Assessment I have independently evaluated and examined this patient. I reviewed the chart, the patient's history, and the CLOTH DYER's documented findings as above. We discussed and formulated the assessment and plan as above with additions as below: Mrs. Combs complains of being unsteady when she is up and needing assistance to get to and from the bathroom. She told me that she is going to have to go to a "assisted" because she can't manage at home by herself. She is voiding well and has had bowel movements. The patient is alert and speech is fluent. Respirations are nonlabored although breath sounds are slightly diminished at the left base. Abdomen is soft. Metabolic acidosis is resolved with bicarbonate 23 today, creatinine and hemoglobin stable. Phosphorus low-1.4 Sodium phosphate replaced-20 mmol earlier today. Recheck electrolytes tomorrow morning. PT to reassess for [facility] placement in [place]. Will notify case management and morning. Plan/Intensity of Service Laboratory data reviewed, discussed with pharmacy and nursing. LUIS SINGH APRN Oct 13, 2016 16:20 RUDDY LEE MD Oct 13, 2016 22:25
[2016-10-13 20:00] VITALS: RESP 16
[2016-10-13] MEDS: PRAVASTATIN 20 MG TABLET PO SCH (21:01)
[2016-10-14] VITALS: BP 122/61; PULSE 88; RESP 16; TEMP 96.3; O2SAT 95
--- NOTE | 2016-10-14 00:23 | NUR ---
Chart Check 24 hour chart check completed
[2016-10-14 05:02] LABS: ALBUMIN 2.7 G/DL (3.5-5.0); ANION GAP 8 MEQ/L (5-15); BUN/CREATININE RATIO 14 RATIO (6-26); CALCIUM 8.9 MG/DL (8.4-10.2); CHLORIDE 107 MEQ/L (98-107); CO2 - CARBON DIOXIDE 25 MEQ/L (22-30); CREATININE 1.1 MG/DL (0.7-1.2); GLOMERULAR FILTRATION RATE 48; GLUCOSE 87 MG/DL (65-110); PHOSPHORUS 2.7 MG/DL (2.5-4.5); POTASSIUM 3.7 MEQ/L (3.6-5); SODIUM 140 MEQ/L (134-144)
--- NOTE | 2016-10-14 06:24 | NUR ---
STATUS PATIENT ALTER AND ORIENTED X3 .PATIENT UP X1 ONE ASSIST. PATIENT AMBULATED TO BATHROOM WITH WALKER. ON ROOM AIR.PATIENT DENIES PAIN,CHEST PAIN,SOA,OR N/V. BED ALARM ON . CALL LIGHT WITHIN REACH. CONTINUE TO MONITOR.
[2016-10-14 07:57] VITALS: PULSE 88; RESP 16
[2016-10-14 07:59] VITALS: BP 125/69; PULSE 91; RESP 16; TEMP 96.7; O2SAT 97
[2016-10-14] MEDS: METOPROLOL XL 50 MG TABLET PO SCH (08:18)
[2016-10-14] MEDS: SENNA + DOCUSATE TAB PO SCH (08:19)
[2016-10-14] MEDS: POLYETHYL.GLYCOL 3350 PACKET 17gm PO SCH (08:19)
--- NOTE | 2016-10-14 09:43 | NUR ---
CM SPOKE WITH PT, RE: DC PLAN. CONFIRMED THAT SHE WANTS TO RETURN HOME. SHE SAID SHE HAD BEEN THINKING SHE MIGHT NEED A SNU BUT TODAY SHE FEELS READY TO RETURN HOME. REVIEWED HOME HEALTH AND DME NEEDS: SHE SAID SHE DOES NOT NEED HOME HEALTH SINCE DAUGHTER WILL TAKE CARE OF EVERYTHING. SHE SAID SHE HAS A CANE AND HER SON BOUGHT HER A WALKER. SHE SAID SHE DOES NOT HAVE ANY FURTHER DC NEEDS/CONCERNS. REVIEWED IM LETTER WITH PT; SHE SIGNED AND HAD NO QUESTIONS/CONCERNS ABOUT IT. THIS WORKER CALLED HER DAUGHTER, ROSSY; CONFIRMED DC PLAN. SHE SAID SHE IS AGREEABLE WITH PT RETURNING HOME AND THAT SHE WILL BE THERE TO HELP THE PT LONG THE PT NEEDS IT. SHE WAS ALSO AGREEABLE FOR PT NOT TO HAVE HOME HEALTH AND THAT PT HAD NO FURTHER DME/DC NEEDS. PT AND DAUGHTER BOTH AGREEABLE TO DC TODAY IF DOCTOR ORDERS THIS. Addendum: 10/14/16 at 0945 by KEESHA CARY Amended: Links added.
[2016-10-14] MEDS ORDERED: POLY17PO18 PO (10:55)
[2016-10-14] MEDS ORDERED: TRAM50TA53 PO (10:55)
[2016-10-14] MEDS ORDERED: SENN-152 PO (10:55)
--- NOTE | 2016-10-14 11:25 | PNPDOC ---
LUIS SINGH V STRAIGHTENING MACHINE FEEDER 10/14/16 1125: Subjective Date DATE: 10/14/16 TIME: 11:20 Subjective Jacqui is seen today in follow up. She is alert, happy and pleasant this morning. She is seen up ambulate with physical therapy. She verbalizes her excitement about being discharged home. Denies having any pain, shortness of breath or concerns. Appetite improved today she ate a large breakfast. Bowels have moved postoperatively. Objective Vital Signs Vital signs Vital Signs Date Time Temp Pulse Resp B/P Pulse Ox O2 Delivery O2 Flow Rate FiO2 10/14/16 07:59 96.7 91 16 125/69 97 Room Air Height (Feet): 5 Height (Inches): 6.50 Weight (Kilograms): 72.500 General General Appearance: Alert, Orientated x 3, Cooperative, No Acute Distress Eyes (Brief) Eyes: FOUND: EOMI ENMT (Brief) ENMT: FOUND: mucosa moist, normal dentition, NOT FOUND: pharnyx erythema Neck (Brief) Neck: FOUND: midline, NOT FOUND: adenopathy, carotid bruits, tracheal deviation Respiratory (Brief) Respiratory: FOUND: clear all samson, equal bilaterally, NOT FOUND: wheezes Cardiovascular (Brief) Cardiac: FOUND: regular rate, regular rhythm, NOT FOUND: murmur, pedal edema Capillary Refill: <2 sec Abdomen (Brief) Abdominal: FOUND: BS normo active x4, soft, NOT FOUND: distended, tender Lymphatic (Brief) Lymphatic: NOT FOUND: adenopathy Musculoskeletal (Brief) Musculoskeletal: NOT FOUND: tenderness Integumentary (Brief) Integumentary: FOUND: dry, pink, warm Neurologic (Brief) Neurological: FOUND: cranial 2-12 intact Psychiatric (Brief) Psychiatric: FOUND: alert, attentive, normal affect, oriented Laboratory Laboratory Laboratory Tests 10/13/16 04:04 10/14/16 04:26 Laboratory Tests 10/13/16 04:04 Assessment & Plan Problems: (1) Renal cell carcinoma Status: Acute Qualifiers: Laterality: right Qualified Codes: C64.1 - Malignant neoplasm of right kidney, except renal pelvis (2) Metabolic acidosis (3) Anemia following surgery Status: Acute (4) Status post nephrectomy Status: Acute Assessment & Plan: 10/08/16- Dr Escamilla (5) Hypertension Status: Chronic Qualifiers: Hypertension type: essential hypertension Qualified Codes: I10 - Essential (primary) hypertension (6) Coronary artery disease Status: Chronic (7) Hypercholesterolemia Status: Chronic (8) Lumbar radiculopathy Status: Chronic (9) Degenerative disc disease Status: Chronic (10) Spinal stenosis Status: Chronic (11) History of [place] (myocardial infarction) Status: Resolved (12) Hx of breast cancer Status: Resolved (13) Encephalopathy Status: Resolved Assessment & Plan: Not POA - resolved with d/c PETAL CUTTER. (14) Hypokalemia Status: Resolved Assessment & Plan: Present on admission, potassium 3.2 Plan/Intensity of Service 10/14/16 Overall medically patient appears stable for discharge. Did review home medications. Asked nursing staff to contact Dr. Escamilla regarding resuming aspirin postoperatively. Recommend continuing MiraLAX and senna plus for postoperative bowel motivation May use tramadol as needed for pain control. Recommended following with primary care provider in [place], Dr. Pillai Code Status Full Code Hospital Course Summary Disclaimer The hospital course summary below is not to be considered part of the above Progress Note. Hospital Course Summary 10/09/16 Continued Urology care and Nephrectomy management as per Dr Escamilla Case discussed with Dr Lainez. We will advance diet to clear liquids as see how she tolerates this Continue with normal saline at 100 ML per hour for ongoing hydration until oral intake has improved Continue with Zofran as needed for nausea Morphine PETAL CUTTER for ongoing pain control. Monitor labs, mild leukocytosis. Will continue to follow and recheck CBC tomorrow. Hypernatremia and hypokalemia, both improved. 10/10 Doing okay today. Much less confused as compared to yesterday evening. PETAL CUTTER stopped. Does not incisional ab pain-not bad a rest, but increases with movements. No nausea, but not passing flatus. Not having appetite. Breathing well; does work with her IS. No f/c. Continue IVF for hydration. Electrolytes and renal status stable. Continue BP medications - pressure controlled. Encourage continued IS. Encourage activities. Recheck CBC and BMP in am. 10/11 Doing about the same. Ad discomfort with movements-hard to get up and be active. Not much appetite, no nausea. Passing flatus, but not stool. Breathing well without SOA, cough, congestion, or pain with breathing. No sinus congestion or pain. Continue IVF for hydration, but can decrease to 75 cc/hr. Nursing to give Dulcolax suppository to help stimulate bowel function. Add Colace BID. Continue BP medications - pressure controlled. Encourage continued IS. Encourage activities. Consult PT/OT due to post surgical debility. Recheck CBC and BMP in am. 10/12/16 Generally doing well. Tolerating by mouth-discontinue IV fluids. MiraLAX increased to twice a day due to ongoing constipation, Senokot initiated. Dulcolax available if needed. Mild postoperative anemia present, hemoglobin stable overnight. Bicarbonate level has dropped progressively over the past 3 days, reassess tomorrow-may require sodium bicarbonate replacement therapy. Urine pH 5.5 today. Blood pressure well-controlled on usual medications. 10/13/16 Prosthesis is noted to be low at 1.4, IV replacement ordered for today. Discussed importance of nutrition. Patient would like to try boost nutritional supplementation Reviewed importance of ambulation regularly to gain strength. Asked nursing staff to Radha patient 3 times a day in the muro. Otherwise, patient is doing well. Bowels are moving regularly. Minimal pain post -operatively Hemoglobin today stable at 10.9 Planning for discharge home and daughter will reside with patient while she recovers. 10/14/16 Overall medically patient appears stable for discharge. Did review home medications. Asked nursing staff to contact Dr. Escamilla regarding resuming aspirin postoperatively. Recommend continuing MiraLAX and senna plus for postoperative bowel motivation May use tramadol as needed for pain control. Recommended following with primary care provider in [place], RUDDY Donato MD 10/14/16 0203: Assessment & Plan Assessment I have independently evaluated and examined this patient. I reviewed the chart, the patient's history, and the STRAIGHTENING MACHINE FEEDER's documented findings as above. We discussed and formulated the assessment and plan as above with additions as below: Mrs. Combs reports that she feels better today and has been able to ambulate unassisted. After talking with family members and resting she feels comfortable that she can discharge home and manage with family assistance. She continues to urinate without difficulty and is having bowel movements regularly. She had no new concerns and is anxious for discharge. The patient is alert and in no distress. Respirations are nonlabored with good air flow and cardiac rhythm regular. Phosphorus improved at 2.7 today with stable creatinine and bicarbonate. Medically stable for discharge. Should have electrolytes and renal function reassessed in 1-2 weeks. LUIS SINGH APRN Oct 14, 2016 11:25 RUDDY LEE MD Oct 14, 2016 14:09
--- NOTE | 2016-10-14 16:10 | NUR ---
DISCHARGE PT A/O X3. UP WITH ASSIST OF ONE WITH WALKER AND GAIT BELT. 40 MELISSA REMOVED FROM ABD AND COVERED WITH STERI STRIPS. POST OP NEPHRECTOMY AND INCISION CARE INSTRUCTIONS REVIEWED. PT AND FAMILY'S QUESTION ANSWERED AND THEY VERBALIZED UNDERSTANDING. VS STABLE. PRESCRIPTIONS FOR TRAMADOL GIVEN TO DAUGHTER. COPY ON CHART. PT WHEELED TO ER ENTRANCE ACCOMPANIED BY NURSING STAFF AND FAMILY
--- NOTE | 2016-11-14 11:38 | DSF ---
DISCHARGE DIAGNOSIS Right renal cell carcinoma. OPERATION PERFORMED Right radical nephrectomy on 10/08/2016. MEDICAL ADMINISTRATIVE SPECIALIST Darell Lainez MD for medical management HISTORY OF PRESENT ILLNESS Mrs. 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 She had been on active surveillance when she changed her mind about the surveillance and wanted to have it surgically removed. After discussing options of continuing active surveillance versus partial nephrectomy versus total nephrectomy either by open procedure or robotic technique, patient decided to undergo total nephrectomy by open procedure, understanding the difference between the procedures and possible risks and complications. Patient was brought in to have the right radical nephrectomy which was done on the day of admission assisted by Dr. Perez. Surgery was uneventful and patient was fully recovered and was cared for on the surgical floor bed. Medical service was consulted for medical management given her age. She has hypertension and history of myocardial infarction and coronary artery disease and history of spinal stenosis and degenerative disc disease. She did very well overnight following the surgery. Respiratory effort was poor and we did have to encourage repeatedly about the incentive spirometry and nebulizer treatments were continued. Second day postop, bowel sounds started to be heard. Urine output was excellent and creatinine remained same as preop at 1.2 creatinine. Blood count dropped slightly due to hydration. Pathology report came back clear cell carcinoma Darlyn grade 2 tumor measuring 2.8 x 2.5 x 2 cm. with a clear margin. Despite having good bowel sounds, she did not have flatus. The following day, bowel sounds were excellent and started to pass flatus, therefore diet was started and advanced gradually as tolerated. On the fifth day postop, she was mobilizing fluid and able to ambulate much better on her own with encouragement. Ambulation was a problem requiring her to stay in the hospital extra days but on the day of discharge, she felt so much better and was able to ambulate on her own with minimum pain and tolerating a regular diet and had a bowel movement. Therefore, patient was discharged. Discharge arrangement was made. CR[facility]
== END 2016-10-14 16:05 | disposition home or self-care (01) | DRG 657 ==
LOC: SRG 06:40
PROVIDERS: ADMIT Specialist; ATTEND Specialist
PROC: 0TT00ZZ Resection of Right Kidney, Open Approach (ICD-10-PCS; principal; 2016-10-08 09:39)
DX: C64.1 Malignant neoplasm of right kidney, except renal pelvis (principal); E87.2 Acidosis; E87.6 Hypokalemia; R41.0 Disorientation, unspecified; D64.9 Anemia, unspecified; I10 Essential (primary) hypertension; I25.10 Atherosclerotic heart disease of native coronary artery without angina pectoris; E78.00 Pure hypercholesterolemia, unspecified; M10.9 Gout, unspecified; M48.00 Spinal stenosis, site unspecified; M54.16 Radiculopathy, lumbar region; Z79.82 Long term (current) use of aspirin; I25.2 Old myocardial infarction
CPT/HCPCS: 36415; 80048; 80053; 80069; 81003; 83735; 85014; 85018; 85025; 85027; 85610; 85730; 86850; 86900; 86901; 86922; 88307; 93005; 94640